=== PATIENT | female | born 1965 | race Caucasian/White ===

== ENCOUNTER → 2016-05-29 | Outpatient (CLI) | payer OTHER ==
[2016-01-16 15:15] VITALS: BP 86/48
[~2016-05-29] MED LIST: ALPR0.5T PO; ASPI-482 PO; BACL10TA PO; BUDE10.2 IH; CARB200C PO; CLON0.5T PO; DEXL60CA PO; DIGO0.12 PO; DIME240C PO; DOXY100T PO; ESCI10TA10 PO; HYDR-2666 PO; IOHEXOL 300 MG/ML 100ML VIAL. IV ONE; LOVA40TA2 PO; MODA100T18 PO; OXYC-250 PO; TRAZ100T12 PO; morphine ID
--- NOTE | 2016-05-29 15:23 | KCIC ---
PROCEDURE CTA abdomen pelvis with lower extremity run-off HISTORY Abdominal pain, left leg pain, rule extremities, tenderness of the abdomen TECHNIQUE After bolus of intravenous contrast, CT imaging was performed of the abdomen and pelvis as well as of the lower extremities. Multiplanar reconstruction images to include MIP and 3D reconstruction images are submitted. No oral contrast was given. Exposure: One or more of the following individualized dose reduction techniques were utilized for this exam: 1. Automated exposure control. 2. Adjustment of the mA and/or kV according to patient size. 3. Use of iterative reconstruction technique. Contrast: 100 cc Omnipaque 300. COMPARISON August 25, 2013 CT abdomen exam FINDINGS Not fully included, there is again at least moderate-sized pericardial effusion. There is a left electronic cardiac device. There is no significant pleural fluid. There is linear fibrotic change left lower lobe is seen previously. There is some scattered mild plaque of the normal caliber abdominal aorta, no dissection flap. There are patent single renal arteries bilaterally. Superior mesenteric and celiac arteries are patent. Inferior mesenteric artery is patent. There is some scattered mild plaque of the common iliac arteries bilaterally, no significant focal stenosis of the iliac arteries. Common femoral, superficial femoral, popliteal arteries are patent bilaterally. There is visualization of anterior tibial arteries bilaterally, dorsalis pedis arteries visualized. Vessels in the foot are poorly seen on this exam. There is visualization of the peroneal and posterior tibial arteries bilaterally although right posterior tibial artery is smaller in caliber than the right and the left peroneal artery smaller than the right. Left peroneal artery is difficult to visualize beyond the level of the distal tibia/fibula. There is a small quantity of nonspecific dependent free fluid in the pelvis. There is retained stool variably in the colon. Accurate evaluation of bowel is limited without oral contrast. There may be some wall thickening such as of the transverse colon. Both kidneys enhance, no hydronephrosis. There is a small hypodense lesion of the mid left kidney on the order of 0.9 centimeters, most likely a cyst. There is no adrenal nodularity. No focal abnormality is identified of the liver, pancreas, spleen. Gallbladder is present without obvious intraluminal abnormality by CT. There is pump device present of the left anterior abdomen with catheter coursing into the posterior aspect of the spinal canal, superior tip near terminating near T11. There is mild lumbar levoscoliosis. IMPRESSION 1. Present on previous 2013 exam and not fully included on this exam, there is at least moderate-sized pericardial effusion. 2. No significant stenosis is identified of the arterial vasculature to the level of the knees. There is some variable size of the runoff vessels bilaterally although visualized. 3. While potentially accentuated by peristalsis and incomplete distension, mild transverse colonic wall thickening is not excluded as could be due to mild colitis. There is a small quantity of nonspecific dependent free fluid in the pelvis. 4. There is small left renal cyst. Electronically signed by: Prateek Valdes MD (May 29, 2016 15:22:38)
== END | disposition home or self-care (01) ==
LOC: KCIC CT 08:26
PROVIDERS: ATTEND Internal Medicine Cardiovascular Disease
DX: R10.9 Unspecified abdominal pain (principal); M79.605 Pain in left leg; N28.1 Cyst of kidney, acquired
CPT/HCPCS: 75635; Q9967

== ENCOUNTER → 2016-06-18 | Day surgery (SDC) | payer MEDICARE ==
[~2016-06-18] MED LIST changes: +CEPH-264 PO; -IOHEXOL 300 MG/ML 100ML VIAL. IV ONE; +IV RINGERS,LACTATED 1000ML 1,000 ML IV SCH
[2016-06-18 13:30] VITALS: BP 96/62
--- NOTE | 2016-06-19 13:59 | PATHOLOGY ---
PATHOLOGY REPORT * * * * * * * * FINAL DIAGNOSIS: Colorectal biopsy, rectal polyp: - Tubular adenoma. COMMENT: There is no high-grade dysplasia or evidence of malignancy. (JPM:; d/t: 06/19/16) REPORT ELECTRONICALLY SIGNED BY: Jorge L Jacinto M.D. DATE/TIME: 06/19/2016 13:58 * * * * * * * * GROSS PATHOLOGY: Received in formalin labeled "Reyna Kimbrough and rectal polyp," is a segment of khan soft tissue measuring 0.3 cm in maximum dimension. The specimen is submitted entirely in cassette A1. (TTL; 06/18/2016) INITIAL CPT CODE(S): A; 56399 Professional services performed [place] [facility] [place] [address] Technical services performed by [facility] at [address] [place] [address] [address] [address]. SPECIMEN(S) RECEIVED: A.Rectal polyp CLINICAL HISTORY: Abdominal pain, melena PATIENT: REYNA KIMBROUGH /AGE: 2 1965 (Age: 50) PATIENT #: [id number] ALT CASE #: SPECIMEN COLLECTION DATE: 06/18/2016 SPECIMEN RECEIVED DATE: 06/18/2016 [facility] - [address] [place] [address] - PHONE: [phone] * * * END OF REPORT * * *
== END ==
LOC: SURG 12:04
PROVIDERS: ATTEND Internal Medicine Gastroenterology
DX: K62.1 Rectal polyp (principal); K64.0 First degree hemorrhoids; K29.50 Unspecified chronic gastritis without bleeding; K44.9 Diaphragmatic hernia without obstruction or gangrene; K21.9 Gastro-esophageal reflux disease without esophagitis; E78.00 Pure hypercholesterolemia, unspecified; M81.0 Age-related osteoporosis without current pathological fracture; Z90.721 Acquired absence of ovaries, unilateral; Z98.890 Other specified postprocedural states
CPT/HCPCS: 88305

== ENCOUNTER 2016-06-22 15:16 | Emergency (ER) | payer MEDICARE ==
[~2016-06-22] VITALS: Ht 170.2 cm; Wt 48.1 kg
[~2016-06-22 15:16] MED LIST changes: -CEPH-264 PO; -IV RINGERS,LACTATED 1000ML 1,000 ML IV SCH
[2016-06-22] MEDS ORDERED: OXYCODONE/APAP 10/325 TABLET. PO ONE (16:45)
--- NOTE | 2016-06-22 16:51 | PHYS DOC ---
Past Medical History Past Medical History: Cancer, COPD, High Cholesterol, Heart Disease, Hypertension, Other Additional Past Medical Histor: MS, Osteoporosis, carmichael's esophagus, mitral vavle insuf. endometriosis Past Surgical History: Angioplasty, Hysterectomy, Pacemaker, Tonsillectomy, Other Additional Past Surgical Histo: Morphine pump,Mesh placed r/t "a lot of laproscopies," "Part of Thyroid" Alcohol Use: None Drug Use: None Adult General Chief Complaint Chief Complaint: FLANK PAIN HPI HPI Patient is a 50 year old female who presents with complaint of left-sided flank pain. The patient states that she has had the pain for the past 6 months. Patient has had multiple workups with no conclusive evidence for the cause of the patient's symptoms. The patient has history of multiple sclerosis, cardiomyopathy, and hypertension. Patient follows with Dr. Alarcon who has been helping a shunt to further investigate cause of her pain. The patient has a morphine pump in place for treatment of chronic pain and takes oral Percocet for breakthrough pain at home. The patient states that she feels like she has a "basketball" in her spine that is causing her pain. The patient recently had a colonoscopy done by Dr. Narayan on June 18 and had removal of a nonmalignant polyp. The patient denies any fevers. The patient states that she has had dysuria but denies gross blood in her urine. Due to continued pain the patient came to the emergency department for evaluation. Patient states that her pain is 10 out of 10, constant, and radiates from her left flank into her groin. Patient admits that this is consistent with her symptoms since onset 6 months ago. Review of Systems Review of Systems Constitutional: Denies fever or chills [] Eyes: Denies change in visual acuity, redness, or eye pain [] HENT: Denies nasal congestion or sore throat [] Respiratory: Denies cough or shortness of breath [] Cardiovascular: Denies chest pain or edema [] GI: Denies abdominal pain, nausea, vomiting, bloody stools or diarrhea [] : Denies dysuria or hematuria [] Musculoskeletal: Left-sided flank pain [] Integument: Denies rash or skin lesions [] Neurologic: Denies headache, focal weakness or sensory changes [] Current Medications Current Medications Current Medications Medications (Trade) Dose Ordered Sig/Abhijit Start Time Stop Time Status Last Admin Dose Admin Oxycodone/ Acetaminophen (Percocet 10/325) 1 tab 1X ONCE 06/22/16 16:45 06/22/16 16:48 DC 06/22/16 17:02 1 TAB Allergies Allergies Allergies Coded Allergies Type Severity Reaction Last Updated Verified No Known Allergies Allergy Unknown 06/18/16 No Physical Exam Physical Exam Constitutional: Alert, afebrile, appears mild to moderate discomfort. [] HENT: Normocephalic, atraumatic, bilateral external ears normal, oropharynx moist, no oral exudates, nose normal. [] Eyes: PERRLA, EOMI, conjunctiva normal, no discharge. [] Neck: Normal range of motion, no tenderness, supple, no stridor. [] Cardiovascular:Heart rate regular rhythm, no murmur [] Lungs & Thorax: Bilateral breath sounds clear to auscultation [] Abdomen: Bowel sounds normal, soft, left lower quadrant tenderness to palpation , no masses, no pulsatile masses. [] Skin: Warm, dry, no erythema, no rash. [] Back: Left paraspinous muscle tenderness to palpation, no CVA tenderness, no flank ecchymosis. [] Extremities: No tenderness, no cyanosis, no clubbing, ROM intact, no edema. [] Neurologic: Alert and oriented X 3, cranial nerves II through XII grossly intact , left lower extremity spasticity present. [] Current Patient Data Vital Signs Vital Signs Date Time Temp Pulse Resp B/P Pulse Ox O2 Delivery O2 Flow Rate FiO2 06/22/16 18:00 66 20 96/53 90 06/22/16 15:40 98.9 Room Air 98.9 Lab Values Laboratory Tests Test 06/22/16 15:30 Urine Collection Type Unknown Urine Color Dariana Urine Clarity Clear Urine pH 6.0 Urine Specific [place] >=1.030 Urine Protein Negativemg/dL (NEG-TRACE) Urine Glucose (UA) Negativemg/dL (NEG) Urine Ketones (Stick) Tracemg/dL (NEG) Urine Blood Moderate (NEG) Urine Nitrite Negative (NEG) Urine Bilirubin Small (NEG) Urine Urobilinogen Dipstick 1.0mg/dL (0.2 mg/dL) Urine Leukocyte Esterase Small (NEG) Urine RBC 6-10/HPF (0-2) Urine WBC Occ/HPF (0-4) Urine Squamous Epithelial Cells Occ/LPF Urine Bacteria Few/HPF (0-FEW) Urine Mucus Slight/LPF Microbiology 06/22/16 Urine Culture - Preliminary, Resulted 06/22/16 Urine Culture Result 1 (BRIAN) - Preliminary, Resulted EKG EKG Not performed [] Radiology/Procedures Radiology/Procedures [facility] [address] [place] [address] IMAGING REPORT Signed PATIENT: RA VALLEJO ACCOUNT: [id number] : 1965 LOCATION: ER AGE: 50 SEX: F EXAM STATUS: PRE ER ORD. PHYSICIAN: NIKKI YOUNG MD REASON: L flank and abdominal pain, recent colonoscopy on June 18, r/o free air PROCEDURE: ABDOMEN SUPINE & UPRIGHT Abdomen, 2 views, 06/22/2016: History: Left-sided pain The abdominal gas pattern is unremarkable. No free air seen in the abdomen. There is no evidence of organomegaly. Lower pelvic calcifications are compatible with phleboliths. Several small paraspinous opacities in the lower lumbar region on the left may represent additional phleboliths, however, a ureteral calculus cannot be entirely excluded. Clinical correlation is suggested. A spinal stimulator lead extends into the lower thoracic spinal canal. There is a mild thoracolumbar scoliosis. IMPRESSION: No acute abdominal abnormality is detected. DICTATED and SIGNED BY: YUNG HUDSON MD DATE: 06/22/16 174 CC: NIKKI YOUNG MD; CHRIS JEFFRIES MD ~ [] Course & Med Decision Making Course & Med Decision Making Pertinent Labs and Imaging studies reviewed. (See chart for details) Patient's UA shows evidence of urinary tract infection. Patient's abdominal x- rays do not show evidence of obstruction or free air. I spoke with Dr. Alarcon who stated that there was no indication for further testing at this time for the patient's chronic left flank pain. He recommended that the patient follow-up in his clinic in the next 3-5 days. Patient started on Keflex for treatment of urinary tract infection. Advised continue use of Percocet as needed for pain. Advised return emergency department for any worsening symptoms. Patient voiced understanding and in agreement with treatment plan. Dragon Disclaimer Dragon Disclaimer This electronic medical record was generated, in whole or in part, using a voice recognition dictation system. Departure Departure Impression: Primary Impression: UTI (lower urinary tract infection) Additional Impression: Chronic left flank pain Disposition: HOME, SELF-CARE Condition: IMPROVED Referrals: CHRIS JEFFRIES MD (PCP) ESTEFANI ALARCON MD Patient Instructions: Chronic Pain, Urinary Tract Infection Additional Instructions: Follow-up with Dr. Alarcon in the next 3-5 days. Return to the emergency department for any worsening symptoms. Scripts Cephalexin (Keflex)500 Mg Capsule1 Cap PO TID #21 CAP Prov:NIKKI YOUNG MD 06/22/16 Problem Qualifiers NIKKI YOUNG MD Jun 22, 2016 16:51
[2016-06-22 16:54] LABS: BILIRUBIN,URINE SMALL (NEG); GLUCOSE,URINE NEGATIVE (NEG); NITRITE,URINE NEGATIVE (NEG); PROTEIN,URINE NEGATIVE (NEG-TRACE)
[2016-06-22 17:44] LABS: BACTERIA,URINE FEW /HPF (0-FEW); SQUAMOUS EPITHELIAL CELL,UR OCC /LPF; WBC,URINE OCC /HPF (0-4)
--- NOTE | 2016-06-22 17:48 | RAD ---
Abdomen, 2 views, 06/22/2016: History: Left-sided pain The abdominal gas pattern is unremarkable. No free air seen in the abdomen. There is no evidence of organomegaly. Lower pelvic calcifications are compatible with phleboliths. Several small paraspinous opacities in the lower lumbar region on the left may represent additional phleboliths, however, a ureteral calculus cannot be entirely excluded. Clinical correlation is suggested. A spinal stimulator lead extends into the lower thoracic spinal canal. There is a mild thoracolumbar scoliosis. IMPRESSION: No acute abdominal abnormality is detected.
[2016-06-22 18:00] VITALS: BP 96/53
[2016-06-22] MEDS ORDERED: CEPH-264 PO (18:00)
== END 2016-06-22 18:36 | disposition home or self-care (01) ==
LOC: ER 15:16
DX: N39.0 Urinary tract infection, site not specified (principal); G89.29 Other chronic pain; I11.9 Hypertensive heart disease without heart failure; E78.00 Pure hypercholesterolemia, unspecified; G35 Multiple sclerosis; I10 Essential (primary) hypertension; J44.9 Chronic obstructive pulmonary disease, unspecified; K22.70 Barrett's esophagus without dysplasia; M81.0 Age-related osteoporosis without current pathological fracture; Z90.710 Acquired absence of both cervix and uterus; Z98.61 Coronary angioplasty status; Z95.0 Presence of cardiac pacemaker
CPT/HCPCS: 74020; 81001; 87086; 99285-25

== ENCOUNTER 2016-06-24 14:45 | Inpatient (IN) | payer MEDICARE ==
[~2016-06-24] VITALS: Ht 170.2 cm; Wt 51.4 kg
[~2016-06-24 14:45] MED LIST changes: +CEPH-264 PO
[2016-06-24] MEDS ORDERED: FENTANYL PF 100 MCG/2 ML VIAL. IV PRN (17:30)
[2016-06-24] MEDS ORDERED: ONDANSETRON PF 4 MG/2 ML VIAL. IV ONE (17:30)
[2016-06-24] MEDS ORDERED: IV NORMAL SALINE 1000ML BAG 1,000 ML IV SCH (17:30)
--- NOTE | 2016-06-24 17:35 | PHYS DOC ---
Past Medical History Past Medical History: Cancer, COPD, High Cholesterol, Heart Disease, Hypertension, Other Additional Past Medical Histor: MS, Osteoporosis, carmichael's esophagus, mitral vavle insuf. endometriosis Past Surgical History: Angioplasty, Hysterectomy, Pacemaker, Tonsillectomy, Other Additional Past Surgical Histo: Morphine pump,Mesh placed r/t "a lot of laproscopies," "Part of Thyroid" Alcohol Use: None Drug Use: None Adult General Chief Complaint Chief Complaint: WEAKNESS/GENERALIZED HPI HPI Patient is a 50 year old female who presents with complaint of left flank pain and generalized weakness. Patient was seen in the emergency department 2 days ago with similar complaints. Patient has had history of chronic left flank pain stating that it has worsened over the past 2 weeks. Workups for this pain with no significant findings. Most recently, the patient was found to have signs urinary tract infection and was started on an antibiotic. Patient states her symptoms have worsened over the past 2 days and she is having difficulty with generalized weakness. The patient states that she has been eating and drinking normal amounts at home. Patient rates her pain as 8 out of 10. Review of Systems Review of Systems Constitutional: Generalized weakness, Denies fever or chills [] Eyes: Denies change in visual acuity, redness, or eye pain [] HENT: Denies nasal congestion or sore throat [] Respiratory: Denies cough or shortness of breath [] Cardiovascular: Chest pressure [] GI: Left sided abdominal pain, denies nausea or vomiting [] : Denies dysuria or hematuria [] Musculoskeletal: Left flank pain [] Integument: Denies rash or skin lesions [] Neurologic: Denies headache, focal weakness or sensory changes [] Current Medications Current Medications Current Medications Medications (Trade) Dose Ordered Sig/[facility] Start Time Stop Time Status Last Admin Dose Admin Fentanyl Citrate 50 mcg 50 mcg PRN Q15MIN PRN 06/24/16 17:30 06/25/16 17:29 06/24/16 18:02 50 MCG Ondansetron HCl (Zofran) 4 mg 1X ONCE 06/24/16 17:30 06/24/16 17:31 DC 06/24/16 17:57 4 MG Sodium Chloride (Iv Sodium Chloride 0.9% 1000ml Bag) 1,000 ml @ 1,000 mls/hr Q1H 06/24/16 17:30 06/24/16 18:29 DC 06/24/16 17:58 1,000 MLS/HR Allergies Allergies Allergies Coded Allergies Type Severity Reaction Last Updated Verified No Known Allergies Allergy Unknown 06/18/16 No Physical Exam Physical Exam Constitutional: Alert, afebrile, appears in mild discomfort. [] HENT: Normocephalic, atraumatic, bilateral external ears normal, oropharynx moist, no oral exudates, nose normal. [] Eyes: PERRLA, EOMI, conjunctiva normal, no discharge. [] Neck: Normal range of motion, no tenderness, supple, no stridor. [] Cardiovascular:Heart rate regular rhythm, no murmur [] Lungs & Thorax: Bilateral breath sounds clear to auscultation [] Abdomen: Bowel sounds normal, soft, left lower quadrant tenderness to palpation , left lower quadrant subcutaneous pain pump in place no masses, no pulsatile masses. [] Skin: Warm, dry, no erythema, no rash. [] Back: No tenderness, left CVA tenderness. [] Extremities: No tenderness, no cyanosis, no clubbing, ROM intact, no edema. [] Neurologic: Alert and oriented X 3, normal motor function, normal sensory function, no focal deficits noted. [] Current Patient Data Vital Signs Vital Signs Date Time Temp Pulse Resp B/P Pulse Ox O2 Delivery O2 Flow Rate FiO2 06/24/16 17:15 60 19 90/57 92 Nasal Cannula 3 06/24/16 15:22 98.5 98.5 EKG EKG Interpreted by me: Heart rate 61, sinus rhythm, leftward axis, normal intervals , no acute ST/T-wave abnormalities present [] Radiology/Procedures Radiology/Procedures Not performed [] Course & Med Decision Making Course & Med Decision Making Pertinent Labs and Imaging studies reviewed. (See chart for details) I spoke with Dr. Alarcon who came and evaluated the patient in the emergency department. He agreed to accept care of patient in hospital for pain control. Spoke with patient who is in agreement with treatment plan. Dragon Disclaimer Dragon Disclaimer This electronic medical record was generated, in whole or in part, using a voice recognition dictation system. Departure Departure Impression: Primary Impression: Intractable pain Additional Impression: Multiple sclerosis Disposition: ADMITTED INPATIENT Admitting Physician: Glen Alarcon Condition: STABLE Referrals: CHRIS JEFFRIES MD (PCP) Problem Qualifiers NIKKI YOUNG MD Jun 24, 2016 17:35
[2016-06-24] MEDS ORDERED: ACETAMINOPHEN 325 MG TABLET. PO PRN (17:45)
[2016-06-24] MEDS ORDERED: ONDANSETRON PF 4 MG/2 ML VIAL. IV PRN (17:45)
[2016-06-24 18:18] LABS: BASO % 1 % (0-3); EOS % 2 % (0-3); HEMATOCRIT 38.9 % (36.0-47.0); HEMOGLOBIN 13.1 g/dL (12.0-15.5); LYMPH # 1.7 x10^3/uL (1.0-4.8); LYMPH % 54 % (24-48); MEAN CORPUSCULAR HEMOGLOBIN 33 pg (25-35); MEAN CORPUSCULAR HGB CONC 34 g/dL (31-37); MEAN CORPUSCULAR VOLUME 97 fL (79-100); MONO % 9 % (0-9); NEUT % 34 % (31-73); PLATELET COUNT 134 x10^3/uL (140-400); RED BLOOD COUNT 4.02 x10^6/uL (3.50-5.40); RED CELL DISTRIBUTION WIDTH 13.9 % (11.5-14.5); WHITE BLOOD COUNT 3.1 x10^3/uL (4.0-11.0)
[2016-06-24 18:35] LABS: CALCIUM 8.9 mg/dL (8.5-10.1); CREATININE 0.7 mg/dL (0.6-1.0); GFR 88.6; POTASSIUM 4.2 mmol/L (3.5-5.1)
[2016-06-24 20:15] VITALS: BP 91/57
[2016-06-24] MEDS: FENTANYL PF 100 MCG/2 ML VIAL. IV PRN (20:38)
[2016-06-24] MEDS: traZODone 100 MG TABLET. PO SCH (22:33)
[2016-06-24 23:00] VITALS: BP 93/41
--- NOTE | 2016-06-24 23:57 | ACF ---
Admission Forms Criteria ABDOMINAL PAIN Clinical Indications for Admission to Inpatient Care (Place 'X' for any and all applicable criteria): Admission is indicated for ANY ONE of the following(1)(2)(3)(4)(5): [X]I. Inpatient admission required rather than observation care (Also use Abdominal Pain: Observation Care, as appropriate) because of ANY ONE of the following: [X]a) Severe pain requiring acute inpatient management [ ]b) Identification of etiology/finding that requires inpatient care (eg, aortic dissection, free air) [ ]c) Absent bowel sounds with complete ileus(6) [ ]d) Suspected toxic megacolon [ ]e) Severe electrolyte abnormalities requiring inpatient care [ ]f) High fever or infection requiring inpatient admission as indicated by ANY ONE of following(7)(8): [ ] i) Appropriate outpatient or observational care antimicrobial treatment unavailable, not effective, or not feasible [ ] ii) Documented bacteremia [ ] iii) Temperature > 104.9 degrees F (oral) [ ] iv) T >103.1 F (oral) or < 96.8 F(rectal) that does not respond to all emergency treatment measures [ ]g) Signs of intestinal obstruction [B] [ ]h) Hemodynamic instability [ ]i) IV fluid to replace significant ongoing losses (greater than 3 L/m2 per day) (12)(13) [ ]j) Percutaneous or open drainage (eg, abscess, biliary tract ) procedures [ ]k) Parenteral nutrition regimen that must be implemented on inpatient basis [ ]l) Other condition,treatment or monitoring requiring inpatient admission. [ ]II. Peritoneal signs present [ ]III. Surgery needed that cannot be performed on an ambulatory basis. [ ]IV. Evaluation requires patient to not eat or drink for extended period ( eg, more than 24 hours). [ ]V. Contraindications and/or Inappropriate clinical situations for Observational Care in patients with abdominal pain, when ANY ONE of the following is required: [ ]a) Thorough evaluation is required to prevent catastrophic events due to delays in diagnosing (e.g.Mesenteric ischemia) 1,3 [ ]b) Patient with severe pathology or with chronic symptoms unlikely to improve in the ED stay (3) [ ]. General contraindications and/or Inappropriate clinical situations for Observational Care in patients with abdominal pain, when ANY ONE of the following is required: [ ]a) Prediction of prolongation of LOS based on ANY ONE of the following may be considered as a contraindication for observational care 2, 3, 4, 5, 6, 7, 8, 9, 10, 11 [ ]i) Age > 65 yrs. [ ]ii) Patient arriving by ambulance [ ]iii) Patient with high acuity [ ]iv) Patient requiring vital sign monitoring [ ]v) Patient on IV medication [ ]b) Systolic blood pressures 180mmHg 3,12 [ ]c) Patient with altered mental status including delirium and other alteration of consciousness, (3) [ ]d) Patient whose discharge disposition will be to a [facility] home or rehabilitation home should not be managed in Emergency Department Observation Unit. CMS rule requires 3 days hospital stay before such placement.3,13 [ ]e) Patient with failure to thrive due to broad array of etiologies 3,16,17 [ ]f) Inability to ambulate 3,14 Extended stay beyond goal length of stay may be needed for(2)(3): [ ]a) Persistent abdominal pain with suspected intra-abdominal process [ ]b) Diagnosed condition requiring continued stay (e.g., pancreatitis, complicated diverticulitis) [ ]c) Surgery (e.g., colectomy) The original [facility] content created by [employer] has been revised. The portions of the content which have been revised are identified through the use of italic text or in bold, and [facility] has neither reviewed nor approved the modified material.All other unmodified content is copyright [facility]. Please see references footnoted in the original [facility] edition 2016 Admission Criteria Met?: Yes BEATRICE CONRAD Jun 24, 2016 23:57
[2016-06-25] VITALS (8 sets, daily range): BP systolic 71–85; BP diastolic 37–50
[2016-06-25] MEDS: PANTOPRAZOLE 40 MG TABLET. PO SCH (05:54)
[2016-06-25] MEDS: FENTANYL PF 100 MCG/2 ML VIAL. IV PRN ×2 (05:58→15:50)
[2016-06-25 06:03] LABS: BASO % 1 % (0-3); CALCIUM 8.8 mg/dL (8.5-10.1); CREATININE 0.6 mg/dL (0.6-1.0); EOS % 3 % (0-3); GFR 105.4; HEMATOCRIT 37.3 % (36.0-47.0); HEMOGLOBIN 12.2 g/dL (12.0-15.5); LYMPH # 1.9 x10^3/uL (1.0-4.8); LYMPH % 58 % (24-48); MEAN CORPUSCULAR HEMOGLOBIN 32 pg (25-35); MEAN CORPUSCULAR HGB CONC 33 g/dL (31-37); MEAN CORPUSCULAR VOLUME 98 fL (79-100); MONO % 11 % (0-9); NEUT % 28 % (31-73); PLATELET COUNT 126 x10^3/uL (140-400); POTASSIUM 4.7 mmol/L (3.5-5.1); RED CELL DISTRIBUTION WIDTH 13.7 % (11.5-14.5); WHITE BLOOD COUNT 3.2 x10^3/uL (4.0-11.0)
--- NOTE | 2016-06-25 06:23 | EKG ---
[facility] [address] [place] [address] Test Date: 2016-06-24 Test Time: 17:57:55 Pat Name: RA VALLEJO Department: Room: 420 1 Gender: F Runner Worker: : 1965 Requested By: NIKKI YOUNG Order Number: [id number] Reading MD: Justyna Cooper Measurements Intervals [place] Rate: 61 P: 55 ME: 190 QRS: -26 QRSD: 76 T: 49 QT: 378 QTc: 382 Interpretive Statements SINUS RHYTHM LEFTWARD AXIS NON SPECIFIC ST T WAVE CHANGES POSSIBLY ABNORMAL ECG RI6.01 Compared to ECG 12/25/2015 18:58:49 Left-axis deviation now present Electronically Signed On 06-28-2016 15:39:33 FRONT OFFICE ATTENDANT by Justyna Cooper
[2016-06-25] MEDS ORDERED: PANTOPRAZOLE 40 MG TABLET. PO SCH (07:30)
[2016-06-25 07:36] LABS: PLT ESTIMATE DECREASED (ADEQUATE)
[2016-06-25] MEDS: ALBUTEROL SULFATE 2.5 MG/3 ML NEBU. NEB SCH ×4 (07:47→19:31)
[2016-06-25] MEDS: BUDESONIDE 0.5 MG/2 ML NEBU NEB SCH ×2 (07:47→19:33)
[2016-06-25] MEDS: NON FORMULARY ITEM (Dimethyl Fumarate (Tecfidera) 240 MG) PO SCH ×2 (09:00→20:40)
[2016-06-25] MEDS ORDERED: NON FORMULARY ITEM (Modafinil (Provigil) 200 MG) PO SCH (09:00)
[2016-06-25] MEDS ORDERED: NON FORMULARY ITEM (Budesonide/Formoterol Fumarate (Symbicort 160-4.5 Mcg Inhaler) 2 PUFF) IH SCH (09:00)
[2016-06-25] MEDS: ASPIRIN ENTERIC COATED 81 MG TABLET.DR. PO SCH (09:15)
[2016-06-25] MEDS: BACLOFEN 10 MG TABLET PO SCH ×3 (09:15→20:39)
[2016-06-25] MEDS: CEPHALEXIN 250 MG CAPSULE PO SCH ×3 (09:15→20:40)
[2016-06-25] MEDS: ESCITALOPRAM 10 MG TABLET. PO SCH (09:15)
[2016-06-25] MEDS: OXYCODONE/APAP 10/325 TABLET. PO PRN ×2 (09:15→20:38)
[2016-06-25] MEDS: DIGOXIN 125 MCG TABLET PO SCH (09:16)
[2016-06-25] MEDS: CARBAMAZEPINE 200 MG TABLET. PO SCH ×3 (09:16→20:39)
--- NOTE | 2016-06-25 09:37 | PDOC2 ---
GI CONSULT Reason For Consult: LLQ pain HPI: HPI: 51 y/o female w/ PMH as below who has previously seen Dr. Narayan. For epigastric pain, black stools, back pain, and abnormal CTA (showing mild transverse colon wall thickening), EGD and colonoscopy in 06/18/16 showed normal esophagus, chronic gastritis, normal duodenum, 12mm adenomatous rectal polyp, and non-bleeding internal hemorrhoids. 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 No h/o H. pylori on biopsies from 2010 or 2012. Additionally, duodenal biopsies have been negative for celiac sprue. Also, GES in 2013 for nausea, early satiety, and LUQ pain was normal. On this occasion, she was admitted through the ER w/ "severe" left flank pain w / radiation to periumbilical region and left groin. Similar pain can occur on the right as well. It is constant, getting worse, and has been present for about 6 months. No aggravating or alleviating factors. GERD symptoms controlled w/ PPI. No diarrhea or constipation, although stools look dark. Fairly bothersome nausea w/o vomiting. Believes unintentional weight loss of 10 pounds in 3 weeks despite no change in appetite. Notes dark urine w/ "bubbles." PMH: PMH: MS, thyroid cancer, GERD w/ h/o Clinton's esophagus, MVP, heart block, osteoporosis, narcotic dependence (on morphine pump and Percocet), nephrolithiasis, thyroidectomy, appendectomy, hysterectomy, pacemaker FH: Family History: Cancer, CAD, DM, Hypertension Social History: Smoke: <1 pack per day ALCOHOL: none Drugs: None ROS: GEN: Denies fevers, chills, sweats HEENT: Denies blurred vision, sore throat CV: Denies chest pain RESP: Denies shortness of air, cough GI: Per HPI : +dark urine "with bubbles" ENDO: +weight loss NEURO: Denies confusion, dizziness MSK: +chronic pain SKIN: Denies jaundice, pruritus VItals: Vitals: Vital Signs Date Time Temp Pulse Resp B/P Pulse Ox O2 Delivery O2 Flow Rate FiO2 06/25/16 09:16 60 76/46 2/9/17 09:15 Nasal Cannula 3.0 06/25/16 07:48 97 06/25/16 07:00 97.7 16 97.7 Labs: Labs: Laboratory Tests Test 06/24/16 17:55 06/25/16 05:15 White Blood Count 3.1x10^3/uL (4.0-11.0) 3.2x10^3/uL (4.0-11.0) Red Blood Count 4.02x10^6/uL (3.50-5.40) 3.80x10^6/uL (3.50-5.40) Hemoglobin 13.1g/dL (12.0-15.5) 12.2g/dL (12.0-15.5) Hematocrit 38.9% (36.0-47.0) 37.3% (36.0-47.0) Mean Corpuscular Volume 97fL (79-100) 98fL (79-100) Mean Corpuscular Hemoglobin 33pg (25-35) 32pg (25-35) Mean Corpuscular Hemoglobin Concent 34g/dL (31-37) 33g/dL (31-37) Red Cell Distribution Width 13.9% (11.5-14.5) 13.7% (11.5-14.5) Platelet Count 134x10^3/uL (140-400) 126x10^3/uL (140-400) Neutrophils (%) (Auto) 34% (31-73) 28% (31-73) Lymphocytes (%) (Auto) 54% (24-48) 58% (24-48) Monocytes (%) (Auto) 9% (0-9) 11% (0-9) Eosinophils (%) (Auto) 2% (0-3) 3% (0-3) Basophils (%) (Auto) 1% (0-3) 1% (0-3) Neutrophils # (Auto) 1.1x10^3uL (1.8-7.7) 0.9x10^3uL (1.8-7.7) Lymphocytes # (Auto) 1.7x10^3/uL (1.0-4.8) 1.9x10^3/uL (1.0-4.8) Monocytes # (Auto) 0.3x10^3/uL (0.0-1.1) 0.4x10^3/uL (0.0-1.1) Eosinophils # (Auto) 0.1x10^3/uL (0.0-0.7) 0.1x10^3/uL (0.0-0.7) Basophils # (Auto) 0.0x10^3/uL (0.0-0.2) 0.0x10^3/uL (0.0-0.2) Sodium Level 145mmol/L (136-145) 145mmol/L (136-145) Potassium Level 4.2mmol/L (3.5-5.1) 4.7mmol/L (3.5-5.1) Chloride Level 107mmol/L (98-107) 111mmol/L (98-107) Carbon Dioxide Level 32mmol/L (21-32) 32mmol/L (21-32) Anion Gap 6 (6-14) 2 (6-14) Blood Urea Nitrogen 18mg/dL (7-20) 16mg/dL (7-20) Creatinine 0.7mg/dL (0.6-1.0) 0.6mg/dL (0.6-1.0) Estimated GFR (Cockcroft-Gault) 88.6 105.4 Glucose Level 97mg/dL (70-99) 88mg/dL (70-99) Calcium Level 8.9mg/dL (8.5-10.1) 8.8mg/dL (8.5-10.1) Troponin I Quantitative < 0.017ng/mL (0.000-0.055) < 0.017ng/mL (0.000-0.055) Segmented Neutrophils % 25% (35-66) Band Neutrophils % 8% (0-9) Lymphocytes % 53% (24-48) Atypical Lymphocytes % (Manual) 2% (0-0) Monocytes % 12% (0-10) Platelet Estimate Decreased (ADEQUATE) Allergies: Coded Allergies: No Known Allergies (Unverified Allergy, Unknown, 06/18/16) Medications: Current Medications Medications (Trade) Dose Ordered Sig/Abhijit Route PRN Reason Start Time Stop Time Status Last Admin Dose Admin Fentanyl Citrate 50 mcg 50 mcg PRN Q15MIN PRN IV PAIN GREATER THAN 3/10 06/24/16 17:30 06/25/16 17:29 06/24/16 18:02 Sodium Chloride (Iv Sodium Chloride 0.9% 1000ml Bag) 1,000 ml @ 1,000 mls/hr Q1H IV 06/24/16 17:30 06/24/16 18:29 DC 06/24/16 17:58 Ondansetron HCl (Zofran) 4 mg 1X ONCE IV 06/24/16 17:30 06/24/16 17:31 DC 06/24/16 17:57 Ondansetron HCl (Zofran) 4 mg PRN Q8HRS PRN IV NAUSEA/VOMITING 06/24/16 17:45 06/25/16 17:44 06/25/16 06:02 Fentanyl Citrate (Fentanyl 2ml Vial) 50 mcg PRN Q2HR PRN IV PAIN 06/24/16 17:45 06/25/16 17:44 06/25/16 05:58 Aspirin (Ecotrin) 81 mg DAILY PO 06/25/16 09:00 06/25/16 09:15 Baclofen (Lioresal) 10 mg TID PO 06/25/16 09:00 06/25/16 09:15 Escitalopram Oxalate (Lexapro) 10 mg DAILY PO 06/25/16 09:00 06/25/16 09:15 Oxycodone/ Acetaminophen (Percocet 10/325) 1 tab PRN Q4HRS PRN PO PAIN 06/24/16 22:15 06/25/16 09:15 Trazodone HCl (Desyrel) 200 mg QHS PO 06/24/16 22:30 06/24/16 22:33 Carbamazepine (Tegretol) 200 mg TID PO 06/25/16 09:00 06/25/16 09:16 Cephalexin HCl (Keflex) 500 mg TID PO 06/25/16 09:00 06/25/16 09:15 Digoxin (Lanoxin) 125 mcg DAILY PO 06/25/16 09:00 06/25/16 09:16 Budesonide (Pulmicort) 0.5 mg RTBID NEB 06/25/16 08:00 06/25/16 07:47 Albuterol Sulfate (Ventolin Neb Soln) 2.5 mg RTQID NEB 06/25/16 08:00 06/25/16 07:47 Pantoprazole Sodium (Protonix) 40 mg DAILY06 PO 06/25/16 06:00 06/25/16 05:54 Imaging: Imaging: CTA A/P w/ LE run-off 05/2015 IMPRESSION 1. Present on previous 2013 exam and not fully included on this exam, there is at least moderate-sized pericardial effusion. 2. No significant stenosis is identified of the arterial vasculature to the level of the knees. There is some variable size of the runoff vessels bilaterally although visualized. 3. While potentially accentuated by peristalsis and incomplete distension, mild transverse colonic wall thickening is not excluded as could be due to mild colitis. There is a small quantity of nonspecific dependent free fluid in the pelvis. 4. There is small left renal cyst. PE: GEN: NAD, was asleep HEENT: Atraumatic, PERRL LUNGS: CTAB anteriorly HEART: RRR +murm ABD: NABS, S/ND - left flank pain along ribs toward LUQ EXTREMITY: No edema SKIN: No rashes, no jaundice NEURO/PSYCH: A & O 3 A/P: A/P: Left flank pain -radiates to LUQ, groin, can occur on right -previous GI workup as above includes EGD, colonoscopy, GES -h/o GERD on PPI Weight loss Chronic pain -morphine pump, Lortab MS -- Reviewed w/ Dr. Narayan. Not clearly a GI issue - will check SBS. Also consult neurology w/ h/o MS. ?need for spine imaging OSWALD CEE Jun 25, 2016 09:37
[2016-06-25] MEDS: IV 1/2 NORMAL SALINE 1,000 ML IV SCH (15:48)
--- NOTE | 2016-06-25 15:55 | PDOC2 ---
NEUROLOGY CONSULT Date of Admission Date of Admission DATE: 06/25/16 TIME: 15:43 Reason for Consult Reason for Consult: IMPRESSION: Chronic left flank pain. Chronic left LE weakness x 4 years. MS, per history. CAD DM Thyroid cancer since 2001. Chronic neck and back pain. RECOMMENDATIONS/PLAN: Continue Tecfidera home regimen. She can take it from her home supply. [facility] does not have it in hospital. Lab: see orders. Treat medical diseases. OT/PT. FU with Dr. Ball in [facility] per her schedule. MRI is contraindicated due to pacemaker. HISTORY OF THE PRESENT ILLNESS: 50-y-old female patient with Hx of MS and she said she was diagnosed in . She has been treated with Tecfidera for about 3 years so far. She had brain MRI in 03/2014 which was unremarkable. She received pacemaker in 2013 and no further MRI since. PAST MEDICAL HISTORY: Please see above. PAST SURGERY HISTORY: Pacemaker Placement ALLERGY: Unknown MEDICATIONS: Refer to [facility] FAMILY HISTORY: Non contributory. SOCIAL HISTORY: Denies smoking, drinking, and illicit drug use. REVIEW OF SYSTEMS: Constitutional: No malnutrition, weight loss, cachexia. Head: No traumatic brain or head injury. Skin: No edema, or rash. Ear: No infection, tinnitus. Eyes: No vision loss or color blindness. Nose: No bleeding or purulent discharges. Hearing: No hearing decrease. Neck: No injury. Breast: No history of cancer, masses,or discharges. Cardiac: CAD. Pulmonary: No COPD. GI: No GI ulcer, GI bleeding. Urinary/genital: UTI. Endocrinologic: Diabetes Mellitus Skeletomuscular: Chronic left LE weakness.. Neurological: see HP. Psychiatric: Denies drug use/abuse. Otherwise, not [id number] review of systems. PHYSICAL EXAMINATION: General appearance is in no acute distress. HEENT: Normocephalic and nontraumatic. Eyes, nose, ears, and throat are unremarkable. Neck is supple. No lymphadenopathy. No crepitus. Cardiovascular: S1, S2, regular rate and rhythm. Pulmonary: Clear to auscultation bilaterally. Abdomen: Bowel sounds are positive. Extremities: No rash, lesions, or edema. No restriction of range of motion NEUROLOGICAL EXAMINATION: Alert Oriented to time, place and person. PERRL. EOMI. CN: no focal findings. Muscle tone: within normal. Muscle strength: 4+, left LE 4 DTR: 2 Plantar reflex: Neutral response bilaterally Gait: not examined in bed. Sensory exam: no abnormal findings. No cerebellar signs elicited. F-T-N test accurate. Current Medications Current Medications Current Medications Fentanyl Citrate 50 mcg 50 mcg PRN Q15MIN PRN IV PAIN GREATER THAN 3/10 Last administered on 06/24/16 18:02; Start 06/24/16 at 17:30; Stop 06/25/16 at 17:29 Sodium Chloride (Iv Sodium Chloride 0.9% 1000ml Bag) 1,000 ml @ 1,000 mls/hr Q1H IV Last administered on 06/24/16 17:58; Start 06/24/16 at 17:30; Stop at 18:29; Status DC Ondansetron HCl (Zofran) 4 mg 1X ONCE IV Last administered on 06/24/16 17:57; Start 06/24/16 at 17:30; Stop 06/24/16 at 17:31; Status DC Ondansetron HCl (Zofran) 4 mg PRN Q8HRS PRN IV NAUSEA/VOMITING Last administered on 06/25/16 06:02; Start 06/24/16 at 17:45; Stop 06/25/16 at 17:44 Fentanyl Citrate (Fentanyl 2ml Vial) 50 mcg PRN Q2HR PRN IV PAIN Last administered on 06/25/16 05:58; Start 06/24/16 at 17:45; Stop 06/25/16 at 17:44 Acetaminophen (Tylenol) 650 mg PRN Q4HRS PRN PO FEVER; Start 06/24/16 at 17:45; Stop 06/25/16 at 17:44 Aspirin (Ecotrin) 81 mg DAILY PO Last administered on 06/25/16 09:15; Start 06/25/16 at 09:00 Baclofen (Lioresal) 10 mg TID PO Last administered on 06/25/16 09:15; Start 06/25/16 at 09:00 Clonazepam (Klonopin) 0.5 mg PRN TID PRN PO TREMORS; Start 06/24/16 at 22:15 Escitalopram Oxalate (Lexapro) 10 mg DAILY PO Last administered on 06/25/16 09: 15; Start 06/25/16 at 09:00 Oxycodone/ Acetaminophen (Percocet 10/325) 1 tab PRN Q4HRS PRN PO PAIN Last administered on 06/25/16 09:15; Start 06/24/16 at 22:15 Trazodone HCl (Desyrel) 200 mg QHS PO Last administered on 06/24/16 22:33; Start 06/24/16 at 22:30 Non-Formulary Medication 2 puff BID IH ; Start 06/25/16 at 09:00; Status UNV Carbamazepine (Tegretol) 200 mg TID PO Last administered on 06/25/16 09:16; Start 06/25/16 at 09:00 Cephalexin HCl (Keflex) 500 mg TID PO Last administered on 06/25/16 09:15; Start 06/25/16 at 09:00 Pantoprazole Sodium (Protonix) 40 mg DAILYAC PO ; Start 06/25/16 at 07:30; Stop 06/25/16 at 07:30; Status DC Digoxin (Lanoxin) 125 mcg DAILY PO Last administered on 06/25/16 09:16; Start 06/25/16 at 09:00 Non-Formulary Medication 240 mg BID PO ; Start 06/25/16 at 09:00; Status UNV Atorvastatin Calcium (Lipitor) 10 mg HS PO ; Start 06/25/16 at 21:00 Non-Formulary Medication 200 mg DAILY PO ; Start 06/25/16 at 09:00; Status UNV Budesonide (Pulmicort) 0.5 mg RTBID NEB Last administered on 06/25/16 07:47; Start 06/25/16 at 08:00 Albuterol Sulfate (Ventolin Neb Soln) 2.5 mg RTQID NEB Last administered on 06/25 15:37; Start 06/25/16 at 08:00 Pantoprazole Sodium 40 mg 40 mg DAILY06 PO Last administered on 06/25/16 05:54 ; Start 06/25/16 at 06:00 Sodium Chloride (Iv Sodium Chloride 0.45%) 1,000 ml @ 60 mls/hr [id number] IV ; Start 06/25/16 at 15:45 Active Scripts Active Keflex (Cephalexin) 500 Mg Capsule 1 Cap PO TID Reported Trazodone Hcl 100 Mg Tablet 200 Mg PO HS Klonopin (Clonazepam) 0.5 Mg Tablet 0.5 Mg PO TID PRN [morphine] 14.5 Mg ID DAILY Lovastatin 40 Mg Tablet 40 Mg PO HS Aspir 81 (Aspirin) 81 Mg Tablet.dr 81 Mg PO DAILY Tecfidera (Dimethyl Fumarate) 240 Mg Capsule.dr 240 Mg PO BID Symbicort 160-4.5 Mcg Inhaler (Budesonide/Formoterol Fumarate) 10.2 Gm Hfa.aer.ad 2 Puff IH BID Percocet 10-325 Mg Tablet (Oxycodone/Acetaminophen) 1 Each Tablet 1 Tab PO Q4HRS PRN Baclofen 10 Mg Tablet 1 Tab PO TID Trazodone Hcl 100 Mg Tablet 2 Tab PO QHS Provigil (Modafinil) 100 Mg Tablet 200 Mg PO DAILY Dexilant (Dexlansoprazole) 60 Mg Cap.dr.mp 60 Mg PO DAILY Digoxin 0.125 Mg/2.5 Ml Solution 0.125 Mg PO DAILY Carbamazepine 200 Mg Cpmp.12hr 200 Mg PO TID Lexapro (Escitalopram Oxalate) 10 Mg Tablet 10 Mg PO DAILY Allergies Allergies: Coded Allergies: No Known Allergies (Unverified Allergy, Unknown, 06/18/16) Vitals VITALS Vital Signs Date Time Temp Pulse Resp B/P Pulse Ox O2 Delivery O2 Flow Rate FiO2 06/25/16 11:52 Nasal Cannula 3.0 06/25/16 11:00 97.7 60 17 71/37 99 97.7 Labs Labs Laboratory Tests Test 06/24/16 17:55 06/25/16 05:15 White Blood Count 3.1x10^3/uL (4.0-11.0) 3.2x10^3/uL (4.0-11.0) Red Blood Count 4.02x10^6/uL (3.50-5.40) 3.80x10^6/uL (3.50-5.40) Hemoglobin 13.1g/dL (12.0-15.5) 12.2g/dL (12.0-15.5) Hematocrit 38.9% (36.0-47.0) 37.3% (36.0-47.0) Mean Corpuscular Volume 97fL (79-100) 98fL (79-100) Mean Corpuscular Hemoglobin 33pg (25-35) 32pg (25-35) Mean Corpuscular Hemoglobin Concent 34g/dL (31-37) 33g/dL (31-37) Red Cell Distribution Width 13.9% (11.5-14.5) 13.7% (11.5-14.5) Platelet Count 134x10^3/uL (140-400) 126x10^3/uL (140-400) Neutrophils (%) (Auto) 34% (31-73) 28% (31-73) Lymphocytes (%) (Auto) 54% (24-48) 58% (24-48) Monocytes (%) (Auto) 9% (0-9) 11% (0-9) Eosinophils (%) (Auto) 2% (0-3) 3% (0-3) Basophils (%) (Auto) 1% (0-3) 1% (0-3) Neutrophils # (Auto) 1.1x10^3uL (1.8-7.7) 0.9x10^3uL (1.8-7.7) Lymphocytes # (Auto) 1.7x10^3/uL (1.0-4.8) 1.9x10^3/uL (1.0-4.8) Monocytes # (Auto) 0.3x10^3/uL (0.0-1.1) 0.4x10^3/uL (0.0-1.1) Eosinophils # (Auto) 0.1x10^3/uL (0.0-0.7) 0.1x10^3/uL (0.0-0.7) Basophils # (Auto) 0.0x10^3/uL (0.0-0.2) 0.0x10^3/uL (0.0-0.2) Sodium Level 145mmol/L (136-145) 145mmol/L (136-145) Potassium Level 4.2mmol/L (3.5-5.1) 4.7mmol/L (3.5-5.1) Chloride Level 107mmol/L (98-107) 111mmol/L (98-107) Carbon Dioxide Level 32mmol/L (21-32) 32mmol/L (21-32) Anion Gap 6 (6-14) 2 (6-14) Blood Urea Nitrogen 18mg/dL (7-20) 16mg/dL (7-20) Creatinine 0.7mg/dL (0.6-1.0) 0.6mg/dL (0.6-1.0) Estimated GFR (Cockcroft-Gault) 88.6 105.4 Glucose Level 97mg/dL (70-99) 88mg/dL (70-99) Calcium Level 8.9mg/dL (8.5-10.1) 8.8mg/dL (8.5-10.1) Troponin I Quantitative < 0.017ng/mL (0.000-0.055) < 0.017ng/mL (0.000-0.055) Segmented Neutrophils % 25% (35-66) Band Neutrophils % 8% (0-9) Lymphocytes % 53% (24-48) Atypical Lymphocytes % (Manual) 2% (0-0) Monocytes % 12% (0-10) Platelet Estimate Decreased (ADEQUATE) Creatine Kinase 33U/L (26-192) Thyroid Stimulating Hormone (TSH) 1.062uIU/mL (0.358-3.74) Laboratory Tests Test 06/24/16 17:55 06/25/16 05:15 White Blood Count 3.1x10^3/uL (4.0-11.0) 3.2x10^3/uL (4.0-11.0) Red Blood Count 4.02x10^6/uL (3.50-5.40) 3.80x10^6/uL (3.50-5.40) Hemoglobin 13.1g/dL (12.0-15.5) 12.2g/dL (12.0-15.5) Hematocrit 38.9% (36.0-47.0) 37.3% (36.0-47.0) Mean Corpuscular Volume 97fL (79-100) 98fL (79-100) Mean Corpuscular Hemoglobin 33pg (25-35) 32pg (25-35) Mean Corpuscular Hemoglobin Concent 34g/dL (31-37) 33g/dL (31-37) Red Cell Distribution Width 13.9% (11.5-14.5) 13.7% (11.5-14.5) Platelet Count 134x10^3/uL (140-400) 126x10^3/uL (140-400) Neutrophils (%) (Auto) 34% (31-73) 28% (31-73) Lymphocytes (%) (Auto) 54% (24-48) 58% (24-48) Monocytes (%) (Auto) 9% (0-9) 11% (0-9) Eosinophils (%) (Auto) 2% (0-3) 3% (0-3) Basophils (%) (Auto) 1% (0-3) 1% (0-3) Neutrophils # (Auto) 1.1x10^3uL (1.8-7.7) 0.9x10^3uL (1.8-7.7) Lymphocytes # (Auto) 1.7x10^3/uL (1.0-4.8) 1.9x10^3/uL (1.0-4.8) Monocytes # (Auto) 0.3x10^3/uL (0.0-1.1) 0.4x10^3/uL (0.0-1.1) Eosinophils # (Auto) 0.1x10^3/uL (0.0-0.7) 0.1x10^3/uL (0.0-0.7) Basophils # (Auto) 0.0x10^3/uL (0.0-0.2) 0.0x10^3/uL (0.0-0.2) Sodium Level 145mmol/L (136-145) 145mmol/L (136-145) Potassium Level 4.2mmol/L (3.5-5.1) 4.7mmol/L (3.5-5.1) Chloride Level 107mmol/L (98-107) 111mmol/L (98-107) Carbon Dioxide Level 32mmol/L (21-32) 32mmol/L (21-32) Anion Gap 6 (6-14) 2 (6-14) Blood Urea Nitrogen 18mg/dL (7-20) 16mg/dL (7-20) Creatinine 0.7mg/dL (0.6-1.0) 0.6mg/dL (0.6-1.0) Estimated GFR (Cockcroft-Gault) 88.6 105.4 Glucose Level 97mg/dL (70-99) 88mg/dL (70-99) Calcium Level 8.9mg/dL (8.5-10.1) 8.8mg/dL (8.5-10.1) Troponin I Quantitative < 0.017ng/mL (0.000-0.055) < 0.017ng/mL (0.000-0.055) Segmented Neutrophils % 25% (35-66) Band Neutrophils % 8% (0-9) Lymphocytes % 53% (24-48) Atypical Lymphocytes % (Manual) 2% (0-0) Monocytes % 12% (0-10) Platelet Estimate Decreased (ADEQUATE) Creatine Kinase 33U/L (26-192) Thyroid Stimulating Hormone (TSH) 1.062uIU/mL (0.358-3.74) KEVIN JOHNSON MD Jun 25, 2016 15:55
--- NOTE | 2016-06-25 16:53 | PDOC1 ---
History and Physical Date of Admission Date of Admission DATE: 06/24/16 Identification/Chief Complaint Chief Complaint L flank pain Source Source: Patient History of Present Illness History of Present Illness Pt complained of L flank pain for several days. She came to the hospital two days previous and was diagnosed with a UTI and given antibiotics. Pt has a history of MS. Pt described her pain as "feels like I have a basketball in my spine." Pt stated the pain starts in her LLQ and radiates to her back on her left side and into her groin. Pt rates the pain at a 8-9 on a 1-10 scale. Pt stated the pain is sharp. Pt states she is nauseated. Pt states, "I pee bubbles." Pt stated her urine is dark brown but not red. Pt stated her appetite is suppressed and she has been eating and drinking less lately. Pt stated she has had around a 10 pound weight loss in the past 3 weeks. Pt stated her L leg sometime becomes numb. Past Medical History Cardiovascular: CAD, Hyperlipidemia, Other Pulmonary: COPD, Pneumonia, Other CENTRAL NERVOUS SYSTEM: Other GI: Other Psych: Anxiety, Depression Musculoskeletal: Other Renal/: Other Endocrine: Osteoporosis Past Surgical History Past Surgical History: Pacemaker, Hysterectomy, Other Family History Family History: Heart Disease Social History Smoke: <1 pack per day ALCOHOL: none Drugs: None Current Problem List Problem List Problems Medical Problems: (1) Intractable pain Status: Acute (2) Multiple sclerosis Status: Acute Problems: Current Medications Current Medications Current Medications Fentanyl Citrate 50 mcg 50 mcg PRN Q15MIN PRN IV PAIN GREATER THAN 3/10 Last administered on 06/24/16 18:02; Start 06/24/16 at 17:30; Stop 06/25/16 at 17:29 Sodium Chloride (Iv Sodium Chloride 0.9% 1000ml Bag) 1,000 ml @ 1,000 mls/hr Q1H IV Last administered on 06/24/16 17:58; Start 06/24/16 at 17:30; Stop at 18:29; Status DC Ondansetron HCl (Zofran) 4 mg 1X ONCE IV Last administered on 06/24/16 17:57; Start 06/24/16 at 17:30; Stop 06/24/16 at 17:31; Status DC Ondansetron HCl (Zofran) 4 mg PRN Q8HRS PRN IV NAUSEA/VOMITING Last administered on 06/25/16 06:02; Start 06/24/16 at 17:45; Stop 06/25/16 at 17:44 Fentanyl Citrate (Fentanyl 2ml Vial) 50 mcg PRN Q2HR PRN IV PAIN Last administered on 06/25/16 15:50; Start 06/24/16 at 17:45; Stop 06/25/16 at 17:44 Acetaminophen (Tylenol) 650 mg PRN Q4HRS PRN PO FEVER; Start 06/24/16 at 17:45; Stop 06/25/16 at 17:44 Aspirin (Ecotrin) 81 mg DAILY PO Last administered on 06/25/16 09:15; Start 06/25/16 at 09:00 Baclofen (Lioresal) 10 mg TID PO Last administered on 06/25/16 15:48; Start 06/25/16 at 09:00 Clonazepam (Klonopin) 0.5 mg PRN TID PRN PO TREMORS; Start 06/24/16 at 22:15 Escitalopram Oxalate (Lexapro) 10 mg DAILY PO Last administered on 06/25/16 09: 15; Start 06/25/16 at 09:00 Oxycodone/ Acetaminophen (Percocet 10/325) 1 tab PRN Q4HRS PRN PO PAIN Last administered on 06/25/16 09:15; Start 06/24/16 at 22:15 Trazodone HCl (Desyrel) 200 mg QHS PO Last administered on 06/24/16 22:33; Start 06/24/16 at 22:30 Non-Formulary Medication 2 puff BID IH ; Start 06/25/16 at 09:00; Status UNV Carbamazepine (Tegretol) 200 mg TID PO Last administered on 06/25/16 15:49; Start 06/25/16 at 09:00 Cephalexin HCl (Keflex) 500 mg TID PO Last administered on 06/25/16 15:49; Start 06/25/16 at 09:00 Pantoprazole Sodium (Protonix) 40 mg DAILYAC PO ; Start 06/25/16 at 07:30; Stop 06/25/16 at 07:30; Status DC Digoxin (Lanoxin) 125 mcg DAILY PO Last administered on 06/25/16 09:16; Start 06/25/16 at 09:00 Non-Formulary Medication 240 mg BID PO ; Start 06/25/16 at 09:00; Status UNV Atorvastatin Calcium (Lipitor) 10 mg HS PO ; Start 06/25/16 at 21:00 Non-Formulary Medication 200 mg DAILY PO ; Start 06/25/16 at 09:00; Status UNV Budesonide (Pulmicort) 0.5 mg RTBID NEB Last administered on 06/25/16 07:47; Start 06/25/16 at 08:00 Albuterol Sulfate (Ventolin Neb Soln) 2.5 mg RTQID NEB Last administered on 06/25 15:37; Start 06/25/16 at 08:00 Pantoprazole Sodium 40 mg 40 mg DAILY06 PO Last administered on 06/25/16 05:54 ; Start 06/25/16 at 06:00 Sodium Chloride (Iv Sodium Chloride 0.45%) 1,000 ml @ 60 mls/hr [id number] IV Last administered on 06/25/16 15:48; Start 06/25/16 at 15:45 Active Scripts Active Keflex (Cephalexin) 500 Mg Capsule 1 Cap PO TID Reported Trazodone Hcl 100 Mg Tablet 200 Mg PO HS Klonopin (Clonazepam) 0.5 Mg Tablet 0.5 Mg PO TID PRN [morphine] 14.5 Mg ID DAILY Lovastatin 40 Mg Tablet 40 Mg PO HS Aspir 81 (Aspirin) 81 Mg Tablet.dr 81 Mg PO DAILY Tecfidera (Dimethyl Fumarate) 240 Mg Capsule.dr 240 Mg PO BID Symbicort 160-4.5 Mcg Inhaler (Budesonide/Formoterol Fumarate) 10.2 Gm Hfa.aer.ad 2 Puff IH BID Percocet 10-325 Mg Tablet (Oxycodone/Acetaminophen) 1 Each Tablet 1 Tab PO Q4HRS PRN Baclofen 10 Mg Tablet 1 Tab PO TID Trazodone Hcl 100 Mg Tablet 2 Tab PO QHS Provigil (Modafinil) 100 Mg Tablet 200 Mg PO DAILY Dexilant (Dexlansoprazole) 60 Mg Cap.dr.mp 60 Mg PO DAILY Digoxin 0.125 Mg/2.5 Ml Solution 0.125 Mg PO DAILY Carbamazepine 200 Mg Cpmp.12hr 200 Mg PO TID Lexapro (Escitalopram Oxalate) 10 Mg Tablet 10 Mg PO DAILY Allergies Allergies: Coded Allergies: No Known Allergies (Unverified Allergy, Unknown, 06/18/16) ROS Eyes: Yes Blurry vision HEENT: YES: Heacaches, Visual Changes ENDOCRINE: YES: Malaise/lethargy Respiratory: YES: SOB with excertion, Shortness of breath Cardiovascular: yes Chest Pain ("that goes away on its own") Gastrointestinal: Yes Abdominal Pain, Yes Nausea Genitourinary: YES Flank Pain Neurological: Yes Dizziness, Yes Headaches, Yes Weakness Physical Exam General: Alert HEENT: Atraumatic, EOMI Lungs: Normal air movement Heart: S1S2, murmurs (systolic) Abdomen: Normal bowel sounds, Other (guarded) Extremities: No cyanosis, No edema Vitals Vitals Vital Signs Date Time Temp Pulse Resp B/P Pulse Ox O2 Delivery O2 Flow Rate FiO2 06/25/16 15:50 Room Air 06/25/16 15:44 99 3.0 06/25/16 15:00 97.7 60 17 76/45 97.7 Labs Labs Laboratory Tests Test 06/24/16 17:55 06/25/16 05:15 White Blood Count 3.1x10^3/uL (4.0-11.0) 3.2x10^3/uL (4.0-11.0) Red Blood Count 4.02x10^6/uL (3.50-5.40) 3.80x10^6/uL (3.50-5.40) Hemoglobin 13.1g/dL (12.0-15.5) 12.2g/dL (12.0-15.5) Hematocrit 38.9% (36.0-47.0) 37.3% (36.0-47.0) Mean Corpuscular Volume 97fL (79-100) 98fL (79-100) Mean Corpuscular Hemoglobin 33pg (25-35) 32pg (25-35) Mean Corpuscular Hemoglobin Concent 34g/dL (31-37) 33g/dL (31-37) Red Cell Distribution Width 13.9% (11.5-14.5) 13.7% (11.5-14.5) Platelet Count 134x10^3/uL (140-400) 126x10^3/uL (140-400) Neutrophils (%) (Auto) 34% (31-73) 28% (31-73) Lymphocytes (%) (Auto) 54% (24-48) 58% (24-48) Monocytes (%) (Auto) 9% (0-9) 11% (0-9) Eosinophils (%) (Auto) 2% (0-3) 3% (0-3) Basophils (%) (Auto) 1% (0-3) 1% (0-3) Neutrophils # (Auto) 1.1x10^3uL (1.8-7.7) 0.9x10^3uL (1.8-7.7) Lymphocytes # (Auto) 1.7x10^3/uL (1.0-4.8) 1.9x10^3/uL (1.0-4.8) Monocytes # (Auto) 0.3x10^3/uL (0.0-1.1) 0.4x10^3/uL (0.0-1.1) Eosinophils # (Auto) 0.1x10^3/uL (0.0-0.7) 0.1x10^3/uL (0.0-0.7) Basophils # (Auto) 0.0x10^3/uL (0.0-0.2) 0.0x10^3/uL (0.0-0.2) Sodium Level 145mmol/L (136-145) 145mmol/L (136-145) Potassium Level 4.2mmol/L (3.5-5.1) 4.7mmol/L (3.5-5.1) Chloride Level 107mmol/L (98-107) 111mmol/L (98-107) Carbon Dioxide Level 32mmol/L (21-32) 32mmol/L (21-32) Anion Gap 6 (6-14) 2 (6-14) Blood Urea Nitrogen 18mg/dL (7-20) 16mg/dL (7-20) Creatinine 0.7mg/dL (0.6-1.0) 0.6mg/dL (0.6-1.0) Estimated GFR (Cockcroft-Gault) 88.6 105.4 Glucose Level 97mg/dL (70-99) 88mg/dL (70-99) Calcium Level 8.9mg/dL (8.5-10.1) 8.8mg/dL (8.5-10.1) Troponin I Quantitative < 0.017ng/mL (0.000-0.055) < 0.017ng/mL (0.000-0.055) Segmented Neutrophils % 25% (35-66) Band Neutrophils % 8% (0-9) Lymphocytes % 53% (24-48) Atypical Lymphocytes % (Manual) 2% (0-0) Monocytes % 12% (0-10) Platelet Estimate Decreased (ADEQUATE) Creatine Kinase 33U/L (26-192) Thyroid Stimulating Hormone (TSH) 1.062uIU/mL (0.358-3.74) Laboratory Tests Test 06/24/16 17:55 06/25/16 05:15 White Blood Count 3.1x10^3/uL (4.0-11.0) 3.2x10^3/uL (4.0-11.0) Red Blood Count 4.02x10^6/uL (3.50-5.40) 3.80x10^6/uL (3.50-5.40) Hemoglobin 13.1g/dL (12.0-15.5) 12.2g/dL (12.0-15.5) Hematocrit 38.9% (36.0-47.0) 37.3% (36.0-47.0) Mean Corpuscular Volume 97fL (79-100) 98fL (79-100) Mean Corpuscular Hemoglobin 33pg (25-35) 32pg (25-35) Mean Corpuscular Hemoglobin Concent 34g/dL (31-37) 33g/dL (31-37) Red Cell Distribution Width 13.9% (11.5-14.5) 13.7% (11.5-14.5) Platelet Count 134x10^3/uL (140-400) 126x10^3/uL (140-400) Neutrophils (%) (Auto) 34% (31-73) 28% (31-73) Lymphocytes (%) (Auto) 54% (24-48) 58% (24-48) Monocytes (%) (Auto) 9% (0-9) 11% (0-9) Eosinophils (%) (Auto) 2% (0-3) 3% (0-3) Basophils (%) (Auto) 1% (0-3) 1% (0-3) Neutrophils # (Auto) 1.1x10^3uL (1.8-7.7) 0.9x10^3uL (1.8-7.7) Lymphocytes # (Auto) 1.7x10^3/uL (1.0-4.8) 1.9x10^3/uL (1.0-4.8) Monocytes # (Auto) 0.3x10^3/uL (0.0-1.1) 0.4x10^3/uL (0.0-1.1) Eosinophils # (Auto) 0.1x10^3/uL (0.0-0.7) 0.1x10^3/uL (0.0-0.7) Basophils # (Auto) 0.0x10^3/uL (0.0-0.2) 0.0x10^3/uL (0.0-0.2) Sodium Level 145mmol/L (136-145) 145mmol/L (136-145) Potassium Level 4.2mmol/L (3.5-5.1) 4.7mmol/L (3.5-5.1) Chloride Level 107mmol/L (98-107) 111mmol/L (98-107) Carbon Dioxide Level 32mmol/L (21-32) 32mmol/L (21-32) Anion Gap 6 (6-14) 2 (6-14) Blood Urea Nitrogen 18mg/dL (7-20) 16mg/dL (7-20) Creatinine 0.7mg/dL (0.6-1.0) 0.6mg/dL (0.6-1.0) Estimated GFR (Cockcroft-Gault) 88.6 105.4 Glucose Level 97mg/dL (70-99) 88mg/dL (70-99) Calcium Level 8.9mg/dL (8.5-10.1) 8.8mg/dL (8.5-10.1) Troponin I Quantitative < 0.017ng/mL (0.000-0.055) < 0.017ng/mL (0.000-0.055) Segmented Neutrophils % 25% (35-66) Band Neutrophils % 8% (0-9) Lymphocytes % 53% (24-48) Atypical Lymphocytes % (Manual) 2% (0-0) Monocytes % 12% (0-10) Platelet Estimate Decreased (ADEQUATE) Creatine Kinase 33U/L (26-192) Thyroid Stimulating Hormone (TSH) 1.062uIU/mL (0.358-3.74) VTE Prophylaxis Ordered VTE Prophylaxis Devices: Yes VTE Pharmacological Prophylaxi: Yes Assessment/Plan Assessment/Plan Assessment Hx MS L flank pain Rule out nephrolithiasis Rule out UTI Hypotension Malnutrition Chronic pain Weight loss Plan [employer] Pain pump evaluation UA Abdominal ultrasound KUB Abdominal CT Maintain BP and fluid status Pain meds PRN Neuro consult GI consult ESTEFANI HECTOR MD Jun 25, 2016 16:53
[2016-06-25 18:19] LABS: BILIRUBIN,URINE NEGATIVE (NEG); GLUCOSE,URINE NEGATIVE (NEG); NITRITE,URINE NEGATIVE (NEG); PH,URINE 5.5; PROTEIN,URINE NEGATIVE (NEG-TRACE)
[2016-06-25 18:35] LABS: BACTERIA,URINE 0 /HPF (0-FEW); RBC,URINE RARE /HPF (0-2); SQUAMOUS EPITHELIAL CELL,UR FEW /LPF; WBC,URINE OCC /HPF (0-4)
[2016-06-25] MEDS: traZODone 100 MG TABLET. PO SCH (20:39)
[2016-06-25] MEDS: ATORVASTATIN CALCIUM 10 MG TABLET. PO SCH (20:44)
[2016-06-25] MEDS: CLONAZEPAM 0.5 MG TABLET PO PRN (20:44)
[2016-06-25] MEDS ORDERED: ALBUMIN HUMAN 5% 500 ML IV ONE (23:15)
[2016-06-26 01:03] VITALS: BP 74/46
[2016-06-26 03:00] VITALS: BP 82/52
[2016-06-26] MEDS: IV 1/2 NORMAL SALINE 1,000 ML IV SCH (03:25)
[2016-06-26] MEDS: PANTOPRAZOLE 40 MG TABLET. PO SCH (06:00)
[2016-06-26 07:00] VITALS: BP 84/47
[2016-06-26] MEDS: ALBUTEROL SULFATE 2.5 MG/3 ML NEBU. NEB SCH ×4 (07:42→19:15)
[2016-06-26] MEDS: BUDESONIDE 0.5 MG/2 ML NEBU NEB SCH ×2 (07:42→19:15)
[2016-06-26] MEDS ORDERED: BARIUM SULFATE 60% 355 ML SUSP PO ONE (08:00)
[2016-06-26] MEDS: NON FORMULARY ITEM (Modafinil (Provigil) 200 MG) PO SCH (08:59)
[2016-06-26] MEDS: ASPIRIN ENTERIC COATED 81 MG TABLET.DR. PO SCH (08:59)
[2016-06-26] MEDS: CEPHALEXIN 250 MG CAPSULE PO SCH ×3 (08:59→20:57)
[2016-06-26] MEDS: NON FORMULARY ITEM (Dimethyl Fumarate (Tecfidera) 240 MG) PO SCH ×2 (08:59→20:54)
[2016-06-26] MEDS: CARBAMAZEPINE 200 MG TABLET. PO SCH ×3 (09:00→20:56)
[2016-06-26] MEDS: BACLOFEN 10 MG TABLET PO SCH ×3 (09:00→20:56)
[2016-06-26] MEDS: CYANOCOBALAMIN (VITAMIN B-12) 1,000 MCG/ML VIAL IM SCH (10:00)
--- NOTE | 2016-06-26 10:13 | PDOC ---
Subjective: Subjective: Out for SBS. Objective: Objective: Reviewed neuro note. Vital Signs: Vital Signs Date Time Temp Pulse Resp B/P Pulse Ox O2 Delivery O2 Flow Rate FiO2 06/26/16 07:43 96 Nasal Cannula 3.0 06/26/16 07:00 97.9 61 16 84/47 97.9 Labs: Laboratory Tests Test 06/25/16 17:55 Urine Collection Type Unknown Urine Color Yellow Urine Clarity Clear Urine pH 5.5 Urine Specific [place] 1.025 Urine Protein Negativemg/dL Urine Glucose (UA) Negativemg/dL Urine Ketones (Stick) Negativemg/dL Urine Blood Small Urine Nitrite Negative Urine Bilirubin Negative Urine Urobilinogen Dipstick 1.0mg/dL Urine Leukocyte Esterase Negative Urine RBC Rare/HPF Urine WBC Occ/HPF Urine Squamous Epithelial Cells Few/LPF Urine Bacteria 0/HPF Urine Mucus Marked/LPF PE: no exam A/P: Flank pain, weight loss -radiates to LUQ, groin, can occur on right -previous GI workup EGD, colonoscopy, GES -h/o GERD on PPI Chronic pain, MS -neuro has seen -- Await SBS. OSWALD CEE Jun 26, 2016 10:13
--- NOTE | 2016-06-26 10:21 | PDOC ---
PROGRESS NOTES Subjective Subjective Pt was getting a small bowel series this morning and was seen in the afternoon. Objective Objective Vital Signs Date Time Temp Pulse Resp B/P Pulse Ox O2 Delivery O2 Flow Rate FiO2 06/26/16 07:43 96 Nasal Cannula 3.0 06/26/16 07:00 97.9 61 16 84/47 97.9 Intake and Output 06/26/16 07:00 Intake Total 2348 ml Output Total 200 ml Balance 2148 ml Intake Oral 1020 ml Other 1328 ml Output Urine Total 200 ml # Voids 4 Physical Exam Physical Exam No change in cardiac exam Assessment Assessment Agree with the recommendations of the neurologist and the child care team lead. Problems Medical Problems: (1) Intractable pain Status: Acute (2) Multiple sclerosis Status: Acute Plan Plan of Care UA reviewed Small bowel series pending continue current treatment Pain meds PRN Comment Review of Relevant I have reviewed the following items svetlana (where applicable) has been applied. Labs Laboratory Tests Test 06/24/16 17:55 06/25/16 05:15 06/25/16 17:55 White Blood Count 3.1x10^3/uL (4.0-11.0) 3.2x10^3/uL (4.0-11.0) Red Blood Count 4.02x10^6/uL (3.50-5.40) 3.80x10^6/uL (3.50-5.40) Hemoglobin 13.1g/dL (12.0-15.5) 12.2g/dL (12.0-15.5) Hematocrit 38.9% (36.0-47.0) 37.3% (36.0-47.0) Mean Corpuscular Volume 97fL (79-100) 98fL (79-100) Mean Corpuscular Hemoglobin 33pg (25-35) 32pg (25-35) Mean Corpuscular Hemoglobin Concent 34g/dL (31-37) 33g/dL (31-37) Red Cell Distribution Width 13.9% (11.5-14.5) 13.7% (11.5-14.5) Platelet Count 134x10^3/uL (140-400) 126x10^3/uL (140-400) Neutrophils (%) (Auto) 34% (31-73) 28% (31-73) Lymphocytes (%) (Auto) 54% (24-48) 58% (24-48) Monocytes (%) (Auto) 9% (0-9) 11% (0-9) Eosinophils (%) (Auto) 2% (0-3) 3% (0-3) Basophils (%) (Auto) 1% (0-3) 1% (0-3) Neutrophils # (Auto) 1.1x10^3uL (1.8-7.7) 0.9x10^3uL (1.8-7.7) Lymphocytes # (Auto) 1.7x10^3/uL (1.0-4.8) 1.9x10^3/uL (1.0-4.8) Monocytes # (Auto) 0.3x10^3/uL (0.0-1.1) 0.4x10^3/uL (0.0-1.1) Eosinophils # (Auto) 0.1x10^3/uL (0.0-0.7) 0.1x10^3/uL (0.0-0.7) Basophils # (Auto) 0.0x10^3/uL (0.0-0.2) 0.0x10^3/uL (0.0-0.2) Sodium Level 145mmol/L (136-145) 145mmol/L (136-145) Potassium Level 4.2mmol/L (3.5-5.1) 4.7mmol/L (3.5-5.1) Chloride Level 107mmol/L (98-107) 111mmol/L (98-107) Carbon Dioxide Level 32mmol/L (21-32) 32mmol/L (21-32) Anion Gap 6 (6-14) 2 (6-14) Blood Urea Nitrogen 18mg/dL (7-20) 16mg/dL (7-20) Creatinine 0.7mg/dL (0.6-1.0) 0.6mg/dL (0.6-1.0) Estimated GFR (Cockcroft-Gault) 88.6 105.4 Glucose Level 97mg/dL (70-99) 88mg/dL (70-99) Calcium Level 8.9mg/dL (8.5-10.1) 8.8mg/dL (8.5-10.1) Troponin I Quantitative < 0.017ng/mL (0.000-0.055) < 0.017ng/mL (0.000-0.055) Segmented Neutrophils % 25% (35-66) Band Neutrophils % 8% (0-9) Lymphocytes % 53% (24-48) Atypical Lymphocytes % (Manual) 2% (0-0) Monocytes % 12% (0-10) Platelet Estimate Decreased (ADEQUATE) Creatine Kinase 33U/L (26-192) Vitamin B12 Level 186pg/mL (211-946) Thyroid Stimulating Hormone (TSH) 1.062uIU/mL (0.358-3.74) Urine Collection Type Unknown Urine Color Yellow Urine Clarity Clear Urine pH 5.5 Urine Specific [place] 1.025 Urine Protein Negativemg/dL (NEG-TRACE) Urine Glucose (UA) Negativemg/dL (NEG) Urine Ketones (Stick) Negativemg/dL (NEG) Urine Blood Small (NEG) Urine Nitrite Negative (NEG) Urine Bilirubin Negative (NEG) Urine Urobilinogen Dipstick 1.0mg/dL (0.2 mg/dL) Urine Leukocyte Esterase Negative (NEG) Urine RBC Rare/HPF (0-2) Urine WBC Occ/HPF (0-4) Urine Squamous Epithelial Cells Few/LPF Urine Bacteria 0/HPF (0-FEW) Urine Mucus Marked/LPF Laboratory Tests Test 06/25/16 17:55 Urine Collection Type Unknown Urine Color Yellow Urine Clarity Clear Urine pH 5.5 Urine Specific [place] 1.025 Urine Protein Negativemg/dL (NEG-TRACE) Urine Glucose (UA) Negativemg/dL (NEG) Urine Ketones (Stick) Negativemg/dL (NEG) Urine Blood Small (NEG) Urine Nitrite Negative (NEG) Urine Bilirubin Negative (NEG) Urine Urobilinogen Dipstick 1.0mg/dL (0.2 mg/dL) Urine Leukocyte Esterase Negative (NEG) Urine RBC Rare/HPF (0-2) Urine WBC Occ/HPF (0-4) Urine Squamous Epithelial Cells Few/LPF Urine Bacteria 0/HPF (0-FEW) Urine Mucus Marked/LPF Medications Current Medications Fentanyl Citrate 50 mcg 50 mcg PRN Q15MIN PRN IV PAIN GREATER THAN 3/10 Last administered on 06/24/16t 18:02; Start 06/24/16 at 17:30; Stop 06/25/16 at 17:29; Status DC Sodium Chloride (Iv Sodium Chloride 0.9% 1000ml Bag) 1,000 ml @ 1,000 mls/hr Q1H IV Last administered on 06/24/16 17:58; Start 06/24/16 at 17:30; Stop at 18:29; Status DC Ondansetron HCl (Zofran) 4 mg 1X ONCE IV Last administered on 06/24/16 17:57; Start 06/24/16 at 17:30; Stop 06/24/16 at 17:31; Status DC Ondansetron HCl (Zofran) 4 mg PRN Q8HRS PRN IV NAUSEA/VOMITING Last administered on 06/25/16 06:02; Start 06/24/16 at 17:45; Stop 06/25/16 at 17:44; Status DC Fentanyl Citrate (Fentanyl 2ml Vial) 50 mcg PRN Q2HR PRN IV PAIN Last administered on 06/25/16 15:50; Start 06/24/16 at 17:45; Stop 06/25/16 at 17:44; Status DC Acetaminophen (Tylenol) 650 mg PRN Q4HRS PRN PO FEVER; Start 06/24/16 at 17:45; Stop 06/25/16 at 17:44; Status DC Aspirin (Ecotrin) 81 mg DAILY PO Last administered on 06/25/16 09:15; Start 06/25/16 at 09:00 Baclofen (Lioresal) 10 mg TID PO Last administered on 06/25/16 20:39; Start 06/25/16 at 09:00 Clonazepam (Klonopin) 0.5 mg PRN TID PRN PO TREMORS Last administered on 20:44; Start 06/24/16 at 22:15 Escitalopram Oxalate (Lexapro) 10 mg DAILY PO Last administered on 06/25/16 09: 15; Start 06/25/16 at 09:00 Oxycodone/ Acetaminophen (Percocet 10/325) 1 tab PRN Q4HRS PRN PO PAIN Last administered on 06/25/16 20:38; Start 06/24/16 at 22:15 Trazodone HCl (Desyrel) 200 mg QHS PO Last administered on 06/25/16 20:39; Start 06/24/16 at 22:30 Non-Formulary Medication 2 puff BID IH ; Start 06/25/16 at 09:00; Status UNV Carbamazepine (Tegretol) 200 mg TID PO Last administered on 06/25/16 20:39; Start 06/25/16 at 09:00 Cephalexin HCl (Keflex) 500 mg TID PO Last administered on 06/25/16 20:40; Start 06/25/16 at 09:00 Pantoprazole Sodium (Protonix) 40 mg DAILYAC PO ; Start 06/25/16 at 07:30; Stop 06/25/16 at 07:30; Status DC Digoxin (Lanoxin) 125 mcg DAILY PO Last administered on 06/25/16 09:16; Start 06/25/16 at 09:00 Non-Formulary Medication 240 mg BID PO ; Start 06/25/16 at 09:00; Status UNV Atorvastatin Calcium (Lipitor) 10 mg HS PO Last administered on 06/25/16 20:44 ; Start 06/25/16 at 21:00 Non-Formulary Medication 200 mg DAILY PO ; Start 06/25/16 at 09:00; Stop at 00:04; Status DC Budesonide (Pulmicort) 0.5 mg RTBID NEB Last administered on 06/26/16 07:42; Start 06/25/16 at 08:00 Albuterol Sulfate (Ventolin Neb Soln) 2.5 mg RTQID NEB Last administered on 07:42; Start 06/25/16 at 08:00 Pantoprazole Sodium 40 mg 40 mg DAILY06 PO Last administered on 06/25/16 05:54 ; Start 06/25/16 at 06:00 Sodium Chloride 1,000 ml @ 60 mls/hr [id number] IV Last administered on 03:25; Start 06/25/16 at 15:45 Albumin Human (Plasmanate) 500 ml @ 125 mls/hr 1X ONCE IV Last administered on 06/25/16 23:16; Start 06/25/16 at 23:15; Stop 06/26/16 at 03:14; Status DC Non-Formulary Medication 200 mg DAILY PO ; Start 06/26/16 at 09:00 Barium Sulfate (Liquid E-Z Paque) 710 ml 1X ONCE PO Last administered on t 08:00; Start 06/26/16 at 08:00; Stop 06/26/16 at 08:01; Status DC Active Scripts Active Keflex (Cephalexin) 500 Mg Capsule 1 Cap PO TID Reported Trazodone Hcl 100 Mg Tablet 200 Mg PO HS Klonopin (Clonazepam) 0.5 Mg Tablet 0.5 Mg PO TID PRN [morphine] 14.5 Mg ID DAILY Lovastatin 40 Mg Tablet 40 Mg PO HS Aspir 81 (Aspirin) 81 Mg Tablet.dr 81 Mg PO DAILY Tecfidera (Dimethyl Fumarate) 240 Mg Capsule.dr 240 Mg PO BID Symbicort 160-4.5 Mcg Inhaler (Budesonide/Formoterol Fumarate) 10.2 Gm Hfa.aer.ad 2 Puff IH BID Percocet 10-325 Mg Tablet (Oxycodone/Acetaminophen) 1 Each Tablet 1 Tab PO Q4HRS PRN Baclofen 10 Mg Tablet 1 Tab PO TID Trazodone Hcl 100 Mg Tablet 2 Tab PO QHS Provigil (Modafinil) 100 Mg Tablet 200 Mg PO DAILY Dexilant (Dexlansoprazole) 60 Mg Cap.dr.mp 60 Mg PO DAILY Digoxin 0.125 Mg/2.5 Ml Solution 0.125 Mg PO DAILY Carbamazepine 200 Mg Cpmp.12hr 200 Mg PO TID Lexapro (Escitalopram Oxalate) 10 Mg Tablet 10 Mg PO DAILY Vitals/I & O Vital Sign - Last 24 Hours 06/25/16 06/25/16 06/25/16 06/25/16 11:00 11:52 15:00 15:44 Temp 97.7 97.7 97.7 97.7 Pulse 60 60 Resp 17 17 B/P 71/37 76/45 Pulse Ox 99 97 99 O2 Delivery Nasal Cannula Nasal Cannula Nasal Cannula Nasal Cannula O2 Flow Rate 3.0 3.0 3.0 3.0 06/25/16 06/25/16 06/25/16 06/25/16 15:50 16:35 19:00 19:34 Temp 98.1 98.1 Pulse 64 Resp 18 B/P 80/48 Pulse Ox 98 98 O2 Delivery Room Air Room Air Nasal Cannula Nasal Cannula O2 Flow Rate 3.0 3.0 06/25/16 06/25/16 06/25/16 06/25/16 20:00 20:34 20:38 21:40 Pulse 69 Resp 14 16 B/P 82/49 O2 Delivery Nasal Cannula Nasal Cannula Nasal Cannula O2 Flow Rate 3.0 3.0 3.0 06/25/16 06/26/16 06/26/16 06/26/16 23:00 01:03 03:00 07:00 Temp 98.1 97.8 97.9 98.1 97.8 97.9 Pulse 60 64 61 Resp 18 18 16 B/P 78/43 74/46 82/52 84/47 Pulse Ox 97 99 96 O2 Delivery Nasal Cannula Nasal Cannula Nasal Cannula O2 Flow Rate 3.0 3.0 3.0 06/26/16 07:43 Pulse Ox 96 O2 Delivery Nasal Cannula O2 Flow Rate 3.0 Intake and Output 06/25/16 06/25/16 06/26/16 15:00 23:00 07:00 Intake Total 120 ml 507 ml 1721 ml Output Total 200 ml Balance 120 ml 507 ml 1521 ml ESTEFANI HECTOR MD Jun 26, 2016 10:21
[2016-06-26] MEDS: OXYCODONE/APAP 10/325 TABLET. PO PRN ×2 (12:24→16:25)
--- NOTE | 2016-06-26 14:10 | PDOC ---
PROGRESS NOTES Assessment Assessment Chronic left flank pain. Chronic left LE weakness x 4 years. MS, per history. CAD DM Vit B12 deficiency. Thyroid cancer since 2001. Chronic neck and back pain. RECOMMENDATIONS/PLAN: Continue Tecfidera home regimen. She can take it from her home supply. [facility] does not have it in hospital. Vit B12 1000 mcg IM daily. Change to PO when discharge. Treat medical diseases. OT/PT. FU with Dr. Ball in [facility] per her schedule. MRI is contraindicated due to pacemaker. HISTORY OF THE PRESENT ILLNESS: 50-y-old female patient with Hx of MS and she said she was diagnosed in . She has been treated with Tecfidera for about 3 years so far. She had brain MRI in 03/2014 which was unremarkable. She received pacemaker in 2013 and no further MRI since. PAST MEDICAL HISTORY: Please see above. PAST SURGERY HISTORY: Pacemaker Placement ALLERGY: Unknown MEDICATIONS: Refer to [facility] HISTORY: Non contributory. SOCIAL HISTORY: Denies smoking, drinking, and illicit drug use. REVIEW OF SYSTEMS: Constitutional: No malnutrition, weight loss, cachexia. Head: No traumatic brain or head injury. Skin: No edema, or rash. Ear: No infection, tinnitus. Eyes: No vision loss or color blindness. Nose: No bleeding or purulent discharges. Hearing: No hearing decrease. Neck: No injury. Breast: No history of cancer, masses,or discharges. Cardiac: CAD. Pulmonary: No COPD. GI: No GI ulcer, GI bleeding. Urinary/genital: UTI. Endocrinologic: Diabetes Mellitus Skeletomuscular: Chronic left LE weakness.. Neurological: see HP. Psychiatric: Denies drug use/abuse. Otherwise, not [id number] review of systems. PHYSICAL EXAMINATION: General appearance is in no acute distress. HEENT: Normocephalic and nontraumatic. Eyes, nose, ears, and throat are unremarkable. Neck is supple. No lymphadenopathy. No crepitus. Cardiovascular: S1, S2, regular rate and rhythm. Pulmonary: Clear to auscultation bilaterally. Abdomen: Bowel sounds are positive. Extremities: No rash, lesions, or edema. No restriction of range of motion NEUROLOGICAL EXAMINATION: Alert Oriented to time, place and person. PERRL. EOMI. CN: no focal findings. Muscle tone: within normal. Muscle strength: 4+, left LE 4- DTR: 2 Plantar reflex: Neutral response bilaterally Gait: not examined in bed. Sensory exam: no abnormal findings. No cerebellar signs elicited. F-T-N test accurate. Objective Objective Vital Signs Date Time Temp Pulse Resp B/P Pulse Ox O2 Delivery O2 Flow Rate FiO2 06/26/16 12:24 Room Air 06/26/16 12:07 3.0 06/26/16 07:43 96 06/26/16 07:00 97.9 61 16 84/47 97.9 Intake and Output 06/26/16 07:00 Intake Total 2348 ml Output Total 200 ml Balance 2148 ml Intake Oral 1020 ml Other 1328 ml Output Urine Total 200 ml # Voids 4 Vitals Signs Vitals VS - Last 72 Hours, by Label Date Time Temp Pulse Resp B/P Pulse Ox O2 Delivery O2 Flow Rate FiO2 06/26/16 12:24 Room Air 06/26/16 12:07 Nasal Cannula 3.0 06/26/16 07:55 Nasal Cannula 3.0 06/26/16 07:43 96 Nasal Cannula 3.0 06/26/16 07:00 97.9 61 16 84/47 96 Nasal Cannula 3.0 97.9 06/26/16 03:00 97.8 64 18 82/52 99 Nasal Cannula 3.0 97.8 06/26/16 01:03 74/46 06/25/16 23:00 98.1 60 18 78/43 97 Nasal Cannula 3.0 98.1 06/25/16 21:40 16 Nasal Cannula 3.0 06/25/16 20:38 14 Nasal Cannula 3.0 06/25/16 20:34 69 82/49 06/25/16 20:00 Nasal Cannula 3.0 06/25/16 19:34 98 Nasal Cannula 3.0 06/25/16 19:00 98.1 64 18 80/48 98 Nasal Cannula 3.0 98.1 06/25/16 16:35 Room Air 06/25/16 15:50 Room Air 06/25/16 15:44 99 Nasal Cannula 3.0 06/25/16 15:00 97.7 60 17 76/45 97 Nasal Cannula 3.0 97.7 06/25/16 11:52 Nasal Cannula 3.0 06/25/16 11:00 97.7 60 17 71/37 99 Nasal Cannula 3.0 97.7 06/25/16 09:16 60 76/46 06/25/16 09:15 Nasal Cannula 3.0 06/25/16 08:15 83/47 06/25/16 08:00 Nasal Cannula 3.0 06/25/16 07:48 97 Nasal Cannula 3.0 06/25/16 07:00 97.7 60 16 76/46 97 Nasal Cannula 3.0 97.7 Laboratory Laboratory Laboratory Tests Test 06/25/16 17:55 Urine Collection Type Unknown Urine Color Yellow Urine Clarity Clear Urine pH 5.5 Urine Specific [place] 1.025 Urine Protein Negativemg/dL (NEG-TRACE) Urine Glucose (UA) Negativemg/dL (NEG) Urine Ketones (Stick) Negativemg/dL (NEG) Urine Blood Small (NEG) Urine Nitrite Negative (NEG) Urine Bilirubin Negative (NEG) Urine Urobilinogen Dipstick 1.0mg/dL (0.2 mg/dL) Urine Leukocyte Esterase Negative (NEG) Urine RBC Rare/HPF (0-2) Urine WBC Occ/HPF (0-4) Urine Squamous Epithelial Cells Few/LPF Urine Bacteria 0/HPF (0-FEW) Urine Mucus Marked/LPF Medication Medications Current Medications Albumin Human (Plasmanate) 500 ml @ 125 mls/hr 1X ONCE IV Last administered on 06/25/16 23:16; Start 06/25/16 at 23:15; Stop 06/26/16 at 03:14; Status DC Atorvastatin Calcium 10 mg 10 mg HS PO Last administered on 06/25/16 20:44; Start 06/25/16 at 21:00 Barium Sulfate (Liquid E-Z Paque) 710 ml 1X ONCE PO Last administered on 08:00; Start 06/26/16 at 08:00; Stop 06/26/16 at 08:01; Status DC Cyanocobalamin (Vitamin B-12) 1,000 mcg DAILY IM ; Start 06/26/16 at 10:00 Non-Formulary Medication 200 mg DAILY PO ; Start 06/26/16 at 09:00 Sodium Chloride 1,000 ml @ 60 mls/hr [id number] IV Last administered on 03:25; Start 06/25/16 at 15:45 Comment Review of Relevant I have reviewed the following items svetlana (where applicable) has been applied. KEVIN JOHNSON MD Jun 26, 2016 14:10
--- NOTE | 2016-06-26 14:24 | RAD ---
Clinical indications: Chronic flank and abdominal pain. Technique: A preliminary KUB was performed. The patient drank two 8 ounce glasses of thin liquid barium and a small bowel series was performed. There was significant delay in passage of barium through the small bowel and the colon. The last film was obtained at 4 hours in the patient's room up on the floor. No fluoroscopic evaluation of the small bowel was performed. The terminal ileum appeared normal on recent CT study dated May 29 2016. Total fluoroscopic time: 0 minutes. Total fluoroscopic spot images: 0 Findings: Significant amount of fecal retention is seen throughout the ascending and transverse colon and mild fecal retention is seen throughout the left side of the colon and rectosigmoid region on the preliminary film. No small bowel dilatation is evident.. Contrast reaches the colon by 4 hours. No dilatation of small bowel loops is seen. No distortion or displacement of small bowel loops is seen. No abnormal mucosal fold thickening is seen. Impression: Significant delay in passage of barium through the small bowel into the colon by 4 h. This may be secondary to the significant fecal retention present within the right side of the colon. No small bowel dilatation is seen otherwise.
[2016-06-26 15:00] VITALS: BP 80/42
[2016-06-26] MEDS: DIGOXIN 125 MCG TABLET PO SCH (16:24)
[2016-06-26] MEDS: ESCITALOPRAM 10 MG TABLET. PO SCH (16:24)
[2016-06-26] MEDS: LUBIPROSTONE 8 MCG CAPSULE PO SCH (16:26)
[2016-06-26 19:59] VITALS: BP 85/52
[2016-06-26] MEDS: ATORVASTATIN CALCIUM 10 MG TABLET. PO SCH (20:56)
[2016-06-26] MEDS: traZODone 100 MG TABLET. PO SCH (20:57)
[2016-06-26] MEDS: CLONAZEPAM 0.5 MG TABLET PO PRN (20:58)
[2016-06-26 22:43] VITALS: BP 77/40
[2016-06-27] VITALS (11 sets, daily range): BP systolic 68–102; BP diastolic 31–64
[2016-06-27] MEDS ORDERED: ALBUMIN HUMAN 5% 500 ML IV ONE (00:30)
[2016-06-27] MEDS: IV NORMAL SALINE 1000ML BAG 1,000 ML IV SCH ×2 (02:42→20:24)
[2016-06-27] MEDS: ALBUTEROL SULFATE 2.5 MG/3 ML NEBU. NEB SCH ×4 (05:58→20:07)
[2016-06-27] MEDS: BUDESONIDE 0.5 MG/2 ML NEBU NEB SCH ×2 (05:59→20:07)
[2016-06-27] MEDS: PANTOPRAZOLE 40 MG TABLET. PO SCH (06:39)
[2016-06-27] MEDS: OXYCODONE/APAP 10/325 TABLET. PO PRN ×3 (06:43→20:16)
[2016-06-27] MEDS: CEPHALEXIN 250 MG CAPSULE PO SCH ×3 (08:56→20:14)
[2016-06-27] MEDS: LUBIPROSTONE 8 MCG CAPSULE PO SCH ×2 (08:57→17:00)
[2016-06-27] MEDS: DIGOXIN 125 MCG TABLET PO SCH (08:57)
[2016-06-27] MEDS: ESCITALOPRAM 10 MG TABLET. PO SCH (08:57)
[2016-06-27] MEDS: ASPIRIN ENTERIC COATED 81 MG TABLET.DR. PO SCH (08:57)
[2016-06-27] MEDS: CARBAMAZEPINE 200 MG TABLET. PO SCH ×3 (08:57→20:15)
[2016-06-27] MEDS: BACLOFEN 10 MG TABLET PO SCH ×3 (08:57→20:15)
[2016-06-27] MEDS: CYANOCOBALAMIN (VITAMIN B-12) 1,000 MCG/ML VIAL IM SCH (09:00)
[2016-06-27] MEDS: NON FORMULARY ITEM (Dimethyl Fumarate (Tecfidera) 240 MG) PO SCH ×2 (09:00→21:00)
[2016-06-27] MEDS: NON FORMULARY ITEM (Modafinil (Provigil) 200 MG) PO SCH (09:03)
[2016-06-27] MEDS: CLONAZEPAM 0.5 MG TABLET PO PRN ×2 (09:03→20:15)
--- NOTE | 2016-06-27 12:59 | PDOC ---
G I PROGRESS NOTE Reason for Follow-up L flank pain Subjective Pain unchanged Physical Exam Lungs clear CV S1 S2 ABD +BS, soft, +LUQ/flank tenderness Review of Relevant I have reviewed the following items svetlana (where applicable) has been applied. Labs Laboratory Tests Test 06/25/16 17:55 Urine Collection Type Unknown Urine Color Yellow Urine Clarity Clear Urine pH 5.5 Urine Specific [place] 1.025 Urine Protein Negativemg/dL (NEG-TRACE) Urine Glucose (UA) Negativemg/dL (NEG) Urine Ketones (Stick) Negativemg/dL (NEG) Urine Blood Small (NEG) Urine Nitrite Negative (NEG) Urine Bilirubin Negative (NEG) Urine Urobilinogen Dipstick 1.0mg/dL (0.2 mg/dL) Urine Leukocyte Esterase Negative (NEG) Urine RBC Rare/HPF (0-2) Urine WBC Occ/HPF (0-4) Urine Squamous Epithelial Cells Few/LPF Urine Bacteria 0/HPF (0-FEW) Urine Mucus Marked/LPF Medications Current Medications Fentanyl Citrate 50 mcg 50 mcg PRN Q15MIN PRN IV PAIN GREATER THAN 3/10 Last administered on 06/24/16 18:02; Start 06/24/16 at 17:30; Stop 06/25/16 at 17:29; Status DC Sodium Chloride (Iv Sodium Chloride 0.9% 1000ml Bag) 1,000 ml @ 1,000 mls/hr Q1H IV Last administered on 06/24/16 17:58; Start 06/24/16 at 17:30; Stop at 18:29; Status DC Ondansetron HCl (Zofran) 4 mg 1X ONCE IV Last administered on 06/24/16 17:57; Start 06/24/16 at 17:30; Stop 06/24/16 at 17:31; Status DC Ondansetron HCl (Zofran) 4 mg PRN Q8HRS PRN IV NAUSEA/VOMITING Last administered on 06/25/16 06:02; Start 06/24/16 at 17:45; Stop 06/25/16 at 17:44; Status DC Fentanyl Citrate (Fentanyl 2ml Vial) 50 mcg PRN Q2HR PRN IV PAIN Last administered on 06/25/16 15:50; Start 06/24/16 at 17:45; Stop 06/25/16 at 17:44; Status DC Acetaminophen (Tylenol) 650 mg PRN Q4HRS PRN PO FEVER; Start 06/24/16 at 17:45; Stop 06/25/16 at 17:44; Status DC Aspirin (Ecotrin) 81 mg DAILY PO Last administered on 06/27/16 08:57; Start at 09:00 Baclofen (Lioresal) 10 mg TID PO Last administered on 06/27/16 08:57; Start at 09:00 Clonazepam (Klonopin) 0.5 mg PRN TID PRN PO TREMORS Last administered on 09:03; Start 06/24/16 at 22:15 Escitalopram Oxalate (Lexapro) 10 mg DAILY PO Last administered on 06/27/16 08 :57; Start 06/25/16 at 09:00 Oxycodone/ Acetaminophen (Percocet 10/325) 1 tab PRN Q4HRS PRN PO PAIN Last administered on 06/27/16 12:47; Start 06/24/16 at 22:15 Trazodone HCl (Desyrel) 200 mg QHS PO Last administered on 06/26/16 20:57; Start 06/24/16 at 22:30 Non-Formulary Medication 2 puff BID IH ; Start 06/25/16 at 09:00; Status UNV Carbamazepine (Tegretol) 200 mg TID PO Last administered on 06/27/16 08:57; Start 06/25/16 at 09:00 Cephalexin HCl (Keflex) 500 mg TID PO Last administered on 06/27/16 08:56; Start 06/25/16 at 09:00 Pantoprazole Sodium (Protonix) 40 mg DAILYAC PO ; Start 06/25/16 at 07:30; Stop 06/25/16 at 07:30; Status DC Digoxin (Lanoxin) 125 mcg DAILY PO Last administered on 06/27/16 08:57; Start 06/25/16 at 09:00 Non-Formulary Medication 240 mg BID PO ; Start 06/25/16 at 09:00; Status UNV Atorvastatin Calcium (Lipitor) 10 mg HS PO Last administered on 06/26/16 20:56 ; Start 06/25/16 at 21:00 Non-Formulary Medication 200 mg DAILY PO ; Start 06/25/16 at 09:00; Stop at 00:04; Status DC Budesonide (Pulmicort) 0.5 mg RTBID NEB Last administered on 06/27/16 05:59; Start 06/25/16 at 08:00 Albuterol Sulfate (Ventolin Neb Soln) 2.5 mg RTQID NEB Last administered on 11:47; Start 06/25/16 at 08:00 Pantoprazole Sodium 40 mg 40 mg DAILY06 PO Last administered on 06/27/16 06:39 ; Start 06/25/16 at 06:00 Sodium Chloride 1,000 ml @ 60 mls/hr [id number] IV Last administered on 03:25; Start 06/25/16 at 15:45; Stop 06/26/16 at 23:08; Status DC Albumin Human (Plasmanate) 500 ml @ 125 mls/hr 1X ONCE IV Last administered on 06/25/16 23:16; Start 06/25/16 at 23:15; Stop 06/26/16 at 03:14; Status DC Non-Formulary Medication 200 mg DAILY PO Last administered on 06/27/16 09:03; Start 06/26/16 at 09:00 Barium Sulfate (Liquid E-Z Paque) 710 ml 1X ONCE PO Last administered on 08:00; Start 06/26/16 at 08:00; Stop 06/26/16 at 08:01; Status DC Cyanocobalamin (Vitamin B-12) 1,000 mcg DAILY IM ; Start 06/26/16 at 10:00 Lubiprostone 8 mcg 8 mcg BIDWMEALS PO Last administered on 06/27/16 08:57; Start 06/26/16 at 17:00 Albumin Human 500 ml @ 125 mls/hr 1X ONCE IV Last administered on 06/27/16 00:22; Start 06/27/16 at 00:30; Stop 06/27/16 at 04:29; Status DC Sodium Chloride (Iv Sodium Chloride 0.9% 1000ml Bag) 1,000 ml @ 60 mls/hr [id number] IV Last administered on 06/27/16 02:42; Start 06/27/16 at 03:00 Active Scripts Active Keflex (Cephalexin) 500 Mg Capsule 1 Cap PO TID Reported Trazodone Hcl 100 Mg Tablet 200 Mg PO HS Klonopin (Clonazepam) 0.5 Mg Tablet 0.5 Mg PO TID PRN [morphine] 14.5 Mg ID DAILY Lovastatin 40 Mg Tablet 40 Mg PO HS Aspir 81 (Aspirin) 81 Mg Tablet.dr 81 Mg PO DAILY Tecfidera (Dimethyl Fumarate) 240 Mg Capsule.dr 240 Mg PO BID Symbicort 160-4.5 Mcg Inhaler (Budesonide/Formoterol Fumarate) 10.2 Gm Hfa.aer.ad 2 Puff IH BID Percocet 10-325 Mg Tablet (Oxycodone/Acetaminophen) 1 Each Tablet 1 Tab PO Q4HRS PRN Baclofen 10 Mg Tablet 1 Tab PO TID Trazodone Hcl 100 Mg Tablet 2 Tab PO QHS Provigil (Modafinil) 100 Mg Tablet 200 Mg PO DAILY Dexilant (Dexlansoprazole) 60 Mg Cap.dr.mp 60 Mg PO DAILY Digoxin 0.125 Mg/2.5 Ml Solution 0.125 Mg PO DAILY Carbamazepine 200 Mg Cpmp.12hr 200 Mg PO TID Lexapro (Escitalopram Oxalate) 10 Mg Tablet 10 Mg PO DAILY Vitals/I & O Vital Sign - Last 24 Hours 06/26/16 06/26/16 06/26/16 06/26/16 15:00 16:21 16:24 16:25 Temp 97.9 97.9 Pulse 60 60 Resp 16 B/P 80/42 80/42 Pulse Ox 98 O2 Delivery Nasal Cannula Nasal Cannula Room Air O2 Flow Rate 3.0 3.0 06/26/16 06/26/16 06/26/16 06/26/16 19:16 19:20 19:59 20:00 Temp 98.1 98.1 Pulse 66 Resp 18 B/P 85/52 Pulse Ox 100 100 97 O2 Delivery Nasal Cannula Nasal Cannula Room Air Nasal Cannula O2 Flow Rate 3.0 3.0 3.0 06/26/16 06/27/16 06/27/16 06/27/16 22:43 03:59 04:37 05:10 Temp 97.9 97.9 97.9 97.9 Pulse 60 60 62 62 Resp 18 18 B/P 77/40 68/31 77/49 79/46 Pulse Ox 95 94 O2 Delivery Room Air Room Air 06/27/16 06/27/16 06/27/16 06/27/16 05:40 06:00 06:01 06:10 Pulse 61 62 B/P 78/42 84/52 Pulse Ox 94 94 O2 Delivery Nasal Cannula Nasal Cannula O2 Flow Rate 3.0 3.0 06/27/16 06/27/16 06/27/16 06/27/16 06:43 07:00 08:05 08:10 Temp 98.0 98.0 Pulse 60 Resp 16 18 16 B/P 89/45 Pulse Ox 96 O2 Delivery Nasal Cannula Nasal Cannula Nasal Cannula Nasal Cannula O2 Flow Rate 2.0 3.0 3.0 3.0 06/27/16 06/27/16 06/27/16 06/27/16 08:57 11:00 11:48 12:47 Temp 98.3 98.3 Pulse 62 67 Resp 18 20 B/P 99/56 Pulse Ox 96 O2 Delivery Nasal Cannula Nasal Cannula Room Air O2 Flow Rate 3.0 3.0 Intake and Output 06/26/16 06/26/16 06/27/16 15:00 23:00 07:00 Intake Total 400 ml 932 ml Output Total 500 ml 400 ml Balance -500 ml 400 ml 532 ml Problem List Problems Medical Problems: (1) Intractable pain Status: Acute (2) Multiple sclerosis Status: Acute Assessment L flank pain- with normal SB series except retained stool, amitiza started, await response, inactive urine sediment against retained kidney stone as cause of pain ERIC PHILLIPS MD Jun 27, 2016 12:59
--- NOTE | 2016-06-27 14:06 | PDOC ---
PROGRESS NOTES Subjective Subjective Patient is having severe back and left flank pain going down the leg. No dyspnea. Objective Objective Vital Signs Date Time Temp Pulse Resp B/P Pulse Ox O2 Delivery O2 Flow Rate FiO2 06/27/16 12:47 20 Room Air 06/27/16 11:48 3.0 06/27/16 11:00 98.3 67 99/56 96 98.3 Intake and Output 06/27/16 07:00 Intake Total 1332 ml Output Total 900 ml Balance 432 ml Intake Oral 600 ml Other 732 ml Output Urine Total 900 ml Physical Exam Physical Exam No significant changes in cardiac exam. Assessment Assessment The patient's pain is very poorly controlled and she is unable to get up and walk. I'm going to add IV fentanyl and will wait for the recommendations of the neurologist. Problems Medical Problems: (1) Intractable pain Status: Acute (2) Multiple sclerosis Status: Acute Comment Review of Relevant I have reviewed the following items svetlana (where applicable) has been applied. Labs Laboratory Tests Test 06/25/16 17:55 Urine Collection Type Unknown Urine Color Yellow Urine Clarity Clear Urine pH 5.5 Urine Specific [place] 1.025 Urine Protein Negativemg/dL (NEG-TRACE) Urine Glucose (UA) Negativemg/dL (NEG) Urine Ketones (Stick) Negativemg/dL (NEG) Urine Blood Small (NEG) Urine Nitrite Negative (NEG) Urine Bilirubin Negative (NEG) Urine Urobilinogen Dipstick 1.0mg/dL (0.2 mg/dL) Urine Leukocyte Esterase Negative (NEG) Urine RBC Rare/HPF (0-2) Urine WBC Occ/HPF (0-4) Urine Squamous Epithelial Cells Few/LPF Urine Bacteria 0/HPF (0-FEW) Urine Mucus Marked/LPF Medications Current Medications Fentanyl Citrate 50 mcg 50 mcg PRN Q15MIN PRN IV PAIN GREATER THAN 3/10 Last administered on 06/24/16 18:02; Start 06/24/16 at 17:30; Stop 06/25/16 at 17:29; Status DC Sodium Chloride (Iv Sodium Chloride 0.9% 1000ml Bag) 1,000 ml @ 1,000 mls/hr Q1H IV Last administered on 06/24/16 17:58; Start 06/24/16 at 17:30; Stop at 18:29; Status DC Ondansetron HCl (Zofran) 4 mg 1X ONCE IV Last administered on 06/24/16 17:57; Start 06/24/16 at 17:30; Stop 06/24/16 at 17:31; Status DC Ondansetron HCl (Zofran) 4 mg PRN Q8HRS PRN IV NAUSEA/VOMITING Last administered on 06/25/16 06:02; Start 06/24/16 at 17:45; Stop 06/25/16 at 17:44; Status DC Fentanyl Citrate (Fentanyl 2ml Vial) 50 mcg PRN Q2HR PRN IV PAIN Last administered on 06/25/16 15:50; Start 06/24/16 at 17:45; Stop 06/25/16 at 17:44; Status DC Acetaminophen (Tylenol) 650 mg PRN Q4HRS PRN PO FEVER; Start 06/24/16 at 17:45; Stop 06/25/16 at 17:44; Status DC Aspirin (Ecotrin) 81 mg DAILY PO Last administered on 06/27/16 08:57; Start at 09:00 Baclofen (Lioresal) 10 mg TID PO Last administered on 06/27/16 08:57; Start at 09:00 Clonazepam (Klonopin) 0.5 mg PRN TID PRN PO TREMORS Last administered on 09:03; Start 06/24/16 at 22:15 Escitalopram Oxalate (Lexapro) 10 mg DAILY PO Last administered on 06/27/16 08 :57; Start 06/25/16 at 09:00 Oxycodone/ Acetaminophen (Percocet 10/325) 1 tab PRN Q4HRS PRN PO PAIN Last administered on 06/27/16 12:47; Start 06/24/16 at 22:15 Trazodone HCl (Desyrel) 200 mg QHS PO Last administered on 06/26/16 20:57; Start 06/24/16 at 22:30 Non-Formulary Medication 2 puff BID IH ; Start 06/25/16 at 09:00; Status UNV Carbamazepine (Tegretol) 200 mg TID PO Last administered on 06/27/16 08:57; Start 06/25/16 at 09:00 Cephalexin HCl (Keflex) 500 mg TID PO Last administered on 06/27/16 08:56; Start 06/25/16 at 09:00 Pantoprazole Sodium (Protonix) 40 mg DAILYAC PO ; Start 06/25/16 at 07:30; Stop 06/25/16 at 07:30; Status DC Digoxin (Lanoxin) 125 mcg DAILY PO Last administered on 06/27/16 08:57; Start 06/25/16 at 09:00 Non-Formulary Medication 240 mg BID PO ; Start 06/25/16 at 09:00; Status UNV Atorvastatin Calcium (Lipitor) 10 mg HS PO Last administered on 06/26/16 20:56 ; Start 06/25/16 at 21:00 Non-Formulary Medication 200 mg DAILY PO ; Start 06/25/16 at 09:00; Stop at 00:04; Status DC Budesonide (Pulmicort) 0.5 mg RTBID NEB Last administered on 06/27/16 05:59; Start 06/25/16 at 08:00 Albuterol Sulfate (Ventolin Neb Soln) 2.5 mg RTQID NEB Last administered on 11:47; Start 06/25/16 at 08:00 Pantoprazole Sodium 40 mg 40 mg DAILY06 PO Last administered on 06/27/16 06:39 ; Start 06/25/16 at 06:00 Sodium Chloride 1,000 ml @ 60 mls/hr [id number] IV Last administered on 03:25; Start 06/25/16 at 15:45; Stop 06/26/16 at 23:08; Status DC Albumin Human (Plasmanate) 500 ml @ 125 mls/hr 1X ONCE IV Last administered on 06/25/16 23:16; Start 06/25/16 at 23:15; Stop 06/26/16 at 03:14; Status DC Non-Formulary Medication 200 mg DAILY PO Last administered on 06/27/16 09:03; Start 06/26/16 at 09:00 Barium Sulfate (Liquid E-Z Paque) 710 ml 1X ONCE PO Last administered on 08:00; Start 06/26/16 at 08:00; Stop 06/26/16 at 08:01; Status DC Cyanocobalamin (Vitamin B-12) 1,000 mcg DAILY IM ; Start 06/26/16 at 10:00 Lubiprostone 8 mcg 8 mcg BIDWMEALS PO Last administered on 06/27/16 08:57; Start 06/26/16 at 17:00 Albumin Human 500 ml @ 125 mls/hr 1X ONCE IV Last administered on 06/27/16 00:22; Start 06/27/16 at 00:30; Stop 06/27/16 at 04:29; Status DC Sodium Chloride (Iv Sodium Chloride 0.9% 1000ml Bag) 1,000 ml @ 60 mls/hr [id number] IV Last administered on 06/27/16 02:42; Start 06/27/16 at 03:00 Fentanyl Citrate (Fentanyl 2ml Vial) 50 mcg PRN Q3HRS PRN IV PAIN; Start at 13:15 Active Scripts Active Keflex (Cephalexin) 500 Mg Capsule 1 Cap PO TID Reported Trazodone Hcl 100 Mg Tablet 200 Mg PO HS Klonopin (Clonazepam) 0.5 Mg Tablet 0.5 Mg PO TID PRN [morphine] 14.5 Mg ID DAILY Lovastatin 40 Mg Tablet 40 Mg PO HS Aspir 81 (Aspirin) 81 Mg Tablet.dr 81 Mg PO DAILY Tecfidera (Dimethyl Fumarate) 240 Mg Capsule.dr 240 Mg PO BID Symbicort 160-4.5 Mcg Inhaler (Budesonide/Formoterol Fumarate) 10.2 Gm Hfa.aer.ad 2 Puff IH BID Percocet 10-325 Mg Tablet (Oxycodone/Acetaminophen) 1 Each Tablet 1 Tab PO Q4HRS PRN Baclofen 10 Mg Tablet 1 Tab PO TID Trazodone Hcl 100 Mg Tablet 2 Tab PO QHS Provigil (Modafinil) 100 Mg Tablet 200 Mg PO DAILY Dexilant (Dexlansoprazole) 60 Mg Cap.dr.mp 60 Mg PO DAILY Digoxin 0.125 Mg/2.5 Ml Solution 0.125 Mg PO DAILY Carbamazepine 200 Mg Cpmp.12hr 200 Mg PO TID Lexapro (Escitalopram Oxalate) 10 Mg Tablet 10 Mg PO DAILY Vitals/I & O Vital Sign - Last 24 Hours 06/26/16 06/26/16 06/26/16 06/26/16 15:00 16:21 16:24 16:25 Temp 97.9 97.9 Pulse 60 60 Resp 16 B/P 80/42 80/42 Pulse Ox 98 O2 Delivery Nasal Cannula Nasal Cannula Room Air O2 Flow Rate 3.0 3.0 06/26/16 06/26/16 06/26/16 06/26/16 19:16 19:20 19:59 20:00 Temp 98.1 98.1 Pulse 66 Resp 18 B/P 85/52 Pulse Ox 100 100 97 O2 Delivery Nasal Cannula Nasal Cannula Room Air Nasal Cannula O2 Flow Rate 3.0 3.0 3.0 06/26/16 06/27/16 06/27/16 06/27/16 22:43 03:59 04:37 05:10 Temp 97.9 97.9 97.9 97.9 Pulse 60 60 62 62 Resp 18 18 B/P 77/40 68/31 77/49 79/46 Pulse Ox 95 94 O2 Delivery Room Air Room Air 06/27/16 06/27/16 06/27/16 06/27/16 05:40 06:00 06:01 06:10 Pulse 61 62 B/P 78/42 84/52 Pulse Ox 94 94 O2 Delivery Nasal Cannula Nasal Cannula O2 Flow Rate 3.0 3.0 06/27/16 06/27/16 06/27/16 06/27/16 06:43 07:00 08:05 08:10 Temp 98.0 98.0 Pulse 60 Resp 16 18 16 B/P 89/45 Pulse Ox 96 O2 Delivery Nasal Cannula Nasal Cannula Nasal Cannula Nasal Cannula O2 Flow Rate 2.0 3.0 3.0 3.0 06/27/16 06/27/16 06/27/16 06/27/16 08:57 11:00 11:48 12:47 Temp 98.3 98.3 Pulse 62 67 Resp 18 20 B/P 99/56 Pulse Ox 96 O2 Delivery Nasal Cannula Nasal Cannula Room Air O2 Flow Rate 3.0 3.0 Intake and Output 06/26/16 06/26/16 06/27/16 15:00 23:00 07:00 Intake Total 400 ml 932 ml Output Total 500 ml 400 ml Balance -500 ml 400 ml 532 ml ESTEFANI HECTOR MD Jun 27, 2016 14:06
[2016-06-27] MEDS: FENTANYL PF 100 MCG/2 ML VIAL. IV PRN ×2 (14:32→23:30)
--- NOTE | 2016-06-27 19:12 | PDOC ---
PROGRESS NOTES Assessment Problems Medical Problems: (1) Intractable pain Status: Acute (2) Multiple sclerosis Status: Acute Chronic left flank pain, neck, back pain, follows with Dr. Cabral for pain pump. Chronic left leg weakness x 4 years. MS, per history. This was diagnosed in [place] on MRI studies and lumbar puncture, but interestingly when we checked MRI studies here 4 years ago, they were negative CAD DM Vit B12 deficiency. Thyroid cancer since 2001. Chronic neck and back pain. Plan Continue Tecfidera home regimen. She can take it from her home supply. [facility] does not have it in hospital. Vit B12 1000 mcg IM daily. Change to PO when discharge. Increase carbamazepine, check level OT/PT. MRI is contraindicated due to pacemaker. As she is already seeing a pain specialist I doubt that Dr. Toro will be able to add anything. Agree with increased fentanyl Subjective complains of left flank and leg pain Objective Vital Signs Date Time Temp Pulse Resp B/P Pulse Ox O2 Delivery O2 Flow Rate FiO2 06/27/16 16:01 Nasal Cannula 3.0 06/27/16 15:05 18 06/27/16 15:00 98.3 66 102/64 96 98.3 Intake and Output 06/27/16 07:00 Intake Total 1332 ml Output Total 900 ml Balance 432 ml Intake Oral 600 ml Other 732 ml Output Urine Total 900 ml PHYSICAL EXAM Alert. Oriented to time, place and person. PERRL. EOMI. CN: no focal findings. Muscle tone: normal. Muscle strength: 4/5 DTR: 2+ Plantar reflex: flexor Gait: not examined in bed. Sensory exam: Diffuse pinprick hypesthesia No cerebellar signs elicited. Review of Relevant I have reviewed the following items svetlana (where applicable) has been applied. Medications Current Medications Fentanyl Citrate 50 mcg 50 mcg PRN Q15MIN PRN IV PAIN GREATER THAN 3/10 Last administered on 06/24/16 18:02; Start 06/24/16 at 17:30; Stop 06/25/16 at 17:29; Status DC Sodium Chloride (Iv Sodium Chloride 0.9% 1000ml Bag) 1,000 ml @ 1,000 mls/hr Q1H IV Last administered on 06/24/16 17:58; Start 06/24/16 at 17:30; Stop at 18:29; Status DC Ondansetron HCl (Zofran) 4 mg 1X ONCE IV Last administered on 06/24/16 17:57; Start 06/24/16 at 17:30; Stop 06/24/16 at 17:31; Status DC Ondansetron HCl (Zofran) 4 mg PRN Q8HRS PRN IV NAUSEA/VOMITING Last administered on 06/25/16 06:02; Start 06/24/16 at 17:45; Stop 06/25/16 at 17:44; Status DC Fentanyl Citrate (Fentanyl 2ml Vial) 50 mcg PRN Q2HR PRN IV PAIN Last administered on 06/25/16 15:50; Start 06/24/16 at 17:45; Stop 06/25/16 at 17:44; Status DC Acetaminophen (Tylenol) 650 mg PRN Q4HRS PRN PO FEVER; Start 06/24/16 at 17:45; Stop 06/25/16 at 17:44; Status DC Aspirin (Ecotrin) 81 mg DAILY PO Last administered on 06/27/16 08:57; Start at 09:00 Baclofen (Lioresal) 10 mg TID PO Last administered on 06/27/16 14:06; Start at 09:00 Clonazepam (Klonopin) 0.5 mg PRN TID PRN PO TREMORS Last administered on 09:03; Start 06/24/16 at 22:15 Escitalopram Oxalate (Lexapro) 10 mg DAILY PO Last administered on 06/27/16 08 :57; Start 06/25/16 at 09:00 Oxycodone/ Acetaminophen (Percocet 10/325) 1 tab PRN Q4HRS PRN PO PAIN Last administered on 06/27/16 12:47; Start 06/24/16 at 22:15 Trazodone HCl (Desyrel) 200 mg QHS PO Last administered on 06/26/16 20:57; Start 06/24/16 at 22:30 Non-Formulary Medication 2 puff BID IH ; Start 06/25/16 at 09:00; Status UNV Carbamazepine (Tegretol) 200 mg TID PO Last administered on 06/27/16 14:06; Start 06/25/16 at 09:00 Cephalexin HCl (Keflex) 500 mg TID PO Last administered on 06/27/16 14:06; Start 06/25/16 at 09:00 Pantoprazole Sodium (Protonix) 40 mg DAILYAC PO ; Start 06/25/16 at 07:30; Stop 06/25/16 at 07:30; Status DC Digoxin (Lanoxin) 125 mcg DAILY PO Last administered on 06/27/16 08:57; Start 06/25/16 at 09:00 Non-Formulary Medication 240 mg BID PO ; Start 06/25/16 at 09:00; Status UNV Atorvastatin Calcium (Lipitor) 10 mg HS PO Last administered on 06/26/16 20:56 ; Start 06/25/16 at 21:00 Non-Formulary Medication 200 mg DAILY PO ; Start 06/25/16 at 09:00; Stop at 00:04; Status DC Budesonide (Pulmicort) 0.5 mg RTBID NEB Last administered on 06/27/16 05:59; Start 06/25/16 at 08:00 Albuterol Sulfate (Ventolin Neb Soln) 2.5 mg RTQID NEB Last administered on 16:00; Start 06/25/16 at 08:00 Pantoprazole Sodium 40 mg 40 mg DAILY06 PO Last administered on 06/27/16 06:39 ; Start 06/25/16 at 06:00 Sodium Chloride 1,000 ml @ 60 mls/hr [id number] IV Last administered on 03:25; Start 06/25/16 at 15:45; Stop 06/26/16 at 23:08; Status DC Albumin Human (Plasmanate) 500 ml @ 125 mls/hr 1X ONCE IV Last administered on 06/25/16 23:16; Start 06/25/16 at 23:15; Stop 06/26/16 at 03:14; Status DC Non-Formulary Medication 200 mg DAILY PO Last administered on 06/27/16 09:03; Start 06/26/16 at 09:00 Barium Sulfate (Liquid E-Z Paque) 710 ml 1X ONCE PO Last administered on 08:00; Start 06/26/16 at 08:00; Stop 06/26/16 at 08:01; Status DC Cyanocobalamin (Vitamin B-12) 1,000 mcg DAILY IM ; Start 06/26/16 at 10:00 Lubiprostone 8 mcg 8 mcg BIDWMEALS PO Last administered on 06/27/16 08:57; Start 06/26/16 at 17:00 Albumin Human 500 ml @ 125 mls/hr 1X ONCE IV Last administered on 06/27/16 00:22; Start 06/27/16 at 00:30; Stop 06/27/16 at 04:29; Status DC Sodium Chloride (Iv Sodium Chloride 0.9% 1000ml Bag) 1,000 ml @ 60 mls/hr [id number] IV Last administered on 06/27/16 02:42; Start 06/27/16 at 03:00 Fentanyl Citrate (Fentanyl 2ml Vial) 50 mcg PRN Q3HRS PRN IV PAIN Last administered on 06/27/16 14:32; Start 06/27/16 at 13:15 Active Scripts Active Keflex (Cephalexin) 500 Mg Capsule 1 Cap PO TID Reported Trazodone Hcl 100 Mg Tablet 200 Mg PO HS Klonopin (Clonazepam) 0.5 Mg Tablet 0.5 Mg PO TID PRN [morphine] 14.5 Mg ID DAILY Lovastatin 40 Mg Tablet 40 Mg PO HS Aspir 81 (Aspirin) 81 Mg Tablet.dr 81 Mg PO DAILY Tecfidera (Dimethyl Fumarate) 240 Mg Capsule.dr 240 Mg PO BID Symbicort 160-4.5 Mcg Inhaler (Budesonide/Formoterol Fumarate) 10.2 Gm Hfa.aer.ad 2 Puff IH BID Percocet 10-325 Mg Tablet (Oxycodone/Acetaminophen) 1 Each Tablet 1 Tab PO Q4HRS PRN Baclofen 10 Mg Tablet 1 Tab PO TID Trazodone Hcl 100 Mg Tablet 2 Tab PO QHS Provigil (Modafinil) 100 Mg Tablet 200 Mg PO DAILY Dexilant (Dexlansoprazole) 60 Mg Cap.drJamilmp 60 Mg PO DAILY Digoxin 0.125 Mg/2.5 Ml Solution 0.125 Mg PO DAILY Carbamazepine 200 Mg Cpmp.12hr 200 Mg PO TID Lexapro (Escitalopram Oxalate) 10 Mg Tablet 10 Mg PO DAILY Vitals/I & O Vital Sign - Last 24 Hours 06/26/16 06/26/16 06/26/16 2/10/17 19:16 19:20 19:59 20:00 Temp 98.1 98.1 Pulse 66 Resp 18 B/P 85/52 Pulse Ox 100 100 97 O2 Delivery Nasal Cannula Nasal Cannula Room Air Nasal Cannula O2 Flow Rate 3.0 3.0 3.0 06/26/16 06/27/16 06/27/16 06/27/16 22:43 03:59 04:37 05:10 Temp 97.9 97.9 97.9 97.9 Pulse 60 60 62 62 Resp 18 18 B/P 77/40 68/31 77/49 79/46 Pulse Ox 95 94 O2 Delivery Room Air Room Air 06/27/16 06/27/16 06/27/16 06/27/16 05:40 06:00 06:01 06:10 Pulse 61 62 B/P 78/42 84/52 Pulse Ox 94 94 O2 Delivery Nasal Cannula Nasal Cannula O2 Flow Rate 3.0 3.0 06/27/16 06/27/16 06/27/16 06/27/16 06:43 07:00 08:10 08:57 Temp 98.0 98.0 Pulse 60 62 Resp 16 18 B/P 89/45 Pulse Ox 96 O2 Delivery Nasal Cannula Nasal Cannula Nasal Cannula O2 Flow Rate 2.0 3.0 3.0 06/27/16 06/27/16 06/27/16 06/27/16 11:00 11:48 12:47 14:00 Temp 98.3 98.3 Pulse 67 Resp 18 20 18 B/P 99/56 Pulse Ox 96 O2 Delivery Nasal Cannula Nasal Cannula Room Air Nasal Cannula O2 Flow Rate 3.0 3.0 3.0 06/27/16 06/27/16 06/27/16 06/27/16 14:32 15:00 15:05 16:01 Temp 98.3 98.3 Pulse 66 Resp 18 18 18 B/P 102/64 Pulse Ox 96 O2 Delivery Nasal Cannula Nasal Cannula Nasal Cannula Nasal Cannula O2 Flow Rate 3.0 3.0 3.0 3.0 Intake and Output 06/26/16 06/26/16 06/27/16 15:00 23:00 07:00 Intake Total 400 ml 932 ml Output Total 500 ml 400 ml Balance -500 ml 400 ml 532 ml AGATA PIERCE MD Jun 27, 2016 19:12
[2016-06-27] MEDS: ATORVASTATIN CALCIUM 10 MG TABLET. PO SCH (20:14)
[2016-06-27] MEDS: traZODone 100 MG TABLET. PO SCH (20:15)
[2016-06-28 03:00] VITALS: BP 97/43
[2016-06-28] MEDS: ALBUTEROL SULFATE 2.5 MG/3 ML NEBU. NEB SCH ×4 (06:12→20:08)
[2016-06-28] MEDS: BUDESONIDE 0.5 MG/2 ML NEBU NEB SCH ×2 (06:12→20:08)
[2016-06-28 07:00] VITALS: BP 85/39
[2016-06-28] MEDS: CYANOCOBALAMIN (VITAMIN B-12) 1,000 MCG/ML VIAL IM SCH (08:14)
[2016-06-28] MEDS: NON FORMULARY ITEM (Modafinil (Provigil) 200 MG) PO SCH (08:14)
[2016-06-28] MEDS: CEPHALEXIN 250 MG CAPSULE PO SCH ×3 (08:15→21:30)
[2016-06-28] MEDS: CARBAMAZEPINE 200 MG TABLET. PO SCH ×3 (08:15→21:30)
[2016-06-28] MEDS: ESCITALOPRAM 10 MG TABLET. PO SCH (08:15)
[2016-06-28] MEDS: BACLOFEN 10 MG TABLET PO SCH ×3 (08:15→21:30)
[2016-06-28] MEDS: PANTOPRAZOLE 40 MG TABLET. PO SCH (08:15)
[2016-06-28] MEDS: LUBIPROSTONE 8 MCG CAPSULE PO SCH ×2 (08:16→16:43)
[2016-06-28] MEDS: DIGOXIN 125 MCG TABLET PO SCH (08:16)
[2016-06-28] MEDS: NON FORMULARY ITEM (Dimethyl Fumarate (Tecfidera) 240 MG) PO SCH ×2 (08:16→21:00)
[2016-06-28] MEDS: OXYCODONE/APAP 10/325 TABLET. PO PRN ×4 (08:16→21:30)
[2016-06-28] MEDS: ASPIRIN ENTERIC COATED 81 MG TABLET.DR. PO SCH (08:16)
--- NOTE | 2016-06-28 09:11 | PDOC ---
G I PROGRESS NOTE Reason for Follow-up L flank/leg pain Subjective Constipation persists Physical Exam Lungs clear CV S1 S2 ABD +BS, soft, L sided dullness Review of Relevant I have reviewed the following items svetlana (where applicable) has been applied. Labs Laboratory Tests Test 06/28/16 06:15 06/28/16 07:13 Carbamazepine (Tegretol) Level 8.4mcg/mL (4.0-12.0) Carbamazepine Last Dose Date 06/27/16 Carbamazepine Last Dose Time 2100 Glucose (Fingerstick) 94mg/dL (70-99) Laboratory Tests Test 06/28/16 06:15 06/28/16 07:13 Carbamazepine (Tegretol) Level 8.4mcg/mL (4.0-12.0) Carbamazepine Last Dose Date 06/27/16 Carbamazepine Last Dose Time 2100 Glucose (Fingerstick) 94mg/dL (70-99) Medications Current Medications Fentanyl Citrate 50 mcg 50 mcg PRN Q15MIN PRN IV PAIN GREATER THAN 3/10 Last administered on 06/24/16 18:02; Start 06/24/16 at 17:30; Stop 06/25/16 at 17:29; Status DC Sodium Chloride (Iv Sodium Chloride 0.9% 1000ml Bag) 1,000 ml @ 1,000 mls/hr Q1H IV Last administered on 06/24/16 17:58; Start 06/24/16 at 17:30; Stop at 18:29; Status DC Ondansetron HCl (Zofran) 4 mg 1X ONCE IV Last administered on 06/24/16 17:57; Start 06/24/16 at 17:30; Stop 06/24/16 at 17:31; Status DC Ondansetron HCl (Zofran) 4 mg PRN Q8HRS PRN IV NAUSEA/VOMITING Last administered on 06/25/16 06:02; Start 06/24/16 at 17:45; Stop 06/25/16 at 17:44; Status DC Fentanyl Citrate (Fentanyl 2ml Vial) 50 mcg PRN Q2HR PRN IV PAIN Last administered on 06/25/16 15:50; Start 06/24/16 at 17:45; Stop 06/25/16 at 17:44; Status DC Acetaminophen (Tylenol) 650 mg PRN Q4HRS PRN PO FEVER; Start 06/24/16 at 17:45; Stop 06/25/16 at 17:44; Status DC Aspirin (Ecotrin) 81 mg DAILY PO Last administered on 06/28/16 08:16; Start at 09:00 Baclofen (Lioresal) 10 mg TID PO Last administered on 06/28/16 08:15; Start at 09:00 Clonazepam (Klonopin) 0.5 mg PRN TID PRN PO TREMORS Last administered on 20:15; Start 06/24/16 at 22:15 Escitalopram Oxalate (Lexapro) 10 mg DAILY PO Last administered on 06/28/16 08 :15; Start 06/25/16 at 09:00 Oxycodone/ Acetaminophen (Percocet 10/325) 1 tab PRN Q4HRS PRN PO PAIN Last administered on 06/28/16 08:16; Start 06/24/16 at 22:15 Trazodone HCl (Desyrel) 200 mg QHS PO Last administered on 06/27/16 20:15; Start 06/24/16 at 22:30 Non-Formulary Medication 2 puff BID IH ; Start 06/25/16 at 09:00; Status UNV Carbamazepine (Tegretol) 200 mg TID PO Last administered on 06/27/16 14:06; Start 06/25/16 at 09:00; Stop 06/27/16 at 19:12; Status DC Cephalexin HCl (Keflex) 500 mg TID PO Last administered on 06/28/16 08:15; Start 06/25/16 at 09:00 Pantoprazole Sodium (Protonix) 40 mg DAILYAC PO ; Start 06/25/16 at 07:30; Stop 06/25/16 at 07:30; Status DC Digoxin (Lanoxin) 125 mcg DAILY PO Last administered on 06/28/16 08:16; Start 06/25/16 at 09:00 Non-Formulary Medication 240 mg BID PO ; Start 06/25/16 at 09:00; Status UNV Atorvastatin Calcium (Lipitor) 10 mg HS PO Last administered on 06/27/16 20:14 ; Start 06/25/16 at 21:00 Non-Formulary Medication 200 mg DAILY PO ; Start 06/25/16 at 09:00; Stop at 00:04; Status DC Budesonide (Pulmicort) 0.5 mg RTBID NEB Last administered on 06/28/16 06:12; Start 06/25/16 at 08:00 Albuterol Sulfate (Ventolin Neb Soln) 2.5 mg RTQID NEB Last administered on 06:12; Start 06/25/16 at 08:00 Pantoprazole Sodium 40 mg 40 mg DAILY06 PO Last administered on 06/28/16 08:15 ; Start 06/25/16 at 06:00 Sodium Chloride 1,000 ml @ 60 mls/hr [id number] IV Last administered on 03:25; Start 06/25/16 at 15:45; Stop 06/26/16 at 23:08; Status DC Albumin Human (Plasmanate) 500 ml @ 125 mls/hr 1X ONCE IV Last administered on 06/25/16 23:16; Start 06/25/16 at 23:15; Stop 06/26/16 at 03:14; Status DC Non-Formulary Medication 200 mg DAILY PO Last administered on 06/28/16 08:14; Start 06/26/16 at 09:00 Barium Sulfate (Liquid E-Z Paque) 710 ml 1X ONCE PO Last administered on 08:00; Start 06/26/16 at 08:00; Stop 06/26/16 at 08:01; Status DC Cyanocobalamin (Vitamin B-12) 1,000 mcg DAILY IM Last administered on 08:14; Start 06/26/16 at 10:00 Lubiprostone 8 mcg 8 mcg BIDWMEALS PO Last administered on 06/28/16 08:16; Start 06/26/16 at 17:00 Albumin Human 500 ml @ 125 mls/hr 1X ONCE IV Last administered on 06/27/16 00:22; Start 06/27/16 at 00:30; Stop 06/27/16 at 04:29; Status DC Sodium Chloride (Iv Sodium Chloride 0.9% 1000ml Bag) 1,000 ml @ 60 mls/hr [id number] IV Last administered on 06/27/16 20:24; Start 06/27/16 at 03:00 Fentanyl Citrate (Fentanyl 2ml Vial) 50 mcg PRN Q3HRS PRN IV PAIN Last administered on 06/27/16 23:30; Start 06/27/16 at 13:15 Carbamazepine (Tegretol) 300 mg TID PO Last administered on 06/28/16 08:15; Start 06/27/16 at 21:00 Active Scripts Active Keflex (Cephalexin) 500 Mg Capsule 1 Cap PO TID Reported Trazodone Hcl 100 Mg Tablet 200 Mg PO HS Klonopin (Clonazepam) 0.5 Mg Tablet 0.5 Mg PO TID PRN [morphine] 14.5 Mg ID DAILY Lovastatin 40 Mg Tablet 40 Mg PO HS Aspir 81 (Aspirin) 81 Mg Tablet.dr 81 Mg PO DAILY Tecfidera (Dimethyl Fumarate) 240 Mg Capsule.dr 240 Mg PO BID Symbicort 160-4.5 Mcg Inhaler (Budesonide/Formoterol Fumarate) 10.2 Gm Hfa.aer.ad 2 Puff IH BID Percocet 10-325 Mg Tablet (Oxycodone/Acetaminophen) 1 Each Tablet 1 Tab PO Q4HRS PRN Baclofen 10 Mg Tablet 1 Tab PO TID Trazodone Hcl 100 Mg Tablet 2 Tab PO QHS Provigil (Modafinil) 100 Mg Tablet 200 Mg PO DAILY Dexilant (Dexlansoprazole) 60 Mg Cap.dr.mp 60 Mg PO DAILY Digoxin 0.125 Mg/2.5 Ml Solution 0.125 Mg PO DAILY Carbamazepine 200 Mg Cpmp.12hr 200 Mg PO TID Lexapro (Escitalopram Oxalate) 10 Mg Tablet 10 Mg PO DAILY Vitals/I & O Vital Sign - Last 24 Hours 06/27/16 06/27/16 06/27/16 06/27/16 11:00 11:48 12:47 14:32 Temp 98.3 98.3 Pulse 67 Resp 18 20 18 B/P 99/56 Pulse Ox 96 O2 Delivery Nasal Cannula Nasal Cannula Room Air Nasal Cannula O2 Flow Rate 3.0 3.0 3.0 06/27/16 06/27/16 06/27/16 06/27/16 15:00 16:01 19:00 19:00 Temp 98.3 97.9 98.3 97.9 Pulse 66 62 Resp 18 16 B/P 102/64 93/59 Pulse Ox 96 96 O2 Delivery Nasal Cannula Nasal Cannula Nasal Cannula O2 Flow Rate 3.0 3.0 3.0 06/27/16 06/27/16 06/27/16 06/27/16 20:06 20:09 20:10 20:16 Resp 20 Pulse Ox 98 98 98 O2 Delivery Nasal Cannula Nasal Cannula Nasal Cannula Nasal Cannula O2 Flow Rate 3.0 3.0 3.0 3.0 06/27/16 06/27/16 06/27/16 06/27/16 21:16 21:24 23:00 23:00 Temp 98.6 98.6 Pulse 61 Resp 20 16 B/P 94/48 82/46 Pulse Ox 98 96 O2 Delivery Nasal Cannula Nasal Cannula O2 Flow Rate 3.0 3.0 06/27/16 06/28/16 06/28/16 06/28/16 23:30 00:00 03:00 03:00 Temp 98.2 98.2 Pulse 77 Resp 20 20 16 B/P 97/43 Pulse Ox 98 98 95 O2 Delivery Nasal Cannula Nasal Cannula Nasal Cannula O2 Flow Rate 3.0 3.0 3.0 06/28/16 06/28/16 06/28/16 06/28/16 06:10 07:00 08:16 08:16 Temp 97.5 97.5 Pulse 61 61 Resp 20 B/P 85/39 85/39 Pulse Ox 98 92 O2 Delivery Nasal Cannula Nasal Cannula Nasal Cannula O2 Flow Rate 3.0 3.0 3.0 Intake and Output 06/27/16 06/27/16 06/28/16 15:00 23:00 07:00 Intake Total 240 ml 842 ml Output Total 975 ml 900 ml 400 ml Balance -975 ml -660 ml 442 ml Problem List Problems Medical Problems: (1) Intractable pain Status: Acute (2) Multiple sclerosis Status: Acute Assessment Abd pain- with MS and radiation leg pain, suspect nerve impingement, await neuro input regarding imaging, miralax for constipation ERIC PHILLIPS MD Jun 28, 2016 09:11
[2016-06-28 11:00] VITALS: BP 84/47
[2016-06-28] MEDS ORDERED: POLYETHYLENE GLYCOL 3350 238 GM POWDER PO ONE (11:00)
[2016-06-28] MEDS: IV NORMAL SALINE 1000ML BAG 1,000 ML IV SCH (12:20)
--- NOTE | 2016-06-28 13:14 | PDOC ---
Provider Note Provider Note Covering for Dr. Alarcon. She continues to complain of severe pain in her left flank radiating to the left groin. She believes it is not due to her M S.. GI and neurology are following. Rule out a renal cause such as a renal stone. ESHA CHU MD Jun 28, 2016 13:14
--- NOTE | 2016-06-28 14:16 | PDOC ---
PROGRESS NOTES Assessment Problems Medical Problems: (1) Intractable pain Status: Acute (2) Multiple sclerosis Status: Acute Chronic left flank pain, neck, back pain, follows with Dr. Cabral for pain pump. Chronic left leg weakness x 4 years. MS, per history. This was diagnosed in [place] on MRI studies and lumbar puncture, but interestingly when we checked MRI studies here 4 years ago, they were negative CAD DM Vit B12 deficiency. Thyroid cancer since 2001. Chronic neck and back pain. Tremors better with increased carbamazepine, level was in the therapeutic range Plan Continue Tecfidera home regimen. She can take it from her home supply. [facility] does not have it in hospital. Vit B12 1000 mcg IM daily. Change to PO when discharge. CT abdomen, pelvis, lumbar spine OT/PT. MRI is contraindicated due to pacemaker. As she is already seeing a pain specialist I doubt that Dr. Toro will be able to add anything. Agree with increased fentanyl Subjective Tremors are better, still has pain Objective Vital Signs Date Time Temp Pulse Resp B/P Pulse Ox O2 Delivery O2 Flow Rate FiO2 06/28/16 13:30 Nasal Cannula 3.0 06/28/16 11:00 98.0 60 18 84/47 92 98.0 Intake and Output 06/28/16 07:00 Intake Total 1082 ml Output Total 2275 ml Balance -1193 ml Intake Oral 540 ml IV Total 542 ml Output Urine Total 2275 ml PHYSICAL EXAM Alert. Oriented to time, place and person. PERRL. EOMI. CN: no focal findings. Muscle tone: normal. Muscle strength: 4/5 DTR: 2+ Plantar reflex: flexor Gait: not examined in bed. Sensory exam: Diffuse pinprick hypesthesia Review of Relevant I have reviewed the following items svetlana (where applicable) has been applied. Labs Laboratory Tests Test 06/28/16 06:15 06/28/16 07:13 06/28/16 11:19 Carbamazepine (Tegretol) Level 8.4mcg/mL (4.0-12.0) Carbamazepine Last Dose Date 06/27/16 Carbamazepine Last Dose Time 2100 Glucose (Fingerstick) 94mg/dL (70-99) 93mg/dL (70-99) Laboratory Tests Test 06/28/16 06:15 06/28/16 07:13 06/28/16 11:19 Carbamazepine (Tegretol) Level 8.4mcg/mL (4.0-12.0) Carbamazepine Last Dose Date 06/27/16 Carbamazepine Last Dose Time 2100 Glucose (Fingerstick) 94mg/dL (70-99) 93mg/dL (70-99) Medications Current Medications Fentanyl Citrate 50 mcg 50 mcg PRN Q15MIN PRN IV PAIN GREATER THAN 3/10 Last administered on 06/24/16 18:02; Start 06/24/16 at 17:30; Stop 06/25/16 at 17:29; Status DC Sodium Chloride (Iv Sodium Chloride 0.9% 1000ml Bag) 1,000 ml @ 1,000 mls/hr Q1H IV Last administered on 06/24/16 17:58; Start 06/24/16 at 17:30; Stop at 18:29; Status DC Ondansetron HCl (Zofran) 4 mg 1X ONCE IV Last administered on 06/24/16 17:57; Start 06/24/16 at 17:30; Stop 06/24/16 at 17:31; Status DC Ondansetron HCl (Zofran) 4 mg PRN Q8HRS PRN IV NAUSEA/VOMITING Last administered on 06/25/16 06:02; Start 06/24/16 at 17:45; Stop 06/25/16 at 17:44; Status DC Fentanyl Citrate (Fentanyl 2ml Vial) 50 mcg PRN Q2HR PRN IV PAIN Last administered on 06/25/16 15:50; Start 06/24/16 at 17:45; Stop 06/25/16 at 17:44; Status DC Acetaminophen (Tylenol) 650 mg PRN Q4HRS PRN PO FEVER; Start 06/24/16 at 17:45; Stop 06/25/16 at 17:44; Status DC Aspirin (Ecotrin) 81 mg DAILY PO Last administered on 06/28/16 08:16; Start at 09:00 Baclofen (Lioresal) 10 mg TID PO Last administered on 06/28/16 14:08; Start at 09:00 Clonazepam (Klonopin) 0.5 mg PRN TID PRN PO TREMORS Last administered on 20:15; Start 06/24/16 at 22:15 Escitalopram Oxalate (Lexapro) 10 mg DAILY PO Last administered on 06/28/16 08 :15; Start 06/25/16 at 09:00 Oxycodone/ Acetaminophen (Percocet 10/325) 1 tab PRN Q4HRS PRN PO PAIN Last administered on 06/28/16 12:21; Start 06/24/16 at 22:15 Trazodone HCl (Desyrel) 200 mg QHS PO Last administered on 06/27/16 20:15; Start 06/24/16 at 22:30 Non-Formulary Medication 2 puff BID IH ; Start 06/25/16 at 09:00; Status UNV Carbamazepine (Tegretol) 200 mg TID PO Last administered on 06/27/16 14:06; Start 06/25/16 at 09:00; Stop 06/27/16 at 19:12; Status DC Cephalexin HCl (Keflex) 500 mg TID PO Last administered on 06/28/16 14:08; Start 06/25/16 at 09:00 Pantoprazole Sodium (Protonix) 40 mg DAILYAC PO ; Start 06/25/16 at 07:30; Stop 06/25/16 at 07:30; Status DC Digoxin (Lanoxin) 125 mcg DAILY PO Last administered on 06/28/16 08:16; Start 06/25/16 at 09:00 Non-Formulary Medication 240 mg BID PO ; Start 06/25/16 at 09:00; Status UNV Atorvastatin Calcium (Lipitor) 10 mg HS PO Last administered on 06/27/16 20:14 ; Start 06/25/16 at 21:00 Non-Formulary Medication 200 mg DAILY PO ; Start 06/25/16 at 09:00; Stop at 00:04; Status DC Budesonide (Pulmicort) 0.5 mg RTBID NEB Last administered on 06/28/16 06:12; Start 06/25/16 at 08:00 Albuterol Sulfate (Ventolin Neb Soln) 2.5 mg RTQID NEB Last administered on 10:56; Start 06/25/16 at 08:00 Pantoprazole Sodium 40 mg 40 mg DAILY06 PO Last administered on 06/28/16 08:15 ; Start 06/25/16 at 06:00 Sodium Chloride 1,000 ml @ 60 mls/hr [id number] IV Last administered on 03:25; Start 06/25/16 at 15:45; Stop 06/26/16 at 23:08; Status DC Albumin Human (Plasmanate) 500 ml @ 125 mls/hr 1X ONCE IV Last administered on 06/25/16 23:16; Start 06/25/16 at 23:15; Stop 06/26/16 at 03:14; Status DC Non-Formulary Medication 200 mg DAILY PO Last administered on 06/28/16 08:14; Start 06/26/16 at 09:00 Barium Sulfate (Liquid E-Z Paque) 710 ml 1X ONCE PO Last administered on 08:00; Start 06/26/16 at 08:00; Stop 06/26/16 at 08:01; Status DC Cyanocobalamin (Vitamin B-12) 1,000 mcg DAILY IM Last administered on 08:14; Start 06/26/16 at 10:00 Lubiprostone 8 mcg 8 mcg BIDWMEALS PO Last administered on 06/28/16 08:16; Start 06/26/16 at 17:00 Albumin Human 500 ml @ 125 mls/hr 1X ONCE IV Last administered on 06/27/16 00:22; Start 06/27/16 at 00:30; Stop 06/27/16 at 04:29; Status DC Sodium Chloride (Iv Sodium Chloride 0.9% 1000ml Bag) 1,000 ml @ 60 mls/hr [id number] IV Last administered on 06/28/16 12:20; Start 06/27/16 at 03:00 Fentanyl Citrate (Fentanyl 2ml Vial) 50 mcg PRN Q3HRS PRN IV PAIN Last administered on 06/27/16 23:30; Start 06/27/16 at 13:15 Carbamazepine (Tegretol) 300 mg TID PO Last administered on 06/28/16 14:08; Start 06/27/16 at 21:00 Polyethylene Glycol (miraLAX Powder BULK BOTTLE) 238 gm 1X ONCE PO Last administered on 06/28/16 10:50; Start 06/28/16 at 11:00; Stop 06/28/16 at 11:01 ; Status DC Active Scripts Active Keflex (Cephalexin) 500 Mg Capsule 1 Cap PO TID Reported Trazodone Hcl 100 Mg Tablet 200 Mg PO HS Klonopin (Clonazepam) 0.5 Mg Tablet 0.5 Mg PO TID PRN [morphine] 14.5 Mg ID DAILY Lovastatin 40 Mg Tablet 40 Mg PO HS Aspir 81 (Aspirin) 81 Mg Tablet.dr 81 Mg PO DAILY Tecfidera (Dimethyl Fumarate) 240 Mg Capsule.dr 240 Mg PO BID Symbicort 160-4.5 Mcg Inhaler (Budesonide/Formoterol Fumarate) 10.2 Gm Hfa.aer.ad 2 Puff IH BID Percocet 10-325 Mg Tablet (Oxycodone/Acetaminophen) 1 Each Tablet 1 Tab PO Q4HRS PRN Baclofen 10 Mg Tablet 1 Tab PO TID Trazodone Hcl 100 Mg Tablet 2 Tab PO QHS Provigil (Modafinil) 100 Mg Tablet 200 Mg PO DAILY Dexilant (Dexlansoprazole) 60 Mg Cap.dr.mp 60 Mg PO DAILY Digoxin 0.125 Mg/2.5 Ml Solution 0.125 Mg PO DAILY Carbamazepine 200 Mg Cpmp.12hr 200 Mg PO TID Lexapro (Escitalopram Oxalate) 10 Mg Tablet 10 Mg PO DAILY Vitals/I & O Vital Sign - Last 24 Hours 06/27/16 06/27/16 06/27/16 06/27/16 14:32 15:00 16:01 19:00 Temp 98.3 98.3 Pulse 66 Resp 18 18 B/P 102/64 Pulse Ox 96 96 O2 Delivery Nasal Cannula Nasal Cannula Nasal Cannula O2 Flow Rate 3.0 3.0 3.0 06/27/16 06/27/16 06/27/16 06/27/16 19:00 20:06 20:09 20:10 Temp 97.9 97.9 Pulse 62 Resp 16 B/P 93/59 Pulse Ox 98 98 O2 Delivery Nasal Cannula Nasal Cannula Nasal Cannula Nasal Cannula O2 Flow Rate 3.0 3.0 3.0 3.0 06/27/16 06/27/16 06/27/16 06/27/16 20:16 21:16 21:24 23:00 Temp 98.6 98.6 Pulse 61 Resp 20 20 16 B/P 94/48 82/46 Pulse Ox 98 98 O2 Delivery Nasal Cannula Nasal Cannula O2 Flow Rate 3.0 3.0 06/27/16 06/27/16 06/28/16 06/28/16 23:00 23:30 00:00 03:00 Temp 98.2 98.2 Pulse 77 Resp 20 20 16 B/P 97/43 Pulse Ox 96 98 98 O2 Delivery Nasal Cannula Nasal Cannula Nasal Cannula O2 Flow Rate 3.0 3.0 3.0 06/28/16 06/28/16 06/28/16 06/28/16 03:00 06:10 07:00 08:10 Temp 97.5 97.5 Pulse 61 Resp 20 B/P 85/39 Pulse Ox 95 98 92 O2 Delivery Nasal Cannula Nasal Cannula Nasal Cannula O2 Flow Rate 3.0 3.0 3.0 06/28/16 06/28/16 06/28/16 06/28/16 08:16 08:16 10:57 11:00 Temp 98.0 98.0 Pulse 61 60 Resp 18 B/P 85/39 84/47 Pulse Ox 92 O2 Delivery Nasal Cannula Nasal Cannula Nasal Cannula O2 Flow Rate 3.0 3.0 3.0 06/28/16 06/28/16 12:21 13:30 O2 Delivery Nasal Cannula Nasal Cannula O2 Flow Rate 3.0 3.0 Intake and Output 06/27/16 06/27/16 06/28/16 15:00 23:00 07:00 Intake Total 240 ml 842 ml Output Total 975 ml 900 ml 400 ml Balance -975 ml -660 ml 442 ml AGATA PIERCE MD Jun 28, 2016 14:16
--- NOTE | 2016-06-28 14:39 | RAD ---
ABDOMEN PELVIS WO CONTRAST History:Severe left flank pain to the left groin. Technique: Noncontrast CT imaging was performed of the abdomen and pelvis, multiplanar reconstruction images submitted. Exposure: One or more of the following individualized dose reduction techniques were utilized for this exam: 1. Automated exposure control.2. Adjustment of the mA and/or KV according to patient size.3. Use of iterative reconstruction technique. Comparison: 05/29/2016 Findings:There are now small dependent pleural effusions of the visualized bilateral lung bases, some adjacent consolidation of the lower lobe pleural effusions greater on the right. There is a small noncalcified nodule right middle lobe on the order of 4 mm. There is increased moderate pericardial effusion. Accurate evaluation of the abdominal visceral organs is limited without intravenous contrast. There is no new obvious focal abnormality of the liver, spleen, or limited visualized pancreas. There is prominent artifact created by dense barium in the colon from small bowel exam performed on 06/26/2016. There is small 2 mm left renal calculus, no obvious right renal calculus. There is no hydronephrosis of either kidney. Ureters are poorly visualized in part from the prominent artifact. There is a calculus in the left abdomen which possibly could be in the proximal left ureter on the order of 4 5-mm in size although ureters again not well visualized otherwise. Ureters are also poorly visualized on the previous exam. Accurate evaluation of bowel is very limited due to artifact created by the dense barium. There is a small quantity of dependent free fluid in the right pelvis. There is retained stool in segments of the colon. No obvious free air is identified. Impression: 1.Exam is limited due to dense barium in the colon from recent small bowel exam. There is no significant hydronephrosis of either kidney. There is a small left renal calculus. There is a 4 to 5 mm calculus in the left abdomen possibly in the nondilated proximal left ureter although confirmation better performed with urogram protocol after clearing of the oral contrast. 2. There are now small bilateral pleural effusions near lung bases with adjacent consolidation, also increased moderate pericardial effusion.
[2016-06-28 15:00] VITALS: BP 101/61
--- NOTE | 2016-06-28 15:58 | RAD ---
CT LUMBAR SPINE RECONSTRUCTION History:FLANK PAIN, BACK PAIN Technique: Noncontrast multiplanar reconstruction images of the lumbar spine are submitted. Exposure: One or more of the following individualized dose reduction techniques were utilized for this exam: 1. Automated exposure control.2. Adjustment of the mA and/or KV according to patient size.3. Use of iterative reconstruction technique. Comparison: MRI lumbar spine exam 12/07/2012 Findings:Lumbar vertebral body stature and AP alignment are preserved. No acute lumbar spine fracture is identified. Spinal stimulator leads course into the posterior aspect of the spinal canal at the L3-4 level with termination at the level of superior aspect of T11. There is mild mid lumbar levoscoliosis. Intervertebral disc spaces are adequate. Abdominal findings were described for the dedicated abdomen pelvis CT. Impression: 1.No acute fracture is identified of lumbar spine. There is mild mid lumbar levoscoliosis.
[2016-06-28 19:25] VITALS: BP 101/59
[2016-06-28] MEDS: ATORVASTATIN CALCIUM 10 MG TABLET. PO SCH (21:30)
[2016-06-28] MEDS: traZODone 100 MG TABLET. PO SCH (21:31)
[2016-06-28] MEDS: CLONAZEPAM 0.5 MG TABLET PO PRN (21:31)
[2016-06-28 23:30] VITALS: BP 82/48
[2016-06-29 03:34] VITALS: BP 73/33
[2016-06-29] MEDS: IV NORMAL SALINE 1000ML BAG 1,000 ML IV SCH ×2 (05:00→20:05)
[2016-06-29] MEDS: BUDESONIDE 0.5 MG/2 ML NEBU NEB SCH ×2 (06:13→19:35)
[2016-06-29] MEDS: ALBUTEROL SULFATE 2.5 MG/3 ML NEBU. NEB SCH ×4 (06:14→19:35)
[2016-06-29] MEDS: PANTOPRAZOLE 40 MG TABLET. PO SCH (06:25)
[2016-06-29] MEDS: OXYCODONE/APAP 10/325 TABLET. PO PRN ×3 (06:25→17:35)
[2016-06-29 07:00] VITALS: BP 80/49
[2016-06-29] MEDS: DIGOXIN 125 MCG TABLET PO SCH (09:00)
[2016-06-29] MEDS: CYANOCOBALAMIN (VITAMIN B-12) 1,000 MCG/ML VIAL IM SCH (09:00)
[2016-06-29] MEDS: NON FORMULARY ITEM (Dimethyl Fumarate (Tecfidera) 240 MG) PO SCH ×2 (09:00→20:00)
[2016-06-29] MEDS: BACLOFEN 10 MG TABLET PO SCH ×3 (09:22→20:00)
[2016-06-29] MEDS: NON FORMULARY ITEM (Modafinil (Provigil) 200 MG) PO SCH (09:22)
[2016-06-29] MEDS: CEPHALEXIN 250 MG CAPSULE PO SCH ×3 (09:22→20:00)
[2016-06-29] MEDS: LUBIPROSTONE 8 MCG CAPSULE PO SCH ×2 (09:23→17:34)
[2016-06-29] MEDS: ASPIRIN ENTERIC COATED 81 MG TABLET.DR. PO SCH (09:23)
[2016-06-29] MEDS: ESCITALOPRAM 10 MG TABLET. PO SCH (09:23)
[2016-06-29] MEDS: CARBAMAZEPINE 200 MG TABLET. PO SCH ×3 (09:23→19:58)
--- NOTE | 2016-06-29 09:59 | PDOC ---
PROGRESS NOTES Assessment Problems Medical Problems: (1) Intractable pain Status: Acute (2) Multiple sclerosis Status: Acute Renal calculus Chronic left flank pain, neck, back pain, follows with Dr. Cabral for pain pump. Chronic left leg weakness x 4 years. MS, per history. This was diagnosed in [place] on MRI studies and lumbar puncture, but interestingly when we checked MRI studies here 4 years ago, they were negative CAD DM Vit B12 deficiency. Thyroid cancer since 2001. Chronic neck and back pain. Tremors better with increased carbamazepine, level was in the therapeutic range Plan Urology consult Continue Tecfidera home regimen. She can take it from her home supply. [facility] does not have it in hospital. Vit B12 1000 mcg IM daily. Change to PO when discharge. CT abdomen, pelvis, lumbar spine OT/PT. MRI is contraindicated due to pacemaker. As she is already seeing a pain specialist I doubt that Dr. Toro will be able to add anything. Agree with increased fentanyl Subjective She says that she has had a chronic renal calculus and saw a urologist about 5 years ago who did not want to do anything about it. Objective Vital Signs Date Time Temp Pulse Resp B/P Pulse Ox O2 Delivery O2 Flow Rate FiO2 06/29/16 07:30 Nasal Cannula 3.0 06/29/16 07:00 97.5 60 16 80/49 97 97.5 Intake and Output 06/29/16 07:00 Intake Total 1760 ml Output Total 550 ml Balance 1210 ml Intake Oral 1760 ml Output Urine Total 550 ml # Voids 5 # Bowel Movements 1 PHYSICAL EXAM Alert. Oriented to time, place and person. PERRL. EOMI. CN: no focal findings. Muscle tone: normal. Muscle strength: 4/5 DTR: 2+ Plantar reflex: flexor Gait: not examined in bed. Sensory exam: Diffuse pinprick hypesthesia No cerebellar signs Review of Relevant I have reviewed the following items svetlana (where applicable) has been applied. Labs Laboratory Tests Test 06/28/16 06:15 06/28/16 07:13 06/28/16 11:19 Carbamazepine (Tegretol) Level 8.4mcg/mL (4.0-12.0) Carbamazepine Last Dose Date 06/27/16 Carbamazepine Last Dose Time 2100 Glucose (Fingerstick) 94mg/dL (70-99) 93mg/dL (70-99) Laboratory Tests Test 06/28/16 11:19 Glucose (Fingerstick) 93mg/dL (70-99) Medications Current Medications Fentanyl Citrate 50 mcg 50 mcg PRN Q15MIN PRN IV PAIN GREATER THAN 3/10 Last administered on 06/24/16 18:02; Start 06/24/16 at 17:30; Stop 06/25/16 at 17:29; Status DC Sodium Chloride (Iv Sodium Chloride 0.9% 1000ml Bag) 1,000 ml @ 1,000 mls/hr Q1H IV Last administered on 06/24/16 17:58; Start 06/24/16 at 17:30; Stop at 18:29; Status DC Ondansetron HCl (Zofran) 4 mg 1X ONCE IV Last administered on 06/24/16 17:57; Start 06/24/16 at 17:30; Stop 06/24/16 at 17:31; Status DC Ondansetron HCl (Zofran) 4 mg PRN Q8HRS PRN IV NAUSEA/VOMITING Last administered on 06/25/16 06:02; Start 06/24/16 at 17:45; Stop 06/25/16 at 17:44; Status DC Fentanyl Citrate (Fentanyl 2ml Vial) 50 mcg PRN Q2HR PRN IV PAIN Last administered on 06/25/16 15:50; Start 06/24/16 at 17:45; Stop 06/25/16 at 17:44; Status DC Acetaminophen (Tylenol) 650 mg PRN Q4HRS PRN PO FEVER; Start 06/24/16 at 17:45; Stop 06/25/16 at 17:44; Status DC Aspirin (Ecotrin) 81 mg DAILY PO Last administered on 06/29/16 09:23; Start at 09:00 Baclofen (Lioresal) 10 mg TID PO Last administered on 06/29/16 09:22; Start at 09:00 Clonazepam (Klonopin) 0.5 mg PRN TID PRN PO TREMORS Last administered on 21:31; Start 06/24/16 at 22:15 Escitalopram Oxalate (Lexapro) 10 mg DAILY PO Last administered on 06/29/16 09 :23; Start 06/25/16 at 09:00 Oxycodone/ Acetaminophen (Percocet 10/325) 1 tab PRN Q4HRS PRN PO PAIN Last administered on 06/29/16 06:25; Start 06/24/16 at 22:15 Trazodone HCl (Desyrel) 200 mg QHS PO Last administered on 06/28/16 21:31; Start 06/24/16 at 22:30 Non-Formulary Medication 2 puff BID IH ; Start 06/25/16 at 09:00; Status UNV Carbamazepine (Tegretol) 200 mg TID PO Last administered on 06/27/16 14:06; Start 06/25/16 at 09:00; Stop 06/27/16 at 19:12; Status DC Cephalexin HCl (Keflex) 500 mg TID PO Last administered on 06/29/16 09:22; Start 06/25/16 at 09:00 Pantoprazole Sodium (Protonix) 40 mg DAILYAC PO ; Start 06/25/16 at 07:30; Stop 06/25/16 at 07:30; Status DC Digoxin (Lanoxin) 125 mcg DAILY PO Last administered on 06/28/16 08:16; Start 06/25/16 at 09:00 Non-Formulary Medication 240 mg BID PO ; Start 06/25/16 at 09:00; Status UNV Atorvastatin Calcium (Lipitor) 10 mg HS PO Last administered on 06/28/16 21:30 ; Start 06/25/16 at 21:00 Non-Formulary Medication 200 mg DAILY PO ; Start 06/25/16 at 09:00; Stop at 00:04; Status DC Budesonide (Pulmicort) 0.5 mg RTBID NEB Last administered on 06/29/16 06:13; Start 06/25/16 at 08:00 Albuterol Sulfate (Ventolin Neb Soln) 2.5 mg RTQID NEB Last administered on 06:14; Start 06/25/16 at 08:00 Pantoprazole Sodium 40 mg 40 mg DAILY06 PO Last administered on 06/29/16 06:25 ; Start 06/25/16 at 06:00 Sodium Chloride 1,000 ml @ 60 mls/hr [id number] IV Last administered on 03:25; Start 06/25/16 at 15:45; Stop 06/26/16 at 23:08; Status DC Albumin Human (Plasmanate) 500 ml @ 125 mls/hr 1X ONCE IV Last administered on 06/25/16 23:16; Start 06/25/16 at 23:15; Stop 06/26/16 at 03:14; Status DC Non-Formulary Medication 200 mg DAILY PO Last administered on 06/29/16 09:22; Start 06/26/16 at 09:00 Barium Sulfate (Liquid E-Z Paque) 710 ml 1X ONCE PO Last administered on 08:00; Start 06/26/16 at 08:00; Stop 06/26/16 at 08:01; Status DC Cyanocobalamin (Vitamin B-12) 1,000 mcg DAILY IM Last administered on 08:14; Start 06/26/16 at 10:00 Lubiprostone 8 mcg 8 mcg BIDWMEALS PO Last administered on 06/29/16 09:23; Start 06/26/16 at 17:00 Albumin Human 500 ml @ 125 mls/hr 1X ONCE IV Last administered on 06/27/16 00:22; Start 06/27/16 at 00:30; Stop 06/27/16 at 04:29; Status DC Sodium Chloride (Iv Sodium Chloride 0.9% 1000ml Bag) 1,000 ml @ 60 mls/hr [id number] IV Last administered on 06/28/16 12:20; Start 06/27/16 at 03:00 Fentanyl Citrate (Fentanyl 2ml Vial) 50 mcg PRN Q3HRS PRN IV PAIN Last administered on 06/27/16 23:30; Start 06/27/16 at 13:15 Carbamazepine (Tegretol) 300 mg TID PO Last administered on 06/29/16 09:23; Start 06/27/16 at 21:00 Polyethylene Glycol (miraLAX Powder BULK BOTTLE) 238 gm 1X ONCE PO Last administered on 06/28/16 10:50; Start 06/28/16 at 11:00; Stop 06/28/16 at 11:01 ; Status DC Active Scripts Active Keflex (Cephalexin) 500 Mg Capsule 1 Cap PO TID Reported Trazodone Hcl 100 Mg Tablet 200 Mg PO HS Klonopin (Clonazepam) 0.5 Mg Tablet 0.5 Mg PO TID PRN [morphine] 14.5 Mg ID DAILY Lovastatin 40 Mg Tablet 40 Mg PO HS Aspir 81 (Aspirin) 81 Mg Tablet.dr 81 Mg PO DAILY Tecfidera (Dimethyl Fumarate) 240 Mg Capsule.dr 240 Mg PO BID Symbicort 160-4.5 Mcg Inhaler (Budesonide/Formoterol Fumarate) 10.2 Gm Hfa.aer.ad 2 Puff IH BID Percocet 10-325 Mg Tablet (Oxycodone/Acetaminophen) 1 Each Tablet 1 Tab PO Q4HRS PRN Baclofen 10 Mg Tablet 1 Tab PO TID Trazodone Hcl 100 Mg Tablet 2 Tab PO QHS Provigil (Modafinil) 100 Mg Tablet 200 Mg PO DAILY Dexilant (Dexlansoprazole) 60 Mg Cap..mp 60 Mg PO DAILY Digoxin 0.125 Mg/2.5 Ml Solution 0.125 Mg PO DAILY Carbamazepine 200 Mg Cpmp.12hr 200 Mg PO TID Lexapro (Escitalopram Oxalate) 10 Mg Tablet 10 Mg PO DAILY Vitals/I & O Vital Sign - Last 24 Hours 06/28/16 06/28/16 06/28/16 06/28/16 10:57 11:00 12:21 15:00 Temp 98.0 97.9 98.0 97.9 Pulse 60 60 Resp 18 18 B/P 84/47 101/61 Pulse Ox 92 96 O2 Delivery Nasal Cannula Nasal Cannula Nasal Cannula Nasal Cannula O2 Flow Rate 3.0 3.0 3.0 3.0 06/28/16 06/28/16 06/28/16 06/28/16 16:47 19:25 20:00 20:09 Temp 97.7 97.7 Pulse 62 Resp 18 B/P 101/59 Pulse Ox 93 O2 Delivery Nasal Cannula Nasal Cannula Nasal Cannula Nasal Cannula O2 Flow Rate 3.0 3.0 3.0 3.0 06/28/16 06/28/16 06/28/16 06/28/16 20:09 21:30 22:30 23:30 Temp 98.0 98.0 Pulse 62 Resp 20 20 18 B/P 82/48 Pulse Ox 93 95 95 O2 Delivery Nasal Cannula Nasal Cannula Nasal Cannula O2 Flow Rate 3.0 3.0 3.0 06/29/16 06/29/16 06/29/16 06/29/16 03:34 06:13 06:25 07:00 Temp 98.1 97.5 98.1 97.5 Pulse 60 60 Resp 18 20 16 B/P 73/33 80/49 Pulse Ox 90 90 97 O2 Delivery Nasal Cannula Nasal Cannula Nasal Cannula Room Air O2 Flow Rate 3.0 3.0 3.0 06/29/16 07:30 O2 Delivery Nasal Cannula O2 Flow Rate 3.0 Intake and Output 06/28/16 06/28/16 06/29/16 15:00 23:00 07:00 Intake Total 120 ml 1200 ml 440 ml Output Total 550 ml Balance -430 ml [address] abdomen/pelvis: 1.Exam is limited due to dense barium in the colon from recent small bowel exam. There is no significant hydronephrosis of either kidney. There is a small left renal calculus. There is a 4 to 5 mm calculus in the left abdomen possibly in the nondilated proximal left ureter although confirmation better performed with urogram protocol after clearing of the oral contrast. 2. There are now small bilateral pleural effusions near lung bases with adjacent consolidation, also increased moderate pericardial effusion. CT lumbar: Findings:Lumbar vertebral body stature and AP alignment are preserved. No acute lumbar spine fracture is identified. Spinal stimulator leads course into the posterior aspect of the spinal canal at the L3-4 level with termination at the level of superior aspect of T11. There is mild mid lumbar levoscoliosis. Intervertebral disc spaces are adequate. Abdominal findings were described for the dedicated abdomen pelvis CT. Impression: 1.No acute fracture is identified of lumbar spine. There is mild mid lumbar levoscoliosis. AGATA PIERCE MD Jun 29, 2016 09:59
--- NOTE | 2016-06-29 10:09 | PDOC ---
SUBJECTIVE Subjective Pt. with chronic back pain-worse over past 2-[address]-no hydro but limited exam Vital Signs Vital Signs Date Time Temp Pulse Resp B/P Pulse Ox O2 Delivery O2 Flow Rate FiO2 06/29/16 07:30 Nasal Cannula 3.0 06/29/16 07:30 Nasal Cannula 3.0 06/29/16 07:00 97.5 60 16 80/49 97 Room Air 97.5 06/29/16 06:25 20 90 Nasal Cannula 3.0 06/29/16 06:13 Nasal Cannula 3.0 06/29/16 03:34 98.1 60 18 73/33 90 Nasal Cannula 3.0 98.1 06/28/16 23:30 98.0 62 18 82/48 95 Nasal Cannula 3.0 98.0 06/28/16 22:30 20 95 06/28/16 21:30 20 93 Nasal Cannula 3.0 06/28/16 20:09 Nasal Cannula 3.0 06/28/16 20:09 Nasal Cannula 3.0 06/28/16 20:00 Nasal Cannula 3.0 06/28/16 19:25 97.7 62 18 101/59 93 Nasal Cannula 3.0 97.7 06/28/16 16:47 Nasal Cannula 3.0 06/28/16 15:00 97.9 60 18 101/61 96 Nasal Cannula 3.0 97.9 06/28/16 12:21 Nasal Cannula 3.0 06/28/16 11:00 98.0 60 18 84/47 92 Nasal Cannula 3.0 98.0 06/28/16 10:57 Nasal Cannula 3.0 I & O Intake and Output 06/29/16 07:00 Intake Total 1760 ml Output Total 550 ml Balance 1210 ml Intake Oral 1760 ml Output Urine Total 550 ml # Voids 5 # Bowel Movements 1 PHYSICAL EXAM Physical Exam [id number]. tender over back-Left greater than right ASSESSMENT/PLAN Assessment/Plan Clear out barium today IVP tomorrow to rule out ureteral stone Problems: COMMENT Lab Laboratory Tests Test 06/28/16 11:19 Glucose (Fingerstick) 93mg/dL (70-99) LANDEN JONES MD Jun 29, 2016 10:09
--- NOTE | 2016-06-29 10:41 | PDOC ---
Subjective: Subjective: Per pt - pain persists despite "lots" of BMs. Objective: Objective: Per RN - having BMs, ongoing pain, probable IVP tomorrow. Vital Signs: Vital Signs Date Time Temp Pulse Resp B/P Pulse Ox O2 Delivery O2 Flow Rate FiO2 06/29/16 07:30 Nasal Cannula 3.0 06/29/16 07:00 97.5 60 16 80/49 97 97.5 Labs: Laboratory Tests Test 06/28/16 11:19 Glucose (Fingerstick) 93mg/dL (70-99) Imaging: SBS Impression: Significant delay in passage of barium through the small bowel into the colon by 4 h. This may be secondary to the significant fecal retention present within the right side of the colon. No small bowel dilatation is seen otherwise. CT A/P w/o contrast Impression: 1.Exam is limited due to dense barium in the colon from recent small bowel exam. There is no significant hydronephrosis of either kidney. There is a small left renal calculus. There is a 4 to 5 mm calculus in the left abdomen possibly in the nondilated proximal left ureter although confirmation better performed with urogram protocol after clearing of the oral contrast. 2. There are now small bilateral pleural effusions near lung bases with adjacent consolidation, also increased moderate pericardial effusion. PE: GEN: NAD LUNGS: CTAB HEART: RRR ABD: pain pump LLQ, BS+, left flank pain tracking to left groin NEURO/PSYCH: A & O 3 A/P: Left flank pain MS Constipation - improved -- Note plans for IVP tomorrow. OSWALD CEE Jun 29, 2016 10:40
[2016-06-29 11:00] VITALS: BP 85/52
--- NOTE | 2016-06-29 12:39 | PDOC ---
PROGRESS NOTES Subjective Subjective Pt still complaining of sharp pain to her Left lower flank. Pt stated she had renal calculi since 2009 and pain ever since that waxed and waned. Pt stated her bowel movements were well formed and that did not relieve any pain. Pt stated she has SOB but this is normal for her. Pt denied chest pain. Pt stated he is nauseated and gets headaches. Objective Objective Vital Signs Date Time Temp Pulse Resp B/P Pulse Ox O2 Delivery O2 Flow Rate FiO2 06/29/16 12:33 Nasal Cannula 3.0 06/29/16 11:53 93 06/29/16 11:00 97.7 60 16 85/52 97.7 Intake and Output 06/29/16 07:00 Intake Total 1760 ml Output Total 550 ml Balance 1210 ml Intake Oral 1760 ml Output Urine Total 550 ml # Voids 5 # Bowel Movements 1 Physical Exam Physical Exam No change in cardiac exam Neuro: Sensation intact Assessment Assessment Problems Medical Problems: (1) Intractable pain Status: Acute (2) Multiple sclerosis Status: Acute Plan Plan of Care Reviewed KUB, abd CT, Lumbar CT Follow Urology - IVP tomorrow to rule out urethral stone No other cardiac changes at this time Stable from cardiac perspective Comment Review of Relevant I have reviewed the following items svetlana (where applicable) has been applied. Labs Laboratory Tests Test 06/28/16 06:15 06/28/16 07:13 06/28/16 11:19 Carbamazepine (Tegretol) Level 8.4mcg/mL (4.0-12.0) Carbamazepine Last Dose Date 06/27/16 Carbamazepine Last Dose Time 2100 Glucose (Fingerstick) 94mg/dL (70-99) 93mg/dL (70-99) Medications Current Medications Fentanyl Citrate 50 mcg 50 mcg PRN Q15MIN PRN IV PAIN GREATER THAN 3/10 Last administered on 06/24/16 18:02; Start 06/24/16 at 17:30; Stop 06/25/16 at 17:29; Status DC Sodium Chloride (Iv Sodium Chloride 0.9% 1000ml Bag) 1,000 ml @ 1,000 mls/hr Q1H IV Last administered on 06/24/16 17:58; Start 06/24/16 at 17:30; Stop at 18:29; Status DC Ondansetron HCl (Zofran) 4 mg 1X ONCE IV Last administered on 06/24/16 17:57; Start 06/24/16 at 17:30; Stop 06/24/16 at 17:31; Status DC Ondansetron HCl (Zofran) 4 mg PRN Q8HRS PRN IV NAUSEA/VOMITING Last administered on 06/25/16 06:02; Start 06/24/16 at 17:45; Stop 06/25/16 at 17:44; Status DC Fentanyl Citrate (Fentanyl 2ml Vial) 50 mcg PRN Q2HR PRN IV PAIN Last administered on 06/25/16 15:50; Start 06/24/16 at 17:45; Stop 06/25/16 at 17:44; Status DC Acetaminophen (Tylenol) 650 mg PRN Q4HRS PRN PO FEVER; Start 06/24/16 at 17:45; Stop 06/25/16 at 17:44; Status DC Aspirin (Ecotrin) 81 mg DAILY PO Last administered on 06/29/16 09:23; Start at 09:00 Baclofen (Lioresal) 10 mg TID PO Last administered on 06/29/16 09:22; Start at 09:00 Clonazepam (Klonopin) 0.5 mg PRN TID PRN PO TREMORS Last administered on 21:31; Start 06/24/16 at 22:15 Escitalopram Oxalate (Lexapro) 10 mg DAILY PO Last administered on 06/29/16 09 :23; Start 06/25/16 at 09:00 Oxycodone/ Acetaminophen (Percocet 10/325) 1 tab PRN Q4HRS PRN PO PAIN Last administered on 06/29/16 12:33; Start 06/24/16 at 22:15 Trazodone HCl (Desyrel) 200 mg QHS PO Last administered on 06/28/16 21:31; Start 06/24/16 at 22:30 Non-Formulary Medication 2 puff BID IH ; Start 06/25/16 at 09:00; Status UNV Carbamazepine (Tegretol) 200 mg TID PO Last administered on 06/27/16 14:06; Start 06/25/16 at 09:00; Stop 06/27/16 at 19:12; Status DC Cephalexin HCl (Keflex) 500 mg TID PO Last administered on 06/29/16 09:22; Start 06/25/16 at 09:00 Pantoprazole Sodium (Protonix) 40 mg DAILYAC PO ; Start 06/25/16 at 07:30; Stop 06/25/16 at 07:30; Status DC Digoxin (Lanoxin) 125 mcg DAILY PO Last administered on 06/28/16 08:16; Start 06/25/16 at 09:00 Non-Formulary Medication 240 mg BID PO ; Start 06/25/16 at 09:00; Status UNV Atorvastatin Calcium (Lipitor) 10 mg HS PO Last administered on 06/28/16 21:30 ; Start 06/25/16 at 21:00 Non-Formulary Medication 200 mg DAILY PO ; Start 06/25/16 at 09:00; Stop at 00:04; Status DC Budesonide (Pulmicort) 0.5 mg RTBID NEB Last administered on 06/29/16 06:13; Start 06/25/16 at 08:00 Albuterol Sulfate (Ventolin Neb Soln) 2.5 mg RTQID NEB Last administered on 11:52; Start 06/25/16 at 08:00 Pantoprazole Sodium 40 mg 40 mg DAILY06 PO Last administered on 06/29/16 06:25 ; Start 06/25/16 at 06:00 Sodium Chloride 1,000 ml @ 60 mls/hr [id number] IV Last administered on 03:25; Start 06/25/16 at 15:45; Stop 06/26/16 at 23:08; Status DC Albumin Human (Plasmanate) 500 ml @ 125 mls/hr 1X ONCE IV Last administered on 06/25/16 23:16; Start 06/25/16 at 23:15; Stop 06/26/16 at 03:14; Status DC Non-Formulary Medication 200 mg DAILY PO Last administered on 06/29/16 09:22; Start 06/26/16 at 09:00 Barium Sulfate (Liquid E-Z Paque) 710 ml 1X ONCE PO Last administered on 08:00; Start 06/26/16 at 08:00; Stop 06/26/16 at 08:01; Status DC Cyanocobalamin (Vitamin B-12) 1,000 mcg DAILY IM Last administered on 08:14; Start 06/26/16 at 10:00 Lubiprostone 8 mcg 8 mcg BIDWMEALS PO Last administered on 06/29/16 09:23; Start 06/26/16 at 17:00 Albumin Human 500 ml @ 125 mls/hr 1X ONCE IV Last administered on 06/27/16 00:22; Start 06/27/16 at 00:30; Stop 06/27/16 at 04:29; Status DC Sodium Chloride (Iv Sodium Chloride 0.9% 1000ml Bag) 1,000 ml @ 60 mls/hr [id number] IV Last administered on 06/28/16 12:20; Start 06/27/16 at 03:00 Fentanyl Citrate (Fentanyl 2ml Vial) 50 mcg PRN Q3HRS PRN IV PAIN Last administered on 06/27/16 23:30; Start 06/27/16 at 13:15 Carbamazepine (Tegretol) 300 mg TID PO Last administered on 06/29/16 09:23; Start 06/27/16 at 21:00 Polyethylene Glycol (miraLAX Powder BULK BOTTLE) 238 gm 1X ONCE PO Last administered on 06/28/16 10:50; Start 06/28/16 at 11:00; Stop 06/28/16 at 11:01 ; Status DC Active Scripts Active Keflex (Cephalexin) 500 Mg Capsule 1 Cap PO TID Reported Trazodone Hcl 100 Mg Tablet 200 Mg PO HS Klonopin (Clonazepam) 0.5 Mg Tablet 0.5 Mg PO TID PRN [morphine] 14.5 Mg ID DAILY Lovastatin 40 Mg Tablet 40 Mg PO HS Aspir 81 (Aspirin) 81 Mg Tablet.dr 81 Mg PO DAILY Tecfidera (Dimethyl Fumarate) 240 Mg Capsule.dr 240 Mg PO BID Symbicort 160-4.5 Mcg Inhaler (Budesonide/Formoterol Fumarate) 10.2 Gm Hfa.aer.ad 2 Puff IH BID Percocet 10-325 Mg Tablet (Oxycodone/Acetaminophen) 1 Each Tablet 1 Tab PO Q4HRS PRN Baclofen 10 Mg Tablet 1 Tab PO TID Trazodone Hcl 100 Mg Tablet 2 Tab PO QHS Provigil (Modafinil) 100 Mg Tablet 200 Mg PO DAILY Dexilant (Dexlansoprazole) 60 Mg 60 Mg PO DAILY Digoxin 0.125 Mg/2.5 Ml Solution 0.125 Mg PO DAILY Carbamazepine 200 Mg Cpmp.12hr 200 Mg PO TID Lexapro (Escitalopram Oxalate) 10 Mg Tablet 10 Mg PO DAILY Vitals/I & O Vital Sign - Last 24 Hours 06/28/16 06/28/16 06/28/16 06/28/16 15:00 16:47 19:25 20:00 Temp 97.9 97.7 97.9 97.7 Pulse 60 62 Resp 18 18 B/P 101/61 101/59 Pulse Ox 96 93 O2 Delivery Nasal Cannula Nasal Cannula Nasal Cannula Nasal Cannula O2 Flow Rate 3.0 3.0 3.0 3.0 06/28/16 06/28/16 06/28/16 06/28/16 20:09 20:09 21:30 22:30 Resp 20 20 Pulse Ox 93 95 O2 Delivery Nasal Cannula Nasal Cannula Nasal Cannula O2 Flow Rate 3.0 3.0 3.0 06/28/16 06/29/16 06/29/16 06/29/16 23:30 03:34 06:13 06:25 Temp 98.0 98.1 98.0 98.1 Pulse 62 60 Resp 18 18 20 B/P 82/48 73/33 Pulse Ox 95 90 90 O2 Delivery Nasal Cannula Nasal Cannula Nasal Cannula Nasal Cannula O2 Flow Rate 3.0 3.0 3.0 3.0 06/29/16 06/29/16 06/29/16 06/29/16 07:00 07:30 07:30 11:00 Temp 97.5 97.7 97.5 97.7 Pulse 60 60 Resp 16 16 B/P 80/49 85/52 Pulse Ox 97 93 O2 Delivery Room Air Nasal Cannula Nasal Cannula Nasal Cannula O2 Flow Rate 3.0 3.0 3.0 06/29/16 06/29/16 11:53 12:33 Pulse Ox 93 O2 Delivery Nasal Cannula Nasal Cannula O2 Flow Rate 3.0 3.0 Intake and Output 06/28/16 06/28/16 06/29/16 15:00 23:00 07:00 Intake Total 120 ml 1200 ml 440 ml Output Total 550 ml Balance -430 ml 1200 ml 440 ml ESTEFANI HECTOR MD Jun 29, 2016 12:39
[2016-06-29 15:00] VITALS: BP 96/59
[2016-06-29 19:00] VITALS: BP 87/48
[2016-06-29] MEDS: ATORVASTATIN CALCIUM 10 MG TABLET. PO SCH (19:57)
[2016-06-29] MEDS: CLONAZEPAM 0.5 MG TABLET PO PRN (19:58)
[2016-06-29] MEDS: traZODone 100 MG TABLET. PO SCH (19:58)
[2016-06-29 23:00] VITALS: BP 99/41
[2016-06-30] VITALS (8 sets, daily range): BP systolic 72–97; BP diastolic 38–56
--- NOTE | 2016-06-30 02:44 | CONS ---
DATE OF CONSULTATION: 06/29/2016 LOCATION: The patient's room, 420. HISTORY OF PRESENT ILLNESS: The patient is a very pleasant 51-year-old white female who is admitted with back pain. The patient has a history of chronic back pain, but she has been having worsening of her back pain mainly on the left side for the last 2-3 weeks. The patient had a CT scan done a month ago, which showed no hydronephrosis. She on this admission had another CT on 06/28/2016, which showed no hydronephrosis, just a 2-mm nonobstructing left renal stone, but she has lot of artifact in the barium on the bowel obscuring what is potentially inside and outside the urinary tract. She does have multiple calcifications through the abdomen and pelvis, most likely ____. Her white count on admission is 3.2. Her creatinine is 0.7. Her urine showed rare red cell, occasional white cells, and bacteria. The patient states she has passed ____ in the past, over the years, never had any urologic interventions. She did see a urologist about 5 years ago. PAST MEDICAL HISTORY: Significant for coronary artery disease, hyperlipidemia, COPD, anxiety, and depression. She has had a pacemaker and a hysterectomy in the past and also carries a history by report of MS and she has been seen by Neurology. She also has a morphine pump implanted in her left lower abdomen. PHYSICAL EXAMINATION: ABDOMEN: The pump is palpable underneath the skin in the left lower abdomen. Abdomen itself is soft, really nontender. The patient is with pain over the left back and the right back, but more on the left than the right. ALLERGIES: She has no known drug allergies. PLAN: I talked with the patient concerning her findings and we will plan on letting the barium clear out today and then get an IVP on her tomorrow to rule out any ureteral stones and then proceed accordingly. I certainly appreciate being allowed to participate in this patient's care. LANDEN JONES MD DR: KATI/ned JOB#: [id number] / [id number]
[2016-06-30] MEDS: OXYCODONE/APAP 10/325 TABLET. PO PRN ×5 (04:16→21:21)
[2016-06-30] MEDS: PANTOPRAZOLE 40 MG TABLET. PO SCH (06:09)
[2016-06-30] MEDS ORDERED: CONTRAST GIVEN MC PRN (07:15)
[2016-06-30] MEDS ORDERED: IOHEXOL 300 MG/ML 50 ML VIAL. IJ ONE (07:15)
[2016-06-30] MEDS: ALBUTEROL SULFATE 2.5 MG/3 ML NEBU. NEB SCH ×4 (07:24→20:29)
[2016-06-30] MEDS: BUDESONIDE 0.5 MG/2 ML NEBU NEB SCH ×2 (07:24→20:29)
[2016-06-30] MEDS: ASPIRIN ENTERIC COATED 81 MG TABLET.DR. PO SCH (08:35)
[2016-06-30] MEDS: CEPHALEXIN 250 MG CAPSULE PO SCH ×3 (08:35→21:20)
[2016-06-30] MEDS: BACLOFEN 10 MG TABLET PO SCH ×3 (08:35→21:21)
[2016-06-30] MEDS: CARBAMAZEPINE 200 MG TABLET. PO SCH ×3 (08:35→21:21)
[2016-06-30] MEDS: DIGOXIN 125 MCG TABLET PO SCH (08:36)
[2016-06-30] MEDS: LUBIPROSTONE 8 MCG CAPSULE PO SCH ×2 (08:36→17:00)
[2016-06-30] MEDS: ESCITALOPRAM 10 MG TABLET. PO SCH (08:36)
[2016-06-30] MEDS: CYANOCOBALAMIN (VITAMIN B-12) 1,000 MCG/ML VIAL IM SCH (08:36)
[2016-06-30] MEDS: NON FORMULARY ITEM (Modafinil (Provigil) 200 MG) PO SCH (08:36)
[2016-06-30] MEDS: NON FORMULARY ITEM (Dimethyl Fumarate (Tecfidera) 240 MG) PO SCH ×2 (08:37→21:00)
--- NOTE | 2016-06-30 08:53 | PDOC ---
Subjective: Subjective: Pain unchanged - left flank wrapping toward groin. Significant stooling yesterday w/ soiling. Objective: Vital Signs: Vital Signs Date Time Temp Pulse Resp B/P Pulse Ox O2 Delivery O2 Flow Rate FiO2 06/30/16 08:36 60 77/42 06/30/16 08:31 Nasal Cannula 3.0 06/30/16 07:25 95 06/30/16 07:00 97.9 18 97.9 PE: GEN: NAD but looks uncomfortable LUNGS: clear anteriorly HEART: RRR ABD: left flank tenderness, some LUQ to LLQ, morphine pump noted NEURO/PSYCH: A & O 3 OTHER: RN present A/P: Left flank pain/abd pain, chronic neck/back pain, h/o MS -left renal calculus on CT A/P, mild mid lumbar levoscoliosis on L-spine CT -urology and neuro following -EGD and colonoscopy 06/18/16: normal esophagus, chronic gastritis, normal duodenum, 12mm adenomatous rectal polyp, and non-bleeding internal hemorrhoids -h/o Clinton's, previous gastric bx neg for H. pylori, previous SB bx neg for celiac -GES in 2012 for nausea, early satiety, and LUQ pain was normal. Constipation - resolved -multiple stools yesterday -- Await IVP today. OSWALD CEE Jun 30, 2016 08:53
--- NOTE | 2016-06-30 09:29 | PDOC ---
SUBJECTIVE Subjective Pt. with back pain OBJECTIVE Objective back pain No hydronephrosis Vital Signs Vital Signs Date Time Temp Pulse Resp B/P Pulse Ox O2 Delivery O2 Flow Rate FiO2 06/30/16 08:36 60 77/42 06/30/16 08:31 Nasal Cannula 3.0 06/30/16 07:25 95 Nasal Cannula 2.0 06/30/16 07:00 97.9 60 18 77/42 90 Nasal Cannula 97.9 06/30/16 05:25 14 Nasal Cannula 3.0 06/30/16 05:24 62 14 83/46 Nasal Cannula 3.0 06/30/16 04:16 16 Nasal Cannula 3.0 06/30/16 04:12 60 16 82/40 Nasal Cannula 3.0 06/30/16 03:00 98.6 60 18 77/38 91 Nasal Cannula 3.0 98.6 06/29/16 23:00 97.3 62 20 99/41 92 Nasal Cannula 3.0 97.3 06/29/16 20:00 Nasal Cannula 2.0 06/29/16 19:35 95 Nasal Cannula 2.0 06/29/16 19:00 98.7 55 20 87/48 94 Nasal Cannula 3.0 98.7 06/29/16 17:35 Nasal Cannula 3.0 06/29/16 16:13 Nasal Cannula 3.0 06/29/16 15:00 97.9 69 16 96/59 94 Nasal Cannula 3.0 97.9 06/29/16 12:33 Nasal Cannula 3.0 06/29/16 11:53 93 Nasal Cannula 3.0 06/29/16 11:00 97.7 60 16 85/52 93 Nasal Cannula 3.0 97.7 I & O Intake and Output 06/30/16 07:00 Intake Total 3661 ml Output Total 1820 ml Balance 1841 ml Intake Oral 2100 ml Other 1561 ml Output Urine Total 1820 ml # Voids 4 # Bowel Movements 3 PHYSICAL EXAM Physical Exam KUB-barium still in large bowel ASSESSMENT/PLAN Assessment/Plan Clean out bowel today IVP tomorrow then proceed accordingly Problems: LANDEN JONES MD Jun 30, 2016 09:29
--- NOTE | 2016-06-30 09:57 | PDOC ---
PROGRESS NOTES Subjective Subjective Pt was laying in bed when we saw her this morning. She just got back from her IVP. They were unable to do the IVP due to barium still being in her bowel. Plan is to attempt to flush out the barium and do the procedure tomorrow. Pt still complains of L flank pain. Pt stated she was nauseated. Pt denied chest pain, SOB, v, diaphoresis. No other complaints. Objective Objective Vital Signs Date Time Temp Pulse Resp B/P Pulse Ox O2 Delivery O2 Flow Rate FiO2 06/30/16 08:36 60 77/42 06/30/16 08:31 Nasal Cannula 3.0 06/30/16 07:25 95 06/30/16 07:00 97.9 18 97.9 Intake and Output 06/30/16 07:00 Intake Total 3661 ml Output Total 1820 ml Balance 1841 ml Intake Oral 2100 ml Other 1561 ml Output Urine Total 1820 ml # Voids 4 # Bowel Movements 3 Physical Exam Physical Exam No change in cardiac exam Assessment Assessment Problems Medical Problems: (1) Intractable pain Status: Acute (2) Multiple sclerosis Status: Acute Plan Plan of Care L intractable flank pain IVP unable to be performed today, try again tomorrow Continue pain management, fluids Comment Review of Relevant I have reviewed the following items svetlana (where applicable) has been applied. Labs Laboratory Tests Test 06/28/16 11:19 Glucose (Fingerstick) 93mg/dL (70-99) Medications Current Medications Fentanyl Citrate 50 mcg 50 mcg PRN Q15MIN PRN IV PAIN GREATER THAN 3/10 Last administered on 06/24/16 18:02; Start 06/24/16 at 17:30; Stop 06/25/16 at 17:29; Status DC Sodium Chloride (Iv Sodium Chloride 0.9% 1000ml Bag) 1,000 ml @ 1,000 mls/hr Q1H IV Last administered on 06/24/16 17:58; Start 06/24/16 at 17:30; Stop at 18:29; Status DC Ondansetron HCl (Zofran) 4 mg 1X ONCE IV Last administered on 06/24/16 17:57; Start 06/24/16 at 17:30; Stop 06/24/16 at 17:31; Status DC Ondansetron HCl (Zofran) 4 mg PRN Q8HRS PRN IV NAUSEA/VOMITING Last administered on 06/25/16 06:02; Start 06/24/16 at 17:45; Stop 06/25/16 at 17:44; Status DC Fentanyl Citrate (Fentanyl 2ml Vial) 50 mcg PRN Q2HR PRN IV PAIN Last administered on 06/25/16 15:50; Start 06/24/16 at 17:45; Stop 06/25/16 at 17:44; Status DC Acetaminophen (Tylenol) 650 mg PRN Q4HRS PRN PO FEVER; Start 06/24/16 at 17:45; Stop 06/25/16 at 17:44; Status DC Aspirin (Ecotrin) 81 mg DAILY PO Last administered on 06/30/16 08:35; Start at 09:00 Baclofen (Lioresal) 10 mg TID PO Last administered on 06/30/16 08:35; Start at 09:00 Clonazepam (Klonopin) 0.5 mg PRN TID PRN PO TREMORS Last administered on 19:58; Start 06/24/16 at 22:15 Escitalopram Oxalate (Lexapro) 10 mg DAILY PO Last administered on 06/30/16 08 :36; Start 06/25/16 at 09:00 Oxycodone/ Acetaminophen (Percocet 10/325) 1 tab PRN Q4HRS PRN PO PAIN Last administered on 06/30/16 08:31; Start 06/24/16 at 22:15 Trazodone HCl (Desyrel) 200 mg QHS PO Last administered on 06/29/16 19:58; Start 06/24/16 at 22:30 Non-Formulary Medication 2 puff BID IH ; Start 06/25/16 at 09:00; Status UNV Carbamazepine (Tegretol) 200 mg TID PO Last administered on 06/27/16 14:06; Start 06/25/16 at 09:00; Stop 06/27/16 at 19:12; Status DC Cephalexin HCl (Keflex) 500 mg TID PO Last administered on 06/30/16 08:35; Start 06/25/16 at 09:00 Pantoprazole Sodium (Protonix) 40 mg DAILYAC PO ; Start 06/25/16 at 07:30; Stop 06/25/16 at 07:30; Status DC Digoxin (Lanoxin) 125 mcg DAILY PO Last administered on 06/30/16 08:36; Start 06/25/16 at 09:00 Non-Formulary Medication 240 mg BID PO ; Start 06/25/16 at 09:00; Status UNV Atorvastatin Calcium (Lipitor) 10 mg HS PO Last administered on 06/29/16 19:57 ; Start 06/25/16 at 21:00 Non-Formulary Medication 200 mg DAILY PO ; Start 06/25/16 at 09:00; Stop at 00:04; Status DC Budesonide (Pulmicort) 0.5 mg RTBID NEB Last administered on 06/30/16 07:24; Start 06/25/16 at 08:00 Albuterol Sulfate (Ventolin Neb Soln) 2.5 mg RTQID NEB Last administered on 07:24; Start 06/25/16 at 08:00 Pantoprazole Sodium 40 mg 40 mg DAILY06 PO Last administered on 06/30/16 06:09 ; Start 06/25/16 at 06:00 Sodium Chloride 1,000 ml @ 60 mls/hr [id number] IV Last administered on 03:25; Start 06/25/16 at 15:45; Stop 06/26/16 at 23:08; Status DC Albumin Human (Plasmanate) 500 ml @ 125 mls/hr 1X ONCE IV Last administered on 06/25/16 23:16; Start 06/25/16 at 23:15; Stop 06/26/16 at 03:14; Status DC Non-Formulary Medication 200 mg DAILY PO Last administered on 06/30/16 08:36; Start 06/26/16 at 09:00 Barium Sulfate (Liquid E-Z Paque) 710 ml 1X ONCE PO Last administered on 08:00; Start 06/26/16 at 08:00; Stop 06/26/16 at 08:01; Status DC Cyanocobalamin (Vitamin B-12) 1,000 mcg DAILY IM Last administered on 08:36; Start 06/26/16 at 10:00 Lubiprostone 8 mcg 8 mcg BIDWMEALS PO Last administered on 06/30/16 08:36; Start 06/26/16 at 17:00 Albumin Human 500 ml @ 125 mls/hr 1X ONCE IV Last administered on 06/27/16 00:22; Start 06/27/16 at 00:30; Stop 06/27/16 at 04:29; Status DC Sodium Chloride (Iv Sodium Chloride 0.9% 1000ml Bag) 1,000 ml @ 60 mls/hr [id number] IV Last administered on 06/29/16 20:05; Start 06/27/16 at 03:00 Fentanyl Citrate (Fentanyl 2ml Vial) 50 mcg PRN Q3HRS PRN IV PAIN Last administered on 06/27/16 23:30; Start 06/27/16 at 13:15 Carbamazepine (Tegretol) 300 mg TID PO Last administered on 06/30/16 08:35; Start 06/27/16 at 21:00 Polyethylene Glycol (miraLAX Powder BULK BOTTLE) 238 gm 1X ONCE PO Last administered on 06/28/16 10:50; Start 06/28/16 at 11:00; Stop 06/28/16 at 11:01 ; Status DC Iohexol (Omnipaque 300 Mg/ml) 50 ml 1X ONCE IJ ; Start 06/30/16 at 07:15; Stop 06/30/16 at 07:16; Status DC Info (Do NOT chart on this entry -- for MONITORING) 1 each PRN DAILY PRN MC SEE COMMENTS; Start 06/30/16 at 07:15; Stop 07/02/16 at 07:14 Active Scripts Active Keflex (Cephalexin) 500 Mg Capsule 1 Cap PO TID Reported Trazodone Hcl 100 Mg Tablet 200 Mg PO HS Klonopin (Clonazepam) 0.5 Mg Tablet 0.5 Mg PO TID PRN [morphine] 14.5 Mg ID DAILY Lovastatin 40 Mg Tablet 40 Mg PO HS Aspir 81 (Aspirin) 81 Mg Tablet.dr 81 Mg PO DAILY Tecfidera (Dimethyl Fumarate) 240 Mg Capsule.dr 240 Mg PO BID Symbicort 160-4.5 Mcg Inhaler (Budesonide/Formoterol Fumarate) 10.2 Gm Hfa.aer.ad 2 Puff IH BID Percocet 10-325 Mg Tablet (Oxycodone/Acetaminophen) 1 Each Tablet 1 Tab PO Q4HRS PRN Baclofen 10 Mg Tablet 1 Tab PO TID Trazodone Hcl 100 Mg Tablet 2 Tab PO QHS Provigil (Modafinil) 100 Mg Tablet 200 Mg PO DAILY Dexilant (Dexlansoprazole) 60 Mg mp 60 Mg PO DAILY Digoxin 0.125 Mg/2.5 Ml Solution 0.125 Mg PO DAILY Carbamazepine 200 Mg Cpmp.12hr 200 Mg PO TID Lexapro (Escitalopram Oxalate) 10 Mg Tablet 10 Mg PO DAILY Vitals/I & O Vital Sign - Last 24 Hours 06/29/16 06/29/16 06/29/16 06/29/16 11:00 11:53 12:33 15:00 Temp 97.7 97.9 97.7 97.9 Pulse 60 69 Resp 16 16 B/P 85/52 96/59 Pulse Ox 93 93 94 O2 Delivery Nasal Cannula Nasal Cannula Nasal Cannula Nasal Cannula O2 Flow Rate 3.0 3.0 3.0 3.0 06/29/16 06/29/16 06/29/16 06/29/16 16:13 17:35 19:00 19:35 Temp 98.7 98.7 Pulse 55 Resp 20 B/P 87/48 Pulse Ox 94 95 O2 Delivery Nasal Cannula Nasal Cannula Nasal Cannula Nasal Cannula O2 Flow Rate 3.0 3.0 3.0 2.0 06/29/16 06/29/16 06/30/16 06/30/16 20:00 23:00 03:00 04:12 Temp 97.3 98.6 97.3 98.6 Pulse 62 60 60 Resp 20 18 16 B/P 99/41 77/38 82/40 Pulse Ox 92 91 O2 Delivery Nasal Cannula Nasal Cannula Nasal Cannula Nasal Cannula O2 Flow Rate 2.0 3.0 3.0 3.0 06/30/16 06/30/16 06/30/16 06/30/16 04:16 05:24 05:25 07:00 Temp 97.9 97.9 Pulse 62 60 Resp 16 18 B/P 83/46 77/42 Pulse Ox 90 O2 Delivery Nasal Cannula Nasal Cannula Nasal Cannula Nasal Cannula O2 Flow Rate 3.0 3.0 3.0 06/30/16 06/30/16 06/30/16 07:25 08:31 08:36 Pulse 60 B/P 77/42 Pulse Ox 95 O2 Delivery Nasal Cannula Nasal Cannula O2 Flow Rate 2.0 3.0 Intake and Output 06/29/16 06/29/16 06/30/16 15:00 23:00 07:00 Intake Total 520 ml 2210 ml 931 ml Output Total 1020 ml 800 ml Balance 520 ml 1190 ml 131 ml ESTEFANI HECTOR MD Jun 30, 2016 09:57
[2016-06-30] MEDS ORDERED: BISACODYL 5 MG TABLET.DR. PO PRN (10:30)
[2016-06-30] MEDS ORDERED: POLYETHYLENE GLYCOL 3350 238 GM POWDER PO ONE (11:00)
--- NOTE | 2016-06-30 11:53 | PDOC ---
PROGRESS NOTES Assessment Problems Medical Problems: (1) Intractable pain Status: Acute (2) Multiple sclerosis Status: Acute Renal calculus Chronic left flank pain, neck, back pain, follows with Dr. Cabral for pain pump. Chronic left leg weakness x 4 years. MS, per history. This was diagnosed in [place] on MRI studies and lumbar puncture, but interestingly when we checked MRI studies here 4 years ago, they were negative. She is worried that the pain is making her multiple sclerosis symptoms worse but I find no evidence of acute exacerbation CAD DM Vit B12 deficiency. Thyroid cancer since 2001. Chronic neck and back pain. Tremors better with increased carbamazepine, level was in the therapeutic range Plan Urology consult appreciated, No plans for IVP when barium cleared Continue Tecfidera home regimen. She can take it from her home supply. [facility] does not have it in hospital. Vit B12 1000 mcg IM daily. Change to PO when discharged. OT/PT. Subjective Continues to have pain Objective Vital Signs Date Time Temp Pulse Resp B/P Pulse Ox O2 Delivery O2 Flow Rate FiO2 06/30/16 09:35 Nasal Cannula 3.0 06/30/16 08:36 60 77/42 06/30/16 07:25 95 06/30/16 07:00 97.9 18 97.9 Intake and Output 06/30/16 07:00 Intake Total 3661 ml Output Total 1820 ml Balance 1841 ml Intake Oral 2100 ml Other 1561 ml Output Urine Total 1820 ml # Voids 4 # Bowel Movements 3 PHYSICAL EXAM Alert. Oriented to time, place and person. PERRL. EOMI. CN: no focal findings. Muscle tone: normal. Muscle strength: 4/5 DTR: 2+ Plantar reflex: flexor Gait: not examined in bed. Sensory exam: Diffuse pinprick hypesthesia No cerebellar signs Review of Relevant I have reviewed the following items svetlana (where applicable) has been applied. Medications Current Medications Fentanyl Citrate 50 mcg 50 mcg PRN Q15MIN PRN IV PAIN GREATER THAN 3/10 Last administered on 06/24/16 18:02; Start 06/24/16 at 17:30; Stop 06/25/16 at 17:29; Status DC Sodium Chloride (Iv Sodium Chloride 0.9% 1000ml Bag) 1,000 ml @ 1,000 mls/hr Q1H IV Last administered on 06/24/16 17:58; Start 06/24/16 at 17:30; Stop at 18:29; Status DC Ondansetron HCl (Zofran) 4 mg 1X ONCE IV Last administered on 06/24/16 17:57; Start 06/24/16 at 17:30; Stop 06/24/16 at 17:31; Status DC Ondansetron HCl (Zofran) 4 mg PRN Q8HRS PRN IV NAUSEA/VOMITING Last administered on 06/25/16 06:02; Start 06/24/16 at 17:45; Stop 06/25/16 at 17:44; Status DC Fentanyl Citrate (Fentanyl 2ml Vial) 50 mcg PRN Q2HR PRN IV PAIN Last administered on 06/25/16 15:50; Start 06/24/16 at 17:45; Stop 06/25/16 at 17:44; Status DC Acetaminophen (Tylenol) 650 mg PRN Q4HRS PRN PO FEVER; Start 06/24/16 at 17:45; Stop 06/25/16 at 17:44; Status DC Aspirin (Ecotrin) 81 mg DAILY PO Last administered on 06/30/16 08:35; Start at 09:00 Baclofen (Lioresal) 10 mg TID PO Last administered on 06/30/16 08:35; Start at 09:00 Clonazepam (Klonopin) 0.5 mg PRN TID PRN PO TREMORS Last administered on 19:58; Start 06/24/16 at 22:15 Escitalopram Oxalate (Lexapro) 10 mg DAILY PO Last administered on 06/30/16 08 :36; Start 06/25/16 at 09:00 Oxycodone/ Acetaminophen (Percocet 10/325) 1 tab PRN Q4HRS PRN PO PAIN Last administered on 06/30/16 08:31; Start 06/24/16 at 22:15 Trazodone HCl (Desyrel) 200 mg QHS PO Last administered on 06/29/16 19:58; Start 06/24/16 at 22:30 Non-Formulary Medication 2 puff BID IH ; Start 06/25/16 at 09:00; Status UNV Carbamazepine (Tegretol) 200 mg TID PO Last administered on 06/27/16 14:06; Start 06/25/16 at 09:00; Stop 06/27/16 at 19:12; Status DC Cephalexin HCl (Keflex) 500 mg TID PO Last administered on 06/30/16 08:35; Start 06/25/16 at 09:00 Pantoprazole Sodium (Protonix) 40 mg DAILYAC PO ; Start 06/25/16 at 07:30; Stop 06/25/16 at 07:30; Status DC Digoxin (Lanoxin) 125 mcg DAILY PO Last administered on 06/30/16 08:36; Start 06/25/16 at 09:00 Non-Formulary Medication 240 mg BID PO ; Start 06/25/16 at 09:00; Status UNV Atorvastatin Calcium (Lipitor) 10 mg HS PO Last administered on 06/29/16 19:57 ; Start 06/25/16 at 21:00 Non-Formulary Medication 200 mg DAILY PO ; Start 06/25/16 at 09:00; Stop at 00:04; Status DC Budesonide (Pulmicort) 0.5 mg RTBID NEB Last administered on 06/30/16 07:24; Start 06/25/16 at 08:00 Albuterol Sulfate (Ventolin Neb Soln) 2.5 mg RTQID NEB Last administered on 11:36; Start 06/25/16 at 08:00 Pantoprazole Sodium 40 mg 40 mg DAILY06 PO Last administered on 06/30/16 06:09 ; Start 06/25/16 at 06:00 Sodium Chloride 1,000 ml @ 60 mls/hr [id number] IV Last administered on 03:25; Start 06/25/16 at 15:45; Stop 06/26/16 at 23:08; Status DC Albumin Human (Plasmanate) 500 ml @ 125 mls/hr 1X ONCE IV Last administered on 06/25/16 23:16; Start 06/25/16 at 23:15; Stop 06/26/16 at 03:14; Status DC Non-Formulary Medication 200 mg DAILY PO Last administered on 06/30/16 08:36; Start 06/26/16 at 09:00 Barium Sulfate (Liquid E-Z Paque) 710 ml 1X ONCE PO Last administered on 08:00; Start 06/26/16 at 08:00; Stop 06/26/16 at 08:01; Status DC Cyanocobalamin (Vitamin B-12) 1,000 mcg DAILY IM Last administered on 08:36; Start 06/26/16 at 10:00 Lubiprostone 8 mcg 8 mcg BIDWMEALS PO Last administered on 06/30/16 08:36; Start 06/26/16 at 17:00 Albumin Human 500 ml @ 125 mls/hr 1X ONCE IV Last administered on 06/27/16 00:22; Start 06/27/16 at 00:30; Stop 06/27/16 at 04:29; Status DC Sodium Chloride (Iv Sodium Chloride 0.9% 1000ml Bag) 1,000 ml @ 60 mls/hr [id number] IV Last administered on 06/29/16 20:05; Start 06/27/16 at 03:00 Fentanyl Citrate (Fentanyl 2ml Vial) 50 mcg PRN Q3HRS PRN IV PAIN Last administered on 06/27/16 23:30; Start 06/27/16 at 13:15 Carbamazepine (Tegretol) 300 mg TID PO Last administered on 06/30/16 08:35; Start 06/27/16 at 21:00 Polyethylene Glycol (miraLAX Powder BULK BOTTLE) 238 gm 1X ONCE PO Last administered on 06/28/16 10:50; Start 06/28/16 at 11:00; Stop 06/28/16 at 11:01 ; Status DC Iohexol (Omnipaque 300 Mg/ml) 50 ml 1X ONCE IJ ; Start 06/30/16 at 07:15; Stop 06/30/16 at 07:16; Status DC Info (Do NOT chart on this entry -- for MONITORING) 1 each PRN DAILY PRN MC SEE COMMENTS; Start 06/30/16 at 07:15; Stop 07/02/16 at 07:14 Polyethylene Glycol (miraLAX Powder BULK BOTTLE) 238 gm 1X ONCE PO Last administered on 06/30/16 11:08; Start 06/30/16 at 11:00; Stop 06/30/16 at 11:01 ; Status DC Bisacodyl (Dulcolax Tab) 10 mg PRN DAILY PRN PO CONSTIPATION Last administered on 06/30/16t 11:07; Start 06/30/16 at 10:30 Active Scripts Active Keflex (Cephalexin) 500 Mg Capsule 1 Cap PO TID Reported Trazodone Hcl 100 Mg Tablet 200 Mg PO HS Klonopin (Clonazepam) 0.5 Mg Tablet 0.5 Mg PO TID PRN [morphine] 14.5 Mg ID DAILY Lovastatin 40 Mg Tablet 40 Mg PO HS Aspir 81 (Aspirin) 81 Mg Tablet.dr 81 Mg PO DAILY Tecfidera (Dimethyl Fumarate) 240 Mg Capsule.dr 240 Mg PO BID Symbicort 160-4.5 Mcg Inhaler (Budesonide/Formoterol Fumarate) 10.2 Gm Hfa.aer.ad 2 Puff IH BID Percocet 10-325 Mg Tablet (Oxycodone/Acetaminophen) 1 Each Tablet 1 Tab PO Q4HRS PRN Baclofen 10 Mg Tablet 1 Tab PO TID Trazodone Hcl 100 Mg Tablet 2 Tab PO QHS Provigil (Modafinil) 100 Mg Tablet 200 Mg PO DAILY Dexilant (Dexlansoprazole) 60 Mg Cap.dr.mp 60 Mg PO DAILY Digoxin 0.125 Mg/2.5 Ml Solution 0.125 Mg PO DAILY Carbamazepine 200 Mg Cpmp.12hr 200 Mg PO TID Lexapro (Escitalopram Oxalate) 10 Mg Tablet 10 Mg PO DAILY Vitals/I & O Vital Sign - Last 24 Hours 06/29/16 06/29/16 06/29/16 06/29/16 11:53 12:33 15:00 16:13 Temp 97.9 97.9 Pulse 69 Resp 16 B/P 96/59 Pulse Ox 93 94 O2 Delivery Nasal Cannula Nasal Cannula Nasal Cannula Nasal Cannula O2 Flow Rate 3.0 3.0 3.0 3.0 06/29/16 06/29/16 06/29/16 06/29/16 17:35 19:00 19:35 20:00 Temp 98.7 98.7 Pulse 55 Resp 20 B/P 87/48 Pulse Ox 94 95 O2 Delivery Nasal Cannula Nasal Cannula Nasal Cannula Nasal Cannula O2 Flow Rate 3.0 3.0 2.0 2.0 06/29/16 06/30/16 06/30/16 06/30/16 23:00 03:00 04:12 04:16 Temp 97.3 98.6 97.3 98.6 Pulse 62 60 60 Resp 20 18 16 16 B/P 99/41 77/38 82/40 Pulse Ox 92 91 O2 Delivery Nasal Cannula Nasal Cannula Nasal Cannula Nasal Cannula O2 Flow Rate 3.0 3.0 3.0 3.0 06/30/16 06/30/16 06/30/16 06/30/16 05:24 05:25 07:00 07:25 Temp 97.9 97.9 Pulse 62 60 Resp 14 14 18 B/P 83/46 77/42 Pulse Ox 90 95 O2 Delivery Nasal Cannula Nasal Cannula Nasal Cannula O2 Flow Rate 3.0 2.0 06/30/16 06/30/16 06/30/16 08:31 08:36 09:35 Pulse 60 B/P 77/42 O2 Delivery Nasal Cannula Nasal Cannula O2 Flow Rate 3.0 3.0 Intake and Output 06/29/16 06/29/16 06/30/16 15:00 23:00 07:00 Intake Total 520 ml 2210 ml 931 ml Output Total 1020 ml 800 ml Balance 520 ml 1190 ml 131 ml AGATA PIERCE MD Jun 30, 2016 11:53
--- NOTE | 2016-06-30 13:00 | RAD ---
KUB, 06/30/2016: History: Preop IVP Assistant Family Teacher image There is a large amount of retained contrast material in the colon. This would obscure the urinary tract and therefore the patient's IVP will be rescheduled to follow an adequate bowel cleansing. The abdominal gas pattern is otherwise unremarkable. There is no evidence of organomegaly. Lower pelvic calcifications are likely phleboliths. A spinal stimulator lead or catheter extends into the thoracic spinal canal.
[2016-06-30] MEDS: IV NORMAL SALINE 1000ML BAG 1,000 ML IV SCH ×2 (14:20→21:21)
[2016-06-30] MEDS: CLONAZEPAM 0.5 MG TABLET PO PRN (21:21)
[2016-06-30] MEDS: traZODone 100 MG TABLET. PO SCH (21:21)
[2016-06-30] MEDS: ATORVASTATIN CALCIUM 10 MG TABLET. PO SCH (21:21)
[2016-07-01 03:09] VITALS: BP 72/41
[2016-07-01] MEDS: PANTOPRAZOLE 40 MG TABLET. PO SCH (06:00)
[2016-07-01 07:00] VITALS: BP 88/51
[2016-07-01] MEDS ORDERED: HYDROMORPHONE 2 MG/ML VIAL. IV PRN (07:00)
[2016-07-01] MEDS ORDERED: LIDOCAINE 1% 1 ML SYRINGE. ID PRN (07:00)
[2016-07-01] MEDS ORDERED: MORPHINE SULFATE 2 MG/ML DISP.SYRIN. IV PRN (07:00)
[2016-07-01] MEDS ORDERED: ONDANSETRON PF 4 MG/2 ML VIAL. IV PRN (07:00)
[2016-07-01] MEDS ORDERED: FENTANYL PF 100 MCG/2 ML VIAL. IV PRN ×2 (07:00)
[2016-07-01] MEDS ORDERED: IV RINGERS,LACTATED 1000ML 1,000 ML IV SCH (07:00)
[2016-07-01] MEDS ORDERED: PROCHLORPERAZINE 10 MG/2 ML VIAL. IV PRN (07:00)
[2016-07-01] MEDS ORDERED: CONTRAST GIVEN MC PRN (07:15)
[2016-07-01] MEDS ORDERED: IOHEXOL 300 MG/ML 50 ML VIAL. IJ ONE (07:15)
[2016-07-01] MEDS: BUDESONIDE 0.5 MG/2 ML NEBU NEB SCH ×2 (07:21→19:08)
[2016-07-01] MEDS: ALBUTEROL SULFATE 2.5 MG/3 ML NEBU. NEB SCH ×5 (07:21→19:08)
[2016-07-01] MEDS: LUBIPROSTONE 8 MCG CAPSULE PO SCH ×2 (08:00→15:53)
[2016-07-01] MEDS: FENTANYL PF 100 MCG/2 ML VIAL. IV PRN ×2 (08:24→22:33)
[2016-07-01] MEDS: BACLOFEN 10 MG TABLET PO SCH ×3 (09:00→22:28)
[2016-07-01] MEDS: NON FORMULARY ITEM (Modafinil (Provigil) 200 MG) PO SCH (09:00)
[2016-07-01] MEDS: ESCITALOPRAM 10 MG TABLET. PO SCH ×2 (09:00→15:54)
[2016-07-01] MEDS: ASPIRIN ENTERIC COATED 81 MG TABLET.DR. PO SCH (09:00)
[2016-07-01] MEDS: NON FORMULARY ITEM (Dimethyl Fumarate (Tecfidera) 240 MG) PO SCH ×2 (09:00→21:00)
--- NOTE | 2016-07-01 09:39 | PDOC ---
PROGRESS NOTES Subjective Subjective Pt laying in bed. Pt still complaining of L sided flank pain. Pt just got back from IVP. Report unable to read currently. Pt is also nauseated. Pt had no other complaints today. Pt denied chest pain, SOB, vomiting, diaphoresis. Objective Objective Vital Signs Date Time Temp Pulse Resp B/P Pulse Ox O2 Delivery O2 Flow Rate FiO2 07/01/16 08:24 16 Nasal Cannula 2.0 07/01/16 07:00 98.0 61 88/51 91 98.0 Intake and Output 07/01/16 07:00 Intake Total 100 ml Output Total 2300 ml Balance -2200 ml Intake Oral 100 ml Output Urine Total 2300 ml # Voids 3 # Bowel Movements 4 Physical Exam Heart: Regular rate, Normal S1, Normal S2 Assessment Assessment Problems Medical Problems: (1) Intractable pain Status: Acute (2) Multiple sclerosis Status: Acute Plan Plan of Care Follow GI and urology This patient's pain control is rather poor at this time and she has a pump that I'm not sure it is working properly if they [employer] people came and evaluated the pump I have no report from them therefore I would like to consult the pain clinic and have them evaluate the situation and see what they would recommend to be able to get this patient's pain control so that we can discharge her. Consult pain clinic - Dr Cortez Cullen from cardiac perspective Comment Review of Relevant I have reviewed the following items svetlana (where applicable) has been applied. Medications Current Medications Fentanyl Citrate 50 mcg 50 mcg PRN Q15MIN PRN IV PAIN GREATER THAN 3/10 Last administered on 06/24/16 18:02; Start 06/24/16 at 17:30; Stop 06/25/16 at 17:29; Status DC Sodium Chloride (Iv Sodium Chloride 0.9% 1000ml Bag) 1,000 ml @ 1,000 mls/hr Q1H IV Last administered on 06/24/16 17:58; Start 06/24/16 at 17:30; Stop at 18:29; Status DC Ondansetron HCl (Zofran) 4 mg 1X ONCE IV Last administered on 06/24/16 17:57; Start 06/24/16 at 17:30; Stop 06/24/16 at 17:31; Status DC Ondansetron HCl (Zofran) 4 mg PRN Q8HRS PRN IV NAUSEA/VOMITING Last administered on 06/25/16 06:02; Start 06/24/16 at 17:45; Stop 06/25/16 at 17:44; Status DC Fentanyl Citrate (Fentanyl 2ml Vial) 50 mcg PRN Q2HR PRN IV PAIN Last administered on 06/25/16 15:50; Start 06/24/16 at 17:45; Stop 06/25/16 at 17:44; Status DC Acetaminophen (Tylenol) 650 mg PRN Q4HRS PRN PO FEVER; Start 06/24/16 at 17:45; Stop 06/25/16 at 17:44; Status DC Aspirin (Ecotrin) 81 mg DAILY PO Last administered on 06/30/16 08:35; Start at 09:00 Baclofen (Lioresal) 10 mg TID PO Last administered on 06/30/16 21:21; Start at 09:00 Clonazepam (Klonopin) 0.5 mg PRN TID PRN PO TREMORS Last administered on 21:21; Start 06/24/16 at 22:15 Escitalopram Oxalate (Lexapro) 10 mg DAILY PO Last administered on 06/30/16 08 :36; Start 06/25/16 at 09:00 Oxycodone/ Acetaminophen (Percocet 10/325) 1 tab PRN Q4HRS PRN PO MILD PAIN Last administered on 06/30/16 21:21; Start 06/24/16 at 22:15 Trazodone HCl (Desyrel) 200 mg QHS PO Last administered on 06/30/16 21:21; Start 06/24/16 at 22:30 Non-Formulary Medication 2 puff BID IH ; Start 06/25/16 at 09:00; Status UNV Carbamazepine (Tegretol) 200 mg TID PO Last administered on 06/27/16 14:06; Start 06/25/16 at 09:00; Stop 06/27/16 at 19:12; Status DC Cephalexin HCl (Keflex) 500 mg TID PO Last administered on 06/30/16 21:20; Start 06/25/16 at 09:00 Pantoprazole Sodium (Protonix) 40 mg DAILYAC PO ; Start 06/25/16 at 07:30; Stop 06/25/16 at 07:30; Status DC Digoxin (Lanoxin) 125 mcg DAILY PO Last administered on 06/30/16 08:36; Start 06/25/16 at 09:00 Non-Formulary Medication 240 mg BID PO ; Start 06/25/16 at 09:00; Status UNV Atorvastatin Calcium (Lipitor) 10 mg HS PO Last administered on 06/30/16 21:21 ; Start 06/25/16 at 21:00 Non-Formulary Medication 200 mg DAILY PO ; Start 06/25/16 at 09:00; Stop at 00:04; Status DC Budesonide (Pulmicort) 0.5 mg RTBID NEB Last administered on 06/30/16 20:29; Start 06/25/16 at 08:00 Albuterol Sulfate (Ventolin Neb Soln) 2.5 mg RTQID NEB Last administered on 20:29; Start 06/25/16 at 08:00 Pantoprazole Sodium 40 mg 40 mg DAILY06 PO Last administered on 06/30/16 06:09 ; Start 06/25/16 at 06:00 Sodium Chloride 1,000 ml @ 60 mls/hr [id number] IV Last administered on 03:25; Start 06/25/16 at 15:45; Stop 06/26/16 at 23:08; Status DC Albumin Human (Plasmanate) 500 ml @ 125 mls/hr 1X ONCE IV Last administered on 06/25/16 23:16; Start 06/25/16 at 23:15; Stop 06/26/16 at 03:14; Status DC Non-Formulary Medication 200 mg DAILY PO Last administered on 06/30/16 08:36; Start 06/26/16 at 09:00 Barium Sulfate (Liquid E-Z Paque) 710 ml 1X ONCE PO Last administered on 08:00; Start 06/26/16 at 08:00; Stop 06/26/16 at 08:01; Status DC Cyanocobalamin (Vitamin B-12) 1,000 mcg DAILY IM Last administered on 08:36; Start 06/26/16 at 10:00 Lubiprostone 8 mcg 8 mcg BIDWMEALS PO Last administered on 06/30/16 08:36; Start 06/26/16 at 17:00 Albumin Human 500 ml @ 125 mls/hr 1X ONCE IV Last administered on 06/27/16 00:22; Start 06/27/16 at 00:30; Stop 06/27/16 at 04:29; Status DC Sodium Chloride (Iv Sodium Chloride 0.9% 1000ml Bag) 1,000 ml @ 60 mls/hr [id number] IV Last administered on 06/30/16 21:21; Start 06/27/16 at 03:00 Fentanyl Citrate (Fentanyl 2ml Vial) 50 mcg PRN Q3HRS PRN IV SEVERE PAIN Last administered on 07/01/16 08:24; Start 06/27/16 at 13:15 Carbamazepine (Tegretol) 300 mg TID PO Last administered on 06/30/16 21:21; Start 06/27/16 at 21:00 Polyethylene Glycol (miraLAX Powder BULK BOTTLE) 238 gm 1X ONCE PO Last administered on 06/28/16 10:50; Start 06/28/16 at 11:00; Stop 06/28/16 at 11:01 ; Status DC Iohexol (Omnipaque 300 Mg/ml) 50 ml 1X ONCE IJ ; Start 06/30/16 at 07:15; Stop 06/30/16 at 07:16; Status DC Info (Do NOT chart on this entry -- for MONITORING) 1 each PRN DAILY PRN MC SEE COMMENTS; Start 06/30/16 at 07:15; Stop 07/02/16 at 07:14 Polyethylene Glycol (miraLAX Powder BULK BOTTLE) 238 gm 1X ONCE PO Last administered on 06/30/16 11:08; Start 06/30/16 at 11:00; Stop 06/30/16 at 11:01 ; Status DC Bisacodyl (Dulcolax Tab) 10 mg PRN DAILY PRN PO CONSTIPATION Last administered on 06/30/16 11:07; Start 06/30/16 at 10:30 Ondansetron HCl (Zofran) 4 mg PRN Q6HRS PRN IV Nausea; Start 07/01/16 at 07:00 ; Stop 07/02/16 at 06:59 Fentanyl Citrate (Fentanyl 2ml Vial) 25 mcg PRN Q5MIN PRN IV MILD PAIN; Start 07/01/16 at 07:00; Stop 07/02/16 at 06:59 Fentanyl Citrate (Fentanyl 2ml Vial) 50 mcg PRN Q5MIN PRN IV MODERATE PAIN; Start 07/01/16 at 07:00; Stop 07/02/16 at 06:59 Morphine Sulfate 1 mg 1 mg PRN Q10MIN PRN IV SEVERE PAIN; Start 07/01/16 at 07: 00; Stop 07/02/16 at 06:59 Lactated Ringer's (Iv Lactated Ringers) 1,000 ml @ 0 mls/hr Q0M IV ; Start at 07:00; Stop 07/01/16 at 18:59 Lidocaine HCl 2 ml 1X PRN PRN ID IV START; Start 07/01/16 at 07:00; Stop at 06:59 Hydromorphone HCl (Dilaudid) 0.5 mg PRN Q10MIN PRN IV SEVERE PAIN, Second choice; Start 07/01/16 at 07:00; Stop 07/02/16 at 06:59 Prochlorperazine Edisylate (Compazine) 5 mg PACU PRN PRN IV NAUSEA; Start 07/01 at 07:00; Stop 07/02/16 at 06:59 Iohexol (Omnipaque 300 Mg/ml) 50 ml 1X ONCE IJ Last administered on 07/01/16t 08:21; Start 07/01/16 at 07:15; Stop 07/01/16 at 07:16; Status DC Info (Do NOT chart on this entry -- for MONITORING) 1 each PRN DAILY PRN MC SEE COMMENTS; Start 07/01/16 at 07:15; Stop 07/03/16 at 07:14 Active Scripts Active Keflex (Cephalexin) 500 Mg Capsule 1 Cap PO TID Reported Trazodone Hcl 100 Mg Tablet 200 Mg PO HS Klonopin (Clonazepam) 0.5 Mg Tablet 0.5 Mg PO TID PRN [morphine] 14.5 Mg ID DAILY Lovastatin 40 Mg Tablet 40 Mg PO HS Aspir 81 (Aspirin) 81 Mg Tablet.dr 81 Mg PO DAILY Tecfidera (Dimethyl Fumarate) 240 Mg Capsule.dr 240 Mg PO BID Symbicort 160-4.5 Mcg Inhaler (Budesonide/Formoterol Fumarate) 10.2 Gm Hfa.aer.ad 2 Puff IH BID Percocet 10-325 Mg Tablet (Oxycodone/Acetaminophen) 1 Each Tablet 1 Tab PO Q4HRS PRN Baclofen 10 Mg Tablet 1 Tab PO TID Trazodone Hcl 100 Mg Tablet 2 Tab PO QHS Provigil (Modafinil) 100 Mg Tablet 200 Mg PO DAILY Dexilant (Dexlansoprazole) 60 Mg Cap.dr.mp 60 Mg PO DAILY Digoxin 0.125 Mg/2.5 Ml Solution 0.125 Mg PO DAILY Carbamazepine 200 Mg Cpmp.12hr 200 Mg PO TID Lexapro (Escitalopram Oxalate) 10 Mg Tablet 10 Mg PO DAILY Vitals/I & O Vital Sign - Last 24 Hours 06/30/16 06/30/16 06/30/16 06/30/16 11:00 11:50 12:38 15:00 Temp 98.2 98.8 98.2 98.8 Pulse 61 70 Resp 18 18 B/P 86/49 97/54 Pulse Ox 93 95 97 O2 Delivery Nasal Cannula Nasal Cannula Nasal Cannula Nasal Cannula O2 Flow Rate 3.0 2.0 3.0 3.0 06/30/16 06/30/16 06/30/16 06/30/16 15:46 17:00 19:05 20:00 Temp 97.7 97.7 Pulse 66 Resp 18 B/P 92/56 Pulse Ox 97 96 O2 Delivery Nasal Cannula Nasal Cannula Nasal Cannula Nasal Cannula O2 Flow Rate 2.0 2.0 3.0 2.0 06/30/16 06/30/16 06/30/16 06/30/16 20:30 21:21 22:21 23:27 Temp 97.7 97.7 Pulse 60 Resp 20 20 18 B/P 72/40 Pulse Ox 97 97 95 95 O2 Delivery Nasal Cannula Nasal Cannula Nasal Cannula Nasal Cannula O2 Flow Rate 2.0 2.0 3.0 3.0 07/01/16 07/01/16 07/01/16 03:09 07:00 08:24 Temp 97.9 98.0 97.9 98.0 Pulse 60 61 Resp 18 18 16 B/P 72/41 88/51 Pulse Ox 95 91 O2 Delivery Nasal Cannula Nasal Cannula Nasal Cannula O2 Flow Rate 3.0 3.0 2.0 Intake and Output 06/30/16 06/30/16 07/01/16 15:00 23:00 07:00 Intake Total 100 ml Output Total 300 ml 2000 ml Balance -300 ml -2000 ml 100 ml ESTEFANI HECTOR MD Jul 01, 2016 09:39
[2016-07-01] MEDS: CEPHALEXIN 250 MG CAPSULE PO SCH (10:37)
[2016-07-01] MEDS: CARBAMAZEPINE 200 MG TABLET. PO SCH ×3 (10:37→22:28)
[2016-07-01 10:39] VITALS: BP 100/56
[2016-07-01] MEDS: CYANOCOBALAMIN (VITAMIN B-12) 1,000 MCG/ML VIAL IM SCH (10:40)
--- NOTE | 2016-07-01 11:01 | RAD ---
IVP, 07/01/2016: History: Left-sided pain The preliminary abdominal image demonstrates a nonspecific gas pattern. There are pelvic and left paraspinous radiopacities which are predominantly phleboliths. A radiopaque device compatible with a pain pump or stimulator type device is projected over the left flank region. Following IV and ministration of 50 cc of Omnipaque 300 there is prompt visualization of both kidneys. The right renal collecting system and visualized portions of the right ureter are unremarkable. On the initial 10 and 15 minute images there mild prominence of the left renal collecting system and proximal left ureter compared to the right. On the 20 minute supine and prone images the left renal collecting system is completely decompressed and the left ureter is of normal caliber. The initial mild prominence of the left renal collecting system is is therefore transient, probably secondary to the diuretic effect of the contrast. Several small left paraspinous calcifications lie outside of the opacified left ureter, compatible with periureteral phleboliths. The partially filled urinary bladder is unremarkable. IMPRESSION: No evidence of significant ureteral obstruction.
--- NOTE | 2016-07-01 11:43 | PDOC ---
SUBJECTIVE Subjective Pt. feeling ok OBJECTIVE Objective back pain Vital Signs Vital Signs Date Time Temp Pulse Resp B/P Pulse Ox O2 Delivery O2 Flow Rate FiO2 07/01/16 10:39 97.7 60 20 100/56 93 Nasal Cannula 3.0 97.7 07/01/16 10:00 Nasal Cannula 2.0 07/01/16 08:24 16 Nasal Cannula 2.0 07/01/16 07:00 98.0 61 18 88/51 91 Nasal Cannula 3.0 98.0 07/01/16 03:09 97.9 60 18 72/41 95 Nasal Cannula 3.0 97.9 06/30/16 23:27 97.7 60 18 72/40 95 Nasal Cannula 3.0 97.7 06/30/16 22:21 20 95 Nasal Cannula 3.0 06/30/16 21:21 20 97 Nasal Cannula 2.0 06/30/16 20:30 97 Nasal Cannula 2.0 06/30/16 20:00 Nasal Cannula 2.0 06/30/16 19:05 97.7 66 18 92/56 96 Nasal Cannula 3.0 97.7 06/30/16 17:00 Nasal Cannula 2.0 06/30/16 15:46 97 Nasal Cannula 2.0 06/30/16 15:00 98.8 70 18 97/54 97 Nasal Cannula 3.0 98.8 06/30/16 12:38 Nasal Cannula 3.0 06/30/16 11:50 95 Nasal Cannula 2.0 I & O Intake and Output 07/01/16 06:59 Intake Total 100 ml Output Total 2300 ml Balance -2200 ml Intake Oral 100 ml Output Urine Total 2300 ml # Voids 3 # Bowel Movements 4 PHYSICAL EXAM Physical Exam IVP negative for ureteral filling defects or obstruction ASSESSMENT/PLAN Assessment/Plan No obvious urologic source for pt's back pain Will sign off pt. Problems: LANDEN JONES MD Jul 01, 2016 11:43
--- NOTE | 2016-07-01 11:54 | PDOC ---
Subjective: Subjective: Pain unchanged. Objective: Vital Signs: Vital Signs Date Time Temp Pulse Resp B/P Pulse Ox O2 Delivery O2 Flow Rate FiO2 07/01/16 10:39 97.7 60 20 100/56 93 Nasal Cannula 3.0 97.7 Imaging: IVP 07/01/16 IMPRESSION: No evidence of significant ureteral obstruction. PE: GEN: NAD LUNGS: CTAB HEART: RRR ABD: left flank to LLQ tenderness - unchanged, pain pump+ NEURO/PSYCH: A & O 3 A/P: Left flank pain/abd pain, h/o MS -EGD and colonoscopy 06/18/16: normal esophagus, chronic gastritis, normal duodenum, 12mm adenomatous rectal polyp, and non-bleeding internal hemorrhoids ( h/o Clinton's, previous gastric bx neg for H. pylori, previous SB bx neg for celiac) -GES normal in 2012 -IVP 07/01 normal - urology signed off -neuro following -has pain pump, has previously seen pain management -- Ongoing pain w/ extensive workup. Will review w/ Dr. Narayan. OSWALD CEE Jul 01, 2016 11:54
[2016-07-01] MEDS: DIGOXIN 125 MCG TABLET PO SCH (12:10)
[2016-07-01] MEDS: OXYCODONE/APAP 10/325 TABLET. PO PRN ×2 (12:11→22:28)
--- NOTE | 2016-07-01 13:53 | PDOC ---
SUBJECTIVE Subjective Left abdominal and back pain OBJECTIVE Objective Pt. C/O left LQ pain and left sided low back pain S/P fall at home approx. 1 mo ago. ITpump with MsO4 @14.5mg/24hrs Vital Signs Vital Signs Date Time Temp Pulse Resp B/P Pulse Ox O2 Delivery O2 Flow Rate FiO2 07/01/16 12:11 Room Air 07/01/16 12:10 60 07/01/16 10:39 97.7 60 20 100/56 93 Nasal Cannula 3.0 97.7 07/01/16 10:00 Nasal Cannula 2.0 07/01/16 08:24 16 Nasal Cannula 2.0 07/01/16 07:00 98.0 61 18 88/51 91 Nasal Cannula 3.0 98.0 07/01/16 03:09 97.9 60 18 72/41 95 Nasal Cannula 3.0 97.9 06/30/16 23:27 97.7 60 18 72/40 95 Nasal Cannula 3.0 97.7 06/30/16 22:21 20 95 Nasal Cannula 3.0 06/30/16 21:21 20 97 Nasal Cannula 2.0 06/30/16 20:30 97 Nasal Cannula 2.0 06/30/16 20:00 Nasal Cannula 2.0 06/30/16 19:05 97.7 66 18 92/56 96 Nasal Cannula 3.0 97.7 06/30/16 17:00 Nasal Cannula 2.0 06/30/16 15:46 97 Nasal Cannula 2.0 06/30/16 15:00 98.8 70 18 97/54 97 Nasal Cannula 3.0 98.8 I & O Intake and Output 07/01/16 07:00 Intake Total 100 ml Output Total 2300 ml Balance -2200 ml Intake Oral 100 ml Output Urine Total 2300 ml # Voids 3 # Bowel Movements 4 ASSESSMENT/PLAN Assessment/Plan Spoke with [employer] rep., and home ITpump refill service regarding pt. pump. they report good analgesia prior to fall and injury to left flank. MsO4 at 14.5mg/24hrs. Pump volume scheduled to refill in 5days with pt.'s pain physician. Encouraged to discuss increasing 24hr rate,or changing ITpump medication. Problems: BRAVO UMANZOR MD Jul 01, 2016 13:53
[2016-07-01 15:00] VITALS: BP 81/42
[2016-07-01 19:00] VITALS: BP 96/53
[2016-07-01] MEDS: CLONAZEPAM 0.5 MG TABLET PO PRN (22:28)
[2016-07-01] MEDS: traZODone 100 MG TABLET. PO SCH (22:28)
[2016-07-01] MEDS: ATORVASTATIN CALCIUM 10 MG TABLET. PO SCH (22:28)
[2016-07-01] MEDS: IV NORMAL SALINE 1000ML BAG 1,000 ML IV SCH (22:29)
[2016-07-01 23:35] VITALS: BP 83/42
[2016-07-02 03:00] VITALS: BP 82/42
[2016-07-02] MEDS: OXYCODONE/APAP 10/325 TABLET. PO PRN ×4 (03:21→20:43)
[2016-07-02] MEDS: IV NORMAL SALINE 1000ML BAG 1,000 ML IV SCH (03:22)
[2016-07-02 07:00] VITALS: BP 82/44
[2016-07-02] MEDS: ALBUTEROL SULFATE 2.5 MG/3 ML NEBU. NEB SCH ×4 (07:05→20:50)
[2016-07-02] MEDS: BUDESONIDE 0.5 MG/2 ML NEBU NEB SCH ×2 (07:05→20:49)
[2016-07-02] MEDS: LUBIPROSTONE 8 MCG CAPSULE PO SCH ×2 (08:00→17:00)
[2016-07-02] MEDS: NON FORMULARY ITEM (Dimethyl Fumarate (Tecfidera) 240 MG) PO SCH ×2 (09:00→20:47)
[2016-07-02] MEDS: ESCITALOPRAM 10 MG TABLET. PO SCH (09:29)
[2016-07-02] MEDS: BACLOFEN 10 MG TABLET PO SCH ×3 (09:29→20:43)
[2016-07-02] MEDS: CARBAMAZEPINE 200 MG TABLET. PO SCH ×3 (09:29→20:43)
[2016-07-02] MEDS: PANTOPRAZOLE 40 MG TABLET. PO SCH (09:29)
[2016-07-02] MEDS: CYANOCOBALAMIN (VITAMIN B-12) 1,000 MCG/ML VIAL IM SCH (09:30)
[2016-07-02] MEDS: ASPIRIN ENTERIC COATED 81 MG TABLET.DR. PO SCH (09:30)
[2016-07-02] MEDS: DIGOXIN 125 MCG TABLET PO SCH (09:31)
[2016-07-02] MEDS: NON FORMULARY ITEM (Modafinil (Provigil) 200 MG) PO SCH (09:34)
[2016-07-02 11:00] VITALS: BP 97/47
--- NOTE | 2016-07-02 11:52 | PDOC ---
PROGRESS NOTES Assessment Problems Medical Problems: (1) Intractable pain Status: Acute (2) Multiple sclerosis Status: Acute Renal studies negative for a source of pain Chronic left flank pain, neck, back pain, follows with Dr. Cabral for pain pump. Chronic left leg weakness x 4 years. MS, per history. This was diagnosed in [place] on MRI studies and lumbar puncture, but interestingly when we checked MRI studies here 4 years ago, they were negative. She is worried that the pain is making her multiple sclerosis symptoms worse but I find no evidence of acute exacerbation CAD DM Vit B12 deficiency. Thyroid cancer since 2001. Chronic neck and back pain. Tremors better with increased carbamazepine, level was in the therapeutic range Plan I discussed risks, benefits, alternatives, side effects, and willl give a 2-day pulse of IV steroids Aim to discharge tomorrow after steroids Continue current therapies Follow-up with Dr. Cabral, her pain specialist Subjective no change in complaints Objective Vital Signs Date Time Temp Pulse Resp B/P Pulse Ox O2 Delivery O2 Flow Rate FiO2 07/02/16 10:49 Nasal Cannula 2.0 07/02/16 09:31 62 07/02/16 07:07 95 07/02/16 07:00 98.4 16 82/44 98.4 Intake and Output 07/02/16 07:00 Intake Total 300 ml Balance 300 ml Intake Oral 300 ml # Voids 5 PHYSICAL EXAM Alert. Oriented to time, place and person. PERRL. EOMI. CN: no focal findings. Muscle tone: normal. Muscle strength: 4/5 DTR: 2+ Plantar reflex: flexor Gait: not examined in bed. Sensory exam: Diffuse pinprick hypesthesia No cerebellar signs Review of Relevant I have reviewed the following items svetlana (where applicable) has been applied. Medications Current Medications Fentanyl Citrate 50 mcg 50 mcg PRN Q15MIN PRN IV PAIN GREATER THAN 3/10 Last administered on 06/24/16 18:02; Start 06/24/16 at 17:30; Stop 06/25/16 at 17:29; Status DC Sodium Chloride (Iv Sodium Chloride 0.9% 1000ml Bag) 1,000 ml @ 1,000 mls/hr Q1H IV Last administered on 06/24/16 17:58; Start 06/24/16 at 17:30; Stop at 18:29; Status DC Ondansetron HCl (Zofran) 4 mg 1X ONCE IV Last administered on 06/24/16 17:57; Start 06/24/16 at 17:30; Stop 06/24/16 at 17:31; Status DC Ondansetron HCl (Zofran) 4 mg PRN Q8HRS PRN IV NAUSEA/VOMITING Last administered on 06/25/16 06:02; Start 06/24/16 at 17:45; Stop 06/25/16 at 17:44; Status DC Fentanyl Citrate (Fentanyl 2ml Vial) 50 mcg PRN Q2HR PRN IV PAIN Last administered on 06/25/16 15:50; Start 06/24/16 at 17:45; Stop 06/25/16 at 17:44; Status DC Acetaminophen (Tylenol) 650 mg PRN Q4HRS PRN PO FEVER; Start 06/24/16 at 17:45; Stop 06/25/16 at 17:44; Status DC Aspirin (Ecotrin) 81 mg DAILY PO Last administered on 07/02/16 09:30; Start at 09:00 Baclofen (Lioresal) 10 mg TID PO Last administered on 07/02/16 09:29; Start at 09:00 Clonazepam (Klonopin) 0.5 mg PRN TID PRN PO TREMORS Last administered on 22:28; Start 06/24/16 at 22:15 Escitalopram Oxalate (Lexapro) 10 mg DAILY PO Last administered on 07/02/16 09 :29; Start 06/25/16 at 09:00 Oxycodone/ Acetaminophen (Percocet 10/325) 1 tab PRN Q4HRS PRN PO MILD PAIN Last administered on 07/02/16 09:31; Start 06/24/16 at 22:15 Trazodone HCl (Desyrel) 200 mg QHS PO Last administered on 07/01/16 22:28; Start 06/24/16 at 22:30 Non-Formulary Medication 2 puff BID IH ; Start 06/25/16 at 09:00; Status UNV Carbamazepine (Tegretol) 200 mg TID PO Last administered on 06/27/16 14:06; Start 06/25/16 at 09:00; Stop 06/27/16 at 19:12; Status DC Cephalexin HCl (Keflex) 500 mg TID PO Last administered on 07/01/16 10:37; Start 06/25/16 at 09:00; Stop 07/01/16 at 13:09; Status DC Pantoprazole Sodium (Protonix) 40 mg DAILYAC PO ; Start 06/25/16 at 07:30; Stop 06/25/16 at 07:30; Status DC Digoxin (Lanoxin) 125 mcg DAILY PO Last administered on 07/02/16 09:31; Start 06/25/16 at 09:00 Non-Formulary Medication 240 mg BID PO ; Start 06/25/16 at 09:00; Status UNV Atorvastatin Calcium (Lipitor) 10 mg HS PO Last administered on 07/01/16 22:28 ; Start 06/25/16 at 21:00 Non-Formulary Medication 200 mg DAILY PO ; Start 06/25/16 at 09:00; Stop at 00:04; Status DC Budesonide (Pulmicort) 0.5 mg RTBID NEB Last administered on 07/02/16 07:05; Start 06/25/16 at 08:00 Albuterol Sulfate (Ventolin Neb Soln) 2.5 mg RTQID NEB Last administered on 10:48; Start 06/25/16 at 08:00 Pantoprazole Sodium 40 mg 40 mg DAILY06 PO Last administered on 07/02/16 09:29 ; Start 06/25/16 at 06:00 Sodium Chloride 1,000 ml @ 60 mls/hr [id number] IV Last administered on 03:25; Start 06/25/16 at 15:45; Stop 06/26/16 at 23:08; Status DC Albumin Human (Plasmanate) 500 ml @ 125 mls/hr 1X ONCE IV Last administered on 06/25/16 23:16; Start 06/25/16 at 23:15; Stop 06/26/16 at 03:14; Status DC Non-Formulary Medication 200 mg DAILY PO Last administered on 07/02/16 09:34; Start 06/26/16 at 09:00 Barium Sulfate (Liquid E-Z Paque) 710 ml 1X ONCE PO Last administered on 08:00; Start 06/26/16 at 08:00; Stop 06/26/16 at 08:01; Status DC Cyanocobalamin (Vitamin B-12) 1,000 mcg DAILY IM Last administered on 09:30; Start 06/26/16 at 10:00 Lubiprostone 8 mcg 8 mcg BIDWMEALS PO Last administered on 07/01/16 15:53; Start 06/26/16 at 17:00 Albumin Human 500 ml @ 125 mls/hr 1X ONCE IV Last administered on 06/27/16 00:22; Start 06/27/16 at 00:30; Stop 06/27/16 at 04:29; Status DC Sodium Chloride (Iv Sodium Chloride 0.9% 1000ml Bag) 1,000 ml @ 60 mls/hr [id number] IV Last administered on 07/02/16 03:22; Start 06/27/16 at 03:00 Fentanyl Citrate (Fentanyl 2ml Vial) 50 mcg PRN Q3HRS PRN IV SEVERE PAIN Last administered on 07/01/16 22:33; Start 06/27/16 at 13:15 Carbamazepine (Tegretol) 300 mg TID PO Last administered on 07/02/16 09:29; Start 06/27/16 at 21:00 Polyethylene Glycol (miraLAX Powder BULK BOTTLE) 238 gm 1X ONCE PO Last administered on 06/28/16 10:50; Start 06/28/16 at 11:00; Stop 06/28/16 at 11:01 ; Status DC Iohexol (Omnipaque 300 Mg/ml) 50 ml 1X ONCE IJ ; Start 06/30/16 at 07:15; Stop 06/30/16 at 07:16; Status DC Info (Do NOT chart on this entry -- for MONITORING) 1 each PRN DAILY PRN MC SEE COMMENTS; Start 06/30/16 at 07:15; Stop 07/01/16 at 13:09; Status DC Polyethylene Glycol (miraLAX Powder BULK BOTTLE) 238 gm 1X ONCE PO Last administered on 06/30/16 11:08; Start 06/30/16 at 11:00; Stop 06/30/16 at 11:01 ; Status DC Bisacodyl (Dulcolax Tab) 10 mg PRN DAILY PRN PO CONSTIPATION Last administered on 06/30/16 11:07; Start 06/30/16 at 10:30 Ondansetron HCl (Zofran) 4 mg PRN Q6HRS PRN IV Nausea; Start 07/01/16 at 07:00 ; Stop 07/02/16 at 06:59; Status DC Fentanyl Citrate (Fentanyl 2ml Vial) 25 mcg PRN Q5MIN PRN IV MILD PAIN; Start 07/01/16 at 07:00; Stop 07/02/16 at 06:59; Status DC Fentanyl Citrate (Fentanyl 2ml Vial) 50 mcg PRN Q5MIN PRN IV MODERATE PAIN; Start 07/01/16 at 07:00; Stop 07/02/16 at 06:59; Status DC Morphine Sulfate 1 mg 1 mg PRN Q10MIN PRN IV SEVERE PAIN; Start 07/01/16 at 07: 00; Stop 07/02/16 at 06:59; Status DC Lactated Ringer's (Iv Lactated Ringers) 1,000 ml @ 0 mls/hr Q0M IV ; Start at 07:00; Stop 07/01/16 at 18:59; Status DC Lidocaine HCl 2 ml 1X PRN PRN ID IV START; Start 07/01/16 at 07:00; Stop at 06:59; Status DC Hydromorphone HCl (Dilaudid) 0.5 mg PRN Q10MIN PRN IV SEVERE PAIN, Second choice; Start 07/01/16 at 07:00; Stop 07/02/16 at 06:59; Status DC Prochlorperazine Edisylate (Compazine) 5 mg PACU PRN PRN IV NAUSEA; Start 07/01 at 07:00; Stop 07/02/16 at 06:59; Status DC Iohexol (Omnipaque 300 Mg/ml) 50 ml 1X ONCE IJ Last administered on 07/01/16 08:21; Start 07/01/16 at 07:15; Stop 07/01/16 at 07:16; Status DC Info (Do NOT chart on this entry -- for MONITORING) 1 each PRN DAILY PRN MC SEE COMMENTS; Start 07/01/16 at 07:15; Stop 07/03/16 at 07:14 Active Scripts Active Keflex (Cephalexin) 500 Mg Capsule 1 Cap PO TID Reported Trazodone Hcl 100 Mg Tablet 200 Mg PO HS Klonopin (Clonazepam) 0.5 Mg Tablet 0.5 Mg PO TID PRN [morphine] 14.5 Mg ID DAILY Lovastatin 40 Mg Tablet 40 Mg PO HS Aspir 81 (Aspirin) 81 Mg Tablet.dr 81 Mg PO DAILY Tecfidera (Dimethyl Fumarate) 240 Mg Capsule.dr 240 Mg PO BID Symbicort 160-4.5 Mcg Inhaler (Budesonide/Formoterol Fumarate) 10.2 Gm Hfa.aer.ad 2 Puff IH BID Percocet 10-325 Mg Tablet (Oxycodone/Acetaminophen) 1 Each Tablet 1 Tab PO Q4HRS PRN Baclofen 10 Mg Tablet 1 Tab PO TID Trazodone Hcl 100 Mg Tablet 2 Tab PO QHS Provigil (Modafinil) 100 Mg Tablet 200 Mg PO DAILY Dexilant (Dexlansoprazole) 60 Mg Cap.dr.mp 60 Mg PO DAILY Digoxin 0.125 Mg/2.5 Ml Solution 0.125 Mg PO DAILY Carbamazepine 200 Mg Cpmp.12hr 200 Mg PO TID Lexapro (Escitalopram Oxalate) 10 Mg Tablet 10 Mg PO DAILY Vitals/I & O Vital Sign - Last 24 Hours 07/01/16 07/01/16 07/01/16 07/01/16 12:10 12:11 15:00 19:00 Temp 97.7 98.0 97.7 98.0 Pulse 60 62 63 Resp 18 18 B/P 81/42 96/53 Pulse Ox 94 99 O2 Delivery Room Air Nasal Cannula Nasal Cannula O2 Flow Rate 3.0 3.0 07/01/16 07/01/16 07/01/16 07/01/16 19:08 20:07 22:28 22:33 Resp 20 20 Pulse Ox 95 95 95 O2 Delivery Nasal Cannula Nasal Cannula Nasal Cannula Nasal Cannula O2 Flow Rate 2.0 2.0 2.0 2.0 07/01/16 07/01/16 07/02/16 07/02/16 23:03 23:35 03:00 03:21 Temp 98.5 97.5 98.5 97.5 Pulse 61 61 Resp 20 18 18 20 B/P 83/42 82/42 Pulse Ox 93 93 93 93 O2 Delivery Nasal Cannula Nasal Cannula Nasal Cannula Nasal Cannula O2 Flow Rate 3.0 3.0 3.0 3.0 07/02/16 07/02/16 07/02/16 07/02/16 04:21 07:00 07:07 08:00 Temp 98.4 98.4 Pulse 62 Resp 20 16 B/P 82/44 Pulse Ox 93 93 95 O2 Delivery Nasal Cannula Nasal Cannula Nasal Cannula O2 Flow Rate 3.0 3.0 2.0 2.0 07/02/16 07/02/16 07/02/16 07/02/16 09:31 09:31 10:31 10:49 Pulse 62 O2 Delivery Nasal Cannula Room Air Nasal Cannula O2 Flow Rate 2.0 2.0 Intake and Output 07/01/16 07/01/16 07/02/16 15:00 23:00 07:00 Intake Total 300 ml Balance 300 ml AGATA PIERCE MD Jul 02, 2016 11:51
[2016-07-02] MEDS: CLONAZEPAM 0.5 MG TABLET PO PRN ×2 (11:55→20:43)
--- NOTE | 2016-07-02 11:57 | PDOC ---
Subjective: Subjective: Unchanged. Objective: Objective: Reviewed other notes. Vital Signs: Vital Signs Date Time Temp Pulse Resp B/P Pulse Ox O2 Delivery O2 Flow Rate FiO2 07/02/16 10:49 Nasal Cannula 2.0 07/02/16 09:31 62 07/02/16 07:07 95 07/02/16 07:00 98.4 16 82/44 98.4 PE: GEN: NAD LUNGS: clear anteriorly HEART: RRR ABD: BS+, same left flank tenderness NEURO/PSYCH: A & O 3 A/P: Left flank pain/abd pain, h/o MS -EGD and colonoscopy 06/18/16: normal esophagus, chronic gastritis, normal duodenum, 12mm adenomatous rectal polyp, and non-bleeding internal hemorrhoids ( h/o Clinton's, previous gastric bx neg for H. pylori, previous SB bx neg for celiac) -GES normal in 2012 -IVP 07/01 normal - urology signed off -neuro following, adding steroids -has pain pump -- Note neurology plans for steroids w/ possible DC tomorrow. No new GI recs. OSWALD CEE Jul 02, 2016 11:57
[2016-07-02] MEDS: methylPREDNISolone SOD SUCC 1,000 MG in IV NORMAL SALINE 100ML 100 ML IV SCH (14:55)
[2016-07-02 15:00] VITALS: BP 92/47
--- NOTE | 2016-07-02 16:12 | PDOC ---
PROGRESS NOTES Subjective Subjective No change in current complaints. Pt still in intractable LLQ pain. Objective Objective Vital Signs Date Time Temp Pulse Resp B/P Pulse Ox O2 Delivery O2 Flow Rate FiO2 07/02/16 14:56 Room Air 07/02/16 14:55 2.0 07/02/16 11:00 98.1 65 18 97/47 94 98.1 Intake and Output 07/02/16 07:00 Intake Total 300 ml Balance 300 ml Intake Oral 300 ml # Voids 5 Physical Exam Physical Exam No change in cardiac exam Assessment Assessment Problems Medical Problems: (1) Intractable pain Status: Acute (2) Multiple sclerosis Status: Acute Plan Plan of Care Intractable L flank pain CT of L/S spine Follow neuro, urology Discussing increasing amount of pain meds administered through pain pump Refill of pain meds via pump 07-09-15 Comment Review of Relevant I have reviewed the following items svetlana (where applicable) has been applied. Medications Current Medications Fentanyl Citrate 50 mcg 50 mcg PRN Q15MIN PRN IV PAIN GREATER THAN 3/10 Last administered on 06/24/16 18:02; Start 06/24/16 at 17:30; Stop 06/25/16 at 17:29; Status DC Sodium Chloride (Iv Sodium Chloride 0.9% 1000ml Bag) 1,000 ml @ 1,000 mls/hr Q1H IV Last administered on 06/24/16 17:58; Start 06/24/16 at 17:30; Stop at 18:29; Status DC Ondansetron HCl (Zofran) 4 mg 1X ONCE IV Last administered on 06/24/16 17:57; Start 06/24/16 at 17:30; Stop 06/24/16 at 17:31; Status DC Ondansetron HCl (Zofran) 4 mg PRN Q8HRS PRN IV NAUSEA/VOMITING Last administered on 06/25/16 06:02; Start 06/24/16 at 17:45; Stop 06/25/16 at 17:44; Status DC Fentanyl Citrate (Fentanyl 2ml Vial) 50 mcg PRN Q2HR PRN IV PAIN Last administered on 06/25/16 15:50; Start 06/24/16 at 17:45; Stop 06/25/16 at 17:44; Status DC Acetaminophen (Tylenol) 650 mg PRN Q4HRS PRN PO FEVER; Start 06/24/16 at 17:45; Stop 06/25/16 at 17:44; Status DC Aspirin (Ecotrin) 81 mg DAILY PO Last administered on 07/02/16 09:30; Start at 09:00 Baclofen (Lioresal) 10 mg TID PO Last administered on 07/02/16 14:55; Start at 09:00 Clonazepam (Klonopin) 0.5 mg PRN TID PRN PO TREMORS Last administered on 11:55; Start 06/24/16 at 22:15 Escitalopram Oxalate (Lexapro) 10 mg DAILY PO Last administered on 07/02/16 09 :29; Start 06/25/16 at 09:00 Oxycodone/ Acetaminophen (Percocet 10/325) 1 tab PRN Q4HRS PRN PO MILD PAIN Last administered on 07/02/16 14:56; Start 06/24/16 at 22:15 Trazodone HCl (Desyrel) 200 mg QHS PO Last administered on 07/01/16 22:28; Start 06/24/16 at 22:30 Non-Formulary Medication 2 puff BID IH ; Start 06/25/16 at 09:00; Status UNV Carbamazepine (Tegretol) 200 mg TID PO Last administered on 06/27/16 14:06; Start 06/25/16 at 09:00; Stop 06/27/16 at 19:12; Status DC Cephalexin HCl (Keflex) 500 mg TID PO Last administered on 07/01/16 10:37; Start 06/25/16 at 09:00; Stop 07/01/16 at 13:09; Status DC Pantoprazole Sodium (Protonix) 40 mg DAILYAC PO ; Start 06/25/16 at 07:30; Stop 06/25/16 at 07:30; Status DC Digoxin (Lanoxin) 125 mcg DAILY PO Last administered on 07/02/16 09:31; Start 06/25/16 at 09:00 Non-Formulary Medication 240 mg BID PO ; Start 06/25/16 at 09:00; Status UNV Atorvastatin Calcium (Lipitor) 10 mg HS PO Last administered on 07/01/16 22:28 ; Start 06/25/16 at 21:00 Non-Formulary Medication 200 mg DAILY PO ; Start 06/25/16 at 09:00; Stop at 00:04; Status DC Budesonide (Pulmicort) 0.5 mg RTBID NEB Last administered on 07/02/16 07:05; Start 06/25/16 at 08:00 Albuterol Sulfate (Ventolin Neb Soln) 2.5 mg RTQID NEB Last administered on 14:54; Start 06/25/16 at 08:00 Pantoprazole Sodium 40 mg 40 mg DAILY06 PO Last administered on 07/02/16 09:29 ; Start 06/25/16 at 06:00 Sodium Chloride 1,000 ml @ 60 mls/hr [id number] IV Last administered on 03:25; Start 06/25/16 at 15:45; Stop 06/26/16 at 23:08; Status DC Albumin Human (Plasmanate) 500 ml @ 125 mls/hr 1X ONCE IV Last administered on 06/25/16 23:16; Start 06/25/16 at 23:15; Stop 06/26/16 at 03:14; Status DC Non-Formulary Medication 200 mg DAILY PO Last administered on 07/02/16 09:34; Start 06/26/16 at 09:00 Barium Sulfate (Liquid E-Z Paque) 710 ml 1X ONCE PO Last administered on 08:00; Start 06/26/16 at 08:00; Stop 06/26/16 at 08:01; Status DC Cyanocobalamin (Vitamin B-12) 1,000 mcg DAILY IM Last administered on 09:30; Start 06/26/16 at 10:00 Lubiprostone 8 mcg 8 mcg BIDWMEALS PO Last administered on 07/01/16 15:53; Start 06/26/16 at 17:00 Albumin Human 500 ml @ 125 mls/hr 1X ONCE IV Last administered on 06/27/16 00:22; Start 06/27/16 at 00:30; Stop 06/27/16 at 04:29; Status DC Sodium Chloride (Iv Sodium Chloride 0.9% 1000ml Bag) 1,000 ml @ 60 mls/hr [id number] IV Last administered on 07/02/16 03:22; Start 06/27/16 at 03:00 Fentanyl Citrate (Fentanyl 2ml Vial) 50 mcg PRN Q3HRS PRN IV SEVERE PAIN Last administered on 07/01/16 22:33; Start 06/27/16 at 13:15 Carbamazepine (Tegretol) 300 mg TID PO Last administered on 07/02/16 14:56; Start 06/27/16 at 21:00 Polyethylene Glycol (miraLAX Powder BULK BOTTLE) 238 gm 1X ONCE PO Last administered on 06/28/16 10:50; Start 06/28/16 at 11:00; Stop 06/28/16 at 11:01 ; Status DC Iohexol (Omnipaque 300 Mg/ml) 50 ml 1X ONCE IJ ; Start 06/30/16 at 07:15; Stop 06/30/16 at 07:16; Status DC Info (Do NOT chart on this entry -- for MONITORING) 1 each PRN DAILY PRN MC SEE COMMENTS; Start 06/30/16 at 07:15; Stop 07/01/16 at 13:09; Status DC Polyethylene Glycol (miraLAX Powder BULK BOTTLE) 238 gm 1X ONCE PO Last administered on 06/30/16 11:08; Start 06/30/16 at 11:00; Stop 06/30/16 at 11:01 ; Status DC Bisacodyl (Dulcolax Tab) 10 mg PRN DAILY PRN PO CONSTIPATION Last administered on 06/30/16 11:07; Start 06/30/16 at 10:30 Ondansetron HCl (Zofran) 4 mg PRN Q6HRS PRN IV Nausea; Start 07/01/16 at 07:00 ; Stop 07/02/16 at 06:59; Status DC Fentanyl Citrate (Fentanyl 2ml Vial) 25 mcg PRN Q5MIN PRN IV MILD PAIN; Start 07/01/16 at 07:00; Stop 07/02/16 at 06:59; Status DC Fentanyl Citrate (Fentanyl 2ml Vial) 50 mcg PRN Q5MIN PRN IV MODERATE PAIN; Start 07/01/16 at 07:00; Stop 07/02/16 at 06:59; Status DC Morphine Sulfate 1 mg 1 mg PRN Q10MIN PRN IV SEVERE PAIN; Start 07/01/16 at 07: 00; Stop 07/02/16 at 06:59; Status DC Lactated Ringer's (Iv Lactated Ringers) 1,000 ml @ 0 mls/hr Q0M IV ; Start at 07:00; Stop 07/01/16 at 18:59; Status DC Lidocaine HCl 2 ml 1X PRN PRN ID IV START; Start 07/01/16 at 07:00; Stop at 06:59; Status DC Hydromorphone HCl (Dilaudid) 0.5 mg PRN Q10MIN PRN IV SEVERE PAIN, Second choice; Start 07/01/16 at 07:00; Stop 07/02/16 at 06:59; Status DC Prochlorperazine Edisylate (Compazine) 5 mg PACU PRN PRN IV NAUSEA; Start 07/01 at 07:00; Stop 07/02/16 at 06:59; Status DC Iohexol (Omnipaque 300 Mg/ml) 50 ml 1X ONCE IJ Last administered on 07/01/16 08:21; Start 07/01/16 at 07:15; Stop 07/01/16 at 07:16; Status DC Info 1 each 1 each PRN DAILY PRN MC SEE COMMENTS; Start 07/01/16 at 07:15; Stop 07/03/16 at 07:14 Methylprednisolone Sodium Succinate/ Sodium Chloride (Solu-Medrol/Iv Sodium Chloride 0.9% 100ml) 100 ml @ 100 mls/hr DAILY IV Last administered on 14:55; Start 07/02/16 at 12:00; Stop 07/03/16 at 12:00 Active Scripts Active Keflex (Cephalexin) 500 Mg Capsule 1 Cap PO TID Reported Trazodone Hcl 100 Mg Tablet 200 Mg PO HS Klonopin (Clonazepam) 0.5 Mg Tablet 0.5 Mg PO TID PRN [morphine] 14.5 Mg ID DAILY Lovastatin 40 Mg Tablet 40 Mg PO HS Aspir 81 (Aspirin) 81 Mg Tablet.dr 81 Mg PO DAILY Tecfidera (Dimethyl Fumarate) 240 Mg Capsule.dr 240 Mg PO BID Symbicort 160-4.5 Mcg Inhaler (Budesonide/Formoterol Fumarate) 10.2 Gm Hfa.aer.ad 2 Puff IH BID Percocet 10-325 Mg Tablet (Oxycodone/Acetaminophen) 1 Each Tablet 1 Tab PO Q4HRS PRN Baclofen 10 Mg Tablet 1 Tab PO TID Trazodone Hcl 100 Mg Tablet 2 Tab PO QHS Provigil (Modafinil) 100 Mg Tablet 200 Mg PO DAILY Dexilant (Dexlansoprazole) 60 Mg Cap.dr.mp 60 Mg PO DAILY Digoxin 0.125 Mg/2.5 Ml Solution 0.125 Mg PO DAILY Carbamazepine 200 Mg Cpmp.12hr 200 Mg PO TID Lexapro (Escitalopram Oxalate) 10 Mg Tablet 10 Mg PO DAILY Vitals/I & O Vital Sign - Last 24 Hours 07/01/16 07/01/16 07/01/16 07/01/16 19:00 19:08 20:07 22:28 Temp 98.0 98.0 Pulse 63 Resp 18 20 B/P 96/53 Pulse Ox 99 95 95 O2 Delivery Nasal Cannula Nasal Cannula Nasal Cannula Nasal Cannula O2 Flow Rate 3.0 2.0 2.0 2.0 07/01/16 07/01/16 07/01/16 07/02/16 22:33 23:03 23:35 03:00 Temp 98.5 97.5 98.5 97.5 Pulse 61 61 Resp 20 20 18 18 B/P 83/42 82/42 Pulse Ox 95 93 93 93 O2 Delivery Nasal Cannula Nasal Cannula Nasal Cannula Nasal Cannula O2 Flow Rate 2.0 3.0 3.0 3.0 07/02/16 07/02/16 07/02/16 07/02/16 03:21 04:21 07:00 07:07 Temp 98.4 98.4 Pulse 62 Resp 20 20 16 B/P 82/44 Pulse Ox 93 93 93 95 O2 Delivery Nasal Cannula Nasal Cannula Nasal Cannula O2 Flow Rate 3.0 3.0 3.0 2.0 07/02/16 07/02/16 07/02/16 07/02/16 08:00 09:31 09:31 10:31 Pulse 62 O2 Delivery Nasal Cannula Nasal Cannula Room Air O2 Flow Rate 2.0 2.0 07/02/16 07/02/16 07/02/16 07/02/16 10:49 11:00 14:55 14:56 Temp 98.1 98.1 Pulse 65 Resp 18 B/P 97/47 Pulse Ox 94 O2 Delivery Nasal Cannula Nasal Cannula Nasal Cannula Room Air O2 Flow Rate 2.0 2.0 2.0 Intake and Output 07/01/16 07/01/16 07/02/16 15:00 23:00 07:00 Intake Total 300 ml Balance 300 ml ESTEFANI HECTOR MD Jul 02, 2016 16:12
[2016-07-02 19:00] VITALS: BP 108/60
[2016-07-02] MEDS: traZODone 100 MG TABLET. PO SCH (20:42)
[2016-07-02] MEDS: ATORVASTATIN CALCIUM 10 MG TABLET. PO SCH (20:43)
[2016-07-02 23:00] VITALS: BP 94/55
[2016-07-03] VITALS (7 sets, daily range): BP systolic 92–118; BP diastolic 51–69
[2016-07-03] MEDS: IV NORMAL SALINE 1000ML BAG 1,000 ML IV SCH ×2 (02:49→20:22)
[2016-07-03] MEDS: OXYCODONE/APAP 10/325 TABLET. PO PRN ×3 (02:50→20:25)
[2016-07-03] MEDS: PANTOPRAZOLE 40 MG TABLET. PO SCH (06:12)
[2016-07-03] MEDS: ALBUTEROL SULFATE 2.5 MG/3 ML NEBU. NEB SCH ×4 (06:38→20:46)
[2016-07-03] MEDS: BUDESONIDE 0.5 MG/2 ML NEBU NEB SCH ×2 (06:38→20:46)
[2016-07-03] MEDS: LUBIPROSTONE 8 MCG CAPSULE PO SCH ×2 (08:00→13:26)
--- NOTE | 2016-07-03 08:19 | PDOC ---
PROGRESS NOTES Assessment Problems Medical Problems: (1) Intractable pain Status: Acute (2) Multiple sclerosis Status: Acute Note patient had a second CT of the lumbar spine, we just did one 3 days ago! Renal studies negative for a source of pain Chronic left flank pain, neck, back pain, follows with Dr. Cabral for pain pump. This flank pain is atypical for multiple sclerosis or other neurological causes Chronic left leg weakness x 4 years. MS, per history. This was diagnosed in [place] on MRI studies and lumbar puncture, but interestingly when we checked MRI studies here 4 years ago, they were negative. She is worried that the pain is making her multiple sclerosis symptoms worse but I find no evidence of acute exacerbation CAD DM Vit B12 deficiency. Thyroid cancer since 2001. Chronic neck and back pain. Tremors better with increased carbamazepine, level was in the therapeutic range Plan Day 2/2 day pulse of IV steroids Try to discharge tomorrow, I don't think that continued inpatient hospitalization will fix this chronic pain problem I will consult surgery for their opinion She really has not been out of bed much as she is not getting therapy so I have ordered it. Continue current therapies Follow-up with Dr. Cabral, her pain specialist Subjective same pain Objective Vital Signs Date Time Temp Pulse Resp B/P Pulse Ox O2 Delivery O2 Flow Rate FiO2 07/03/16 07:00 97.5 81 20 92/51 92 Nasal Cannula 2.0 97.5 Intake and Output 07/03/16 07:00 Intake Total 2559 ml Output Total 800 ml Balance 1759 ml Intake Oral 830 ml Other 1729 ml Output Urine Total 800 ml PHYSICAL EXAM Alert. Oriented to time, place and person. PERRL. EOMI. CN: no focal findings. Muscle tone: normal. Muscle strength: 4/5, 3/5 legs DTR: 2+ Plantar reflex: flexor Gait: not examined in bed. Sensory exam: Diffuse pinprick hypesthesia No cerebellar signs Review of Relevant I have reviewed the following items svetlana (where applicable) has been applied. Medications Current Medications Fentanyl Citrate 50 mcg 50 mcg PRN Q15MIN PRN IV PAIN GREATER THAN 3/10 Last administered on 06/24/16t 18:02; Start 06/24/16 at 17:30; Stop 06/25/16 at 17:29; Status DC Sodium Chloride (Iv Sodium Chloride 0.9% 1000ml Bag) 1,000 ml @ 1,000 mls/hr Q1H IV Last administered on 06/24/16 17:58; Start 06/24/16 at 17:30; Stop at 18:29; Status DC Ondansetron HCl (Zofran) 4 mg 1X ONCE IV Last administered on 06/24/16 17:57; Start 06/24/16 at 17:30; Stop 06/24/16 at 17:31; Status DC Ondansetron HCl (Zofran) 4 mg PRN Q8HRS PRN IV NAUSEA/VOMITING Last administered on 06/25/16 06:02; Start 06/24/16 at 17:45; Stop 06/25/16 at 17:44; Status DC Fentanyl Citrate (Fentanyl 2ml Vial) 50 mcg PRN Q2HR PRN IV PAIN Last administered on 06/25/16 15:50; Start 06/24/16 at 17:45; Stop 06/25/16 at 17:44; Status DC Acetaminophen (Tylenol) 650 mg PRN Q4HRS PRN PO FEVER; Start 06/24/16 at 17:45; Stop 06/25/16 at 17:44; Status DC Aspirin (Ecotrin) 81 mg DAILY PO Last administered on 07/02/16 09:30; Start at 09:00 Baclofen (Lioresal) 10 mg TID PO Last administered on 07/02/16 20:43; Start at 09:00 Clonazepam (Klonopin) 0.5 mg PRN TID PRN PO TREMORS Last administered on 20:43; Start 06/24/16 at 22:15 Escitalopram Oxalate (Lexapro) 10 mg DAILY PO Last administered on 07/02/16 09 :29; Start 06/25/16 at 09:00 Oxycodone/ Acetaminophen (Percocet 10/325) 1 tab PRN Q4HRS PRN PO MILD PAIN Last administered on 07/03/16 02:50; Start 06/24/16 at 22:15 Trazodone HCl (Desyrel) 200 mg QHS PO Last administered on 07/02/16 20:42; Start 06/24/16 at 22:30 Non-Formulary Medication 2 puff BID IH ; Start 06/25/16 at 09:00; Status UNV Carbamazepine (Tegretol) 200 mg TID PO Last administered on 06/27/16 14:06; Start 06/25/16 at 09:00; Stop 06/27/16 at 19:12; Status DC Cephalexin HCl (Keflex) 500 mg TID PO Last administered on 07/01/16 10:37; Start 06/25/16 at 09:00; Stop 07/01/16 at 13:09; Status DC Pantoprazole Sodium (Protonix) 40 mg DAILYAC PO ; Start 06/25/16 at 07:30; Stop 06/25/16 at 07:30; Status DC Digoxin (Lanoxin) 125 mcg DAILY PO Last administered on 07/02/16 09:31; Start 06/25/16 at 09:00 Non-Formulary Medication 240 mg BID PO ; Start 06/25/16 at 09:00; Status UNV Atorvastatin Calcium (Lipitor) 10 mg HS PO Last administered on 07/02/16 20:43 ; Start 06/25/16 at 21:00 Non-Formulary Medication 200 mg DAILY PO ; Start 06/25/16 at 09:00; Stop at 00:04; Status DC Budesonide (Pulmicort) 0.5 mg RTBID NEB Last administered on 07/03/16 06:38; Start 06/25/16 at 08:00 Albuterol Sulfate (Ventolin Neb Soln) 2.5 mg RTQID NEB Last administered on 06:38; Start 06/25/16 at 08:00 Pantoprazole Sodium 40 mg 40 mg DAILY06 PO Last administered on 07/03/16 06:12 ; Start 06/25/16 at 06:00 Sodium Chloride 1,000 ml @ 60 mls/hr [id number] IV Last administered on 03:25; Start 06/25/16 at 15:45; Stop 06/26/16 at 23:08; Status DC Albumin Human (Plasmanate) 500 ml @ 125 mls/hr 1X ONCE IV Last administered on 06/25/16 23:16; Start 06/25/16 at 23:15; Stop 06/26/16 at 03:14; Status DC Non-Formulary Medication 200 mg DAILY PO Last administered on 07/02/16 09:34; Start 06/26/16 at 09:00 Barium Sulfate (Liquid E-Z Paque) 710 ml 1X ONCE PO Last administered on 08:00; Start 06/26/16 at 08:00; Stop 06/26/16 at 08:01; Status DC Cyanocobalamin (Vitamin B-12) 1,000 mcg DAILY IM Last administered on 09:30; Start 06/26/16 at 10:00 Lubiprostone 8 mcg 8 mcg BIDWMEALS PO Last administered on 07/01/16 15:53; Start 06/26/16 at 17:00 Albumin Human 500 ml @ 125 mls/hr 1X ONCE IV Last administered on 06/27/16 00:22; Start 06/27/16 at 00:30; Stop 06/27/16 at 04:29; Status DC Sodium Chloride (Iv Sodium Chloride 0.9% 1000ml Bag) 1,000 ml @ 60 mls/hr [id number] IV Last administered on 07/03/16 02:49; Start 06/27/16 at 03:00 Fentanyl Citrate (Fentanyl 2ml Vial) 50 mcg PRN Q3HRS PRN IV SEVERE PAIN Last administered on 07/01/16 22:33; Start 06/27/16 at 13:15 Carbamazepine (Tegretol) 300 mg TID PO Last administered on 07/02/16 20:43; Start 06/27/16 at 21:00 Polyethylene Glycol (miraLAX Powder BULK BOTTLE) 238 gm 1X ONCE PO Last administered on 06/28/16 10:50; Start 06/28/16 at 11:00; Stop 06/28/16 at 11:01 ; Status DC Iohexol (Omnipaque 300 Mg/ml) 50 ml 1X ONCE IJ ; Start 06/30/16 at 07:15; Stop 06/30/16 at 07:16; Status DC Info (Do NOT chart on this entry -- for MONITORING) 1 each PRN DAILY PRN MC SEE COMMENTS; Start 06/30/16 at 07:15; Stop 07/01/16 at 13:09; Status DC Polyethylene Glycol (miraLAX Powder BULK BOTTLE) 238 gm 1X ONCE PO Last administered on 06/30/16 11:08; Start 06/30/16 at 11:00; Stop 06/30/16 at 11:01 ; Status DC Bisacodyl (Dulcolax Tab) 10 mg PRN DAILY PRN PO CONSTIPATION Last administered on 06/30/16 11:07; Start 06/30/16 at 10:30 Ondansetron HCl (Zofran) 4 mg PRN Q6HRS PRN IV Nausea; Start 07/01/16 at 07:00 ; Stop 07/02/16 at 06:59; Status DC Fentanyl Citrate (Fentanyl 2ml Vial) 25 mcg PRN Q5MIN PRN IV MILD PAIN; Start 07/01/16 at 07:00; Stop 07/02/16 at 06:59; Status DC Fentanyl Citrate (Fentanyl 2ml Vial) 50 mcg PRN Q5MIN PRN IV MODERATE PAIN; Start 07/01/16 at 07:00; Stop 07/02/16 at 06:59; Status DC Morphine Sulfate 1 mg 1 mg PRN Q10MIN PRN IV SEVERE PAIN; Start 07/01/16 at 07: 00; Stop 07/02/16 at 06:59; Status DC Lactated Ringer's (Iv Lactated Ringers) 1,000 ml @ 0 mls/hr Q0M IV ; Start at 07:00; Stop 07/01/16 at 18:59; Status DC Lidocaine HCl 2 ml 1X PRN PRN ID IV START; Start 07/01/16 at 07:00; Stop at 06:59; Status DC Hydromorphone HCl (Dilaudid) 0.5 mg PRN Q10MIN PRN IV SEVERE PAIN, Second choice; Start 07/01/16 at 07:00; Stop 07/02/16 at 06:59; Status DC Prochlorperazine Edisylate (Compazine) 5 mg PACU PRN PRN IV NAUSEA; Start 07/01 at 07:00; Stop 07/02/16 at 06:59; Status DC Iohexol (Omnipaque 300 Mg/ml) 50 ml 1X ONCE IJ Last administered on 07/01/16 08:21; Start 07/01/16 at 07:15; Stop 07/01/16 at 07:16; Status DC Info 1 each 1 each PRN DAILY PRN MC SEE COMMENTS; Start 07/01/16 at 07:15; Stop 07/03/16 at 07:14; Status DC Methylprednisolone Sodium Succinate/ Sodium Chloride (Solu-Medrol/Iv Sodium Chloride 0.9% 100ml) 100 ml @ 100 mls/hr DAILY IV Last administered on t 14:55; Start 07/02/16 at 12:00; Stop 07/03/16 at 12:00 Active Scripts Active Keflex (Cephalexin) 500 Mg Capsule 1 Cap PO TID Reported Trazodone Hcl 100 Mg Tablet 200 Mg PO HS Klonopin (Clonazepam) 0.5 Mg Tablet 0.5 Mg PO TID PRN [morphine] 14.5 Mg ID DAILY Lovastatin 40 Mg Tablet 40 Mg PO HS Aspir 81 (Aspirin) 81 Mg Tablet.dr 81 Mg PO DAILY Tecfidera (Dimethyl Fumarate) 240 Mg Capsule.dr 240 Mg PO BID Symbicort 160-4.5 Mcg Inhaler (Budesonide/Formoterol Fumarate) 10.2 Gm Hfa.aer.ad 2 Puff IH BID Percocet 10-325 Mg Tablet (Oxycodone/Acetaminophen) 1 Each Tablet 1 Tab PO Q4HRS PRN Baclofen 10 Mg Tablet 1 Tab PO TID Trazodone Hcl 100 Mg Tablet 2 Tab PO QHS Provigil (Modafinil) 100 Mg Tablet 200 Mg PO DAILY Dexilant (Dexlansoprazole) 60 Mg Cap.dr.mp 60 Mg PO DAILY Digoxin 0.125 Mg/2.5 Ml Solution 0.125 Mg PO DAILY Carbamazepine 200 Mg Cpmp.12hr 200 Mg PO TID Lexapro (Escitalopram Oxalate) 10 Mg Tablet 10 Mg PO DAILY Vitals/I & O Vital Sign - Last 24 Hours 07/02/16 07/02/16 07/02/16 07/02/16 09:31 09:31 10:49 11:00 Temp 98.1 98.1 Pulse 62 65 Resp 18 B/P 97/47 Pulse Ox 94 O2 Delivery Nasal Cannula Nasal Cannula Nasal Cannula O2 Flow Rate 2.0 2.0 2.0 07/02/16 07/02/16 07/02/16 07/02/16 14:55 14:56 15:00 19:00 Temp 98.5 98.7 98.5 98.7 Pulse 66 69 Resp 12 18 B/P 92/47 108/60 Pulse Ox 92 91 O2 Delivery Nasal Cannula Room Air Nasal Cannula Nasal Cannula O2 Flow Rate 2.0 3.0 3.0 07/02/16 07/02/16 07/02/16 07/02/16 20:00 20:43 20:50 23:00 Temp 98.7 98.7 Pulse 62 Resp 16 18 B/P 94/55 Pulse Ox 96 92 O2 Delivery Nasal Cannula Room Air Nasal Cannula Nasal Cannula O2 Flow Rate 3.0 2.0 3.0 07/03/16 07/03/16 07/03/16 07/03/16 00:01 02:50 03:00 03:50 Temp 98.7 98.2 98.7 98.2 Pulse 62 58 Resp 18 16 18 16 B/P 94/56 99/52 Pulse Ox 92 92 O2 Delivery Nasal Cannula Room Air Nasal Cannula Room Air O2 Flow Rate 3.0 3.0 07/03/16 07/03/16 06:39 07:00 Temp 97.5 97.5 Pulse 81 Resp 20 B/P 92/51 Pulse Ox 93 92 O2 Delivery Nasal Cannula Nasal Cannula O2 Flow Rate 2.0 2.0 Intake and Output 07/02/16 07/02/16 07/03/16 15:00 23:00 07:00 Intake Total 1790 ml 769 ml Output Total 800 ml Balance 990 ml 769 ml AGATA PIERCE MD Jul 03, 2016 08:19
[2016-07-03] MEDS: DIGOXIN 125 MCG TABLET PO SCH (08:50)
[2016-07-03] MEDS: CARBAMAZEPINE 200 MG TABLET. PO SCH ×3 (08:50→20:24)
[2016-07-03] MEDS: ESCITALOPRAM 10 MG TABLET. PO SCH (08:51)
[2016-07-03] MEDS: BACLOFEN 10 MG TABLET PO SCH ×3 (08:51→20:24)
[2016-07-03] MEDS: ASPIRIN ENTERIC COATED 81 MG TABLET.DR. PO SCH (08:51)
[2016-07-03] MEDS: NON FORMULARY ITEM (Modafinil (Provigil) 200 MG) PO SCH (08:53)
[2016-07-03] MEDS: CYANOCOBALAMIN (VITAMIN B-12) 1,000 MCG/ML VIAL IM SCH (08:54)
[2016-07-03] MEDS: methylPREDNISolone SOD SUCC 1,000 MG in IV NORMAL SALINE 100ML 100 ML IV SCH (09:00)
[2016-07-03] MEDS: NON FORMULARY ITEM (Dimethyl Fumarate (Tecfidera) 240 MG) PO SCH ×2 (09:00→20:22)
--- NOTE | 2016-07-03 09:02 | RAD ---
INDICATION: L flank pain - Hx of MS COMPARISON: 06/28/2016 TECHNIQUE: Axial CT images were obtained through the lumbar spine. FINDINGS: No definite acute fracture or dislocation. There is partial visualization of bilateral pleural effusion. Moderate calcific atherosclerosis partially seen. 2 mm calcification left kidney. Could be nonobstructive stone. Leads are seen extending into the central canal at the L3-4 level and seen coursing into the thoracic region within the central canal. There is some evidence of degenerative disc disease including a disc protrusion at L4-5 with associated mild central canal narrowing. Lucency at central aspect of vertebral bodies could be from prominent venous plexus. IMPRESSION: No definite acute fracture or dislocation. Repeat demonstration of spinal stimulator leads. PQRS Compliance Statement: One or more of the following individualized dose reduction techniques were utilized for this examination: 1. Automated exposure control 2. Adjustment of the mA and/or kV according to patient size 3. Use of iterative reconstruction technique
--- NOTE | 2016-07-03 09:26 | PDOC2 ---
CASS DEVINE [employer] 07/03/16 0925: CONSULT Date of Consult Date of Consult DATE: 07/03/16 TIME: 09:17 Reason for Consult Reason for Consult: chronic LLQ pain Identification/Chief Complaint Chief Complaint flank pain Source Source: Chart review, Patient History of Present Illness Reason for Visit: Admitted 06/24 for worsening L flank pain. She reports this pain has been chronic for 6 months, however worsened over the last 2 weeks. Reports radiated to LLQ and down groin. At times leg pain with severe pain, twisted type pain. She does have constipation issues, last stool yesterday small. She has been evaluated by GI, urology, neurology She does have a morphine pump in place to LLQ, has had for several years Past Medical History Cardiovascular: CAD, Hyperlipidemia, Other Pulmonary: COPD, Pneumonia, Other CENTRAL NERVOUS SYSTEM: Other GI: Other Psych: Anxiety, Depression Musculoskeletal: Other Renal/: Other Endocrine: Osteoporosis Past Surgical History Past Surgical History: Pacemaker, Appendectomy, Hysterectomy, Other Family History Family History: Heart Disease Social History <1 pack per day ALCOHOL: none Drugs: None Current Problem List Problem List Problems Medical Problems: (1) Intractable pain Status: Acute (2) Multiple sclerosis Status: Acute Current Medications Current Medications Current Medications Fentanyl Citrate 50 mcg 50 mcg PRN Q15MIN PRN IV PAIN GREATER THAN 3/10 Last administered on 06/24/16 18:02; Start 06/24/16 at 17:30; Stop 06/25/16 at 17:29; Status DC Sodium Chloride (Iv Sodium Chloride 0.9% 1000ml Bag) 1,000 ml @ 1,000 mls/hr Q1H IV Last administered on 06/24/16 17:58; Start 06/24/16 at 17:30; Stop at 18:29; Status DC Ondansetron HCl (Zofran) 4 mg 1X ONCE IV Last administered on 06/24/16 17:57; Start 06/24/16 at 17:30; Stop 06/24/16 at 17:31; Status DC Ondansetron HCl (Zofran) 4 mg PRN Q8HRS PRN IV NAUSEA/VOMITING Last administered on 06/25/16 06:02; Start 06/24/16 at 17:45; Stop 06/25/16 at 17:44; Status DC Fentanyl Citrate (Fentanyl 2ml Vial) 50 mcg PRN Q2HR PRN IV PAIN Last administered on 06/25/16 15:50; Start 06/24/16 at 17:45; Stop 06/25/16 at 17:44; Status DC Acetaminophen (Tylenol) 650 mg PRN Q4HRS PRN PO FEVER; Start 06/24/16 at 17:45; Stop 06/25/16 at 17:44; Status DC Aspirin (Ecotrin) 81 mg DAILY PO Last administered on 07/03/16 08:51; Start at 09:00 Baclofen (Lioresal) 10 mg TID PO Last administered on 07/03/16 08:51; Start at 09:00 Clonazepam (Klonopin) 0.5 mg PRN TID PRN PO TREMORS Last administered on 20:43; Start 06/24/16 at 22:15 Escitalopram Oxalate (Lexapro) 10 mg DAILY PO Last administered on 07/03/16 08 :51; Start 06/25/16 at 09:00 Oxycodone/ Acetaminophen (Percocet 10/325) 1 tab PRN Q4HRS PRN PO MILD PAIN Last administered on 07/03/16 08:49; Start 06/24/16 at 22:15 Trazodone HCl (Desyrel) 200 mg QHS PO Last administered on 07/02/16 20:42; Start 06/24/16 at 22:30 Non-Formulary Medication 2 puff BID IH ; Start 06/25/16 at 09:00; Status UNV Carbamazepine (Tegretol) 200 mg TID PO Last administered on 06/27/16 14:06; Start 06/25/16 at 09:00; Stop 06/27/16 at 19:12; Status DC Cephalexin HCl (Keflex) 500 mg TID PO Last administered on 07/01/16 10:37; Start 06/25/16 at 09:00; Stop 07/01/16 at 13:09; Status DC Pantoprazole Sodium (Protonix) 40 mg DAILYAC PO ; Start 06/25/16 at 07:30; Stop 06/25/16 at 07:30; Status DC Digoxin (Lanoxin) 125 mcg DAILY PO Last administered on 07/03/16 08:50; Start 06/25/16 at 09:00 Non-Formulary Medication 240 mg BID PO ; Start 06/25/16 at 09:00; Status UNV Atorvastatin Calcium (Lipitor) 10 mg HS PO Last administered on 07/02/16 20:43 ; Start 06/25/16 at 21:00 Non-Formulary Medication 200 mg DAILY PO ; Start 06/25/16 at 09:00; Stop at 00:04; Status DC Budesonide (Pulmicort) 0.5 mg RTBID NEB Last administered on 07/03/16 06:38; Start 06/25/16 at 08:00 Albuterol Sulfate (Ventolin Neb Soln) 2.5 mg RTQID NEB Last administered on 06:38; Start 06/25/16 at 08:00 Pantoprazole Sodium 40 mg 40 mg DAILY06 PO Last administered on 07/03/16 06:12 ; Start 06/25/16 at 06:00 Sodium Chloride 1,000 ml @ 60 mls/hr [id number] IV Last administered on 03:25; Start 06/25/16 at 15:45; Stop 06/26/16 at 23:08; Status DC Albumin Human (Plasmanate) 500 ml @ 125 mls/hr 1X ONCE IV Last administered on 06/25/16 23:16; Start 06/25/16 at 23:15; Stop 06/26/16 at 03:14; Status DC Non-Formulary Medication 200 mg DAILY PO Last administered on 07/03/16 08:53; Start 06/26/16 at 09:00 Barium Sulfate (Liquid E-Z Paque) 710 ml 1X ONCE PO Last administered on 08:00; Start 06/26/16 at 08:00; Stop 06/26/16 at 08:01; Status DC Cyanocobalamin (Vitamin B-12) 1,000 mcg DAILY IM Last administered on 08:54; Start 06/26/16 at 10:00 Lubiprostone 8 mcg 8 mcg BIDWMEALS PO Last administered on 07/01/16 15:53; Start 06/26/16 at 17:00 Albumin Human 500 ml @ 125 mls/hr 1X ONCE IV Last administered on 06/27/16 00:22; Start 06/27/16 at 00:30; Stop 06/27/16 at 04:29; Status DC Sodium Chloride (Iv Sodium Chloride 0.9% 1000ml Bag) 1,000 ml @ 60 mls/hr [id number] IV Last administered on 07/03/16 02:49; Start 06/27/16 at 03:00 Fentanyl Citrate (Fentanyl 2ml Vial) 50 mcg PRN Q3HRS PRN IV SEVERE PAIN Last administered on 07/01/16 22:33; Start 06/27/16 at 13:15 Carbamazepine (Tegretol) 300 mg TID PO Last administered on 07/03/16 08:50; Start 06/27/16 at 21:00 Polyethylene Glycol (miraLAX Powder BULK BOTTLE) 238 gm 1X ONCE PO Last administered on 06/28/16 10:50; Start 06/28/16 at 11:00; Stop 06/28/16 at 11:01 ; Status DC Iohexol (Omnipaque 300 Mg/ml) 50 ml 1X ONCE IJ ; Start 06/30/16 at 07:15; Stop 06/30/16 at 07:16; Status DC Info (Do NOT chart on this entry -- for MONITORING) 1 each PRN DAILY PRN MC SEE COMMENTS; Start 06/30/16 at 07:15; Stop 07/01/16 at 13:09; Status DC Polyethylene Glycol (miraLAX Powder BULK BOTTLE) 238 gm 1X ONCE PO Last administered on 06/30/16 11:08; Start 06/30/16 at 11:00; Stop 06/30/16 at 11:01 ; Status DC Bisacodyl (Dulcolax Tab) 10 mg PRN DAILY PRN PO CONSTIPATION Last administered on 06/30/16 11:07; Start 06/30/16 at 10:30 Ondansetron HCl (Zofran) 4 mg PRN Q6HRS PRN IV Nausea; Start 07/01/16 at 07:00 ; Stop 07/02/16 at 06:59; Status DC Fentanyl Citrate (Fentanyl 2ml Vial) 25 mcg PRN Q5MIN PRN IV MILD PAIN; Start 07/01/16 at 07:00; Stop 07/02/16 at 06:59; Status DC Fentanyl Citrate (Fentanyl 2ml Vial) 50 mcg PRN Q5MIN PRN IV MODERATE PAIN; Start 07/01/16 at 07:00; Stop 07/02/16 at 06:59; Status DC Morphine Sulfate 1 mg 1 mg PRN Q10MIN PRN IV SEVERE PAIN; Start 07/01/16 at 07: 00; Stop 07/02/16 at 06:59; Status DC Lactated Ringer's (Iv Lactated Ringers) 1,000 ml @ 0 mls/hr Q0M IV ; Start at 07:00; Stop 07/01/16 at 18:59; Status DC Lidocaine HCl 2 ml 1X PRN PRN ID IV START; Start 07/01/16 at 07:00; Stop at 06:59; Status DC Hydromorphone HCl (Dilaudid) 0.5 mg PRN Q10MIN PRN IV SEVERE PAIN, Second choice; Start 07/01/16 at 07:00; Stop 07/02/16 at 06:59; Status DC Prochlorperazine Edisylate (Compazine) 5 mg PACU PRN PRN IV NAUSEA; Start 07/01 at 07:00; Stop 07/02/16 at 06:59; Status DC Iohexol (Omnipaque 300 Mg/ml) 50 ml 1X ONCE IJ Last administered on 07/01/16 08:21; Start 07/01/16 at 07:15; Stop 07/01/16 at 07:16; Status DC Info 1 each 1 each PRN DAILY PRN MC SEE COMMENTS; Start 07/01/16 at 07:15; Stop 07/03/16 at 07:14; Status DC Methylprednisolone Sodium Succinate/ Sodium Chloride (Solu-Medrol/Iv Sodium Chloride 0.9% 100ml) 100 ml @ 100 mls/hr DAILY IV Last administered on 14:55; Start 07/02/16 at 12:00; Stop 07/03/16 at 12:00 Active Scripts Active Keflex (Cephalexin) 500 Mg Capsule 1 Cap PO TID Reported Trazodone Hcl 100 Mg Tablet 200 Mg PO HS Klonopin (Clonazepam) 0.5 Mg Tablet 0.5 Mg PO TID PRN [morphine] 14.5 Mg ID DAILY Lovastatin 40 Mg Tablet 40 Mg PO HS Aspir 81 (Aspirin) 81 Mg Tablet.dr 81 Mg PO DAILY Tecfidera (Dimethyl Fumarate) 240 Mg Capsule.dr 240 Mg PO BID Symbicort 160-4.5 Mcg Inhaler (Budesonide/Formoterol Fumarate) 10.2 Gm Hfa.aer.ad 2 Puff IH BID Percocet 10-325 Mg Tablet (Oxycodone/Acetaminophen) 1 Each Tablet 1 Tab PO Q4HRS PRN Baclofen 10 Mg Tablet 1 Tab PO TID Trazodone Hcl 100 Mg Tablet 2 Tab PO QHS Provigil (Modafinil) 100 Mg Tablet 200 Mg PO DAILY Dexilant (Dexlansoprazole) 60 Mg Cap.dr.mp 60 Mg PO DAILY Digoxin 0.125 Mg/2.5 Ml Solution 0.125 Mg PO DAILY Carbamazepine 200 Mg Cpmp.12hr 200 Mg PO TID Lexapro (Escitalopram Oxalate) 10 Mg Tablet 10 Mg PO DAILY Allergies Allergies: Coded Allergies: No Known Allergies (Unverified Allergy, Unknown, 06/18/16) ROS General: No: Chills, Other (fevers) PSYCHOLOGICAL ROS: No: Anxiety, Depression Eyes: No Blurry vision, No Double vision HEENT: No: Heacaches, Sore Throat Hematological and Lymphatic: No: Bleeding Problems, Blood Clots Respiratory: No: Cough, Shortness of breath Cardiovascular: No Chest Pain, No Palpitations Gastrointestinal: Yes Other (see hpi) Genitourinary: No Dysuria Musculoskeletal: Yes Joint Pain, Yes Muscle Pain, Yes Muscular Weakness Neurological: Yes Numbness/Tingling, No Confusion Skin: No Pruritus, No Rash Physical Exam General: Alert, Oriented X3, Cooperative, No acute distress HEENT: PERRLA, Mucous membr. moist/pink Lungs: Clear to auscultation, Normal air movement Heart: Regular rate, Normal S1, Normal S2, No murmurs Abdomen: Soft, Other (tender to lower abdomen, LLQ) Extremities: No clubbing, No cyanosis Skin: No breakdown Neuro: Normal speech, Sensation intact Psych/Mental Status: Mental status NL, Mood NL MUSCULOSKELETAL: No deformity, No swelling Vitals VITALS Vital Signs Date Time Temp Pulse Resp B/P Pulse Ox O2 Delivery O2 Flow Rate FiO2 07/03/16 08:50 81 07/03/16 08:49 18 Nasal Cannula 3.0 07/03/16 07:00 97.5 92/51 92 97.5 Assessment/Plan Assessment/Plan chronic LLQ pain, no acute finding on imaging, procedures this admission MS, thyroid cancer, GERD w/ h/o Clinton's esophagus, MVP, heart block, osteoporosis, narcotic dependence (on morphine pump and Percocet), nephrolithiasis will review with Dr Jhaveri, however no acute surgical findings BRANDON JHAVERI MD 07/03/16 1302: CONSULT Allergies Allergies: Coded Allergies: No Known Allergies (Unverified Allergy, Unknown, 06/18/16) Assessment/Plan Assessment/Plan pt seen, interviewed and examined I explained to Reyna that at present I have no surgical recommendations. She has had a thorough work up. Nothing to add. If something comes up we can help with, please feel free to call. Thank you for the consult. CASS DEVINE APRN Jul 03, 2016 09:25 BRANDON JHAVERI MD Jul 03, 2016 13:02
--- NOTE | 2016-07-03 09:57 | PDOC ---
PROGRESS NOTES Subjective Subjective Pt was laying in bed this morning when we saw her. Pt is complaining of the same L flank pain. Pt had no new complaints today. Pt is requesting to go home. Objective Objective Vital Signs Date Time Temp Pulse Resp B/P Pulse Ox O2 Delivery O2 Flow Rate FiO2 07/03/16 08:50 81 07/03/16 08:49 18 Nasal Cannula 3.0 07/03/16 07:00 97.5 92/51 92 97.5 Intake and Output 07/03/16 07:00 Intake Total 2559 ml Output Total 800 ml Balance 1759 ml Intake Oral 830 ml Other 1729 ml Output Urine Total 800 ml Physical Exam Physical Exam No change in cardiac exam Assessment Assessment Problems Medical Problems: (1) Intractable pain Status: Acute (2) Multiple sclerosis Status: Acute Plan Plan of Care Intractable L flank pain Agree with current treatment Lumbar CT reviewed Follow Dr. Jhaveri - surgery Continue pain management - changed from IV to patch Talk to pain pump management to increase dose Comment Review of Relevant I have reviewed the following items svetlana (where applicable) has been applied. Medications Current Medications Fentanyl Citrate 50 mcg 50 mcg PRN Q15MIN PRN IV PAIN GREATER THAN 3/10 Last administered on 06/24/16 18:02; Start 06/24/16 at 17:30; Stop 06/25/16 at 17:29; Status DC Sodium Chloride (Iv Sodium Chloride 0.9% 1000ml Bag) 1,000 ml @ 1,000 mls/hr Q1H IV Last administered on 06/24/16 17:58; Start 06/24/16 at 17:30; Stop at 18:29; Status DC Ondansetron HCl (Zofran) 4 mg 1X ONCE IV Last administered on 06/24/16 17:57; Start 06/24/16 at 17:30; Stop 06/24/16 at 17:31; Status DC Ondansetron HCl (Zofran) 4 mg PRN Q8HRS PRN IV NAUSEA/VOMITING Last administered on 06/25/16 06:02; Start 06/24/16 at 17:45; Stop 06/25/16 at 17:44; Status DC Fentanyl Citrate (Fentanyl 2ml Vial) 50 mcg PRN Q2HR PRN IV PAIN Last administered on 06/25/16 15:50; Start 06/24/16 at 17:45; Stop 06/25/16 at 17:44; Status DC Acetaminophen (Tylenol) 650 mg PRN Q4HRS PRN PO FEVER; Start 06/24/16 at 17:45; Stop 06/25/16 at 17:44; Status DC Aspirin (Ecotrin) 81 mg DAILY PO Last administered on 07/03/16 08:51; Start at 09:00 Baclofen (Lioresal) 10 mg TID PO Last administered on 07/03/16 08:51; Start at 09:00 Clonazepam (Klonopin) 0.5 mg PRN TID PRN PO TREMORS Last administered on 20:43; Start 06/24/16 at 22:15 Escitalopram Oxalate (Lexapro) 10 mg DAILY PO Last administered on 07/03/16 08 :51; Start 06/25/16 at 09:00 Oxycodone/ Acetaminophen (Percocet 10/325) 1 tab PRN Q4HRS PRN PO MILD PAIN Last administered on 07/03/16 08:49; Start 06/24/16 at 22:15 Trazodone HCl (Desyrel) 200 mg QHS PO Last administered on 07/02/16 20:42; Start 06/24/16 at 22:30 Non-Formulary Medication 2 puff BID IH ; Start 06/25/16 at 09:00; Status UNV Carbamazepine (Tegretol) 200 mg TID PO Last administered on 06/27/16 14:06; Start 06/25/16 at 09:00; Stop 06/27/16 at 19:12; Status DC Cephalexin HCl (Keflex) 500 mg TID PO Last administered on 07/01/16 10:37; Start 06/25/16 at 09:00; Stop 07/01/16 at 13:09; Status DC Pantoprazole Sodium (Protonix) 40 mg DAILYAC PO ; Start 06/25/16 at 07:30; Stop 06/25/16 at 07:30; Status DC Digoxin (Lanoxin) 125 mcg DAILY PO Last administered on 07/03/16 08:50; Start 06/25/16 at 09:00 Non-Formulary Medication 240 mg BID PO ; Start 06/25/16 at 09:00; Status UNV Atorvastatin Calcium (Lipitor) 10 mg HS PO Last administered on 07/02/16 20:43 ; Start 06/25/16 at 21:00 Non-Formulary Medication 200 mg DAILY PO ; Start 06/25/16 at 09:00; Stop at 00:04; Status DC Budesonide (Pulmicort) 0.5 mg RTBID NEB Last administered on 07/03/16 06:38; Start 06/25/16 at 08:00 Albuterol Sulfate (Ventolin Neb Soln) 2.5 mg RTQID NEB Last administered on 06:38; Start 06/25/16 at 08:00 Pantoprazole Sodium 40 mg 40 mg DAILY06 PO Last administered on 07/03/16 06:12 ; Start 06/25/16 at 06:00 Sodium Chloride 1,000 ml @ 60 mls/hr [id number] IV Last administered on 03:25; Start 06/25/16 at 15:45; Stop 06/26/16 at 23:08; Status DC Albumin Human (Plasmanate) 500 ml @ 125 mls/hr 1X ONCE IV Last administered on 06/25/16 23:16; Start 06/25/16 at 23:15; Stop 06/26/16 at 03:14; Status DC Non-Formulary Medication 200 mg DAILY PO Last administered on 07/03/16 08:53; Start 06/26/16 at 09:00 Barium Sulfate (Liquid E-Z Paque) 710 ml 1X ONCE PO Last administered on 08:00; Start 06/26/16 at 08:00; Stop 06/26/16 at 08:01; Status DC Cyanocobalamin (Vitamin B-12) 1,000 mcg DAILY IM Last administered on 08:54; Start 06/26/16 at 10:00 Lubiprostone 8 mcg 8 mcg BIDWMEALS PO Last administered on 07/01/16 15:53; Start 06/26/16 at 17:00 Albumin Human 500 ml @ 125 mls/hr 1X ONCE IV Last administered on 06/27/16 00:22; Start 06/27/16 at 00:30; Stop 06/27/16 at 04:29; Status DC Sodium Chloride (Iv Sodium Chloride 0.9% 1000ml Bag) 1,000 ml @ 60 mls/hr [id number] IV Last administered on 07/03/16 02:49; Start 06/27/16 at 03:00 Fentanyl Citrate (Fentanyl 2ml Vial) 50 mcg PRN Q3HRS PRN IV SEVERE PAIN Last administered on 07/01/16 22:33; Start 06/27/16 at 13:15 Carbamazepine (Tegretol) 300 mg TID PO Last administered on 07/03/16 08:50; Start 06/27/16 at 21:00 Polyethylene Glycol (miraLAX Powder BULK BOTTLE) 238 gm 1X ONCE PO Last administered on 06/28/16 10:50; Start 06/28/16 at 11:00; Stop 06/28/16 at 11:01 ; Status DC Iohexol (Omnipaque 300 Mg/ml) 50 ml 1X ONCE IJ ; Start 06/30/16 at 07:15; Stop 06/30/16 at 07:16; Status DC Info (Do NOT chart on this entry -- for MONITORING) 1 each PRN DAILY PRN MC SEE COMMENTS; Start 06/30/16 at 07:15; Stop 07/01/16 at 13:09; Status DC Polyethylene Glycol (miraLAX Powder BULK BOTTLE) 238 gm 1X ONCE PO Last administered on 06/30/16 11:08; Start 06/30/16 at 11:00; Stop 06/30/16 at 11:01 ; Status DC Bisacodyl (Dulcolax Tab) 10 mg PRN DAILY PRN PO CONSTIPATION Last administered on 06/30/16 11:07; Start 06/30/16 at 10:30 Ondansetron HCl (Zofran) 4 mg PRN Q6HRS PRN IV Nausea; Start 07/01/16 at 07:00 ; Stop 07/02/16 at 06:59; Status DC Fentanyl Citrate (Fentanyl 2ml Vial) 25 mcg PRN Q5MIN PRN IV MILD PAIN; Start 07/01/16 at 07:00; Stop 07/02/16 at 06:59; Status DC Fentanyl Citrate (Fentanyl 2ml Vial) 50 mcg PRN Q5MIN PRN IV MODERATE PAIN; Start 07/01/16 at 07:00; Stop 07/02/16 at 06:59; Status DC Morphine Sulfate 1 mg 1 mg PRN Q10MIN PRN IV SEVERE PAIN; Start 07/01/16 at 07: 00; Stop 07/02/16 at 06:59; Status DC Lactated Ringer's (Iv Lactated Ringers) 1,000 ml @ 0 mls/hr Q0M IV ; Start at 07:00; Stop 07/01/16 at 18:59; Status DC Lidocaine HCl 2 ml 1X PRN PRN ID IV START; Start 07/01/16 at 07:00; Stop at 06:59; Status DC Hydromorphone HCl (Dilaudid) 0.5 mg PRN Q10MIN PRN IV SEVERE PAIN, Second choice; Start 07/01/16 at 07:00; Stop 07/02/16 at 06:59; Status DC Prochlorperazine Edisylate (Compazine) 5 mg PACU PRN PRN IV NAUSEA; Start 07/01 at 07:00; Stop 07/02/16 at 06:59; Status DC Iohexol (Omnipaque 300 Mg/ml) 50 ml 1X ONCE IJ Last administered on 07/01/16 08:21; Start 07/01/16 at 07:15; Stop 07/01/16 at 07:16; Status DC Info 1 each 1 each PRN DAILY PRN MC SEE COMMENTS; Start 07/01/16 at 07:15; Stop 07/03/16 at 07:14; Status DC Methylprednisolone Sodium Succinate/ Sodium Chloride (Solu-Medrol/Iv Sodium Chloride 0.9% 100ml) 100 ml @ 100 mls/hr DAILY IV Last administered on 09:00; Start 07/02/16 at 12:00; Stop 07/03/16 at 12:00 Active Scripts Active Keflex (Cephalexin) 500 Mg Capsule 1 Cap PO TID Reported Trazodone Hcl 100 Mg Tablet 200 Mg PO HS Klonopin (Clonazepam) 0.5 Mg Tablet 0.5 Mg PO TID PRN [morphine] 14.5 Mg ID DAILY Lovastatin 40 Mg Tablet 40 Mg PO HS Aspir 81 (Aspirin) 81 Mg Tablet.dr 81 Mg PO DAILY Tecfidera (Dimethyl Fumarate) 240 Mg Capsule.dr 240 Mg PO BID Symbicort 160-4.5 Mcg Inhaler (Budesonide/Formoterol Fumarate) 10.2 Gm Hfa.aer.ad 2 Puff IH BID Percocet 10-325 Mg Tablet (Oxycodone/Acetaminophen) 1 Each Tablet 1 Tab PO Q4HRS PRN Baclofen 10 Mg Tablet 1 Tab PO TID Trazodone Hcl 100 Mg Tablet 2 Tab PO QHS Provigil (Modafinil) 100 Mg Tablet 200 Mg PO DAILY Dexilant (Dexlansoprazole) 60 Mg Cap..mp 60 Mg PO DAILY Digoxin 0.125 Mg/2.5 Ml Solution 0.125 Mg PO DAILY Carbamazepine 200 Mg Cpmp.12hr 200 Mg PO TID Lexapro (Escitalopram Oxalate) 10 Mg Tablet 10 Mg PO DAILY Vitals/I & O Vital Sign - Last 24 Hours 07/02/16 07/02/16 07/02/16 07/02/16 10:49 11:00 14:55 14:56 Temp 98.1 98.1 Pulse 65 Resp 18 B/P 97/47 Pulse Ox 94 O2 Delivery Nasal Cannula Nasal Cannula Nasal Cannula Room Air O2 Flow Rate 2.0 2.0 2.0 07/02/16 07/02/16 07/02/16 07/02/16 15:00 19:00 20:00 20:43 Temp 98.5 98.7 98.5 98.7 Pulse 66 69 Resp 12 18 16 B/P 92/47 108/60 Pulse Ox 92 91 O2 Delivery Nasal Cannula Nasal Cannula Nasal Cannula Room Air O2 Flow Rate 3.0 3.0 3.0 07/02/16 07/02/16 07/03/16 07/03/16 20:50 23:00 00:01 02:50 Temp 98.7 98.7 98.7 98.7 Pulse 62 62 Resp 18 18 16 B/P 94/55 94/56 Pulse Ox 96 92 92 O2 Delivery Nasal Cannula Nasal Cannula Nasal Cannula Room Air O2 Flow Rate 2.0 3.0 3.0 07/03/16 07/03/16 07/03/16 07/03/16 03:00 03:50 06:39 07:00 Temp 98.2 97.5 98.2 97.5 Pulse 58 81 Resp 18 16 20 B/P 99/52 92/51 Pulse Ox 92 93 92 O2 Delivery Nasal Cannula Room Air Nasal Cannula Nasal Cannula O2 Flow Rate 3.0 2.0 2.0 07/03/16 07/03/16 08:49 08:50 Pulse 81 Resp 18 O2 Delivery Nasal Cannula O2 Flow Rate 3.0 Intake and Output 07/02/16 07/02/16 07/03/16 15:00 23:00 07:00 Intake Total 1790 ml 769 ml Output Total 800 ml Balance 990 ml 769 ml ESTEFANI HECTOR MD Jul 03, 2016 09:56
--- NOTE | 2016-07-03 10:02 | PDOC ---
SUBJECTIVE Subjective left abdomen pain OBJECTIVE Objective LLQ pain- persistent Vital Signs Vital Signs Date Time Temp Pulse Resp B/P Pulse Ox O2 Delivery O2 Flow Rate FiO2 07/03/16 08:50 81 07/03/16 08:49 18 Nasal Cannula 3.0 07/03/16 07:00 97.5 81 20 92/51 92 Nasal Cannula 2.0 97.5 07/03/16 06:39 93 Nasal Cannula 2.0 07/03/16 03:50 16 Room Air 07/03/16 03:00 98.2 58 18 99/52 92 Nasal Cannula 3.0 98.2 07/03/16 02:50 16 Room Air 07/03/16 00:01 98.7 62 18 94/56 92 Nasal Cannula 3.0 98.7 07/02/16 23:00 98.7 62 18 94/55 92 Nasal Cannula 3.0 98.7 07/02/16 20:50 96 Nasal Cannula 2.0 07/02/16 20:43 16 Room Air 07/02/16 20:00 Nasal Cannula 3.0 07/02/16 19:00 98.7 69 18 108/60 91 Nasal Cannula 3.0 98.7 07/02/16 15:00 98.5 66 12 92/47 92 Nasal Cannula 3.0 98.5 07/02/16 14:56 Room Air 07/02/16 14:55 Nasal Cannula 2.0 07/02/16 11:00 98.1 65 18 97/47 94 Nasal Cannula 2.0 98.1 07/02/16 10:49 Nasal Cannula 2.0 I & O Intake and Output 07/03/16 07:00 Intake Total 2559 ml Output Total 800 ml Balance 1759 ml Intake Oral 830 ml Other 1729 ml Output Urine Total 800 ml ASSESSMENT/PLAN Assessment/Plan REC: Substitute IV fentanyl with Duragesic patch 25mcg for d/c to home. Increasing IT pump will cause refill date to be altered(due to higher rate), Pump currently at14.5mg/24hrs-not recommended to exceed 15mg/24hrs intrathecal morphine. Unlikely that rate increase will significantly change current acute pain complaints. Needs to be re-evaluated with pt's. pain physician Problems: BRAVO UMANZOR MD Jul 03, 2016 10:02
--- NOTE | 2016-07-03 10:43 | PDOC ---
Subjective: Subjective: Ongoing pain, unchanged. Objective: Vital Signs: Vital Signs Date Time Temp Pulse Resp B/P Pulse Ox O2 Delivery O2 Flow Rate FiO2 07/03/16 08:50 81 07/03/16 08:49 18 Nasal Cannula 3.0 07/03/16 07:00 97.5 92/51 92 97.5 PE: GEN: NAD, walking around room NEURO/PSYCH: A & O 3, tearful A/P: Left flank pain/abd pain, h/o MS -EGD and colonoscopy 06/18/16: normal esophagus, chronic gastritis, normal duodenum, 12mm adenomatous rectal polyp, and non-bleeding internal hemorrhoids ( h/o Clinton's, previous gastric bx neg for H. pylori, previous SB bx neg for celiac), GES normal in 2012 -IVP 07/01 normal - urology signed off -neuro following, added steroids yesterday -pain management involved -surgery now consulted -- No new GI recs. Would continue Amitiza for constipation. OSWALD CEE Jul 03, 2016 10:42
[2016-07-03] MEDS ORDERED: FENTANYL 25MCG/HR PATCH. TD SCH (14:00)
[2016-07-03] MEDS: FENTANYL PF 100 MCG/2 ML VIAL. IV PRN (14:12)
[2016-07-03] MEDS: ATORVASTATIN CALCIUM 10 MG TABLET. PO SCH (20:23)
[2016-07-03] MEDS: traZODone 100 MG TABLET. PO SCH (20:24)
[2016-07-03] MEDS: CLONAZEPAM 0.5 MG TABLET PO PRN (20:24)
[2016-07-04 03:00] VITALS: BP 105/52
[2016-07-04] MEDS: OXYCODONE/APAP 10/325 TABLET. PO PRN ×2 (04:35→10:51)
[2016-07-04] MEDS: PANTOPRAZOLE 40 MG TABLET. PO SCH (05:52)
[2016-07-04 07:00] VITALS: BP 111/62
[2016-07-04] MEDS: BUDESONIDE 0.5 MG/2 ML NEBU NEB SCH (08:30)
[2016-07-04] MEDS: ALBUTEROL SULFATE 2.5 MG/3 ML NEBU. NEB SCH ×2 (08:30→12:17)
[2016-07-04] MEDS: DIGOXIN 125 MCG TABLET PO SCH (09:00)
[2016-07-04] MEDS: NON FORMULARY ITEM (Dimethyl Fumarate (Tecfidera) 240 MG) PO SCH (09:00)
[2016-07-04] MEDS: ESCITALOPRAM 10 MG TABLET. PO SCH (09:08)
[2016-07-04] MEDS: BACLOFEN 10 MG TABLET PO SCH (09:09)
[2016-07-04] MEDS: CARBAMAZEPINE 200 MG TABLET. PO SCH (09:09)
[2016-07-04] MEDS: ASPIRIN ENTERIC COATED 81 MG TABLET.DR. PO SCH (09:10)
[2016-07-04] MEDS: NON FORMULARY ITEM (Modafinil (Provigil) 200 MG) PO SCH (09:10)
[2016-07-04] MEDS: LUBIPROSTONE 8 MCG CAPSULE PO SCH (09:10)
[2016-07-04] MEDS: CYANOCOBALAMIN (VITAMIN B-12) 1,000 MCG/ML VIAL IM SCH (09:20)
[2016-07-04] MEDS: CLONAZEPAM 0.5 MG TABLET PO PRN (09:26)
[2016-07-04 11:00] VITALS: BP 92/60
--- NOTE | 2016-07-04 15:32 | PDOC3 ---
Discharge Summary* Date of Admission: Jun 24, 2016 Date of Discharge: Jul 04, 2016 Admitting Diagnosis Problems Medical Problems: (1) Intractable pain Status: Acute (2) Multiple sclerosis Status: Acute Final Diagnosis Problems Medical Problems: (1) Intractable pain Status: Acute (2) Multiple sclerosis Status: Acute Brief Hospital Course Ms. Kimbrough is a 51 old Lady with MS that has a lot of problems with her back and legs. She came in with severe L flank pain and leg pain, this was rather difficult to control and she was with abdominal pain as well. The neurologist, GI, surgeon and Pain Clinic were consulted and they did a lot of work up. Please see the chart for those reports. Pt progressed very slowly but finally after increasing the output of her MS Pump and starting her on a Duragesic Patch 25 mcg q 3 day the pain was finally controlled and the pt was discharged today. The situation, follow up, diet, activity and meds were discussed with the pt. CONDITION AT DISCHARGE: Stable Scheduled ([morphine]) 14.5 MG ID DAILY (Reported) Aspirin (Aspir 81) 81 MG PO DAILY (Reported) Baclofen (Baclofen) 1 TAB PO TID (Reported) Budesonide/Formoterol Fumarate (Symbicort 160-4.5 Mcg Inhaler) 2 PUFF IH BID ( Reported) Carbamazepine (Carbamazepine) 200 MG PO TID (Reported) Cephalexin (Keflex) 1 CAP PO TID Dexlansoprazole (Dexilant) 60 MG PO DAILY (Reported) Digoxin (Digoxin) 0.125 MG PO DAILY (Reported) Dimethyl Fumarate (Tecfidera) 240 MG PO BID (Reported) Escitalopram Oxalate (Lexapro) 10 MG PO DAILY (Reported) Lovastatin (Lovastatin) 40 MG PO HS (Reported) Modafinil (Provigil) 200 MG PO DAILY (Reported) Trazodone Hcl (Trazodone Hcl) 2 TAB PO QHS (Reported) Trazodone Hcl (Trazodone Hcl) 200 MG PO HS (Reported) Scheduled PRN Clonazepam (Klonopin) 0.5 MG PO TID PRN PRN TREMORS (Reported) Oxycodone/Apap 10-325 (Percocet 10-325 Mg Tablet) 1 TAB PO Q4HRS PRN PRN PAIN ( Reported) Time Spent Total time spent with patient [] minutes for coordination of care, counseling, and education. ESTEFANI HECTOR MD Jul 04, 2016 15:32
== END 2016-07-04 15:00 | disposition home or self-care (01) | DRG 59 ==
LOC: ER 14:45 → 4 NORTH 17:42
PROVIDERS: ADMIT Internal Medicine Cardiovascular Disease; ATTEND Internal Medicine Cardiovascular Disease
DX: G35 Multiple sclerosis (principal); E46 Unspecified protein-calorie malnutrition; R64 Cachexia; E11.9 Type 2 diabetes mellitus without complications; E78.00 Pure hypercholesterolemia, unspecified; E78.5 Hyperlipidemia, unspecified; G89.29 Other chronic pain; I10 Essential (primary) hypertension; I25.10 Atherosclerotic heart disease of native coronary artery without angina pectoris; J44.9 Chronic obstructive pulmonary disease, unspecified; K21.9 Gastro-esophageal reflux disease without esophagitis; K22.70 Barrett's esophagus without dysplasia; K29.50 Unspecified chronic gastritis without bleeding; E53.8 Deficiency of other specified B group vitamins; K59.00 Constipation, unspecified; K62.1 Rectal polyp; K64.8 Other hemorrhoids; M41.9 Scoliosis, unspecified; M81.0 Age-related osteoporosis without current pathological fracture; N20.0 Calculus of kidney; Z82.49 Family history of ischemic heart disease and other diseases of the circulatory system; Z83.3 Family history of diabetes mellitus; Z85.850 Personal history of malignant neoplasm of thyroid; Z87.442 Personal history of urinary calculi; Z95.0 Presence of cardiac pacemaker; Z90.710 Acquired absence of both cervix and uterus
CPT/HCPCS: 36415; 72131; 74176; 74250; 74400; 80048; 80156; 81001; 82550; 82607; 82947; 84443; 84484; 85007; 85027; 93005; 94250; 94640; 94760; 96374; 96375; 99406; J2405; J2930; J3010; J3420; J7030; P9045; Q9967; 99285-25

== ENCOUNTER → 2016-08-10 | Outpatient (CLI) | payer MEDICARE ==
[~2016-08-10] MED LIST changes: +CONTRAST GIVEN MC PRN; +IOHEXOL 350 MG/ML 100ML VIAL. IV ONE
--- NOTE | 2016-08-10 09:50 | RAD ---
EXAM: Abdomen and pelvis CT and lower extremity runoff with intravenous contrast. HISTORY: Left leg pain. TECHNIQUE: Computed tomographic images of the abdomen, pelvis and lower extreme these were obtained following the administration of 95 cc Omnipaque 350 intravenous contrast. Three-dimensional maximum intensity projections were obtained. One or more of the following individualized dose reduction techniques were utilized for this examination: 1. Automated exposure control. 2. Adjustment of the mA and/or kV according to patient size. 3. Use of iterative reconstruction technique. COMPARISON: 06/28/2016 and 05/29/2016. FINDINGS: Evaluation of the lower thorax demonstrates a moderate pericardial effusion, stable in appearance. There is partial visualization of cardiac pacemaker leads. There is stable linear left lower lobe scarring and new suspected right basilar atelectasis. The recently demonstrated right greater than left lower lobe infiltrate and small effusions have resolved. There is a 5 mm hypodense lesion within the left hepatic lobe, artifactual or a cyst. The liver is upper normal in size. The gallbladder, pancreas, spleen and adrenal glands are unremarkable. There is a 1.2 cm simple appearing left renal cyst. No abnormally thickened or dilated loop of bowel is seen. The bladder is unremarkable. The uterus is surgically absent. There is a small amount of free fluid within the pelvis, a nonspecific finding. No pathologically enlarged lymph node is seen. There is a generator within the left ventral abdominal wall with intrathecal catheter extending from the mid lumbar levels cephalad beyond the [id number]. There is lumbar levoscoliosis. There is degenerative change involving the lumbar spine. No suspicious osseous lesion is seen. The angiographic portion of the exam demonstrates no evidence of abdominal aortic aneurysm or dissection. There is partially calcified atherosclerotic plaque throughout the abdominal aorta and iliac bifurcation. There is slight narrowing of the proximal celiac axis due to the arcuate ligament, with less than 50% stenosis. The superior mesenteric artery, bilateral renal arteries and inferior mesenteric artery are widely patent. There is less than 50% stenosis involving the common iliac arteries. The right lower extremity vessels are widely patent to the level of the knees. There is asymmetric caliber of the right greater than left peroneal arteries and left greater than right posterior tibial arteries. There is decreased flow within the right posterior tibial artery slightly proximal to the ankle, with reconstitution via the peroneal artery proximal to the ankle. This is stable and likely developmental. The distal bilateral anterior tibial arteries and dorsalis pedis arteries are not well seen. The bilateral lateral plantar arteries are widely patent. The left medial plantar artery is not well seen. IMPRESSION: 1. Suspected developmental asymmetry in calf and foot arterial caliber, similar compared to the prior study. No focal or segmental atherosclerotic plaque is seen within these vessels. There is stable partially calcified atherosclerotic plaque within the abdominal aorta and iliac bifurcation, without hemodynamic significant stenosis. The proximal celiac axis is slightly narrowed due to the median arcuate ligament, stable in appearance. 2. Stable moderate pericardial effusion. 3. Right basilar atelectasis and suspected left basilar scarring. 4. 1.2 cm simple appearing left renal cyst and possible subcentimeter hepatic cyst.
== END | disposition home or self-care (01) ==
LOC: CT 07:42
PROVIDERS: ATTEND Internal Medicine Cardiovascular Disease
DX: R10.30 Lower abdominal pain, unspecified (principal); M79.605 Pain in left leg; G35 Multiple sclerosis; J44.9 Chronic obstructive pulmonary disease, unspecified; Z82.49 Family history of ischemic heart disease and other diseases of the circulatory system; Z87.891 Personal history of nicotine dependence
CPT/HCPCS: 75635; Q9967

== ENCOUNTER → 2016-10-27 | Outpatient (CLI) | payer MEDICARE ==
[~2016-10-27] MED LIST changes: -CONTRAST GIVEN MC PRN; -DEXL60CA PO; +DEXL60CA2 PO; -HYDR-2666 PO; +HYDR-2758 PO; -IOHEXOL 350 MG/ML 100ML VIAL. IV ONE; -MODA100T18 PO; +MODA100T26 PO; -OXYC-250 PO; +OXYC-328 PO
--- NOTE | 2016-10-27 10:19 | RAD ---
MRI Thoracic Spine without contrast History:CHRONIC BACK PAIN Technique: Sagittal T1, sagittal STIR, axial T1 and T2, and sagittal T2 weighted images were acquired of the thoracic spine. Contrast: None Comparison: None Findings: Thoracic vertebral body stature and AP alignment are maintained. Thoracic cord caliber is within normal limits. There is mild prominence of the central canal of the cord at T9 and T10, no cord expansion. Intervertebral disc spaces are overall maintained. There is no significant thoracic spinal stenosis at any level. Thoracic neural foramina are overall adequate. There is no significant focal marrow edema. There is [id number] reverse S-shaped scoliosis of the thoracic spine. Impression: 1. There is [id number] reverse S-shaped scoliosis of the thoracic spine. There is no significant thoracic spinal stenosis or neural foramina compromise. Electronically signed by: Carlyle Valdes MD (10/27/2016 10:16 AM)
--- NOTE | 2016-10-27 10:25 | RAD ---
MRI Lumbar Spine without contrast History: Low back pain with left leg pain Technique: Multiplanar, multi sequential noncontrast MR imaging was performed of the lumbar spine. Contrast: None Comparison: None Findings: Lumbar vertebral body stature and AP alignment are overall maintained, small superior L3 Schmorl's node. There is no significant focal marrow edema. Intervertebral disc spaces are overall maintained, mild disc desiccation greatest at L2-3 and L4-5. Conus terminates normally at the inferior aspect of L1. There is mild lumbar levoscoliosis. L2-L3: Neural foramina and spinal canal are adequate. L3-L4: Spinal canal and neural foramina are adequate. L4-L5: There is mild buckling of the ligamentum flavum. There is minimal disc osteophyte complex and protrusion with associated annular tear eccentric into the far left lateral recess, inferior left neural foramen, and proximal left extraforaminal region. There is mild narrowing of the anterior, inferior left neural foramen, protrusion near the undersurface of the exiting left L4 nerve root in the proximal aspect of the left neural foramen. Right neural foramen is adequate. There is very mild narrowing of the far left lateral recess. L5-S1: Spinal canal and neural foramina are adequate. Impression: 1. There is no significant lumbar spinal stenosis, mild narrowing of the far left lateral recess at L4-5. There is mild narrowing of the inferior left L4-5 neural foramen by shallow protrusion, near the undersurface of the exiting left L4 nerve root in the proximal extraforaminal region. Electronically signed by: Carlyle Valdes MD (10/27/2016 10:22 AM)
--- NOTE | 2016-10-27 12:26 | RAD ---
MR of the musculoskeletal pelvis HISTORY: Left hip and groin pain. TECHNIQUE: Large [id number] images were obtained through the musculoskeletal pelvis. FINDINGS: No bone lesion or acute fracture. No acute bone marrow edema. No femoral head osteonecrosis. No significant hip joint effusion. Pubic symphysis intact. Sacroiliac joints intact. Major tendinous attachments appear grossly intact without acute rupture. Note that the left upper pelvis is obscured by artifact due to presence of an MR compatible pain pump. There is a small cyst or nodule in the anterior fat of the pelvis just to the left of midline and just deep to the lower abdominal wall measuring 8 mm diameter, likely a cyst or possibly a lymph node. This is surrounded by fat. Mild free pelvic fluid is incidentally noted. IMPRESSION: 1. No evidence of acute musculoskeletal abnormality. 2. Mild free pelvic fluid. 3. Small soft tissue cyst or nodule just deep to the lower anterior abdominal wall and just to the left of midline, most likely a 8 mm cyst or lymph node, but characterization is limited due to small size.. Electronically signed by: Kenneth Beyer MD (10/27/2016 12:22 PM)
== END | disposition home or self-care (01) ==
LOC: MRI 08:45
PROVIDERS: ATTEND Internal Medicine
DX: M54.5 Low back pain (principal); M54.6 Pain in thoracic spine; R10.30 Lower abdominal pain, unspecified; M25.552 Pain in left hip; M41.84 Other forms of scoliosis, thoracic region
CPT/HCPCS: 72146; 72148; 72195

== ENCOUNTER 2016-12-26 15:03 | Emergency (ER) | payer MEDICARE ==
[~2016-12-26] VITALS: Ht 170.2 cm; Wt 52.2 kg
[~2016-12-26 15:03] MED LIST changes: -ESCI10TA10 PO; +LEXAPRO10 MG PO
[2016-12-26 15:12] VITALS: BP 96/59
[2016-12-26] MEDS ORDERED: HYDROcodone/APAP 5/325MG 1 TAB TABLET PO ONE (15:30)
--- NOTE | 2016-12-26 15:46 | PHYS DOC ---
Past Medical History Past Medical History: Cancer, COPD, High Cholesterol, Heart Disease, Hypertension, Other Additional Past Medical Histor: MS, Osteoporosis, carmichael's esophagus, mitral vavle insuf. endometriosis Past Surgical History: Angioplasty, Hysterectomy, Pacemaker, Tonsillectomy, Other Additional Past Surgical Histo: Morphine pump,Mesh placed r/t "a lot of laproscopies," "Part of Thyroid" Alcohol Use: None Drug Use: None Adult General Chief Complaint Chief Complaint: FOOT INJURY PAIN HPI HPI Patient is a 51 year old female presents presents to the emergency department stating that yesterday she dropped a decorative brick on her foot. Patient states she did not come to the emergency department yesterday she felt that she could take care of the discomfort at home. She states that today the pain has become much worse. She does have some swelling noted in the right foot as well as some bruising. Patient has minimal movement with the first and second toe decreased movement of the third fourth and fifth. Patient states she has not really taken anything for the pain and discomfort class for his pain a 10 out of 10. Review of Systems Review of Systems Constitutional: Denies fever or chills [] Eyes: Denies change in visual acuity, redness, or eye pain [] HENT: Denies nasal congestion or sore throat [] Respiratory: Denies cough or shortness of breath [] Cardiovascular: No additional information not addressed in HPI [] GI: Denies abdominal pain, nausea, vomiting, bloody stools or diarrhea [] : Denies dysuria or hematuria [] Musculoskeletal: Denies back pain. Right foot pain and discomfort Integument: Denies rash or skin lesions [] Neurologic: Denies headache, focal weakness or sensory changes [] Endocrine: Denies polyuria or polydipsia [] Current Medications Current Medications Current Medications Medications (Trade) Dose Ordered Sig/Abhijit Start Time Stop Time Status Last Admin Dose Admin Acetaminophen/ Hydrocodone Bitart (Lortab 5/325) 2 tab 1X ONCE 12/26/16 15:30 12/26/16 15:31 DC 12/26/16 15:50 2 TAB Allergies Allergies Allergies Coded Allergies Type Severity Reaction Last Updated Verified No Known Allergies Allergy Unknown 06/18/16 No Physical Exam Physical Exam Constitutional: Well developed, well nourished, no acute distress, non-toxic appearance. [] HENT: Normocephalic, atraumatic, bilateral external ears normal, oropharynx moist, no oral exudates, nose normal. [] Eyes: PERRLA, EOMI, conjunctiva normal, no discharge. [] Neck: Normal range of motion, no tenderness, supple, no stridor. [] Cardiovascular:Heart rate regular rhythm Lungs & Thorax: No respiratory distress noted Skin: Warm, dry, no erythema, no rash. [] Back: No tenderness Extremities: Right foot first second and third and fourth metatarsal tenderness , bruising noted minimal swelling noted no cyanosis, no clubbing, ROM intact, no edema. Cap refill brisk less than 2 seconds. Peripheral pulses 2+. [] Neurologic: Alert and oriented X 3, normal motor function, normal sensory function, no focal deficits noted. [] Psychologic: Affect normal, judgement normal, mood normal. [] Current Patient Data Vital Signs Vital Signs Date Time Temp Pulse Resp B/P (MAP) Pulse Ox O2 Delivery O2 Flow Rate FiO2 12/26/16 15:12 98.2 82 18 96 Room Air 98.2 EKG EKG [] Radiology/Procedures Radiology/Procedures [] Course & Med Decision Making Course & Med Decision Making Pertinent Labs and Imaging studies reviewed. (See chart for details) X-rays were negative for any bony abnormalities per Dr. Rosa. Patient will be placed in a Maverick wrap with a postop shoe. Recommended ice packs on 20 minutes off 20 minutes several times a day. She'll be provided with a prescription for naproxen for the next 45 days. Patient will be sent home with recommendations for elevation as much as possible, ice packs on 20 minutes off 20 minutes several times a day. She'll be provided with orthopedic name and number to follow up with. Patient agrees with discharge instructions, treatment regimens and follow-up recommendations. Patient's questions were all answered at bedside. [] Dragon Disclaimer Dragon Disclaimer This electronic medical record was generated, in whole or in part, using a voice recognition dictation system. Departure Departure Impression: Primary Impression: Contusion of right foot Disposition: HOME, SELF-CARE Condition: STABLE Referrals: CHRIS JEFFRIES MD (PCP) Patient Instructions: Contusion, [id number] Additional Instructions: Activity as tolerated. Ice packs on 20 minutes off 20 minutes several times a day. Naproxen for pain and discomfort. Make sure you when taking this medication to prevent stomach upset. Elevation as much as possible. Follow-up with orthopedic in the next week. Wear the Maverick wrap, and the postop shoe for the next week. Return back to emergency prior signs symptoms of become worse. Scripts Naproxen (NAPROXEN) 500 Mg Tablet 1 TAB PO BID, #10 TAB Prov: SKYLAR DAMON APRN 12/26/16 SKYLAR DAMON APRN Dec 26, 2016 15:46
[2016-12-26] MEDS ORDERED: NAPR500T3 PO (15:57)
--- NOTE | 2016-12-27 09:25 | RAD ---
Three-view right foot radiographs December 26, 2016 Clinical history: Patient dropped heavy rock on anterior foot with right foot pain. AP, lateral and oblique digital radiographs of the right foot were obtained. No fracture or dislocation of the right foot is seen. Mild degenerative changes are seen involving the first MTP joint and scattered throughout the interphalangeal joints of the right foot. Impression: No acute fracture or dislocation of the right foot is seen.
== END 2016-12-26 16:12 | disposition home or self-care (01) ==
LOC: ER 15:03
DX: S90.31XA Contusion of right foot, initial encounter (principal); I11.9 Hypertensive heart disease without heart failure; E78.00 Pure hypercholesterolemia, unspecified; J44.9 Chronic obstructive pulmonary disease, unspecified; G35 Multiple sclerosis; W20.8XXA Other cause of strike by thrown, projected or falling object, initial encounter; Y93.89 Activity, other specified; Y99.8 Other external cause status; Y92.89 Other specified places as the place of occurrence of the external cause
CPT/HCPCS: 73630; 99284-25

== ENCOUNTER → 2017-07-27 | Outpatient (CLI) | payer MEDICARE ==
[2017-07-27 16:28] LABS: BARBITURATES NEG (NEG); BENZODIAZEPINES NEG (NEG); CANNABINOIDS NEG (NEG); COCAINE NEG (NEG); METHADONE NEG (NEG); OPIATES POS (NEG); PHENCYCLIDINE NEG (NEG)
[2017-07-27 16:29] LABS: AMPHETAMINE/METHAMPHETAMINE NEG (NEG); ETHANOL, URINE NEG (NEG)
== END | disposition home or self-care (01) ==
LOC: LAB 15:56
DX: F11.90 Opioid use, unspecified, uncomplicated (principal); Z79.899 Other long term (current) drug therapy
CPT/HCPCS: 80307

== ENCOUNTER → 2018-02-01 | Outpatient (CLI) | payer MEDICARE ==
[2017-06-10 14:53] VITALS: BP 93/52
[~2018-02-01] MED LIST changes: +FENT1PAT15 TP; +LISI10TA2 PO; +NAPR-514 PO; +NITR0.4T SL; +TRAZ-86 PO; -TRAZ100T12 PO
[2018-02-01 12:33] LABS: ALBUMIN 3.6 g/dL (3.4-5.0); ALBUMIN/GLOBULIN RATIO 1.3 (1.0-1.7); CALCIUM 9.3 mg/dL (8.5-10.1); CREATININE 0.8 mg/dL (0.6-1.0); GFR 75.3; POTASSIUM 5.4 mmol/L (3.5-5.1); TOTAL BILIRUBIN 0.4 mg/dL (0.2-1.0); TOTAL PROTEIN 6.4 g/dL (6.4-8.2)
[2018-02-01 12:37] LABS: BASO % 1 % (0-3); EOS # 0.1 x10^3/uL (0.0-0.7); EOS % 1 % (0-3); HEMOGLOBIN 16.2 g/dL (12.0-15.5); LYMPH # 2.6 x10^3/uL (1.0-4.8); LYMPH % 41 % (24-48); MEAN CORPUSCULAR HEMOGLOBIN 34 pg (25-35); MEAN CORPUSCULAR HGB CONC 34 g/dL (31-37); MEAN CORPUSCULAR VOLUME 99 fL (79-100); MONO # 0.3 x10^3/uL (0.0-1.1); MONO % 5 % (0-9); NEUT # 3.2 x10^3uL (1.8-7.7); NEUT % 52 % (31-73); PLATELET COUNT 163 x10^3/uL (140-400); RED BLOOD COUNT 4.74 x10^6/uL (3.50-5.40); RED CELL DISTRIBUTION WIDTH 14.4 % (11.5-14.5); WHITE BLOOD COUNT 6.2 x10^3/uL (4.0-11.0)
== END | disposition home or self-care (01) ==
LOC: LAB 11:51
PROVIDERS: ATTEND Psychiatry & Neurology Neurology with Special Qualifications in Child Neurology
DX: G35 Multiple sclerosis (principal); E55.9 Vitamin D deficiency, unspecified; I11.9 Hypertensive heart disease without heart failure; E11.9 Type 2 diabetes mellitus without complications; E78.00 Pure hypercholesterolemia, unspecified; J44.9 Chronic obstructive pulmonary disease, unspecified; K21.9 Gastro-esophageal reflux disease without esophagitis; I25.10 Atherosclerotic heart disease of native coronary artery without angina pectoris; Z95.5 Presence of coronary angioplasty implant and graft; Z95.0 Presence of cardiac pacemaker; Z87.891 Personal history of nicotine dependence; Z85.850 Personal history of malignant neoplasm of thyroid; Z90.721 Acquired absence of ovaries, unilateral; Z90.49 Acquired absence of other specified parts of digestive tract; Z90.710 Acquired absence of both cervix and uterus; Z82.49 Family history of ischemic heart disease and other diseases of the circulatory system; Z83.3 Family history of diabetes mellitus
CPT/HCPCS: 36415; 80053; 82306; 82607; 82746; 85025

== ENCOUNTER 2018-04-11 11:45 | Emergency (ER) | payer MEDICARE ==
[~2018-04-11] VITALS: Ht 170.2 cm; Wt 50.8 kg
[~2018-04-11 11:45] MED LIST changes: -HYDR-2758 PO; +HYDR-2761 PO; -OXYC-328 PO; +OXYC1TAB22 PO
[2018-04-11] MEDS ORDERED: ASPIRIN CHEWABLE 81 MG TABLET. PO ONE (12:00)
[2018-04-11] MEDS ORDERED: NITROGLYCERIN OINT 1 GM PACKET. TP ONE (12:00)
--- NOTE | 2018-04-11 12:04 | PHYS DOC ---
Past Medical History Past Medical History: Cancer, COPD, High Cholesterol, Heart Disease, Hypertension, Other Additional Past Medical Histor: MS, Osteoporosis, carmichael's esophagus, mitral vavle insuf. endometriosis Past Surgical History: Angioplasty, Hysterectomy, Pacemaker, Tonsillectomy, Other Additional Past Surgical Histo: Morphine pump,Mesh placed r/t "a lot of laproscopies," "Part of Thyroid" Alcohol Use: None Drug Use: None Adult General Chief Complaint Chief Complaint: SHORTNESS OF BREATH HPI HPI Patient is a 52-year-old female who has a past history of COPD, one fortunately is a current smoker, also has a history of cardiac disease although no known coronary disease, [place], or stenting, who presents to the emergency department for evaluation. She states that for the past 2-1/2 weeks she has had increased discomfort, described as a "pressure" on her chest, as well as increasing shortness of breath. She wears 3 L of oxygen chronically during the day and 4 L at home tonight. She also admits to having a cough, productive of whitish sputum with occasionally blood-tinged sputum. Her chest pain is relatively constant, is not exacerbated by exertion or deep breathing. She has not had any pleuritic pain at all. She has not had any fevers or chills. She does report some general malaise and weakness as well. There are no alleviating or exacerbating factors to the patient's symptoms. The patient states that she feels similar symptoms in the past, when she has had "fluid build up in her chest". Review of Systems Review of Systems Constitutional: Denies fever or chills [] Eyes: Denies change in visual acuity, redness, or eye pain [] HENT: Denies nasal congestion or sore throat [] Respiratory: Reports cough and shortness of breath.[] Cardiovascular: No additional information not addressed in HPI [] GI: Denies abdominal pain, nausea, vomiting, bloody stools or diarrhea [] : Denies dysuria or hematuria [] Musculoskeletal: Denies back pain or joint pain [] Integument: Denies rash or skin lesions [] Neurologic: Denies headache, focal weakness or sensory changes [] Endocrine: Denies polyuria or polydipsia [] All other systems were reviewed and found to be within normal limits, except as documented in this note. Current Medications Current Medications Current Medications Medications (Trade) Dose Ordered Sig/Abhijit Start Time Stop Time Status Last Admin Dose Admin Albuterol/ Ipratropium (Duoneb) 3 ml 1X ONCE 04/11/18 13:15 04/11/18 13:16 DC 04/11/18 13:31 3 ML Aspirin (Children'S Aspirin) 324 mg 1X ONCE 04/11/18 12:00 04/11/18 12:06 DC 04/11/18 12:24 324 MG Nitroglycerin (Nitro-Bid Oint) 0.5 inch 1X ONCE 04/11/18 12:00 04/11/18 12:06 DC 04/11/18 12:26 0.5 INCH Allergies Allergies Allergies Coded Allergies Type Severity Reaction Last Updated Verified No Known Allergies Allergy Unknown 06/18/16 No Physical Exam Physical Exam PHYSICAL EXAM: CONSTITUTIONAL: Well developed, well nourished HEAD: normocephalic, atraumatic EENT: PERRL, EOMI. Conjunctivae normal color, sclerae non-icteric; moist mucous membranes. NECK: Supple, non-tender; no meningismus. There is no JVD. LUNGS: Globally diminished breath sounds in all lung barragan, without rales, wheezing, or rhonchi. breathing even and unlabored. HEART: Regular rate and rhythm, no murmur CHEST: No deformity; non-tender ABDOMEN: The abdomen is soft, and non-tender, no masses or bruits. EXTREM: Normal ROM; no deformity, no calf tenderness. Normal pulses palpable in all extremities. There is no pedal edema. SKIN: No rash; no diaphoresis NEURO: Alert; normal speech and cognition; CN's grossly intact; strength grossly intact without focal deficit. BACK: No CVA TTP. Current Patient Data Vital Signs Vital Signs Date Time Temp Pulse Resp B/P (MAP) Pulse Ox O2 Delivery O2 Flow Rate FiO2 04/11/18 13:55 60 94/60 (71) Nasal Cannula 3.0 04/11/18 13:33 99 04/11/18 13:25 23 04/11/18 11:58 98.4 98.4 Lab Values Laboratory Tests Test 04/11/18 12:35 White Blood Count 4.9 x10^3/uL (4.0-11.0) Red Blood Count 4.59 x10^6/uL (3.50-5.40) Hemoglobin 15.5 g/dL (12.0-15.5) Hematocrit 45.2 % (36.0-47.0) Mean Corpuscular Volume 98 fL (79-100) Mean Corpuscular Hemoglobin 34 pg (25-35) Mean Corpuscular Hemoglobin Concent 34 g/dL (31-37) Red Cell Distribution Width 14.0 % (11.5-14.5) Platelet Count 154 x10^3/uL (140-400) Neutrophils (%) (Auto) 66 % (31-73) Lymphocytes (%) (Auto) 28 % (24-48) Monocytes (%) (Auto) 4 % (0-9) Eosinophils (%) (Auto) 1 % (0-3) Basophils (%) (Auto) 2 % (0-3) Neutrophils # (Auto) 3.2 x10^3uL (1.8-7.7) Lymphocytes # (Auto) 1.4 x10^3/uL (1.0-4.8) Monocytes # (Auto) 0.2 x10^3/uL (0.0-1.1) Eosinophils # (Auto) 0.0 x10^3/uL (0.0-0.7) Basophils # (Auto) 0.1 x10^3/uL (0.0-0.2) Prothrombin Time 12.7 SEC (11.7-14.0) Prothrombin Time INR 1.0 (0.8-1.1) D-Dimer (Rakel) 0.43 ug/mlFEU (0.00-0.50) Sodium Level 142 mmol/L (136-145) Potassium Level 4.4 mmol/L (3.5-5.1) Chloride Level 105 mmol/L (98-107) Carbon Dioxide Level 33 mmol/L (21-32) H Anion Gap 4 (6-14) L Blood Urea Nitrogen 13 mg/dL (7-20) Creatinine 0.7 mg/dL (0.6-1.0) Estimated GFR (Cockcroft-Gault) 87.9 BUN/Creatinine Ratio 19 (6-20) Glucose Level 95 mg/dL (70-99) Calcium Level 9.4 mg/dL (8.5-10.1) Total Bilirubin 0.3 mg/dL (0.2-1.0) Aspartate Amino Transferase (AST) 13 U/L (15-37) L Alanine Aminotransferase (ALT) 13 U/L (14-59) L Alkaline Phosphatase 69 U/L (46-116) Creatine Kinase 50 U/L (26-192) Creatine Kinase MB (Mass) 0.5 ng/mL (0.0-3.6) Creatine Kinase MB Relative Index % (0-4) Troponin I Quantitative < 0.017 ng/mL (0.000-0.055) UB-Qlp-D-Type Natriuretic Peptide 238 pg/mL (0-124) H Total Protein 6.5 g/dL (6.4-8.2) Albumin 3.3 g/dL (3.4-5.0) L Albumin/Globulin Ratio 1.0 (1.0-1.7) Thyroid Stimulating Hormone (TSH) 0.830 uIU/mL (0.358-3.74) Digoxin Level 0.9 ng/mL (0.9-2.0) Digoxin Last Dose Date Unknown Digoxin Last Dose Time Unknown Laboratory Tests 04/11/18 12:35 Laboratory Tests 04/11/18 12:35 EKG EKG [Normal sinus rhythm at a rate of 52 beats for minute, left axis deviation, left anterior fascicular block. There are no acute ischemic ST/T changes. The patient's prior EKG, from 06/05/17, is a poor diagnostic quality, but does not appear significantly different, based on the limitations that EKG, compared today's EKG. Additional records reviewed, the patient did have a cardiac catheterization done on 03/04/18, which showed pulmonary hypertension without any significant coronary artery is. LV function was 50%. Radiology/Procedures Radiology/Procedures [PROCEDURE: CHEST PA & LATERAL EXAM: Chest, 2 views. HISTORY: Cough. Shortness of breath. COMPARISON: 06/05/2017 FINDINGS: There is moderate enlargement of the cardiac silhouette. There is hyperinflation and there are coarse interstitial markings suggesting emphysema. There is suspected superimposed basilar atelectasis. There is no consolidation, pleural effusion or pneumothorax. There is a cardiac pacemaker with leads in expected position. IMPRESSION: 1. Stable moderate enlargement of the cardiac silhouette. 2. Stable hyperinflation with coarse interstitial changes and bilateral basilar atelectasis. ] Course & Med Decision Making Course & Med Decision Making Pertinent Labs and Imaging studies reviewed. (See chart for details) [2:30 PM: The patient's condition remains stable. I discussed the case with Dr. Alarcon. Apparently, the patient had an appointment to see him in the office today but the office was closed due to her recent snow, and thus the patient came to the emergency department. She has no acute complaints at this time her symptoms have been present for quite some time. She has had 2 negative cardiac catheterizations for coronary disease within the past year. I discussed the case with Dr. Aly's where she saw the patient in the emergency department. He recommended we discharge her on a Medrol Dosepak and he will see her in the office in follow-up. I discussed return precautions with the patient.] Dragon Disclaimer Dragon Disclaimer This electronic medical record was generated, in whole or in part, using a voice recognition dictation system. Departure Departure Impression: Primary Impression: COPD (chronic obstructive pulmonary disease) Additional Impressions: Dyspnea Atypical chest pain Disposition: HOME, SELF-CARE Condition: STABLE Referrals: CHRIS JEFFRIES MD (PCP) ESTEFANI ALARCON MD, SABATO MD Patient Instructions: Chest Pain (Nonspecific), Chronic Obstructive Pulmonary Disease, Shortness of Breath Scripts Methylprednisolone (MEDROL) 4 Mg Tab.ds.pk 1 PKG PO UD, #1 PKG Prov: JOSEFINA CAMPOS MD 04/11/18 Problem Qualifiers JOSEFINA CAMPOS MD Apr 11, 2018 12:04
--- NOTE | 2018-04-11 12:16 | EKG ---
[facility] [address] [place] [address] Test Date: 2018-04-11 Test Time: 12:01:07 Pat Name: RA VALLEJO Department: Room: Gender: Female Tester Wafer Substrate: : 1965 Requested By: JOSEFINA CAMPOS Order Number: [id number] Reading MD: Umair Law Measurements Intervals [place] Rate: 60 P: 51 ME: 184 QRS: -51 QRSD: 76 T: 57 QT: 378 QTc: 382 Interpretive Statements A PACED RHYTHM NONSPECIFIC ST-T WAVE CHANGES. Electronically Signed On 04-13-2018 9:05:33 HOUSE DESIGNER by Umair Law
--- NOTE | 2018-04-11 12:28 | RAD ---
EXAM: Chest, 2 views. HISTORY: Cough. Shortness of breath. COMPARISON: 06/05/2017 FINDINGS: There is moderate enlargement of the cardiac silhouette. There is hyperinflation and there are coarse interstitial markings suggesting emphysema. There is suspected superimposed basilar atelectasis. There is no consolidation, pleural effusion or pneumothorax. There is a cardiac pacemaker with leads in expected position. IMPRESSION: 1. Stable moderate enlargement of the cardiac silhouette. 2. Stable hyperinflation with coarse interstitial changes and bilateral basilar atelectasis. Electronically signed by: Serena Shannon MD (04/11/2018 12:24 PM) [facility]
[2018-04-11 12:44] LABS: BASO # 0.1 x10^3/uL (0.0-0.2); BASO % 2 % (0-3); EOS % 1 % (0-3); HEMATOCRIT 45.2 % (36.0-47.0); HEMOGLOBIN 15.5 g/dL (12.0-15.5); LYMPH # 1.4 x10^3/uL (1.0-4.8); LYMPH % 28 % (24-48); MEAN CORPUSCULAR HEMOGLOBIN 34 pg (25-35); MEAN CORPUSCULAR HGB CONC 34 g/dL (31-37); MEAN CORPUSCULAR VOLUME 98 fL (79-100); MONO # 0.2 x10^3/uL (0.0-1.1); MONO % 4 % (0-9); NEUT # 3.2 x10^3uL (1.8-7.7); NEUT % 66 % (31-73); PLATELET COUNT 154 x10^3/uL (140-400); RED BLOOD COUNT 4.59 x10^6/uL (3.50-5.40); WHITE BLOOD COUNT 4.9 x10^3/uL (4.0-11.0)
[2018-04-11 12:56] LABS: CALCIUM 9.4 mg/dL (8.5-10.1); CREATININE 0.7 mg/dL (0.6-1.0); GFR 87.9; POTASSIUM 4.4 mmol/L (3.5-5.1)
[2018-04-11 12:57] LABS: PROTHROMBIN TIME PATIENT 12.7 SEC (11.7-14.0)
[2018-04-11 13:02] LABS: ALBUMIN 3.3 g/dL (3.4-5.0); TOTAL BILIRUBIN 0.3 mg/dL (0.2-1.0); TOTAL PROTEIN 6.5 g/dL (6.4-8.2)
[2018-04-11 13:10] LABS: DIG 0.9 ng/mL (0.9-2.0)
[2018-04-11 13:11] LABS: CREATINE KINASE 50 U/L (26-192)
[2018-04-11] MEDS ORDERED: IPRATRPIUM/ALBUTEROL 0.5/2.5MG 3 ML NEBU. NEB ONE (13:15)
[2018-04-11 14:28] VITALS: BP 101/57
[2018-04-11] MEDS ORDERED: METH4TAB2 PO (14:33)
== END 2018-04-11 14:46 | disposition home or self-care (01) ==
LOC: ER 11:45
DX: J44.9 Chronic obstructive pulmonary disease, unspecified (principal); R07.89 Other chest pain; R06.00 Dyspnea, unspecified; E78.00 Pure hypercholesterolemia, unspecified; I11.9 Hypertensive heart disease without heart failure; Z95.5 Presence of coronary angioplasty implant and graft; Z95.0 Presence of cardiac pacemaker; Z90.710 Acquired absence of both cervix and uterus
CPT/HCPCS: 36415; 71046; 80053; 80162; 82553; 83880; 84443; 84484; 85025; 85379; 85610; 93005; 94640; 99284; J7620

== ENCOUNTER → 2018-08-11 | Outpatient (CLI) | payer MEDICARE ==
[~2018-08-11] MED LIST changes: +METH4TAB2 PO
[2018-08-11 08:45] VITALS: BP 95/50
[2018-08-11 09:31] VITALS: BP 93/53
[2018-08-11 10:00] LABS: CSF PROTEIN 33.6 mg/dL (15.0-45.0)
[2018-08-11 10:19] LABS: CSF CLARITY CLEAR; CSF COLOR COLORLESS; CSF RBC COUNT 5 /cmm (Not Established); CSF WBC COUNT 2 /cmm (Not Established)
--- NOTE | 2018-08-11 10:20 | NUR ---
Patient alert and oriented x4, follows commands and able to make all needs and wants known verbally, vitals stable. Patient and friend educated on Lumbar Puncture post care, both verbalized understanding. Patient discharged home with friend in wheelchair.
--- NOTE | 2018-08-11 13:53 | RAD ---
Fluoroscopically guided lumbar puncture, 08/11/2018: History: Multiple sclerosis Under local anesthesia, aseptic conditions and fluoroscopic guidance a lumbar puncture was performed at the L2-3 level utilizing a 25-gauge Woo spinal needle. Care was taken to avoid the indwelling spinal catheter. Good clear CSF flow was obtained. A total of 10 cc of CSF was removed and sent to lab for appropriate studies. The spinal needle was then removed and hemostasis obtained. 2 fluoroscopic spot images were recorded. 2.8 minutes of fluoroscopy time is utilized. The patient tolerated the procedure well and left the department in good condition.
[2018-08-16 15:19] LABS: ALBUMIN,CSF 49 mg/dL (11-48); CSF IGG INDEX 0.1 (0.0-0.7); IGG,SERUM 584 mg/dL (700-1600)
[2018-08-22 06:09] LABS: VIRAL CULT FINAL No virus isolated. (.)
== END | disposition home or self-care (01) ==
LOC: RAD 07:38
PROVIDERS: ATTEND Psychiatry & Neurology Neurology with Special Qualifications in Child Neurology
DX: G35 Multiple sclerosis (principal); J44.9 Chronic obstructive pulmonary disease, unspecified; Z95.0 Presence of cardiac pacemaker; Z79.82 Long term (current) use of aspirin
CPT/HCPCS: 36415; 62270; 77003; 82787; 82945; 83916; 84157; 87071; 87075; 87102; 87252; 89051

== ENCOUNTER → 2018-08-22 | Outpatient (CLI) | payer MEDICARE ==
[2018-08-11 09:31] VITALS: BP 93/53
--- NOTE | 2018-08-22 10:13 | RAD ---
Examination: CT chest without contrast HISTORY: History of dyspnea COMPARISON: None available TECHNIQUE: Axial CT images of the chest were performed without contrast. Coronal and sagittal reformats performed Exposure: One or more of the following individualized dose reduction techniques were utilized for this examination: 1. Automated exposure control 2. Adjustment of the mA and/or kV according to patient size 3. Use of iterative reconstruction technique FINDINGS: Surgical changes of left thyroid lobectomy identified. The central airways are patent. The ascending aorta measures 3.6 cm in transverse dimension. Mild pericardial effusion identified. Left-sided cardiac pacer is identified. Moderate lung emphysematous changes. There is a 3 mm solid nodule identified in the right upper lobe of the lung. There is a 4 mm nodule identified in the right middle lobe of the lung. Linear atelectasis identified in the left lung base. The visualized noncontrasted liver, spleen, adrenals grossly appears unremarkable. Mild degenerative changes thoracic spine. IMPRESSION: 1. Pericardial effusion. Moderate cardiomegaly. 2. Moderate bilateral lung emphysematous changes. 3. Small nodules identified in the right upper lobe, right middle lobe with largest measuring 4 mm in the right middle lobe. Follow-up per Fleischner Society guidelines with a follow-up follow-up CT in 3-6 months. 4. Linear atelectasis left lung base. Electronically signed by: Orestes Villanueva MD (08/22/2018 10:10 AM) [facility]
== END | disposition home or self-care (01) ==
LOC: CT 09:08
PROVIDERS: ATTEND Internal Medicine Pulmonary Disease
DX: I31.3 Pericardial effusion (noninflammatory) (principal); J43.9 Emphysema, unspecified; J98.11 Atelectasis; R91.8 Other nonspecific abnormal finding of lung field; I51.7 Cardiomegaly
CPT/HCPCS: 71250

== ENCOUNTER → 2018-10-24 | Outpatient (CLI) | payer MEDICARE ==
[2018-08-11 09:31] VITALS: BP 93/53
--- NOTE | 2018-10-24 10:51 | CARD ---
MR#: [id number] Date of Study: 10/24/2018 Ordering Physician: DIDIER VYAS, Referring Physician: DIDIER VYAS, Tech: Marley Vazquez [facility] APPROVED REPORT EXAM: Two-dimensional and M-mode echocardiogram with Doppler and color Doppler. Other Information Quality : AverageHR: 63bpm Rhythm : NSR INDICATION Murmur 2D DIMENSIONS RVDd2.1 (2.9-3.5cm)Left Atrium(2D)2.9 (1.6-4.0cm) IVSd0.7 (0.7-1.1cm)Aortic Root(2D)3.5 (2.0-3.7cm) LVDd5.2 (3.9-5.9cm)LVOT Diameter2.2 (1.8-2.4cm) PWd0.8 (0.7-1.1cm)LVDs4.0 (2.5-4.0cm) FS (%) 21.8 %SV55.8 ml LVEF(%)45.0 (>50%) M-Mode DIMENSIONS RVDd2.17 (2.1-3.2cm)IVSd0.70 (0.7-1.1cm) LVDd5.13 (4.0-5.6cm)PWd0.76 (0.7-1.1cm) FS (%) 24 %LVDs3.91 (2.0-3.8cm) ESV(Teich)66.5 mlLVEF(%)47 (>50%) Aortic Valve AoV Peak Navin.101.2cm/sAoV VTI20.1cm AO Peak GR.4.1mmHgLVOT Peak Navin.85.9cm/s AO Mean GR.2mmHgAVA (VMAX)3.25cm2 LUMA (VTI)3.20cm2 Mitral Valve MV E Eazavkmn96.9cm/sMV DECEL RZPM992ax MV A Blhzlboc30.7cm/sE/A Ratio1.9 Pulmonary Valve PV Peak Ryaukbxh15.4cm/s Tricuspid Valve TR P. Draqhrlw478hy/sRAP FIQGVMCP91fnRg TR Peak Gr.56kjVfBGKL92sxAt LEFT VENTRICLE The left ventricle is normal size. There is normal left ventricular wall thickness. Left ventricle sy stolic function is low normal. The Ejection Fraction is 45-50%. Septal motion suggestive of conductio n defect. Transmitral Doppler flow pattern is Grade II-pseudonormal filling dynamics. RIGHT VENTRICLE The right ventricle is normal size. There is normal right ventricular wall thickness. The right ventr icular systolic function is normal. Pacer lead noted in RV/RA. ATRIA The left atrium size is normal. The right atrium size is normal. The interatrial septum is intact wit h no evidence for an atrial septal defect or patent foramen ovale as noted on 2-D or Doppler imaging. AORTIC VALVE The aortic valve is normal in structure and function. The aortic valve is trileaflet. Doppler and Col or Flow revealed no significant aortic regurgitation. There is no significant aortic valvular stenosi s. MITRAL VALVE The mitral valve is normal in structure and function. There is no evidence of mitral valve prolapse. There is no mitral valve stenosis. Doppler and Color-flow revealed trace mitral regurgitation. TRICUSPID VALVE The tricuspid valve is normal in structure and function. Doppler and Color Flow revealed mild tricusp id regurgitation. There is moderate pulmonary hypertension. The PA pressure was estimated at 46 mmHg. There is no tricuspid valve prolapse or vegetation. There is no tricuspid valve stenosis. PULMONIC VALVE The pulmonic valve is not well visualized. GREAT VESSELS The aortic root is normal in size. The ascending aorta is normal in size. The IVC is dilated and rebel apses <50% with inspiration. PERICARDIAL EFFUSION There is a small to moderate sized pericardial effusion. This was also noted on a CT scan of the [facility] dated 08/2018. Clinical correlation recommended. Critical Notification Critical Value: No <Conclusion> Left ventricle systolic function is low normal. The Ejection Fraction is 45-50%. Septal motion suggestive of conduction defect. Pacer lead noted in RV/RA. Doppler and Color Flow revealed mild tricuspid regurgitation. There is moderate pulmonary hypertensio n. The PA pressure was estimated at 46 mmHg. The IVC is dilated and collapses <50% with inspiration. There is a small to moderate sized pericardial effusion. This was also noted on a CT scan of the [facility] t dated 08/2018. Clinical correlation recommended. Signed by : Mason Krueger, Electronically Approved : 10/24/2018 10:50:34
== END | disposition home or self-care (01) ==
LOC: ECHO 09:44
PROVIDERS: ATTEND Internal Medicine Cardiovascular Disease
DX: I07.1 Rheumatic tricuspid insufficiency (principal); I27.20 Pulmonary hypertension, unspecified; I31.3 Pericardial effusion (noninflammatory)
CPT/HCPCS: 93306

== ENCOUNTER → 2018-12-13 | Outpatient (CLI) | payer MEDICARE ==
[2018-08-11 09:31] VITALS: BP 93/53
[~2018-12-13] MED LIST changes: +CONTRAST GIVEN. MC PRN; +IOHEXOL 300 MG/ML 100ML VIAL. IV ONE
--- NOTE | 2018-12-13 13:53 | RAD ---
EXAM: Head CT with and without contrast. HISTORY: Gait disorder. TECHNIQUE: Computed tomographic images of the head were obtained prior to and following the administration of 70 cc Omnipaque 300 intravenous contrast. *One or more of the following individualized dose reduction techniques were utilized for this examination: 1. Automated exposure control. 2. Adjustment of the mA and/or kV according to patient size. 3. Use of iterative reconstruction technique. COMPARISON: 06/04/2017 FINDINGS: There is no hemorrhage. There is no mass effect or midline shift. There is no hydrocephalus. The marie-white matter differentiation pattern is intact. No suspicious enhancing lesion is seen. No suspicious calvarial lesion is seen. The visualized portions the orbits, paranasal sinuses mastoid air cells are unremarkable. IMPRESSION: No acute intracranial finding. Electronically signed by: Serena Shannon MD (12/13/2018 1:50 PM) [place] [id number]
== END | disposition home or self-care (01) ==
LOC: CT 08:45
PROVIDERS: ATTEND Psychiatry & Neurology Neurology with Special Qualifications in Child Neurology
DX: R26.9 Unspecified abnormalities of gait and mobility (principal)
CPT/HCPCS: 70470; Q9967

== ENCOUNTER → 2018-12-29 | Outpatient (CLI) | payer MEDICARE ==
[2018-08-11 09:31] VITALS: BP 93/53
[~2018-12-29] MED LIST changes: -CONTRAST GIVEN. MC PRN; -IOHEXOL 300 MG/ML 100ML VIAL. IV ONE
--- NOTE | 2018-12-29 16:03 | CARD ---
MR#: [id number] Date of Study: 12/29/2018 Ordering Physician: DIDIER VYAS, Referring Physician: DIDIER VYAS, Tech: Deja Hernandez APPROVED REPORT EXAM: Two-dimensional and M-mode echocardiogram with Doppler and color Doppler. Other Information Quality : AverageHR: 60bpm Rhythm : Pacemaker INDICATION Pleural Effusion Surgery/Intervention Pacemaker: Date: 2003 RISK FACTORS Hypertension Smoking 2D DIMENSIONS RVDd2.8 (2.9-3.5cm)Left Atrium(2D)2.7 (1.6-4.0cm) IVSd0.8 (0.7-1.1cm)Aortic Root(2D)3.7 (2.0-3.7cm) LVDd4.8 (3.9-5.9cm)LVOT Diameter2.1 (1.8-2.4cm) PWd1.1 (0.7-1.1cm)LVDs3.3 (2.5-4.0cm) FS (%) 30.7 %SV62.2 ml LVEF(%)58.1 (>50%) Aortic Valve AoV Peak Navin.106.1cm/sAoV VTI20.9cm AO Peak GR.4.5mmHgLVOT Peak Navin.79.9cm/s LVOT VTI 17.84cmAO Mean GR.2mmHg LUMA (VMAX)2.93qj5SDI (VTI)3.05cm2 Mitral Valve MV E Vcrgreag51.1cm/sMV DECEL GPLT897ik MV A Zugnsfax79.9cm/sMV HQN15ww E/A Ratio1.3MVA (PHT)3.98cm2 TDI E/Lateral E'9.3E/Medial E'9.9 Pulmonary Valve PV Peak Lfetryrw14.7cm/sPV Peak Grad.3mmHg Tricuspid Valve TR P. Xuzwnieo570ug/sTR Peak Gr.24mmHg Pulmonary Vein S1 Difcljtp16.6cm/sD2 Ahaayfuo57.7cm/s PVa dbhymrrq295encj LEFT VENTRICLE The left ventricle is normal size. There is normal left ventricular wall thickness. The left ventricu lar systolic function is low normal. The Ejection Fraction is 50% Septal motion suggestive of conduct ion abnormality. The left ventricular diastolic function and filling is normal for age. RIGHT VENTRICLE The right ventricle is normal size. There is normal right ventricular wall thickness. The right ventr icular systolic function is normal. There is a pacemaker lead in the right ventricle. ATRIA The left atrium size is normal. The right atrium size is normal. The interatrial septum is intact wit h no evidence for an atrial septal defect or patent foramen ovale as noted on 2-D or Doppler imaging. There is a pacemaker wire visible in right atrium. AORTIC VALVE The aortic valve is normal in structure and function. Doppler and Color Flow revealed trace aortic re gurgitation. There is no significant aortic valvular stenosis. MITRAL VALVE The mitral valve is normal in structure and function. There is no evidence of mitral valve prolapse. There is no mitral valve stenosis. Doppler and Color-flow revealed trace mitral regurgitation. TRICUSPID VALVE The tricuspid valve is normal in structure and function. Doppler and Color Flow revealed trace tricus pid regurgitation with an estimated PAP of 36 mmHg. There is no tricuspid valve stenosis. PULMONIC VALVE The pulmonary valve is normal in structure and function. Doppler and Color Flow revealed trace to mil d pulmonic valvular regurgitation. GREAT VESSELS The aortic root is mildly enlarged. The IVC is dilated and collapses >50% with inspiration. PERICARDIAL EFFUSION There is a trace circumferential pericardial effusion. Critical Notification Critical Value: No <Conclusion> The left ventricular systolic function is low normal. The Ejection Fraction is 50% Septal motion suggestive of conduction abnormality. There is a pacemaker lead in the RA/RV. Trace mitral regurgitation. Trace tricuspid regurgitation with an estimated PAP of 36 mmHg. There is a trace circumferential pericardial effusion. Signed by : Noe Almodovar, Electronically Approved : 12/29/2018 16:03:21
== END | disposition home or self-care (01) ==
LOC: ECHO 10:04
PROVIDERS: ATTEND Internal Medicine Cardiovascular Disease
DX: I37.1 Nonrheumatic pulmonary valve insufficiency (principal); I31.3 Pericardial effusion (noninflammatory); I10 Essential (primary) hypertension; F17.210 Nicotine dependence, cigarettes, uncomplicated; Z95.0 Presence of cardiac pacemaker
CPT/HCPCS: 93306

== ENCOUNTER → 2019-03-24 | Outpatient (CLI) | payer MEDICARE ==
[2018-08-11 09:31] VITALS: BP 93/53
[~2019-03-24] MED LIST changes: -NITR0.4T SL; +NITR0.4T24 SL
[2019-03-24 09:30] LABS: BASO % 1 % (0-3); EOS # 0.1 x10^3/uL (0.0-0.7); EOS % 1 % (0-3); HEMATOCRIT 48.5 % (36.0-47.0); HEMOGLOBIN 16.3 g/dL (12.0-15.5); LYMPH % 13 % (24-48); MEAN CORPUSCULAR HEMOGLOBIN 34 pg (25-35); MEAN CORPUSCULAR HGB CONC 34 g/dL (31-37); MEAN CORPUSCULAR VOLUME 102 fL (79-100); MONO # 0.3 x10^3/uL (0.0-1.1); MONO % 4 % (0-9); NEUT # 5.9 x10^3/uL (1.8-7.7); NEUT % 81 % (31-73); PLATELET COUNT 120 x10^3/uL (140-400); RED BLOOD COUNT 4.77 x10^6/uL (3.50-5.40); RED CELL DISTRIBUTION WIDTH 14.7 % (11.5-14.5); WHITE BLOOD COUNT 7.3 x10^3/uL (4.0-11.0)
[2019-03-24 09:44] LABS: ALBUMIN 3.4 g/dL (3.4-5.0); ALK PHOS 75 U/L (46-116); ALT (SGPT) 24 U/L (14-59); ANION GAP 5 (6-14); AST (SGOT) 23 U/L (15-37); BLOOD UREA NITROGEN 24 mg/dL (7-20); CALCIUM 9.3 mg/dL (8.5-10.1); CARBON DIOXIDE 33 mmol/L (21-32); CHLORIDE 106 mmol/L (98-107); CHOLESTEROL 246 mg/dL (0-200); CREATININE 0.9 mg/dL (0.6-1.0); DIRECT BILIRUBIN 0.1 mg/dL (0.0-0.2); GFR 65.5; GLUCOSE 113 mg/dL (70-99); HDLC 45 mg/dL (40-60); LDLC 189 mg/dL (0-100); POTASSIUM 4.4 mmol/L (3.5-5.1); SODIUM 144 mmol/L (136-145); TOTAL BILIRUBIN 0.3 mg/dL (0.2-1.0); TOTAL PROTEIN 6.7 g/dL (6.4-8.2); TRIGLYCERIDES 58 mg/dL (0-150); VLDLC 12 mg/dL (0-40)
[2019-03-24 09:54] LABS: CHOLESTEROL/HDL RATIO 5.5; DIG < 0.2 ng/mL (0.9-2.0)
--- NOTE | 2019-03-24 15:30 | RAD ---
Chest CT without contrast Clinical indications: Lung nodule. Follow-up study. COMPARISON: August 22, 2018. TECHNIQUE: Noncontrast helical CT scanning of the chest was performed. Without contrast, the sensitivity to detect organ pathology is decreased. PQRS compliance Statement One or more of the following individualized dose reduction techniques were utilized for this study: 1. Automated exposure control 2. Adjustment of the mA and/or kV according to patient size 3. Use of iterative reconstruction technique FINDINGS: No enlarging thoracic lymphadenopathy is evident. The heart size is enlarged due to a moderate-sized pericardial effusion which is chronic. It has slightly increased in size anteriorly. No focal aneurysmal dilatation of the thoracic aorta is seen. No adrenal mass is evident. Chronic scarring is seen within the lateral aspect of the left lower lobe which is stable. There is some mild atelectasis within the inferior segment lingula. Again seen is a nodule within the lateral segment of the right middle lobe which measures 4 mm and is stable. Smaller nodule seen within the lateral aspect of the right upper lobe which is stable. No new lung nodule is evident. No lung consolidation or pleural effusion or pneumothorax is evident. The proximal bronchial tree is patent. No lytic process is evident. No adrenal mass is evident. IMPRESSION: Stable probable benign lung nodules. Recommend a follow-up chest CT in 12-18 months given the bilateral emphysema as per Fleischner guidelines. Chronic moderate-sized pericardial effusion. There has been a slight increase since the prior study of August 2018. Electronically signed by: Prieto Collins MD (03/24/2019 3:27 PM) [facility]
== END | disposition home or self-care (01) ==
LOC: CT 08:37
PROVIDERS: ATTEND Internal Medicine Pulmonary Disease
DX: J98.11 Atelectasis (principal); I31.3 Pericardial effusion (noninflammatory); R91.8 Other nonspecific abnormal finding of lung field; I11.9 Hypertensive heart disease without heart failure; E78.5 Hyperlipidemia, unspecified
CPT/HCPCS: 36415; 71250; 80048; 80061; 80076; 80162; 85025

== ENCOUNTER → 2019-04-07 | Outpatient (CLI) | payer MEDICARE ==
[2018-08-11 09:31] VITALS: BP 93/53
--- NOTE | 2019-04-07 12:01 | CARD ---
MR#: [id number] Date of Study: 04/07/2019 Ordering Physician: DIDIER LAW, Referring Physician: DIDIER LAW, Tech: Deja Hernandez APPROVED REPORT EXAM: Two-dimensional and M-mode echocardiogram with Doppler and color Doppler. Other Information Quality : AverageHR: 60bpm INDICATION Pericardial Effusion RISK FACTORS Hyperlipidemia Smoking 2D DIMENSIONS RVDd2.0 (2.9-3.5cm)Left Atrium(2D)2.7 (1.6-4.0cm) IVSd0.5 (0.7-1.1cm)Aortic Root(2D)3.6 (2.0-3.7cm) LVDd4.8 (3.9-5.9cm)LVOT Diameter2.1 (1.8-2.4cm) PWd0.8 (0.7-1.1cm)LVDs3.4 (2.5-4.0cm) FS (%) 28.0 %SV58.0 ml Aortic Valve AoV Peak Navin.113.1cm/sAoV VTI22.2cm AO Peak GR.5.1mmHgLVOT Peak Navin.101.0cm/s LVOT VTI 19.14cmAO Mean GR.3mmHg LUMA (VMAX)2.10cy9FGJ (VTI)3.08cm2 Mitral Valve MV E Iygrkeqf56.0cm/sMV DECEL QPOI180bx MV A Ewkajpqz84.8cm/sMV HDP41mg E/A Ratio2.8MVA (PHT)3.57cm2 TDI E/Lateral E'12.5E/Medial E'17.5 Pulmonary Valve PV Peak Vvrtersq36.9cm/sPV Peak Grad.4mmHg Tricuspid Valve TR P. Membdoqt145hf/sRAP LIOQELIX4euVw TR Peak Gr.34jrYdRVDH42foFp Pulmonary Vein S1 Rpjyzpst86.5cm/sD2 Vxkbhbbk63.8cm/s PVa ucuyyuyc857kqcy LEFT VENTRICLE The left ventricle is normal size. There is normal left ventricular wall thickness. The left ventricu lar systolic function is normal and the ejection fraction is within normal range. The Ejection Fracti on is 50-55%. Wall motion consistent with conduction abnormality. The left ventricular diastolic func tion and filling is normal for age. RIGHT VENTRICLE The right ventricle is normal size. There is normal right ventricular wall thickness. The right ventr icular systolic function is normal. ATRIA The left atrium size is normal. The right atrium size is normal. The interatrial septum is intact wit h no evidence for an atrial septal defect or patent foramen ovale as noted on 2-D or Doppler imaging. AORTIC VALVE The aortic valve is thickened but opens well. Doppler and Color Flow revealed no significant aortic r egurgitation. There is no significant aortic valvular stenosis. MITRAL VALVE The mitral valve is normal in structure and function. There is no evidence of mitral valve prolapse. There is no mitral valve stenosis. Doppler and Color-flow revealed trace mitral regurgitation. TRICUSPID VALVE The tricuspid valve is normal in structure and function. Doppler and Color Flow revealed trace to mil d tricuspid regurgitation with an estimated PAP of 43 mmHg. There is no tricuspid valve prolapse or v egetation. There is no tricuspid valve stenosis. PULMONIC VALVE The pulmonic valve is not well visualized. Doppler and Color Flow revealed no pulmonic valvular regur gitation. GREAT VESSELS The aortic root is normal in size. The IVC is dilated and collapses >50% with inspiration. PERICARDIAL EFFUSION There is a small circumferential pericardial effusion with no hemodynamic significance. Critical Notification Critical Value: No <Conclusion> The left ventricle is normal size. The left ventricular systolic function is normal and the ejection fraction is within normal range. The Ejection Fraction is 50-55%. There is no significant aortic valvular stenosis Doppler and Color Flow revealed no significant aortic regurgitation. Doppler and Color-flow revealed trace mitral regurgitation. Doppler and Color Flow revealed trace to mild tricuspid regurgitation with an estimated PAP of 43 mmH g. There is a small circumferential pericardial effusion with no hemodynamic significance. Signed by : Didier Law MD Electronically Approved : 04/07/2019 12:00:58
== END | disposition home or self-care (01) ==
LOC: ECHO 09:53
PROVIDERS: ATTEND Internal Medicine Cardiovascular Disease
DX: I31.3 Pericardial effusion (noninflammatory) (principal); I07.1 Rheumatic tricuspid insufficiency
CPT/HCPCS: 93306

== ENCOUNTER 2019-05-02 19:00 | Inpatient (IN) | payer MEDICARE ==
[~2019-05-02] VITALS: Ht 170.2 cm; Wt 49.6 kg
[2019-05-02] MEDS ORDERED: IV NORMAL SALINE 1000ML BAG 1,000 ML IV SCH ×3 (19:11→23:00)
[2019-05-02] MEDS ORDERED: diphenhydrAMINE 50 MG/ML VIAL IVP ONE (19:15)
[2019-05-02] MEDS ORDERED: METOCLOPRAMIDE HCL 10 MG/2 ML VIAL. IVP ONE (19:15)
--- NOTE | 2019-05-02 19:16 | PHYS DOC ---
Past Medical History Past Medical History: Cancer, COPD, High Cholesterol, Heart Disease, Hypotension, Other Additional Past Medical Histor: MS, Osteoporosis, carmichael's esophagus, mitral vavle insuf,thyroid cancer, Past Surgical History: Angioplasty, Appendectomy, Hysterectomy, Pacemaker, Tonsillectomy, Other Additional Past Surgical Histo: Morphine pump,Mesh placed r/t "a lot of laproscopies," "Part of Thyroid" Alcohol Use: None Drug Use: None Adult General Chief Complaint Chief Complaint: NAUSEA/VOMITING/DIARRHA HPI HPI Patient is a 53-year-old female who presents with complaint of abdominal pain with nausea, vomiting and diarrhea since April 23. Patient states that she is really had difficulty in keeping anything down. Patient states that she had a pain pump changed on April 21 and believes that part of her problem is withdrawal from pain medication. She has the pain pump for chronic pain management of MS. She rates the pain in her abdomen at an 8 out of 10. Patient states that she has had no fever. She states that she is getting weaker and weaker as the days go by. Patient also indicates that she is been having some intermittent chest pain during the same time. She denies any current chest pain however.[] Review of Systems Review of Systems Constitutional: Denies fever or chills [] Respiratory: Denies cough or shortness of breath [] Cardiovascular: No additional information not addressed in HPI [] GI: Complains of abdominal pain with vomiting and diarrhea [] Integument: Denies rash or skin lesions [] Neurologic: Denies headache, focal weakness or sensory changes [] All other systems were reviewed and found to be within normal limits, except as documented in this note. Current Medications Current Medications Current Medications Medications (Trade) Dose Ordered Sig/Abhijit Start Time Stop Time Status Last Admin Dose Admin Diphenhydramine HCl (Benadryl) 25 mg 1X ONCE 05/02/19 19:15 05/02/19 19:16 DC 05/02/19 19:36 25 MG Info (CONTRAST GIVEN -- Rx MONITORING) 1 each PRN DAILY PRN 05/02/19 21:00 05/04/19 20:59 Iohexol (Omnipaque 300 Mg/ml) 75 ml 1X ONCE 05/02/19 20:45 05/02/19 20:48 DC 05/02/19 20:45 75 ML Metoclopramide HCl (Reglan Vial) 10 mg 1X ONCE 05/02/19 19:15 05/02/19 19:16 DC 05/02/19 19:36 10 MG Sodium Chloride 1,000 ml @ 1,000 mls/hr Q1H 05/02/19 19:11 05/02/19 20:10 DC 05/02/19 19:36 1,000 MLS/HR Allergies Allergies Allergies Coded Allergies Type Severity Reaction Last Updated Verified No Known Allergies Allergy Unknown 06/18/16 No Physical Exam Physical Exam Constitutional: Well developed, well nourished, no acute distress, non-toxic appearance. [] HENT: Normocephalic, atraumatic, bilateral external ears normal, oropharynx moist, no oral exudates, nose normal. [] Eyes: PERRLA, EOMI, conjunctiva normal, no discharge. [] Neck: Normal range of motion, no tenderness, supple, no stridor. [] Cardiovascular: Regular rate and rhythm [] Lungs & Thorax: Bilateral breath sounds clear to auscultation [] Abdomen: Bowel sounds normal, soft, with epigastric tenderness. [] Skin: Warm, dry, no erythema, no rash. [] Extremities: No tenderness, no cyanosis, no clubbing, ROM intact [] Neurologic: Alert and oriented X 3, no focal deficits noted. [] Current Patient Data Vital Signs Vital Signs Date Time Temp Pulse Resp B/P (MAP) Pulse Ox O2 Delivery O2 Flow Rate FiO2 05/02/19 19:00 99.1 65 16 93/61 (72) 92 Nasal Cannula 3.0 99.1 Lab Values Laboratory Tests Test 05/02/19 19:18 White Blood Count 9.7 x10^3/uL (4.0-11.0) Red Blood Count 3.94 x10^6/uL (3.50-5.40) Hemoglobin 13.1 g/dL (12.0-15.5) Hematocrit 38.9 % (36.0-47.0) Mean Corpuscular Volume 99 fL (79-100) Mean Corpuscular Hemoglobin 33 pg (25-35) Mean Corpuscular Hemoglobin Concent 34 g/dL (31-37) Red Cell Distribution Width 13.9 % (11.5-14.5) Platelet Count 237 x10^3/uL (140-400) Neutrophils (%) (Auto) 77 % (31-73) H Lymphocytes (%) (Auto) 18 % (24-48) L Monocytes (%) (Auto) 4 % (0-9) Eosinophils (%) (Auto) 0 % (0-3) Basophils (%) (Auto) 1 % (0-3) Neutrophils # (Auto) 7.5 x10^3/uL (1.8-7.7) Lymphocytes # (Auto) 1.7 x10^3/uL (1.0-4.8) Monocytes # (Auto) 0.4 x10^3/uL (0.0-1.1) Eosinophils # (Auto) 0.0 x10^3/uL (0.0-0.7) Basophils # (Auto) 0.0 x10^3/uL (0.0-0.2) Sodium Level 140 mmol/L (136-145) Potassium Level 3.2 mmol/L (3.5-5.1) L Chloride Level 100 mmol/L (98-107) Carbon Dioxide Level 38 mmol/L (21-32) H Anion Gap 2 (6-14) L Blood Urea Nitrogen 15 mg/dL (7-20) Creatinine 0.6 mg/dL (0.6-1.0) Estimated GFR (Cockcroft-Gault) 104.6 BUN/Creatinine Ratio 25 (6-20) H Glucose Level 99 mg/dL (70-99) Calcium Level 9.8 mg/dL (8.5-10.1) Total Bilirubin 0.4 mg/dL (0.2-1.0) Aspartate Amino Transferase (AST) 14 U/L (15-37) L Alanine Aminotransferase (ALT) 16 U/L (14-59) Alkaline Phosphatase 75 U/L (46-116) Troponin I Quantitative < 0.017 ng/mL (0.000-0.055) Total Protein 6.8 g/dL (6.4-8.2) Albumin 2.6 g/dL (3.4-5.0) L Albumin/Globulin Ratio 0.6 (1.0-1.7) L Lipase 983 U/L (73-393) H Laboratory Tests 05/02/19 19:18 Laboratory Tests 05/02/19 19:18 EKG EKG [] Radiology/Procedures Radiology/Procedures [] Impressions: PROCEDURE: CT ABD PELV W/ IV CONTRST ONLY PQRS Compliance Statement: One or more of the following individualized dose reduction techniques were utilized for this examination: 1. Automated exposure control 2. Adjustment of the mA and/or kV according to patient size 3. Use of iterative reconstruction technique CT ABD PELV W/ IV CONTRST ONLY Clinical Indication: Abdominal pain, evidence of pancreatitis. Comparison: CT chest without contrast, March 24, 2019. Technique: Helical CT imaging of the abdomen and pelvis is performed after 75 cc of Omnipaque 300 IV contrast. Oral contrast not given. Findings: Cardiac pacer wires. Mild cardiomegaly. Moderate pericardial effusion is unchanged. There are new small bilateral pleural effusions. There is compressive atelectasis in the bilateral lower lobes. Tiny hypodensity in segment 4 of the liver is stable. Spleen size normal. Mildly hydropic gallbladder. Adrenal glands and abdominal aorta are normal. Tiny nonobstructing left renal calculus. Tiny right renal cyst. No hydronephrosis. The pancreas head and body are homogeneous. Evaluation is limited due to beam hardening artifact from pain pump reservoir. There is a 8 mm cyst centrally in the pancreas tail. Near the tip of the pancreas tail there is complicated rim-enhancing fluid collection. There are several fluid pockets, perhaps interconnected. Largest component is at the splenic fossa and measures up to 5.4 cm AP by 4.7 cm transverse by 6.5 cm craniocaudal. There is surrounding induration. The fluid pockets are immediately adjacent to the spleen and the stomach. No obvious abnormality of the stomach. No dilated small bowel. No secondary signs of appendicitis. No colon wall thickening is identified. Urinary bladder is normal. Mild pelvic free fluid. Uterus atrophic or surgically absent. Bones unremarkable. IMPRESSION: 1. There is complex rim-enhancing fluid collection at the gastrosplenic recess and at the splenic hilum extending slightly inferior. Fluid collection is near the pancreas tail and is immediately adjacent to the lateral stomach and the medial spleen. Considerations include pancreatic pseudocysts versus unrelated abscess perhaps from perforated gastric ulcer or other source. Suggest short-term follow-up CT. 2. Moderate pericardial effusion. 3. New small bilateral pleural effusions. 4. Mild pelvic free fluid. Electronically signed by: Azeem Mcdowell MD (05/02/2019 10:10 PM) [facility] DICTATED and SIGNED BY: AZEEM MCDOWELL MD DATE: 05/02/19 0467 Course & Med Decision Making Course & Med Decision Making Pertinent Labs and Imaging studies reviewed. (See chart for details) [] Dragon Disclaimer Dragon Disclaimer This electronic medical record was generated, in whole or in part, using a voice recognition dictation system. Departure Departure Impression: Primary Impression: Pancreatitis, acute Additional Impression: Pancreatic pseudocyst Disposition: ADMITTED INPATIENT Admitting Physician: GEOVANNI (Dr. Will) Condition: IMPROVED Referrals: CHRIS JEFFRIES MD (PCP) Problem Qualifiers Primary Impression: Pancreatitis, acute Pancreatitis type: unspecified pancreatitis type Acute pancreatitis complication: unspecified Qualified Codes: K85.90 - Acute pancreatitis without necrosis or infection, unspecified JULIA MUELLER Jr. DO May 02, 2019 19:16
[2019-05-02 19:25] LABS: BASO % 1 % (0-3); EOS % 0 % (0-3); HEMATOCRIT 38.9 % (36.0-47.0); HEMOGLOBIN 13.1 g/dL (12.0-15.5); LYMPH # 1.7 x10^3/uL (1.0-4.8); LYMPH % 18 % (24-48); MEAN CORPUSCULAR HEMOGLOBIN 33 pg (25-35); MEAN CORPUSCULAR HGB CONC 34 g/dL (31-37); MEAN CORPUSCULAR VOLUME 99 fL (79-100); MONO # 0.4 x10^3/uL (0.0-1.1); MONO % 4 % (0-9); NEUT # 7.5 x10^3/uL (1.8-7.7); NEUT % 77 % (31-73); PLATELET COUNT 237 x10^3/uL (140-400); RED BLOOD COUNT 3.94 x10^6/uL (3.50-5.40); RED CELL DISTRIBUTION WIDTH 13.9 % (11.5-14.5); WHITE BLOOD COUNT 9.7 x10^3/uL (4.0-11.0)
[2019-05-02 19:35] LABS: CALCIUM 9.8 mg/dL (8.5-10.1); CREATININE 0.6 mg/dL (0.6-1.0); GFR 104.6; POTASSIUM 3.2 mmol/L (3.5-5.1)
[2019-05-02 19:40] LABS: ALBUMIN 2.6 g/dL (3.4-5.0); ALBUMIN/GLOBULIN RATIO 0.6 (1.0-1.7); TOTAL BILIRUBIN 0.4 mg/dL (0.2-1.0); TOTAL PROTEIN 6.8 g/dL (6.4-8.2)
[2019-05-02] MEDS ORDERED: IOHEXOL 300 MG/ML 100ML VIAL. IV ONE (20:45)
[2019-05-02] MEDS ORDERED: CONTRAST GIVEN. MC PRN (21:00)
--- NOTE | 2019-05-02 22:13 | RAD ---
PQRS Compliance Statement: One or more of the following individualized dose reduction techniques were utilized for this examination: 1. Automated exposure control 2. Adjustment of the mA and/or kV according to patient size 3. Use of iterative reconstruction technique CT ABD PELV W/ IV CONTRST ONLY Clinical Indication: Abdominal pain, evidence of pancreatitis. Comparison: CT chest without contrast, March 24, 2019. Technique: Helical CT imaging of the abdomen and pelvis is performed after 75 cc of Omnipaque 300 IV contrast. Oral contrast not given. Findings: Cardiac pacer wires. Mild cardiomegaly. Moderate pericardial effusion is unchanged. There are new small bilateral pleural effusions. There is compressive atelectasis in the bilateral lower lobes. Tiny hypodensity in segment 4 of the liver is stable. Spleen size normal. Mildly hydropic gallbladder. Adrenal glands and abdominal aorta are normal. Tiny nonobstructing left renal calculus. Tiny right renal cyst. No hydronephrosis. The pancreas head and body are homogeneous. Evaluation is limited due to beam hardening artifact from pain pump reservoir. There is a 8 mm cyst centrally in the pancreas tail. Near the tip of the pancreas tail there is complicated rim-enhancing fluid collection. There are several fluid pockets, perhaps interconnected. Largest component is at the splenic fossa and measures up to 5.4 cm AP by 4.7 cm transverse by 6.5 cm craniocaudal. There is surrounding induration. The fluid pockets are immediately adjacent to the spleen and the stomach. No obvious abnormality of the stomach. No dilated small bowel. No secondary signs of appendicitis. No colon wall thickening is identified. Urinary bladder is normal. Mild pelvic free fluid. Uterus atrophic or surgically absent. Bones unremarkable. IMPRESSION: 1. There is complex rim-enhancing fluid collection at the gastrosplenic recess and at the splenic hilum extending slightly inferior. Fluid collection is near the pancreas tail and is immediately adjacent to the lateral stomach and the medial spleen. Considerations include pancreatic pseudocysts versus unrelated abscess perhaps from perforated gastric ulcer or other source. Suggest short-term follow-up CT. 2. Moderate pericardial effusion. 3. New small bilateral pleural effusions. 4. Mild pelvic free fluid. Electronically signed by: Azeem Mcdowell MD (05/02/2019 10:10 PM) [facility]
[2019-05-02] MEDS: PIPERACILLIN/TAZOBACTAM 3.375 GM in IV NORMAL SALINE 50ML 50 ML IV SCH (22:58)
[2019-05-02 23:30] VITALS: BP 118/70
[2019-05-02] MEDS: ONDANSETRON PF 4 MG/2 ML VIAL. IV PRN (23:40)
[2019-05-02] MEDS: MORPHINE SULFATE 4 MG/ML VIAL. IV PRN ×2 (23:40→23:44)
[2019-05-03] VITALS (7 sets, daily range): BP systolic 93–105; BP diastolic 42–59
[2019-05-03] MEDS: MORPHINE SULFATE 4 MG/ML VIAL. IV PRN ×5 (03:25→20:02)
--- NOTE | 2019-05-03 04:23 | EKG ---
[facility] [address] [place] [address] Test Date: 2019-05-02 Test Time: 19:28:18 Pat Name: RA VALLEJO Department: Room: Gender: F Internal Grinder: : 1965 Requested By: JULIA MUELLER Order Number: [id number] Reading MD: Measurements Intervals Volin Rate: 60 P: VA: QRS: -27 QRSD: 74 T: 60 QT: 488 QTc: 493 Interpretive Statements ATRIAL FLUTTER LEFTWARD AXIS LOW LIMB LEAD VOLTAGE T ABNORMALITY IN ANTERIOR LEADS PROLONGED QT ABNORMAL ECG RI6.01 No previous ECG available for comparison
[2019-05-03] MEDS: PIPERACILLIN/TAZOBACTAM 3.375 GM in IV NORMAL SALINE 50ML 50 ML IV SCH ×4 (04:33→22:26)
[2019-05-03] MEDS: IV NORMAL SALINE 1000ML BAG 1,000 ML IV SCH ×2 (08:25→14:41)
[2019-05-03] MEDS ORDERED: NITROGLYCERIN SUBLINGUAL 0.4 MG BOTTLE OF 25. SL PRN (12:45)
[2019-05-03] MEDS: fentaNYL 25MCG/HR PATCH 1 PATCH PATCH.TD72 TD SCH (12:55)
[2019-05-03] MEDS: CYCLOBENZAPRINE 10 MG TABLET. PO SCH ×2 (12:59→20:07)
[2019-05-03] MEDS: carBAMazepine 200 MG TABLET PO SCH ×2 (12:59→20:07)
[2019-05-03] MEDS: DIGOXIN 125 MCG TABLET. PO SCH (13:00)
[2019-05-03] MEDS: CITALOPRAM 20 MG TABLET. PO SCH (13:00)
[2019-05-03] MEDS: ALBUTEROL SULFATE 2.5 MG/3 ML NEBU. NEB SCH ×2 (13:15→18:00)
--- NOTE | 2019-05-03 13:31 | PDOC1 ---
History and Physical Date of Admission: Date of Admission DATE: 05/03/19 TIME: 13:28 Chief Complaint: Problems: (1) Aspiration pneumonia (2) Heart block AV third degree (3) UTI (lower urinary tract infection) (4) Contusion of right foot (5) Multiple sclerosis (6) Chest pain (7) Intractable pain (8) Cardiomyopathy (9) Chronic left flank pain (10) Vomiting and diarrhea Chief Complain: Abdominal pain nausea vomiting History of Present Illness: HPI: Patient is a 53-year-old female who presents with complaint of abdominal pain with nausea, vomiting and diarrhea since April 23. Patient states that she is really had difficulty in keeping anything down. Patient states that she had a pain pump changed on April 21 and believes that part of her problem is withdrawal from pain medication. She has the pain pump for chronic pain management of MS. She rates the pain in her abdomen at an 8 out of 10. Patient states that she has had no fever. She states that she is getting weaker and weaker as the days go by. Patient also indicates that she is been having some intermittent chest pain during the same time. She denies any current chest pain however.[] Past Medical/Surgical History: PMH/PSH: Past Medical History: Cancer, COPD, High Cholesterol, Heart Disease, Hypotension, Other Additional Past Medical Histor: MS, Osteoporosis, carmichael's esophagus, mitral vavle insuf,thyroid cancer, Past Surgical History: Angioplasty, Appendectomy, Hysterectomy, Pacemaker, Tonsillectomy, Other Additional Past Surgical Histo: Morphine pump,Mesh placed r/t "a lot of laproscopies," "Part of Thyroid" Alcohol Use: None Drug Use: None Allergies: Allergies: Coded Allergies: No Known Allergies (Unverified Allergy, Unknown, 06/18/16) Family History: Family History: Hypertension Social History: Social Hisoty: She doesn't smoke or take drugs Current Medications: Current Medications Current Medications Sodium Chloride 1,000 ml @ 1,000 mls/hr Q1H IV Last administered on 05/02/19at 19:36; Start 05/02/19 at 19:11; Stop 05/02/19 at 20:10; Status DC Metoclopramide HCl (Reglan Vial) 10 mg 1X ONCE IVP Last administered on 1 07/03/18at 19:36; Start 05/02/19 at 19:15; Stop 05/02/19 at 19:16; Status DC Diphenhydramine HCl (Benadryl) 25 mg 1X ONCE IVP Last administered on 05/02/19at 19:36; Start 05/02/19 at 19:15; Stop 05/02/19 at 19:16; Status DC Iohexol (Omnipaque 300 Mg/ml) 75 ml 1X ONCE IV Last administered on 05/02/19at 20:45; Start 05/02/19 at 20:45; Stop 05/02/19 at 20:48; Status DC Info (CONTRAST GIVEN -- Rx MONITORING) 1 each PRN DAILY PRN MC SEE COMMENTS; Start 05/02/19 at 21:00; Stop 05/04/19 at 20:59 Piperacillin Sod/ Tazobactam Sod 3.375 gm/Sodium Chloride 50 ml @ 100 mls/hr Q6H IV Last administered on 05/03/19at 10:23; Start 05/02/19 at 23:00 Ondansetron HCl (Zofran) 4 mg PRN Q8HRS PRN IV NAUSEA/VOMITING Last administered on 05/02/19at 23:40; Start 05/02/19 at 22:45; Stop 05/03/19 at 22:44 Morphine Sulfate (Morphine Sulfate) 4 mg PRN Q2HR PRN IV PAIN Last administered on 05/03/19at 12:53; Start 05/02/19 at 22:45; Stop 05/03/19 at 22:44 Sodium Chloride 1,000 ml @ 0 mls/hr Q0M IV ; Start 05/02/19 at 22:36; Stop 05/02/19 at 22:49; Status DC Sodium Chloride 1,000 ml @ 125 mls/hr Q8H IV Last administered on 05/02/19at 2 2:59; Start 05/02/19 at 23:00; Stop 05/03/19 at 06:59; Status DC Sodium Chloride 1,000 ml @ 125 mls/hr Q8H IV Last administered on 05/03/19at 08:25; Start 05/03/19 at 08:30 Aspirin (Ecotrin) 81 mg DAILY PO ; Start 05/04/19 at 09:00 Clonazepam (KlonoPIN) 0.5 mg PRN TID PRN PO TREMORS; Start 05/03/19 at 12:45 Fentanyl (Duragesic 25mcg/ Hr Patch) 1 patch Q3DAYS TD Last administered on 05/03/19at 12:55; Start 05/03/19 at 13:00 Nitroglycerin (Nitrostat) 0.4 mg PRN Q5MIN PRN SL CHEST PAIN; Start 05/03/19 at 12:45 Oxycodone/ Acetaminophen (Percocet 10/325) 1 tab PRN Q4HRS PRN PO MODERATE TO SEVERE PAIN; Start 05/03/19 at 12:45 Trazodone HCl (Desyrel) 200 mg HS PO ; Start 05/03/19 at 21:00 Cyclobenzaprine HCl (Flexeril) 10 mg TID PO ; Start 05/03/19 at 14:00 Non-Formulary Medication (Budesonide/ Formoterol Fumarate (Symbicort 160-4.5 Mcg Inhaler)) 2 puff BID IH ; Start 05/03/19 at 21:00; Status UNV Carbamazepine (TEGretol) 200 mg TID PO ; Start 05/03/19 at 14:00 Digoxin (Lanoxin) 125 mcg DAILY PO ; Start 05/03/19 at 13:00 Citalopram Hydrobromide (CeleXA) 20 mg DAILY PO ; Start 05/03/19 at 13:00 Non-Formulary Medication (Modafinil (Provigil)) 200 mg DAILY PO ; Start 05/04/19 at 09:00; Status UNV Albuterol Sulfate (Ventolin Neb Soln) 2.5 mg Q6HRS NEB ; Start 05/03/19 at 13:15 Budesonide (Pulmicort) 0.5 mg RTBID NEB ; Start 05/03/19 at 20:00 Active Scripts Active Reported FENTANYL 25mcg/hr (Fentanyl) 1 Each Patch.td72 1 Patch TP Q3DAYS Nitrostat (Nitroglycerin) 0.4 Mg Tab.subl 0.4 Mg SL PRN Q5MIN PRN Trazodone Hcl 100 Mg Tablet 200 Mg PO HS Klonopin (Clonazepam) 0.5 Mg Tablet 0.5 Mg PO TID PRN [morphine] 14.5 Mg ID DAILY Aspir 81 (Aspirin) 81 Mg Tablet.dr 81 Mg PO DAILY Symbicort 160-4.5 Mcg Inhaler (Budesonide/Formoterol Fumarate) 10.2 Gm Hfa.aer.ad 2 Puff IH BID Percocet 10-325 Mg Tablet (Oxycodone/Acetaminophen) 1 Each Tablet 1 Tab PO Q4HRS PRN Baclofen 10 Mg Tablet 1 Tab PO TID Trazodone Hcl 100 Mg Tablet 2 Tab PO QHS Provigil (Modafinil) 100 Mg Tablet 200 Mg PO DAILY Digoxin 0.125 Mg/2.5 Ml Solution 0.125 Mg PO DAILY Carbamazepine 200 Mg Cpmp.12hr 200 Mg PO TID Lexapro (Escitalopram Oxalate) 10 Mg Tablet 10 Mg PO DAILY ROS: Review of Systems Review of System REVIEW OF SYSTEMS: GENERAL: Denies weakness SKIN: No bruising, hair changes or rashes. EYES: No blurred, double or loss of vision. NOSE AND THROAT: No history of nosebleeds, hoarseness or sore throat. HEART: No history of palpitations, chest pain or shortness of breath on exertion. LUNGS: Denies cough, hemoptysis, wheezing or shortness of breath. GASTROINTESTINAL: Complains of abdominal pain nausea vomiting GENITOURINARY: No history of frequency, urgency, hesitancy or nocturia. NEUROLOGIC: Denies history of numbness, tingling, tremor or weakness. PSYCHIATRIC: No history of panic, anxiety or depression. ENDOCRINE: No history of heat or cold intolerance, polyuria or polydipsia. EXTREMITIES: Denies muscle weakness, joint pain, pain on walking or stiffness. Physical Exam: Vital Signs: Vital Signs Date Time Temp Pulse Resp B/P (MAP) Pulse Ox O2 Delivery O2 Flow Rate FiO2 05/03/19 12:55 Nasal Cannula 3.0 05/03/19 11:00 98.5 60 18 102/58 (73) 95 98.5 Physcial Exam: GEN: No apparent distress. Alert and oriented HEENT: Normal cephalic, atraumatic, external auditory canals are patent EYES: Extraocular muscles are intact, pupil are equally round and reactive to light and accommodation MUSCULOSKELETAL: Well developed , well nourished, good range of motion ENDOCRINE: Ny thyromegaly was palpated LYMPHATICS: No cervical chain or axillary nodes were noted HEMATOPOIETIC: No bruising NECK: Supple, no JVD, no thyromegaly was noted LUNGS: Clear to auscultation in all lung barragan without rhonchi or wheezing HEART: RRR, S!, S2 present. Peripheral pulses intact, no obvious murmurs noted ABDOMEN: Tender EXTREMITIES: Without clubbing, cyanosis, or edema. Pedal pulses intact. Nega tive Homans sign NEUROLOGIC: Normal speech and tone. A&O x 3, moves all extremities, no obvious focal deficits PSYCHIATRIC: Normal affect, normal mood. Stable SKIN: No ulcerations or rashes, good skin turgor, no jaundice VASCULAR: Good capillary refill, neurovascular bundle appears to be intact Labs: Labs: Laboratory Tests Test 05/02/19 19:18 White Blood Count 9.7 x10^3/uL (4.0-11.0) Red Blood Count 3.94 x10^6/uL (3.50-5.40) Hemoglobin 13.1 g/dL (12.0-15.5) Hematocrit 38.9 % (36.0-47.0) Mean Corpuscular Volume 99 fL (79-100) Mean Corpuscular Hemoglobin 33 pg (25-35) Mean Corpuscular Hemoglobin Concent 34 g/dL (31-37) Red Cell Distribution Width 13.9 % (11.5-14.5) Platelet Count 237 x10^3/uL (140-400) Neutrophils (%) (Auto) 77 % (31-73) Lymphocytes (%) (Auto) 18 % (24-48) Monocytes (%) (Auto) 4 % (0-9) Eosinophils (%) (Auto) 0 % (0-3) Basophils (%) (Auto) 1 % (0-3) Neutrophils # (Auto) 7.5 x10^3/uL (1.8-7.7) Lymphocytes # (Auto) 1.7 x10^3/uL (1.0-4.8) Monocytes # (Auto) 0.4 x10^3/uL (0.0-1.1) Eosinophils # (Auto) 0.0 x10^3/uL (0.0-0.7) Basophils # (Auto) 0.0 x10^3/uL (0.0-0.2) Sodium Level 140 mmol/L (136-145) Potassium Level 3.2 mmol/L (3.5-5.1) Chloride Level 100 mmol/L (98-107) Carbon Dioxide Level 38 mmol/L (21-32) Anion Gap 2 (6-14) Blood Urea Nitrogen 15 mg/dL (7-20) Creatinine 0.6 mg/dL (0.6-1.0) Estimated GFR (Cockcroft-Gault) 104.6 BUN/Creatinine Ratio 25 (6-20) Glucose Level 99 mg/dL (70-99) Calcium Level 9.8 mg/dL (8.5-10.1) Total Bilirubin 0.4 mg/dL (0.2-1.0) Aspartate Amino Transf (AST/SGOT) 14 U/L (15-37) Alanine Aminotransferase (ALT/SGPT) 16 U/L (14-59) Alkaline Phosphatase 75 U/L (46-116) Troponin I Quantitative < 0.017 ng/mL (0.000-0.055) Total Protein 6.8 g/dL (6.4-8.2) Albumin 2.6 g/dL (3.4-5.0) Albumin/Globulin Ratio 0.6 (1.0-1.7) Lipase 983 U/L (73-393) Laboratory Tests Test 05/02/19 19:18 White Blood Count 9.7 x10^3/uL (4.0-11.0) Red Blood Count 3.94 x10^6/uL (3.50-5.40) Hemoglobin 13.1 g/dL (12.0-15.5) Hematocrit 38.9 % (36.0-47.0) Mean Corpuscular Volume 99 fL (79-100) Mean Corpuscular Hemoglobin 33 pg (25-35) Mean Corpuscular Hemoglobin Concent 34 g/dL (31-37) Red Cell Distribution Width 13.9 % (11.5-14.5) Platelet Count 237 x10^3/uL (140-400) Neutrophils (%) (Auto) 77 % (31-73) Lymphocytes (%) (Auto) 18 % (24-48) Monocytes (%) (Auto) 4 % (0-9) Eosinophils (%) (Auto) 0 % (0-3) Basophils (%) (Auto) 1 % (0-3) Neutrophils # (Auto) 7.5 x10^3/uL (1.8-7.7) Lymphocytes # (Auto) 1.7 x10^3/uL (1.0-4.8) Monocytes # (Auto) 0.4 x10^3/uL (0.0-1.1) Eosinophils # (Auto) 0.0 x10^3/uL (0.0-0.7) Basophils # (Auto) 0.0 x10^3/uL (0.0-0.2) Sodium Level 140 mmol/L (136-145) Potassium Level 3.2 mmol/L (3.5-5.1) Chloride Level 100 mmol/L (98-107) Carbon Dioxide Level 38 mmol/L (21-32) Anion Gap 2 (6-14) Blood Urea Nitrogen 15 mg/dL (7-20) Creatinine 0.6 mg/dL (0.6-1.0) Estimated GFR (Cockcroft-Gault) 104.6 BUN/Creatinine Ratio 25 (6-20) Glucose Level 99 mg/dL (70-99) Calcium Level 9.8 mg/dL (8.5-10.1) Total Bilirubin 0.4 mg/dL (0.2-1.0) Aspartate Amino Transf (AST/SGOT) 14 U/L (15-37) Alanine Aminotransferase (ALT/SGPT) 16 U/L (14-59) Alkaline Phosphatase 75 U/L (46-116) Troponin I Quantitative < 0.017 ng/mL (0.000-0.055) Total Protein 6.8 g/dL (6.4-8.2) Albumin 2.6 g/dL (3.4-5.0) Albumin/Globulin Ratio 0.6 (1.0-1.7) Lipase 983 U/L (73-393) Images: Images 1. There is complex rim-enhancing fluid collection at the gastrosplenic recess and at the splenic hilum extending slightly inferior. Fluid collection is near the pancreas tail and is immediately adjacent to the lateral stomach and the medial spleen. Considerations include pancreatic pseudocysts versus unrelated abscess perhaps from perforated gastric ulcer or other source. Suggest short-term follow-up CT. 2. Moderate pericardial effusion. 3. New small bilateral pleural effusions. 4. Mild pelvic free fluid. Assessment/Plan Assessment/Plan Pancreatic pseudocyst with pancreatitis Plan Consult GI IV fluids When necessary anti-medics When necessary narcotics DVT prophylaxis Full code Hemodynamically unstable?: Yes Respiratory Distress?: Yes Serious Diagnosis?: Yes Is patient at high risk?: Yes JENNIFER OCONNELL III DO May 03, 2019 13:31
--- NOTE | 2019-05-03 13:33 | PDOC2 ---
CONSULT Date of Consult Date of Consult DATE: 05/03/19 TIME: 13:27 Reason for Consult Reason for Consult: pancreatic tail cyst Referring Physician Referring Physician: Dr. Will Identification/Chief Complaint Chief Complaint anorexia, abd pain Source Source: Chart review, Patient History of Present Illness Reason for Visit: 53 yo F with MS presents with several month history of LUQ abd pain, N/V, and difficulty eating. She is severely malnourished, given BMI and has lost significant weight. Past Medical History Cardiovascular: CAD, Hyperlipidemia, Other Pulmonary: COPD, Pneumonia, Other CENTRAL NERVOUS SYSTEM: Other GI: Other Psych: Anxiety, Depression Musculoskeletal: Other Renal/: Other Endocrine: Osteoporosis Past Surgical History Past Surgical History: Pacemaker, Appendectomy, Hysterectomy, Other Family History Family History: Heart Disease Social History ALCOHOL: none Drugs: None Current Problem List Problem List Problems Medical Problems: (1) Pancreatic pseudocyst Status: Acute (2) Pancreatitis, acute Status: Acute Current Medications Current Medications Current Medications Sodium Chloride 1,000 ml @ 1,000 mls/hr Q1H IV Last administered on 05/02/19at 19:36; Start 05/02/19 at 19:11; Stop 05/02/19 at 20:10; Status DC Metoclopramide HCl (Reglan Vial) 10 mg 1X ONCE IVP Last administered on 05/02/19at 19:36; Start 05/02/19 at 19:15; Stop 05/02/19 at 19:16; Status DC Diphenhydramine HCl (Benadryl) 25 mg 1X ONCE IVP Last administered on 05/02/19at 19:36; Start 05/02/19 at 19:15; Stop 05/02/19 at 19:16; Status DC Iohexol (Omnipaque 300 Mg/ml) 75 ml 1X ONCE IV Last administered on 05/02/19at 20:45; Start 05/02/19 at 20:45; Stop 05/02/19 at 20:48; Status DC Info (CONTRAST GIVEN -- Rx MONITORING) 1 each PRN DAILY PRN MC SEE COMMENTS; Start 05/02/19 at 21:00; Stop 05/04/19 at 20:59 Piperacillin Sod/ Tazobactam Sod 3.375 gm/Sodium Chloride 50 ml @ 100 mls/hr Q6H IV Last administered on 05/03/19at 10:23; Start 05/02/19 at 23:00 Ondansetron HCl (Zofran) 4 mg PRN Q8HRS PRN IV NAUSEA/VOMITING Last administered on 05/02/19at 23:40; Start 05/02/19 at 22:45; Stop 05/03/19 at 22:44 Morphine Sulfate (Morphine Sulfate) 4 mg PRN Q2HR PRN IV PAIN Last administered on 05/03/19at 12:53; Start 05/02/19 at 22:45; Stop 05/03/19 at 22:44 Sodium Chloride 1,000 ml @ 0 mls/hr Q0M IV ; Start 05/02/19 at 22:36; Stop 05/02/19 at 22:49; Status DC Sodium Chloride 1,000 ml @ 125 mls/hr Q8H IV Last administered on 05/02/19at 22:59; Start 05/02/19 at 23:00; Stop 05/03/19 at 06:59; Status DC Sodium Chloride 1,000 ml @ 125 mls/hr Q8H IV Last administered on 05/03/19at 08:25; Start 05/03/19 at 08:30 Aspirin (Ecotrin) 81 mg DAILY PO ; Start 05/04/19 at 09:00 Clonazepam (KlonoPIN) 0.5 mg PRN TID PRN PO TREMORS; Start 05/03/19 at 12:45 Fentanyl (Duragesic 25mcg/ Hr Patch) 1 patch Q3DAYS TD Last administered on 05/03/19at 12:55; Start 05/03/19 at 13:00 Nitroglycerin (Nitrostat) 0.4 mg PRN Q5MIN PRN SL CHEST PAIN; Start 05/03/19 at 12:45 Oxycodone/ Acetaminophen (Percocet 10/325) 1 tab PRN Q4HRS PRN PO MODERATE TO SEVERE PAIN; Start 05/03/19 at 12:45 Trazodone HCl (Desyrel) 200 mg HS PO ; Start 05/03/19 at 21:00 Cyclobenzaprine HCl (Flexeril) 10 mg TID PO ; Start 05/03/19 at 14:00 Non-Formulary Medication (Budesonide/ Formoterol Fumarate (Symbicort 160-4.5 Mcg Inhaler)) 2 puff BID IH ; Start 05/03/19 at 21:00; Status UNV Carbamazepine (TEGretol) 200 mg TID PO ; Start 05/03/19 at 14:00 Digoxin (Lanoxin) 125 mcg DAILY PO ; Start 05/03/19 at 13:00 Citalopram Hydrobromide (CeleXA) 20 mg DAILY PO ; Start 05/03/19 at 13:00 Non-Formulary Medication (Modafinil (Provigil)) 200 mg DAILY PO ; Start 05/04/19 at 09:00; Status UNV Albuterol Sulfate (Ventolin Neb Soln) 2.5 mg Q6HRS NEB ; Start 05/03/19 at 13:15 Budesonide (Pulmicort) 0.5 mg RTBID NEB ; Start 05/03/19 at 20:00 Active Scripts Active Reported FENTANYL 25mcg/hr (Fentanyl) 1 Each Patch.td72 1 Patch TP Q3DAYS Nitrostat (Nitroglycerin) 0.4 Mg Tab.subl 0.4 Mg SL PRN Q5MIN PRN Trazodone Hcl 100 Mg Tablet 200 Mg PO HS Klonopin (Clonazepam) 0.5 Mg Tablet 0.5 Mg PO TID PRN [morphine] 14.5 Mg ID DAILY Aspir 81 (Aspirin) 81 Mg Tablet.dr 81 Mg PO DAILY Symbicort 160-4.5 Mcg Inhaler (Budesonide/Formoterol Fumarate) 10.2 Gm Hfa.aer.ad 2 Puff IH BID Percocet 10-325 Mg Tablet (Oxycodone/Acetaminophen) 1 Each Tablet 1 Tab PO Q4HRS PRN Baclofen 10 Mg Tablet 1 Tab PO TID Trazodone Hcl 100 Mg Tablet 2 Tab PO QHS Provigil (Modafinil) 100 Mg Tablet 200 Mg PO DAILY Digoxin 0.125 Mg/2.5 Ml Solution 0.125 Mg PO DAILY Carbamazepine 200 Mg Cpmp.12hr 200 Mg PO TID Lexapro (Escitalopram Oxalate) 10 Mg Tablet 10 Mg PO DAILY Allergies Allergies: Coded Allergies: No Known Allergies (Unverified Allergy, Unknown, 06/18/16) ROS General: YES: Fatigue, Appetite Gastrointestinal: Yes Nausea, Yes Abdominal Pain Physical Exam General: Alert, Oriented X3, Cooperative, No acute distress, Other (thin) HEENT: Atraumatic Lungs: Normal air movement Abdomen: Soft, Other (TTP epigastric, pain pump in place LUQ) Extremities: No clubbing, No cyanosis Skin: No rashes, No breakdown Neuro: Normal speech, Sensation intact Psych/Mental Status: Mental status NL, Mood NL Vitals VITALS Vital Signs Date Time Temp Pulse Resp B/P (MAP) Pulse Ox O2 Delivery O2 Flow Rate FiO2 05/03/19 12:55 Nasal Cannula 3.0 05/03/19 11:00 98.5 60 18 102/58 (73) 95 98.5 Labs Labs Laboratory Tests Test 05/02/19 19:18 White Blood Count 9.7 x10^3/uL (4.0-11.0) Red Blood Count 3.94 x10^6/uL (3.50-5.40) Hemoglobin 13.1 g/dL (12.0-15.5) Hematocrit 38.9 % (36.0-47.0) Mean Corpuscular Volume 99 fL (79-100) Mean Corpuscular Hemoglobin 33 pg (25-35) Mean Corpuscular Hemoglobin Concent 34 g/dL (31-37) Red Cell Distribution Width 13.9 % (11.5-14.5) Platelet Count 237 x10^3/uL (140-400) Neutrophils (%) (Auto) 77 % (31-73) Lymphocytes (%) (Auto) 18 % (24-48) Monocytes (%) (Auto) 4 % (0-9) Eosinophils (%) (Auto) 0 % (0-3) Basophils (%) (Auto) 1 % (0-3) Neutrophils # (Auto) 7.5 x10^3/uL (1.8-7.7) Lymphocytes # (Auto) 1.7 x10^3/uL (1.0-4.8) Monocytes # (Auto) 0.4 x10^3/uL (0.0-1.1) Eosinophils # (Auto) 0.0 x10^3/uL (0.0-0.7) Basophils # (Auto) 0.0 x10^3/uL (0.0-0.2) Sodium Level 140 mmol/L (136-145) Potassium Level 3.2 mmol/L (3.5-5.1) Chloride Level 100 mmol/L (98-107) Carbon Dioxide Level 38 mmol/L (21-32) Anion Gap 2 (6-14) Blood Urea Nitrogen 15 mg/dL (7-20) Creatinine 0.6 mg/dL (0.6-1.0) Estimated GFR (Cockcroft-Gault) 104.6 BUN/Creatinine Ratio 25 (6-20) Glucose Level 99 mg/dL (70-99) Calcium Level 9.8 mg/dL (8.5-10.1) Total Bilirubin 0.4 mg/dL (0.2-1.0) Aspartate Amino Transf (AST/SGOT) 14 U/L (15-37) Alanine Aminotransferase (ALT/SGPT) 16 U/L (14-59) Alkaline Phosphatase 75 U/L (46-116) Troponin I Quantitative < 0.017 ng/mL (0.000-0.055) Total Protein 6.8 g/dL (6.4-8.2) Albumin 2.6 g/dL (3.4-5.0) Albumin/Globulin Ratio 0.6 (1.0-1.7) Lipase 983 U/L (73-393) Laboratory Tests Test 05/02/19 19:18 White Blood Count 9.7 x10^3/uL (4.0-11.0) Red Blood Count 3.94 x10^6/uL (3.50-5.40) Hemoglobin 13.1 g/dL (12.0-15.5) Hematocrit 38.9 % (36.0-47.0) Mean Corpuscular Volume 99 fL (79-100) Mean Corpuscular Hemoglobin 33 pg (25-35) Mean Corpuscular Hemoglobin Concent 34 g/dL (31-37) Red Cell Distribution Width 13.9 % (11.5-14.5) Platelet Count 237 x10^3/uL (140-400) Neutrophils (%) (Auto) 77 % (31-73) Lymphocytes (%) (Auto) 18 % (24-48) Monocytes (%) (Auto) 4 % (0-9) Eosinophils (%) (Auto) 0 % (0-3) Basophils (%) (Auto) 1 % (0-3) Neutrophils # (Auto) 7.5 x10^3/uL (1.8-7.7) Lymphocytes # (Auto) 1.7 x10^3/uL (1.0-4.8) Monocytes # (Auto) 0.4 x10^3/uL (0.0-1.1) Eosinophils # (Auto) 0.0 x10^3/uL (0.0-0.7) Basophils # (Auto) 0.0 x10^3/uL (0.0-0.2) Sodium Level 140 mmol/L (136-145) Potassium Level 3.2 mmol/L (3.5-5.1) Chloride Level 100 mmol/L (98-107) Carbon Dioxide Level 38 mmol/L (21-32) Anion Gap 2 (6-14) Blood Urea Nitrogen 15 mg/dL (7-20) Creatinine 0.6 mg/dL (0.6-1.0) Estimated GFR (Cockcroft-Gault) 104.6 BUN/Creatinine Ratio 25 (6-20) Glucose Level 99 mg/dL (70-99) Calcium Level 9.8 mg/dL (8.5-10.1) Total Bilirubin 0.4 mg/dL (0.2-1.0) Aspartate Amino Transf (AST/SGOT) 14 U/L (15-37) Alanine Aminotransferase (ALT/SGPT) 16 U/L (14-59) Alkaline Phosphatase 75 U/L (46-116) Troponin I Quantitative < 0.017 ng/mL (0.000-0.055) Total Protein 6.8 g/dL (6.4-8.2) Albumin 2.6 g/dL (3.4-5.0) Albumin/Globulin Ratio 0.6 (1.0-1.7) Lipase 983 U/L (73-393) Images Images cyst in LUQ in pancreatic tail Assessment/Plan Assessment/Plan Favor cyst is pancreatic pseudocyst, given elevated pancreatic enzymes and dilated pancreatic duct. will obtain car spotter consult, but favor pt will best be served by TPN, given pancreatitis and severe malnutrition. EUS may be beneficial for diagnosis, but given symptomatic and prolonged nature of cyst, favor resection once nutritional status improved and pancreatitis improved. Thanks for consult! LONG MORELAND MD May 03, 2019 13:33
[2019-05-03] MEDS ORDERED: LIDOCAINE WITH 8.4% SOD BICARB 3 ML DISP.SYRIN. ONE (14:48)
[2019-05-03] MEDS ORDERED: LIDOCAINE WITH 8.4% SOD BICARB 3 ML DISP.SYRIN. IJ ONE (15:00)
--- NOTE | 2019-05-03 15:31 | RAD ---
Exam: Fluoroscopic and ultrasound guided right percutaneous inserted central venous catheter placement 05/03/2019 1:27 PM .Indication: TPN access Technique: Informed oral and written consent were obtained. The right upper extremity was prepped and draped using sterile barrier technique. All elements of maximal sterile barrier technique including the use of a cap, mask, sterile gown, sterile gloves, large sterile sheet, appropriate hand hygiene, and 2% chlorhexidine for cutaneous antisepsis (or acceptable alternative antiseptic per current guidelines) were followed for this procedure.. Real-time ultrasound demonstrated a patent right basilic vein which was prepped and draped in usual sterile fashion. 1% lidocaine used for local anesthesia. Using real-time ultrasound guidance the access needle percutaneously punctured the selected right basilic vein. Reference ultrasound images were saved to the medical record. A guidewire was advanced through the needle to the cavoatrial junction, and a peel-away sheath placed. The catheter was cut to length and inserted through the peel-away sheath such that its tip is at the cavoatrial junction. The wire and sheath were removed, and the catheter secured in place, and a sterile dressing was applied. Catheter was found to flush and aspirate normally. No immediate complications are identified. FLUORO TIME: 0.1 min DOSE AREA PRODUCT: 0.1 Gycm2 Impression: Ultrasound and fluoroscopically guided placement of a right upper extremity PICC line.
--- NOTE | 2019-05-03 15:31 | NUR ---
SW following. Discussed with RN, pt is from home with daughter, has o2 at home. Pt getting PICC line placed today, and starting TPN. SW will continue to follow.
[2019-05-03] MEDS: TPN PER PHARMACY MC PRN (15:37)
--- NOTE | 2019-05-03 15:41 | NUR ---
Pharmacy TPN Dosing Note S: RA VALLEJO is a 53 year old F Currently receiving Central Continuous TPN started 05/03/19 B:Pertinent PMH: PANCREATITIS/MALNOURISH Height: 5 feet, 7 inches Weight: 45.110640 kg Current diet: LABS: Sodium: 140 Potassium: 3.2 Chloride: 100 Calcium: 9.8 Corrected Calcium: 10.92 Magnesium: CO2: 38 SCr: 0.6 Glucose: 99 Albumin: 2.6 AST: 14 ALT: 16 TPN FORMULA: TPN TYPE: Central Continuous AMINO ACIDS: 55 gm DEXTROSE: 195 gm LIPIDS: 20 gm SODIUM CHLORIDE: 90 mEq SODIUM ACETATE: mEq SODIUM PHOSPHATE: mmol POTASSIUM CHLORIDE: 50 mEq POTASSIUM ACETATE: mEq POTASSIUM PHOSPHATE: 13.6 mmol MAGNESIUM: 10 mEq CALCIUM: 10 mEq INSULIN: units MULTIPLE VITAMIN: 10 ml TRACE ELEMENTS: 1 ml(s) TPN PLAN: AA 55 GM, DEXTROSE 195, LIPID 20 GM PER DIEATARY REC. R: Begin TPN AT 63ML/HR Will monitor electrolytes, glucose, and tolerance to TPN. JESSICA GUIDRY [facility], 05/03/19 [id number]
[2019-05-03] MEDS: BUDESONIDE 0.5 MG/2 ML NEBU. NEB SCH (20:00)
[2019-05-03] MEDS: ONDANSETRON PF 4 MG/2 ML VIAL. IV PRN (20:01)
[2019-05-03] MEDS ORDERED: IV DEXTROSE 5% 250 ML BAG. IV PRN (20:45)
[2019-05-03] MEDS ORDERED: DEXTROSE 50% 25 GM / 50ML DISP.SYRIN. IV PRN (20:45)
[2019-05-03] MEDS ORDERED: NON FORMULARY ITEM (Budesonide/Formoterol Fumarate (Symbicort 160-4.5 Mcg Inhaler) 2 PUFF) IH SCH (21:00)
[2019-05-03] MEDS ORDERED: traZODone 100 MG TABLET. PO SCH (21:00)
[2019-05-03] MEDS ORDERED: [UNRECOGNIZED DRUG - OTHER] IV SCH ×10 (22:00)
[2019-05-03] MEDS ORDERED: TOTAL PARENTERAL NUTRITION IV SCH ×10 (22:00)
[2019-05-03] MEDS ORDERED: DEXTROSE 70% IV SCH ×10 (22:00)
[2019-05-03] MEDS ORDERED: AMINO ACID IV SCH ×10 (22:00)
[2019-05-04] MEDS: MORPHINE SULFATE 4 MG/ML VIAL. IV PRN ×5 (00:48→19:27)
[2019-05-04] MEDS: IV NORMAL SALINE 1000ML BAG 1,000 ML IV SCH ×2 (00:50→08:04)
[2019-05-04 03:24] VITALS: BP 126/80
[2019-05-04] MEDS: PIPERACILLIN/TAZOBACTAM 3.375 GM in IV NORMAL SALINE 50ML 50 ML IV SCH ×4 (04:14→22:41)
[2019-05-04 04:44] LABS: CALCIUM 8.5 mg/dL (8.5-10.1); CREATININE 0.4 mg/dL (0.6-1.0); MAGNESIUM 1.9 mg/dL (1.8-2.4); PHOSPHORUS 3.1 mg/dL (2.6-4.7); POTASSIUM 3.5 mmol/L (3.5-5.1)
[2019-05-04] MEDS: ALBUTEROL SULFATE 2.5 MG/3 ML NEBU. NEB SCH ×4 (06:00→18:00)
[2019-05-04] MEDS: BUDESONIDE 0.5 MG/2 ML NEBU. NEB SCH ×2 (07:09→20:00)
[2019-05-04 07:15] VITALS: BP 95/52
[2019-05-04] MEDS: CITALOPRAM 20 MG TABLET. PO SCH (08:05)
[2019-05-04] MEDS: DIGOXIN 125 MCG TABLET. PO SCH (08:05)
[2019-05-04] MEDS: ASPIRIN ENTERIC COATED 81 MG TABLET.DR. PO SCH (08:06)
[2019-05-04] MEDS: carBAMazepine 200 MG TABLET PO SCH ×3 (08:07→21:00)
[2019-05-04] MEDS: CYCLOBENZAPRINE 10 MG TABLET. PO SCH ×2 (08:07→09:11)
[2019-05-04] MEDS ORDERED: PANTOPRAZOLE IV PUSH 40 MG VIAL. IVP ONE (09:00)
[2019-05-04] MEDS ORDERED: NON FORMULARY ITEM (Modafinil (Provigil) 200 MG) PO SCH (09:00)
--- NOTE | 2019-05-04 09:10 | PDOC ---
CASS DEVINE ASSISTANT PROFESSOR OF CHEMISTRY 05/04/19 0910: SURGICAL PROGRESS NOTE Subjective still with abdominal pain managed with meds Vital Signs Vital Signs Date Time Temp Pulse Resp B/P (MAP) Pulse Ox O2 Delivery O2 Flow Rate FiO2 05/04/19 08:58 96 Nasal Cannula 3.0 05/04/19 08:05 63 95/52 05/04/19 07:15 98.3 18 98.3 I&O Intake and Output 05/04/19 07:00 Intake Total 120 ml Balance 120 ml Intake Oral 120 ml # Voids 2 General: Alert, Cooperative Abdomen: Soft, Other (moderate ttp luq) Labs Laboratory Tests Test 05/02/19 19:18 05/03/19 20:39 05/03/19 21:03 05/03/19 22:06 White Blood Count 9.7 x10^3/uL (4.0-11.0) Red Blood Count 3.94 x10^6/uL (3.50-5.40) Hemoglobin 13.1 g/dL (12.0-15.5) Hematocrit 38.9 % (36.0-47.0) Mean Corpuscular Volume 99 fL (79-100) Mean Corpuscular Hemoglobin 33 pg (25-35) Mean Corpuscular Hemoglobin Concent 34 g/dL (31-37) Red Cell Distribution Width 13.9 % (11.5-14.5) Platelet Count 237 x10^3/uL (140-400) Neutrophils (%) (Auto) 77 % (31-73) Lymphocytes (%) (Auto) 18 % (24-48) Monocytes (%) (Auto) 4 % (0-9) Eosinophils (%) (Auto) 0 % (0-3) Basophils (%) (Auto) 1 % (0-3) Neutrophils # (Auto) 7.5 x10^3/uL (1.8-7.7) Lymphocytes # (Auto) 1.7 x10^3/uL (1.0-4.8) Monocytes # (Auto) 0.4 x10^3/uL (0.0-1.1) Eosinophils # (Auto) 0.0 x10^3/uL (0.0-0.7) Basophils # (Auto) 0.0 x10^3/uL (0.0-0.2) Sodium Level 140 mmol/L (136-145) Potassium Level 3.2 mmol/L (3.5-5.1) Chloride Level 100 mmol/L (98-107) Carbon Dioxide Level 38 mmol/L (21-32) Anion Gap 2 (6-14) Blood Urea Nitrogen 15 mg/dL (7-20) Creatinine 0.6 mg/dL (0.6-1.0) Estimated GFR (Cockcroft-Gault) 104.6 BUN/Creatinine Ratio 25 (6-20) Glucose Level 99 mg/dL (70-99) Calcium Level 9.8 mg/dL (8.5-10.1) Total Bilirubin 0.4 mg/dL (0.2-1.0) Aspartate Amino Transf (AST/SGOT) 14 U/L (15-37) Alanine Aminotransferase (ALT/SGPT) 16 U/L (14-59) Alkaline Phosphatase 75 U/L (46-116) Troponin I Quantitative < 0.017 ng/mL (0.000-0.055) Total Protein 6.8 g/dL (6.4-8.2) Albumin 2.6 g/dL (3.4-5.0) Albumin/Globulin Ratio 0.6 (1.0-1.7) Lipase 983 U/L (73-393) Glucose (Fingerstick) 59 mg/dL (70-99) 65 mg/dL (70-99) 110 mg/dL (70-99) Test 05/04/19 04:23 05/04/19 04:25 Glucose (Fingerstick) 187 mg/dL (70-99) Sodium Level 142 mmol/L (136-145) Potassium Level 3.5 mmol/L (3.5-5.1) Chloride Level 106 mmol/L (98-107) Carbon Dioxide Level 32 mmol/L (21-32) Anion Gap 4 (6-14) Blood Urea Nitrogen 10 mg/dL (7-20) Creatinine 0.4 mg/dL (0.6-1.0) Estimated GFR (Cockcroft-Gault) 167.0 Glucose Level 202 mg/dL (70-99) Calcium Level 8.5 mg/dL (8.5-10.1) Phosphorus Level 3.1 mg/dL (2.6-4.7) Magnesium Level 1.9 mg/dL (1.8-2.4) Triglycerides Level 84 mg/dL (0-150) Lipase 691 U/L (73-393) Laboratory Tests Test 05/03/19 20:39 05/03/19 21:03 05/03/19 22:06 05/04/19 04:23 Glucose (Fingerstick) 59 mg/dL (70-99) 65 mg/dL (70-99) 110 mg/dL (70-99) 187 mg/dL (70-99) Test 05/04/19 04:25 Sodium Level 142 mmol/L (136-145) Potassium Level 3.5 mmol/L (3.5-5.1) Chloride Level 106 mmol/L (98-107) Carbon Dioxide Level 32 mmol/L (21-32) Anion Gap 4 (6-14) Blood Urea Nitrogen 10 mg/dL (7-20) Creatinine 0.4 mg/dL (0.6-1.0) Estimated GFR (Cockcroft-Gault) 167.0 Glucose Level 202 mg/dL (70-99) Calcium Level 8.5 mg/dL (8.5-10.1) Phosphorus Level 3.1 mg/dL (2.6-4.7) Magnesium Level 1.9 mg/dL (1.8-2.4) Triglycerides Level 84 mg/dL (0-150) Lipase 691 U/L (73-393) Problem List Problems Medical Problems: (1) Pancreatic pseudocyst Status: Acute (2) Pancreatitis, acute Status: Acute Assessment/Plan pancreatic pseudocyst continue TPN, bowel rest LONG MORELAND MD 05/04/19 1253: SURGICAL PROGRESS NOTE Assessment/Plan Pt seen and examined. Agree with Ms. Devine's note Pt with c/o LUQ pain TTP mild LUQ cont TPN and bowel rest elective resection in a month or so. CASS DEVINE APRN May 04, 2019 09:10 LONG MORELAND MD May 04, 2019 12:53
[2019-05-04 11:07] VITALS: BP 101/55
--- NOTE | 2019-05-04 11:44 | PDOC2 ---
GI CONSULT Reason For Consult: Pancreatitis HPI: HPI: 53 y/o female admitted 05/02 through ER. LUQ pain for 4 months, gradually worsening, worse w/ deep breathing and eating. Associated w/ vomiting and weight loss of 25 pounds over the past 6 months. Labs noted elevated lipase (983) and CT showed stable moderate pericardial effusion, small bilateral pleural effusions, mildly hydropic GB, 8mm cyst in pancreas tail, and complicated fluid collection near tip of pancreas tail w/ surrounding induration (considerations for pancreatic pseudocysts vs unrelated abscess perhaps from perforated or other source) - note made of fluid pockets immediately adjacent to spleen and stomach. Surgery is following - has discussed possible resection after nutrition status improved w/ TPN. We have seen her in the past - last in 06/2016 for left flank/abd pain and weight loss. EGD and colonoscopy in 06/2016 (for epigastric pain, black stools, back pain, and abnormal CTA showing mild transverse colon wall thickening) showed normal esophagus, chronic gastritis, normal duodenum 12mm adenomatous rectal polyps, and non-bleeding internal hemorrhoids. 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 No Clinton's on esophageal biopsies in 2012 (but path c/w reflux). No H. pylori on biopsies from 2010 or 2012. Duodenal biopsies were negative for celiac sprue. GES in 2012 for nausea, early satiety, and LUQ pain was normal. SBS in 06/2016 showed significant delay in passage of barium through the small bowel into the colon by 4 hours, possible secondary to significant fecal ret ention present within right side of the colon. No small bowel dilatation. Has occasional reflux treated w/ Pepcid PRN. Had some diarrhea after morphine pump was recently replaced - last occurred on Wednesday. Denies chronic issues w/ constipation - we treated w/ Amitiza in the past. No hematemesis, hematochezia, or melena. No dysphagia. No GB, liver, or pancreas history. Chronic pain - in addition to morphine pump, uses Fentanyl patch and Percocet. Denies NSAID use but does take ASA 81mg QD. Sees neuro for MS. Lowish B12 in the past, previously on supplements. PMH: PMH: MS, ?CAD, HLD, COPD, pneumonia, thyroid cancer, GERD, osteoporosis, nephrolithiasis, lung nodules, chronic pain, narcotic dependence appendectomy, hysterectomy, pacemaker, LP, pain pump placement/replacement FH: Family History: CAD, DM, Hypertension Social History: Smoke: <1 pack per day ALCOHOL: none Drugs: None ROS: GEN: Denies fevers, chills, sweats HEENT: Denies blurred vision, sore throat CV: Denies chest pain RESP: +SOA GI: Per HPI : Denies hematuria, dysuria ENDO: +weight loss NEURO: Denies confusion, dizziness MSK: +chronic pain SKIN: Denies jaundice, pruritus Vitals: Vitals: Vital Signs Date Time Temp Pulse Resp B/P (MAP) Pulse Ox O2 Delivery O2 Flow Rate FiO2 05/04/19 11:07 97.8 63 16 101/55 (70) 95 Nasal Cannula 3.0 97.8 Labs: Labs: Laboratory Tests Test 05/03/19 20:39 05/03/19 21:03 05/03/19 22:06 05/04/19 04:23 Glucose (Fingerstick) 59 mg/dL (70-99) 65 mg/dL (70-99) 110 mg/dL (70-99) 187 mg/dL (70-99) Test 05/04/19 04:25 Sodium Level 142 mmol/L (136-145) Potassium Level 3.5 mmol/L (3.5-5.1) Chloride Level 106 mmol/L (98-107) Carbon Dioxide Level 32 mmol/L (21-32) Anion Gap 4 (6-14) Blood Urea Nitrogen 10 mg/dL (7-20) Creatinine 0.4 mg/dL (0.6-1.0) Estimated GFR (Cockcroft-Gault) 167.0 Glucose Level 202 mg/dL (70-99) Calcium Level 8.5 mg/dL (8.5-10.1) Phosphorus Level 3.1 mg/dL (2.6-4.7) Magnesium Level 1.9 mg/dL (1.8-2.4) Triglycerides Level 84 mg/dL (0-150) Lipase 691 U/L (73-393) Allergies: Coded Allergies: No Known Allergies (Unverified Allergy, Unknown, 06/18/16) Medications: Current Medications Medications (Trade) Dose Ordered Sig/Abhijit Route PRN Reason Start Time Stop Time Status Last Admin Dose Admin Fentanyl (Duragesic 25mcg/ Hr Patch) 1 patch Q3DAYS TD 05/03/19 13:00 05/03/19 12:55 Trazodone HCl (Desyrel) 200 mg HS PO 05/03/19 21:00 05/03/19 21:06 Digoxin (Lanoxin) 125 mcg DAILY PO 05/03/19 13:00 05/04/19 08:05 Citalopram Hydrobromide (CeleXA) 20 mg DAILY PO 05/03/19 13:00 05/04/19 08:05 Lidocaine HCl (Buffered Lidocaine 1%) 3 ml 1X ONCE IJ 05/03/19 15:00 05/03/19 15:01 DC 05/03/19 14:58 Sodium Chloride 90 meq/Potassium Chloride 50 meq/ Potassium Phosphate 13.6 mmol/Magnesium Sulfate 10 meq/ Calcium Gluconate 10 meq/ Multivitamins 10 ml/Chromium/ Copper/Manganese/ Seleni/Zn 1 ml/ Total Parenteral Nutrition/Amino Acids/Dextrose/ Fat Emulsion Intravenous 1,512 ml @ 63 mls/hr TPN CONT IV 05/03/19 22:00 05/04/19 21:59 05/03/19 20:58 Info (Tpn Per Pharmacy) 1 each PRN DAILY PRN MC SEE COMMENTS 05/03/19 15:45 05/03/19 15:37 Morphine Sulfate (Morphine Sulfate) 4 mg PRN Q3HRS PRN IV SEVERE PAIN 7-10 05/04/19 00:30 05/04/19 08:06 Pantoprazole Sodium (PROTONIX VIAL for IV PUSH) 40 mg 1X ONCE IVP 05/04/19 09:00 05/04/19 09:01 DC 05/04/19 09:00 Imaging: Imaging: CT A/P Findings: Cardiac pacer wires. Mild cardiomegaly. Moderate pericardial effusion is unchanged. There are new small bilateral pleural effusions. There is compressive atelectasis in the bilateral lower lobes. Tiny hypodensity in segment 4 of the liver is stable. Spleen size normal. Mildly hydropic gallbladder. Adrenal glands and abdominal aorta are normal. Tiny nonobstructing left renal calculus. Tiny right renal cyst. Nohydronephrosis. The pancreas head and body are homogeneous. Evaluation is limited due to beam hardening artifact from pain pump reservoir. There is a 8 mm cyst centrally in the pancreas tail. Near the tip of the pancreas tail there is complicated rim-enhancing fluid collection. There are several fluid pockets, perhaps interconnected. Largest component is at the splenic fossa and measures up to 5.4 cm AP by 4.7 cm transverse by 6.5 cm craniocaudal. There is surrounding induration. The fluid pockets are immediately adjacent to the spleen and the stomach. No obvious abnormality of the stomach. No dilated small bowel. No secondary signs of appendicitis. No colon wall thickening is identified. Urinary bladder is normal. Mild pelvic free fluid. Uterus atrophic or surgically absent. Bones unremarkable. IMPRESSION: 1. There is complex rim-enhancing fluid collection at the gastrosplenic recess and at the splenic hilum extending slightly inferior. Fluid collection is near the pancreas tail and is immediately adjacent to the lateral stomach and the medial spleen. Considerations include pancreatic pseudocysts versus unrelated abscess perhaps from perforated gastric ulcer or other source. Suggest short- term follow-up CT. 2. Moderate pericardial effusion. 3. New small bilateral pleural effusions. 4. Mild pelvic free fluid. PE: GEN: NAD, thin HEENT: Atraumatic, PERRL LUNGS: diminished, NC HEART: RRR ABD: quiet, soft, quite tender left epigastrium/LUQ EXTREMITY: No edema SKIN: No rashes, no jaundice NEURO/PSYCH: A & O 3 A/P: A/P: LUQ pain, vomiting, weight loss Mildly elevated lipase Abnormal CT - 8mm cyst in pancreas tail and complicated fluid collection near tip of pancreas tail - surgery following for pancreatic pseudocyst; on TPN w/ discussion for resection GERD, h/o Clinton's H/o constipation - not an issue recently CRC screen, h/o adenomatous polyp - UTD MS, chronic pain -- Will review w/ Dr. Narayan. Agree w/ PPI. OSWALD CEE May 04, 2019 11:44
--- NOTE | 2019-05-04 11:49 | PDOC ---
PROGRESS NOTES Chief Complaint Chief Complaint Acute pancreatitis, pseudocyst MAlnourished BMI 16 DEpression NOS Insomnia Chronci pain with indwelling pain pump History of Present Illness History of Present Illness BMI 16 HArd to swallow pills for her GS recs TPN< gut rest, then consider sx once panc inflamm subsides LIpase elev SHows me prakash in her pain pump that needs to be taken out tmr PLAn:Prakash to remove tmr (2 week due) TPN, NPO REcheck lipase PAin control KEEp most of pO meds prn Vitals Vitals Vital Signs Date Time Temp Pulse Resp B/P (MAP) Pulse Ox O2 Delivery O2 Flow Rate FiO2 05/04/19 11:39 95 Nasal Cannula 3.0 05/04/19 11:07 97.8 63 16 101/55 (70) 97.8 Physical Exam General: Alert, Cooperative Lungs: Wheezing Abdomen: Soft, Other (moderate ttp luq) Extremities: No clubbing, No cyanosis Skin: No rashes, No breakdown Labs LABS Laboratory Tests Test 05/03/19 20:39 05/03/19 21:03 05/03/19 22:06 05/04/19 04:23 Glucose (Fingerstick) 59 mg/dL (70-99) 65 mg/dL (70-99) 110 mg/dL (70-99) 187 mg/dL (70-99) Test 05/04/19 04:25 Sodium Level 142 mmol/L (136-145) Potassium Level 3.5 mmol/L (3.5-5.1) Chloride Level 106 mmol/L (98-107) Carbon Dioxide Level 32 mmol/L (21-32) Anion Gap 4 (6-14) Blood Urea Nitrogen 10 mg/dL (7-20) Creatinine 0.4 mg/dL (0.6-1.0) Estimated GFR (Cockcroft-Gault) 167.0 Glucose Level 202 mg/dL (70-99) Calcium Level 8.5 mg/dL (8.5-10.1) Phosphorus Level 3.1 mg/dL (2.6-4.7) Magnesium Level 1.9 mg/dL (1.8-2.4) Triglycerides Level 84 mg/dL (0-150) Lipase 691 U/L (73-393) Review of Systems Review of Systems neg 14 pt reviewed with her Assessment and Plan Assessmemt and Plan Problems Medical Problems: (1) Pancreatic pseudocyst Status: Acute (2) Pancreatitis, acute Status: Acute Comment Review of Relevant I have reviewed the following items svetlana (where applicable) has been applied. Labs Laboratory Tests Test 05/02/19 19:18 05/03/19 20:39 05/03/19 21:03 05/03/19 22:06 White Blood Count 9.7 x10^3/uL (4.0-11.0) Red Blood Count 3.94 x10^6/uL (3.50-5.40) Hemoglobin 13.1 g/dL (12.0-15.5) Hematocrit 38.9 % (36.0-47.0) Mean Corpuscular Volume 99 fL (79-100) Mean Corpuscular Hemoglobin 33 pg (25-35) Mean Corpuscular Hemoglobin Concent 34 g/dL (31-37) Red Cell Distribution Width 13.9 % (11.5-14.5) Platelet Count 237 x10^3/uL (140-400) Neutrophils (%) (Auto) 77 % (31-73) Lymphocytes (%) (Auto) 18 % (24-48) Monocytes (%) (Auto) 4 % (0-9) Eosinophils (%) (Auto) 0 % (0-3) Basophils (%) (Auto) 1 % (0-3) Neutrophils # (Auto) 7.5 x10^3/uL (1.8-7.7) Lymphocytes # (Auto) 1.7 x10^3/uL (1.0-4.8) Monocytes # (Auto) 0.4 x10^3/uL (0.0-1.1) Eosinophils # (Auto) 0.0 x10^3/uL (0.0-0.7) Basophils # (Auto) 0.0 x10^3/uL (0.0-0.2) Sodium Level 140 mmol/L (136-145) Potassium Level 3.2 mmol/L (3.5-5.1) Chloride Level 100 mmol/L (98-107) Carbon Dioxide Level 38 mmol/L (21-32) Anion Gap 2 (6-14) Blood Urea Nitrogen 15 mg/dL (7-20) Creatinine 0.6 mg/dL (0.6-1.0) Estimated GFR (Cockcroft-Gault) 104.6 BUN/Creatinine Ratio 25 (6-20) Glucose Level 99 mg/dL (70-99) Calcium Level 9.8 mg/dL (8.5-10.1) Total Bilirubin 0.4 mg/dL (0.2-1.0) Aspartate Amino Transf (AST/SGOT) 14 U/L (15-37) Alanine Aminotransferase (ALT/SGPT) 16 U/L (14-59) Alkaline Phosphatase 75 U/L (46-116) Troponin I Quantitative < 0.017 ng/mL (0.000-0.055) Total Protein 6.8 g/dL (6.4-8.2) Albumin 2.6 g/dL (3.4-5.0) Albumin/Globulin Ratio 0.6 (1.0-1.7) Lipase 983 U/L (73-393) Glucose (Fingerstick) 59 mg/dL (70-99) 65 mg/dL (70-99) 110 mg/dL (70-99) Test 05/04/19 04:23 05/04/19 04:25 Glucose (Fingerstick) 187 mg/dL (70-99) Sodium Level 142 mmol/L (136-145) Potassium Level 3.5 mmol/L (3.5-5.1) Chloride Level 106 mmol/L (98-107) Carbon Dioxide Level 32 mmol/L (21-32) Anion Gap 4 (6-14) Blood Urea Nitrogen 10 mg/dL (7-20) Creatinine 0.4 mg/dL (0.6-1.0) Estimated GFR (Cockcroft-Gault) 167.0 Glucose Level 202 mg/dL (70-99) Calcium Level 8.5 mg/dL (8.5-10.1) Phosphorus Level 3.1 mg/dL (2.6-4.7) Magnesium Level 1.9 mg/dL (1.8-2.4) Triglycerides Level 84 mg/dL (0-150) Lipase 691 U/L (73-393) Laboratory Tests Test 05/03/19 20:39 05/03/19 21:03 05/03/19 22:06 05/04/19 04:23 Glucose (Fingerstick) 59 mg/dL (70-99) 65 mg/dL (70-99) 110 mg/dL (70-99) 187 mg/dL (70-99) Test 05/04/19 04:25 Sodium Level 142 mmol/L (136-145) Potassium Level 3.5 mmol/L (3.5-5.1) Chloride Level 106 mmol/L (98-107) Carbon Dioxide Level 32 mmol/L (21-32) Anion Gap 4 (6-14) Blood Urea Nitrogen 10 mg/dL (7-20) Creatinine 0.4 mg/dL (0.6-1.0) Estimated GFR (Cockcroft-Gault) 167.0 Glucose Level 202 mg/dL (70-99) Calcium Level 8.5 mg/dL (8.5-10.1) Phosphorus Level 3.1 mg/dL (2.6-4.7) Magnesium Level 1.9 mg/dL (1.8-2.4) Triglycerides Level 84 mg/dL (0-150) Lipase 691 U/L (73-393) Medications Current Medications Sodium Chloride 1,000 ml @ 1,000 mls/hr Q1H IV Last administered on 05/02/19at 19:36; Start 05/02/19 at 19:11; Stop 05/02/19 at 20:10; Status DC Metoclopramide HCl (Reglan Vial) 10 mg 1X ONCE IVP Last administered on 05/02/19at 19:36; Start 05/02/19 at 19:15; Stop 05/02/19 at 19:16; Status DC Diphenhydramine HCl (Benadryl) 25 mg 1X ONCE IVP Last administered on 05/02/19 at 19:36; Start 05/02/19 at 19:15; Stop 05/02/19 at 19:16; Status DC Iohexol (Omnipaque 300 Mg/ml) 75 ml 1X ONCE IV Last administered on 05/02/19at 20:45; Start 05/02/19 at 20:45; Stop 05/02/19 at 20:48; Status DC Info (CONTRAST GIVEN -- Rx MONITORING) 1 each PRN DAILY PRN MC SEE COMMENTS; Start 05/02/19 at 21:00; Stop 05/04/19 at 20:59 Piperacillin Sod/ Tazobactam Sod 3.375 gm/Sodium Chloride 50 ml @ 100 mls/hr Q6H IV Last administered on 05/04/19 09:49; Start 05/02/19 at 23:00 Ondansetron HCl (Zofran) 4 mg PRN Q8HRS PRN IV NAUSEA/VOMITING Last administered on 05/03/19at 20:01; Start 05/02/19 at 22:45; Stop 05/03/19 at 22:44; Status DC Morphine Sulfate (Morphine Sulfate) 4 mg PRN Q2HR PRN IV PAIN Last administered on 05/03/19at 20:02; Start 05/02/19 at 22:45; Stop 05/03/19 at 22:44; Status DC Sodium Chloride 1,000 ml @ 0 mls/hr Q0M IV ; Start 05/02/19 at 22:36; Stop 05/02/19 at 22:49; Status DC Sodium Chloride 1,000 ml @ 125 mls/hr Q8H IV Last administered on 05/02/19at 22:59; Start 05/02/19 at 23:00; Stop 05/03/19 at 06:59; Status DC Sodium Chloride 1,000 ml @ 125 mls/hr Q8H IV Last administered on 05/04/19 08:04; Start 05/03/19 at 08:30; Stop 05/04/19 at 08:48; Status DC Aspirin (Ecotrin) 81 mg DAILY PO ; Start 05/04/19 at 09:00 Clonazepam (KlonoPIN) 0.5 mg PRN TID PRN PO TREMORS; Start 05/03/19 at 12:45 Fentanyl (Duragesic 25mcg/ Hr Patch) 1 patch Q3DAYS TD Last administered on 05/03/19at 12:55; Start 05/03/19 at 13:00 Nitroglycerin (Nitrostat) 0.4 mg PRN Q5MIN PRN SL CHEST PAIN; Start 05/03/19 at 12:45 Oxycodone/ Acetaminophen (Percocet 10/325) 1 tab PRN Q4HRS PRN PO MODERATE TO SEVERE PAIN; Start 05/03/19 at 12:45 Trazodone HCl (Desyrel) 200 mg HS PO Last administered on 05/03/19at 21:06; Start 05/03/19 at 21:00 Cyclobenzaprine HCl (Flexeril) 10 mg TID PO ; Start 05/03/19 at 14:00 Non-Formulary Medication (Budesonide/ Formoterol Fumarate (Symbicort 160-4.5 Mcg Inhaler)) 2 puff BID IH ; Start 05/03/19 at 21:00; Status UNV Carbamazepine (TEGretol) 200 mg TID PO ; Start 05/03/19 at 14:00 Digoxin (Lanoxin) 125 mcg DAILY PO Last administered on 05/04/19at 08:05; Start 05/03/19 at 13:00 Citalopram Hydrobromide (CeleXA) 20 mg DAILY PO Last administered on 05/04/19at 08:05; Start 05/03/19 at 13:00 Non-Formulary Medication (Modafinil (Provigil)) 200 mg DAILY PO ; Start 05/04/19 at 09:00; Status UNV Albuterol Sulfate (Ventolin Neb Soln) 2.5 mg Q6HRS NEB ; Start 05/03/19 at 13:15 Budesonide (Pulmicort) 0.5 mg RTBID NEB ; Start 05/03/19 at 20:00 Lidocaine HCl (Buffered Lidocaine 1%) 3 ml STK-MED ONCE .ROUTE ; Start 05/03/19 at 14:48; Stop 05/03/19 at 14:48; Status DC Lidocaine HCl (Buffered Lidocaine 1%) 3 ml 1X ONCE IJ Last administered on 05/03/19at 14:58; Start 05/03/19 at 15:00; Stop 05/03/19 at 15:01; Status DC Sodium Chloride 90 meq/Potassium Chloride 50 meq/ Potassium Phosphate 13.6 mmol/Magnesium Sulfate 10 meq/ Calcium Gluconate 10 meq/ Multivitamins 10 ml/Chromium/ Copper/Manganese/ Seleni/Zn 1 ml/ Total Parenteral Nutrition/Amino Acids/Dextrose/ Fat Emulsion Intravenous 1,512 ml @ 63 mls/hr TPN CONT IV Last administered on 05/03/19at 20:58; Start 05/03/19 at 22:00; Stop 05/04/19 at 21:59 Info (Tpn Per Pharmacy) 1 each PRN DAILY PRN MC SEE COMMENTS Last administered on 05/03/19at 15:37; Start 05/03/19 at 15:45 Dextrose (Dextrose 50%-Water Syringe) 12.5 gm PRN Q15MIN PRN IV SEE COMMENTS; Start 05/03/19 at 20:45 Dextrose (Iv Dextrose 5%) 250 ml PRN Q15MIN PRN IV SEE COMMENTS; Start 05/03/19 at 20:45 Ondansetron HCl (Zofran) 4 mg PRN Q6HRS PRN IVP NAUSEA/VOMITING 1ST CHOICE; Start 05/04/19 at 00:30 Morphine Sulfate (Morphine Sulfate) 4 mg PRN Q3HRS PRN IV SEVERE PAIN 7-10 Last administered on 05/04/19at 11:39; Start 05/04/19 at 00:30 Pantoprazole Sodium (PROTONIX VIAL for IV PUSH) 40 mg DAILYAC IVP ; Start 05/05/19 at 07:30 Pantoprazole Sodium (PROTONIX VIAL for IV PUSH) 40 mg 1X ONCE IVP Last administered on 05/04/19at 09:00; Start 05/04/19 at 09:00; Stop 05/04/19 at 09:01; Status DC Active Scripts Active Reported FENTANYL 25mcg/hr (Fentanyl) 1 Each Patch.td72 1 Patch TP Q3DAYS Nitrostat (Nitroglycerin) 0.4 Mg Tab.subl 0.4 Mg SL PRN Q5MIN PRN Trazodone Hcl 100 Mg Tablet 200 Mg PO HS Klonopin (Clonazepam) 0.5 Mg Tablet 0.5 Mg PO TID PRN [morphine] 14.5 Mg ID DAILY Aspir 81 (Aspirin) 81 Mg Tablet.dr 81 Mg PO DAILY Symbicort 160-4.5 Mcg Inhaler (Budesonide/Formoterol Fumarate) 10.2 Gm Hfa.aer.ad 2 Puff IH BID Percocet 10-325 Mg Tablet (Oxycodone/Acetaminophen) 1 Each Tablet 1 Tab PO Q4HRS PRN Baclofen 10 Mg Tablet 1 Tab PO TID Trazodone Hcl 100 Mg Tablet 2 Tab PO QHS Provigil (Modafinil) 100 Mg Tablet 200 Mg PO DAILY Digoxin 0.125 Mg/2.5 Ml Solution 0.125 Mg PO DAILY Carbamazepine 200 Mg Cpmp.12hr 200 Mg PO TID Lexapro (Escitalopram Oxalate) 10 Mg Tablet 10 Mg PO DAILY Vitals/I & O Vital Sign - Last 24 Hours 05/03/19 05/03/19 05/03/19 05/03/19 12:53 12:55 13:29 15:00 Temp 99.0 99.0 Pulse 63 Resp 18 B/P (MAP) 105/59 (74) Pulse Ox 94 O2 Delivery Nasal Cannula Nasal Cannula Nasal Cannula Nasal Cannula O2 Flow Rate 3.0 3.0 3.0 3.0 05/03/19 05/03/19 05/03/19 05/03/19 15:31 15:56 16:40 19:00 Temp 98.7 98.7 Pulse 53 Resp 18 B/P (MAP) 102/55 (71) Pulse Ox 91 O2 Delivery Nasal Cannula Nasal Cannula Nasal Cannula Nasal Cannula O2 Flow Rate 3.0 3.0 3.0 3.0 05/03/19 05/03/19 05/03/19 05/04/19 20:00 20:02 23:00 00:48 Temp 98.1 98.1 Pulse 60 Resp 20 18 20 B/P (MAP) 95/42 (59) Pulse Ox 94 96 94 O2 Delivery Nasal Cannula Nasal Cannula Nasal Cannula Nasal Cannula O2 Flow Rate 3.0 3.0 3.0 3.0 05/04/19 05/04/19 05/04/19 05/04/19 01:18 03:24 07:15 07:36 Temp 98.3 98.3 98.3 98.3 Pulse 73 63 Resp 20 18 B/P (MAP) 126/80 (95) 95/52 (66) Pulse Ox 94 98 96 O2 Delivery Nasal Cannula Nasal Cannula Nasal Cannula O2 Flow Rate 3.0 3.0 3.0 05/04/19 05/04/19 05/04/19 05/04/19 08:05 08:06 08:58 11:07 Temp 97.8 97.8 Pulse 63 63 Resp 16 B/P (MAP) 95/52 101/55 (70) Pulse Ox 96 96 95 O2 Delivery Nasal Cannula Nasal Cannula Nasal Cannula O2 Flow Rate 3.0 3.0 3.0 05/04/19 11:39 Pulse Ox 95 O2 Delivery Nasal Cannula O2 Flow Rate 3.0 Intake and Output 05/03/19 05/03/19 05/04/19 15:00 23:00 07:00 Intake Total 120 ml Balance 120 ml Nutrition Consultation Dietary Evaluation: Recommendations by RD: Dietary education by RD, PPN/TPN Comments: RD consult: TPN rec 195 g dextrose, 55 g AA, 20 g lipid Expected Outcomes/Goals: to meet >70% est nutr needs via TPN Interpretation of weight loss: >7.5% in 3 months Malnutrition Findings: Muscle Mass (Severe): Severe Depletion Food and Nutrition Intake (Sev: <50% est energy req 5days Weight Status: Underweight Hemodynamically unstable?: Yes Respiratory Distress?: Yes Serious Diagnosis?: Yes Is patient at high risk?: Yes [place] GUERRA MD May 04, 2019 11:48
[2019-05-04] MEDS: TPN PER PHARMACY MC PRN (12:27)
--- NOTE | 2019-05-04 12:51 | NUR ---
SW following. Chart reviewed, discussed with RN. Pt from home with daughter. Currently has PICC line for TPN, 3L NC, IV zosyn. PT/OT ordered. JULIA will continue to follow.
[2019-05-04 15:16] VITALS: BP 97/51
--- NOTE | 2019-05-04 16:52 | PDOC2 ---
CEM BURDICK [employer] 05/04/19 1652: CARDIAC CONSULT DATE OF CONSULT Date of Consult DATE: 05/04/19 TIME: 16:45 REASON FOR CONSULT Reason for Consult: ? need for pericardiocentesis REFERRING PHYSICIAN Referring Physician: ELDA Gonzales SOURCE Source: Chart review, Patient HISTORY OF PRESENT ILLNESS HISTORY OF PRESENT ILLNESS This is a yo female who presented secondary to abdominal pain and nausea and vom iting. CT abdomen pelvis noted with moderate pericardial effusion, which prompted this consult. Patient denies any chest pain, palpitations, dizziness, or diaphoresis. Does c/o abdominal pain and mild shortness of breath. Echo noted with moderate pericardial effusion. No evidence of significant hemodynamic compromise. EF is normal. Echo 03/2019 noted with small pericardial effusion. PAST MEDICAL HISTORY Past Medical History MS Cardiovascular: CHF, HTN, Hyperlipidemia Pulmonary: COPD GI: GERD Heme/Onc: Cancer PAST SURGICAL HISTORY Past Surgical History: Pacemaker, Appendectomy, Tonsillectomy, Hysterectomy, Other (thyroidectomy ) FAMILY HISTORY Family History: Diabetes, Heart Disease SOCIAL HISTORY Smoke: <1 pack per day ALCOHOL: none Drugs: None Lives: Alone CURRENT MEDICATIONS CURRENT MEDICATIONS Current Medications Medications (Trade) Dose Ordered Sig/Abhijit Route PRN Reason Start Time Stop Time Status Last Admin Dose Admin Trazodone HCl (Desyrel) 200 mg HS PO 05/03/19 21:00 05/04/19 11:46 DC 05/03/19 21:06 Sodium Chloride 90 meq/Potassium Chloride 50 meq/ Potassium Phosphate 13.6 mmol/Magnesium Sulfate 10 meq/ Calcium Gluconate 10 meq/ Multivitamins 10 ml/Chromium/ Copper/Manganese/ Seleni/Zn 1 ml/ Total Parenteral Nutrition/Amino Acids/Dextrose/ Fat Emulsion Intravenous 1,512 ml @ 63 mls/hr TPN CONT IV 05/03/19 22:00 05/04/19 21:59 05/03/19 20:58 Morphine Sulfate (Morphine Sulfate) 4 mg PRN Q3HRS PRN IV SEVERE PAIN 7-10 05/04/19 00:30 05/04/19 15:29 Pantoprazole Sodium (PROTONIX VIAL for IV PUSH) 40 mg 1X ONCE IVP 05/04/19 09:00 05/04/19 09:01 DC 05/04/19 09:00 ALLERGIES ALLERGIES: Coded Allergies: No Known Allergies (Unverified Allergy, Unknown, 06/18/16) ROS Review of System 14 point ROS conducted with pertinent positives noted above in HPI PHYSICAL EXAM General: Alert, Oriented X3, Cooperative, No acute distress HEENT: Atraumatic Lungs: Clear to auscultation Heart: Regular rate, Other (distant heart tones ) Abdomen: Soft, Other (diffuse tenderness ) Extremities: No edema, Normal pulses Skin: No significant lesion Neuro: Normal speech, Sensation intact Psych/Mental Status: Mental status NL, Mood NL MUSCULOSKELETAL: Osteoarthritic changes both hands VITALS/I&O VITALS/I&O: Vital Signs Date Time Temp Pulse Resp B/P (MAP) Pulse Ox O2 Delivery O2 Flow Rate FiO2 05/04/19 15:45 96 Nasal Cannula 3.0 05/04/19 15:16 98.3 59 16 97/51 (66) 98.3 I & O 05/03/19 05/03/19 05/04/19 15:00 23:00 07:00 Intake Total 120 ml Balance 120 ml LABS Lab: Laboratory Tests Test 05/03/19 20:39 05/03/19 21:03 05/03/19 22:06 05/04/19 04:23 Glucose (Fingerstick) 59 mg/dL (70-99) L 65 mg/dL (70-99) L 110 mg/dL (70-99) H 187 mg/dL (70-99) H Test 05/04/19 04:25 Sodium Level 142 mmol/L (136-145) Potassium Level 3.5 mmol/L (3.5-5.1) Chloride Level 106 mmol/L (98-107) Carbon Dioxide Level 32 mmol/L (21-32) Anion Gap 4 (6-14) L Blood Urea Nitrogen 10 mg/dL (7-20) Creatinine 0.4 mg/dL (0.6-1.0) L Estimated GFR (Cockcroft-Gault) 167.0 Glucose Level 202 mg/dL (70-99) H Calcium Level 8.5 mg/dL (8.5-10.1) Phosphorus Level 3.1 mg/dL (2.6-4.7) Magnesium Level 1.9 mg/dL (1.8-2.4) Triglycerides Level 84 mg/dL (0-150) Lipase 691 U/L (73-393) H Vitamin B12 Level 805 pg/mL (247-911) Laboratory Tests 05/04/19 04:25 ECHOCARDIOGRAM ECHOCARDIOGRAM <Conclusion> The left ventricle is normal size. The left ventricular systolic function is normal and the ejection fraction is within normal range. The Ejection Fraction is 50-55%. There is no significant aortic valvular stenosis Doppler and Color Flow revealed no significant aortic regurgitation. Doppler and Color-flow revealed trace mitral regurgitation. Doppler and Color Flow revealed trace to mild tricuspid regurgitation with an estimated PAP of 43 mmHg. There is a small circumferential pericardial effusion with no hemodynamic significance. DATE: 04/07/19 1144 HEART CATH HEART CATH Coronary Angiography The patient's coronary anatomy is right dominant. The left main coronary artery is a medium size vessel free of disease. The left main trifurcates to the left anterior descending, circumflex, and ramus. The left anterior descending artery is a medium size vessel free of disease. The first diagonal branch is a small size vessel free of disease. The second diagonal branch is a small size vessel free of disease. The third diagonal branch is a small size vessel free of disease. The circumflex artery is a medium size vessel free of disease. The first obtuse marginal branch is a small size vessel free of disease. The second obtuse marginal branch is a small size vessel free of disease. The third obtuse marginal branch is a small size vessel free of disease. The ramus intermedius artery is a small size vessel free of disease. The right coronary artery is a medium size vessel free of disease. The right posterior descending artery is a medium size vessel free of disease. The right posterolateral branch is a small size vessel free of disease. Left Ventriculography The left ventricle is mildly dilated in size with low normal contractility. The left ventricular ejection fraction is estimated to be 50%. The left ventricular end diastolic pressure is 18 mmHg. There was no gradient across the aortic valve upon pullback. Right Heart Cath Findings The Right Atrial Pressure is 12 mmHg. The Right Ventricular Pressure is 28/0 mmHg. The Pulmonary Artery Pressure is 28/18 mmHg. The Pulmonary Catheter Wedge Pressure is mmHg. unable to wedge Conclusion Pt with mild pulmonary HTN and no significant CAD I would recommend medical treatment. The femoral artery is very small in caliber and could not deploy a closure device. The lines were pulled and pressure was done until hemostasis. The pt is very thin and essentially no subQ fatty tissue. I am very concerned with her bleeding today therefore will observe her until AM and then discharge her if stable. This is a safety and good care issue. Recommendations Medical Therapy DATE: 03/04/18 1531 ASSESSMENT/PLAN ASSESSMENT/PLAN 1. Pancreatic cyst: General surgery and GI following, potenital surgery in 1 mo 2. Moderate pericardial effusion: no hemodynamic compromise. EF nml. No pulsus paradoxus. 3. Protein malnutrition/wt loss 4. Hypotension: mainly due to intravascular volume depletion with 3rd spacing and poor intake. BP much better after xtra IVF 5. SSS; s/p PPM 6. MS; chronic pain with pain pump Recommendations No indication for emergent intervention at this time as there is no hemodynamic compromise., Will transfer to the unit for close monitoring overnight. TPN, fluids Follow GI, surgical recs Supportive care Will monitor. DIDIER VYAS MD 05/05/19 1419: CARDIAC CONSULT ASSESSMENT/PLAN ASSESSMENT/PLAN 1. Pancreatic cyst. Patient is being worked up by the surgery and GI service. 2. Moderate pericardial effusion on echo. No evidence of significant hemodynamic compromise. EF is normal. Physical examination shows no pulses paradoxes. We will transfer to the ICU for closer monitoring and IV fluids. No emergency procedures indicated. 3. Protein malnutrition and weight loss. Workup in progress by the GI service. 4. Mild hypertension. Initial treatment with IV fluids. Thank you for allowing us to participate in the care of your patient. CEM BURDICK APRN May 04, 2019 16:52 DIDIER VYAS MD May 05, 2019 14:19
[2019-05-04 19:00] VITALS: BP 101/64
--- NOTE | 2019-05-04 19:14 | NUR ---
Patient transfer from 4th floor per cardiology for pericardial effusion on CT. Per Dr Wood ECHO done, pulses paradoxes wnl, no tamponade. Keep patient NPO at midnight. VS wnl patient in no apparent distress.
[2019-05-04] MEDS: CYCLOBENZAPRINE 10 MG TABLET. PO PRN (20:58)
[2019-05-04] MEDS: clonazePAM 0.5 MG TABLET PO PRN (20:58)
[2019-05-04] MEDS: traZODone 100 MG TABLET. PO PRN (20:59)
[2019-05-04] MEDS: ONDANSETRON PF 4 MG/2 ML VIAL. IVP PRN (21:03)
[2019-05-04] MEDS ORDERED: AMINO ACID IV SCH ×10 (22:00)
[2019-05-04] MEDS ORDERED: [UNRECOGNIZED DRUG - OTHER] IV SCH ×10 (22:00)
[2019-05-04] MEDS ORDERED: DEXTROSE 70% IV SCH ×10 (22:00)
[2019-05-04] MEDS ORDERED: TOTAL PARENTERAL NUTRITION IV SCH ×10 (22:00)
[2019-05-04 23:07] VITALS: BP 112/67
[2019-05-05] VITALS (17 sets, daily range): BP systolic 65–126; BP diastolic 46–82
[2019-05-05] MEDS ORDERED: IV NORMAL SALINE 1000ML BAG 1,000 ML IV ONE ×2 (04:00)
[2019-05-05] MEDS: oxyCODONE/APAP 10/325 1 TAB TABLET PO PRN ×4 (04:43→19:51)
[2019-05-05] MEDS: PIPERACILLIN/TAZOBACTAM 3.375 GM in IV NORMAL SALINE 50ML 50 ML IV SCH ×4 (04:51→22:31)
[2019-05-05] MEDS: ALBUTEROL SULFATE 2.5 MG/3 ML NEBU. NEB SCH ×5 (06:00→22:21)
[2019-05-05 06:12] LABS: CALCIUM 8.7 mg/dL (8.5-10.1); CREATININE 0.4 mg/dL (0.6-1.0); MAGNESIUM 1.9 mg/dL (1.8-2.4); PHOSPHORUS 3.1 mg/dL (2.6-4.7); POTASSIUM 3.9 mmol/L (3.5-5.1)
[2019-05-05] MEDS: BUDESONIDE 0.5 MG/2 ML NEBU. NEB SCH ×2 (07:01→18:57)
--- NOTE | 2019-05-05 07:48 | PDOC ---
SURGICAL PROGRESS NOTE Subjective Pt with c/o LUQ pain, persistent, transferred to ICU secondary to concern for pericardial fluid Vital Signs Vital Signs Date Time Temp Pulse Resp B/P (MAP) Pulse Ox O2 Delivery O2 Flow Rate FiO2 05/05/19 06:07 60 73/54 (60) 97 Nasal Cannula 2.0 05/05/19 00:02 16 05/04/19 19:00 98.3 98.3 I&O Intake and Output 05/05/19 07:00 Intake Total 30 ml Output Total 1400 ml Balance -1370 ml Intake Oral 30 ml Output Urine Total 1400 ml # Voids 1 General: Alert, Oriented X3, Cooperative, No acute distress Abdomen: Soft, Other (mild TTP under pain pump) Labs Laboratory Tests Test 05/03/19 20:39 05/03/19 21:03 05/03/19 22:06 05/04/19 04:23 Glucose (Fingerstick) 59 mg/dL (70-99) 65 mg/dL (70-99) 110 mg/dL (70-99) 187 mg/dL (70-99) Test 05/04/19 04:25 05/05/19 05:30 Sodium Level 142 mmol/L (136-145) 144 mmol/L (136-145) Potassium Level 3.5 mmol/L (3.5-5.1) 3.9 mmol/L (3.5-5.1) Chloride Level 106 mmol/L (98-107) 109 mmol/L (98-107) Carbon Dioxide Level 32 mmol/L (21-32) 34 mmol/L (21-32) Anion Gap 4 (6-14) 1 (6-14) Blood Urea Nitrogen 10 mg/dL (7-20) 6 mg/dL (7-20) Creatinine 0.4 mg/dL (0.6-1.0) 0.4 mg/dL (0.6-1.0) Estimated GFR (Cockcroft-Gault) 167.0 167.0 Glucose Level 202 mg/dL (70-99) 104 mg/dL (70-99) Calcium Level 8.5 mg/dL (8.5-10.1) 8.7 mg/dL (8.5-10.1) Phosphorus Level 3.1 mg/dL (2.6-4.7) 3.1 mg/dL (2.6-4.7) Magnesium Level 1.9 mg/dL (1.8-2.4) 1.9 mg/dL (1.8-2.4) Triglycerides Level 84 mg/dL (0-150) Lipase 691 U/L (73-393) Vitamin B12 Level 805 pg/mL (247-911) Laboratory Tests Test 05/05/19 05:30 Sodium Level 144 mmol/L (136-145) Potassium Level 3.9 mmol/L (3.5-5.1) Chloride Level 109 mmol/L (98-107) Carbon Dioxide Level 34 mmol/L (21-32) Anion Gap 1 (6-14) Blood Urea Nitrogen 6 mg/dL (7-20) Creatinine 0.4 mg/dL (0.6-1.0) Estimated GFR (Cockcroft-Gault) 167.0 Glucose Level 104 mg/dL (70-99) Calcium Level 8.7 mg/dL (8.5-10.1) Phosphorus Level 3.1 mg/dL (2.6-4.7) Magnesium Level 1.9 mg/dL (1.8-2.4) Problem List Problems Medical Problems: (1) Pancreatic pseudocyst Status: Acute (2) Pancreatitis, acute Status: Acute Assessment/Plan pancreatic cyst cont TPN for severe malnutrition OK to start clears if OK with cards if no intervention plan elective resection in approximately 1 month LONG MORELAND MD May 05, 2019 07:48
[2019-05-05] MEDS: carBAMazepine 200 MG TABLET PO SCH ×3 (09:12→19:51)
[2019-05-05] MEDS: ASPIRIN ENTERIC COATED 81 MG TABLET.DR. PO SCH (09:12)
[2019-05-05] MEDS: CITALOPRAM 20 MG TABLET. PO SCH (09:12)
[2019-05-05] MEDS: PANTOPRAZOLE IV PUSH 40 MG VIAL. IVP SCH (09:14)
[2019-05-05] MEDS: DIGOXIN 125 MCG TABLET. PO SCH (09:19)
--- NOTE | 2019-05-05 09:38 | PDOC ---
Subjective: Subjective: Breathing not as baseline yet, still w/ abd pain, hungry. Now tells me no h/o ulcers but "lots of cysts." Objective: Vital Signs: Vital Signs Date Time Temp Pulse Resp B/P (MAP) Pulse Ox O2 Delivery O2 Flow Rate FiO2 05/05/19 09:19 57 05/05/19 09:13 Nasal Cannula 3.0 05/05/19 08:53 101/66 (78) 05/05/19 08:16 98 05/05/19 07:00 97.8 18 97.8 Labs: Laboratory Tests Test 05/05/19 05:30 05/05/19 07:59 Sodium Level 144 mmol/L Potassium Level 3.9 mmol/L Chloride Level 109 mmol/L Carbon Dioxide Level 34 mmol/L Anion Gap 1 Blood Urea Nitrogen 6 mg/dL Creatinine 0.4 mg/dL Estimated GFR (Cockcroft-Gault) 167.0 Glucose Level 104 mg/dL Calcium Level 8.7 mg/dL Phosphorus Level 3.1 mg/dL Magnesium Level 1.9 mg/dL Glucose (Fingerstick) 114 mg/dL Imaging: Echocardiogram 05/04 pending PE: GEN: NAD LUNGS: NC HEART: RRR ABD: still quite tender LUQ/epigastrium NEURO/PSYCH: A & O 3 A/P: Dyspnea, LUQ pain, weight loss - previous GI workup per consult note Abnormal CT - 8mm cyst in pancreas tail and complicated fluid collection near tip of pancreas tail, moderate pericardial effusion MS, chronic pain -- Continue per surgery and cardiology - might try clears today? Continue PPI - may have PO if eats. OSWALD CEE May 05, 2019 09:38
--- NOTE | 2019-05-05 09:52 | NUR ---
SS following for discharge planning. SS reviewed pt chart. Pt transferred to ICU from med surg floor. SS discussed with Rose DUMONT. Pt is from home with daughter and is currently requiring oxygen. Pt has IV TPN and IV abx currently. Pt has declined PT at this time. SS will continue to follow for discharge planning.
--- NOTE | 2019-05-05 10:30 | PDOC ---
CARDIO Progress Notes Date and Time Date of Service 05/05/2019 Time of Evaluation 0850 Subjective Subjective: No Chest Pain, No shortness of breath, No Palpitations, Other (a little nauseated) Vitals Vitals Vital Signs Date Time Temp Pulse Resp B/P (MAP) Pulse Ox O2 Delivery O2 Flow Rate FiO2 05/05/19 09:50 58 112/71 (85) 96 Nasal Cannula 3.0 05/05/19 07:00 97.8 18 97.8 Weight Weight [ ] Input and Output Intake and Output Intake and Output 05/05/19 07:00 Intake Total 30 ml Output Total 1400 ml Balance -1370 ml Intake Oral 30 ml Output Urine Total 1400 ml # Voids 1 Laboratory Labs Laboratory Tests Test 05/05/19 05:30 05/05/19 07:59 Sodium Level 144 mmol/L (136-145) Potassium Level 3.9 mmol/L (3.5-5.1) Chloride Level 109 mmol/L (98-107) Carbon Dioxide Level 34 mmol/L (21-32) Anion Gap 1 (6-14) Blood Urea Nitrogen 6 mg/dL (7-20) Creatinine 0.4 mg/dL (0.6-1.0) Estimated GFR (Cockcroft-Gault) 167.0 Glucose Level 104 mg/dL (70-99) Calcium Level 8.7 mg/dL (8.5-10.1) Phosphorus Level 3.1 mg/dL (2.6-4.7) Magnesium Level 1.9 mg/dL (1.8-2.4) Glucose (Fingerstick) 114 mg/dL (70-99) Physical Exam HEENT: Neck Supple W Full Motion Chest: Symmetric LUNGS: Other (diminished bases with faint crackles) Heart: RRR (SR no significant ectopies) Abdomen: Soft N/T Extremities: No Edema, No Calf Tenderness Neurology: alert, oriented, follow commands Assessment Assessment 1. Pancreatic cyst: General surgery and GI following, potenital surgery in 1 mo 2. Moderate pericardial effusion: no hemodynamic compromise. EF nml 3. Protein malnutrition/wt loss 4. Hypotension: mainly due to intravascular volume depletion with 3rd spacing and poor intake. BP much better after xtra IVF Recommendations 1. TPN. push PO fluids 2. No arrhythmias, BP stable. Will try to get CVP. May transfer to [facility] otherwise 3. Supportive care. Hemodynamically unstable?: Yes Respiratory Distress?: Yes Serious Diagnosis?: Yes Is patient at high risk?: Yes EDEN ARGUETA APRN May 05, 2019 10:30
--- NOTE | 2019-05-05 11:34 | PDOC ---
[facility] [facility] PROGRESS NOTE Chief Complaint Chief Complaint Acute pancreatitis, pseudocyst Malnourished Chronic pain with indwelling pain pump Cancer COPD High Cholesterol Heart Disease Hypotension MS Osteoporosis Clinton's esophagus Mitral valve insuf Thyroid cancer History of Present Illness History of Present Illness 05/05/19 Pt seen and examined in ICU Pt expressed desire to be home for the holidays DW pt about her care DW RN Reviewed pt's chart Vitals/I&O Vitals/I&O: Vital Signs Date Time Temp Pulse Resp B/P (MAP) Pulse Ox O2 Delivery O2 Flow Rate FiO2 05/05/19 11:12 60 14 78/55 (63) 98 Nasal Cannula 3.0 05/05/19 07:00 97.8 97.8 I & O 05/04/19 05/04/19 05/05/19 15:00 23:00 07:00 Intake Total 30 ml Output Total 300 ml 1100 ml Balance -300 ml -1070 ml Physical Exam General: Alert, Oriented X3, Cooperative, No acute distress Heart: Regular rate, Normal S1, Normal S2 Lungs: Wheezing Abdomen: Soft, Other (mild TTP under pain pump) Extremities: No clubbing, No cyanosis Skin: No rashes, No breakdown Labs Labs: Laboratory Tests Test 05/05/19 05:30 05/05/19 07:59 Sodium Level 144 mmol/L (136-145) Potassium Level 3.9 mmol/L (3.5-5.1) Chloride Level 109 mmol/L (98-107) Carbon Dioxide Level 34 mmol/L (21-32) Anion Gap 1 (6-14) Blood Urea Nitrogen 6 mg/dL (7-20) Creatinine 0.4 mg/dL (0.6-1.0) Estimated GFR (Cockcroft-Gault) 167.0 Glucose Level 104 mg/dL (70-99) Calcium Level 8.7 mg/dL (8.5-10.1) Phosphorus Level 3.1 mg/dL (2.6-4.7) Magnesium Level 1.9 mg/dL (1.8-2.4) Thyroid Stimulating Hormone (TSH) 1.663 uIU/mL (0.358-3.74) Glucose (Fingerstick) 114 mg/dL (70-99) Review of Systems Review of Systems: No c/o headache No c/o CP Assessment and Plan Assessmemt and Plan Problems Medical Problems: (1) Pancreatic pseudocyst Status: Acute (2) Pancreatitis, acute Status: Acute Assessment Acute pancreatitis, pseudocyst Malnourished Chronic pain with indwelling pain pump Cancer COPD High Cholesterol Heart Disease Hypotension MS Osteoporosis Clinton's esophagus Mitral valve insuf Thyroid cancer Plan ICU Monitoring Daily Lipase PRN pain meds TPN Clear liquids Zosyn Labs PT/OT DVT prophylaxis Full Code Consulting pulmonology due to COPD Comment Review of Relevant I have reviewed the following items svetlana (where applicable) has been applied. Medications: Current Medications Medications (Trade) Dose Ordered Sig/Abhijit Route PRN Reason Start Time Stop Time Status Last Admin Dose Admin Pantoprazole Sodium (PROTONIX VIAL for IV PUSH) 40 mg DAILYAC IVP 05/05/19 07:30 05/05/19 09:14 Cyclobenzaprine HCl (Flexeril) 10 mg PRN TID PRN PO spasms 05/04/19 11:45 05/04/19 20:58 Trazodone HCl (Desyrel) 200 mg PRN QHS PRN PO sleep 05/04/19 11:45 05/04/19 20:59 Sodium Chloride 70 meq/Potassium Chloride 50 meq/ Potassium Phosphate 13.6 mmol/Magnesium Sulfate 10 meq/ Calcium Gluconate 10 meq/ Multivitamins 10 ml/Chromium/ Copper/Manganese/ Seleni/Zn 1 ml/ Total Parenteral Nutrition/Amino Acids/Dextrose/ Fat Emulsion Intravenous 1,512 ml @ 63 mls/hr TPN CONT IV 05/04/19 22:00 05/05/19 21:59 05/04/19 20:59 Sodium Chloride 1,000 ml @ 1,000 mls/hr 1X ONCE IV 05/05/19 00:00 05/05/19 00:59 DC 05/05/19 00:00 Sodium Chloride 1,000 ml @ 1,000 mls/hr 1X ONCE IV 05/05/19 04:00 05/05/19 04:59 DC 05/05/19 03:34 Hemodynamically unstable?: Yes Respiratory Distress?: Yes Serious Diagnosis?: Yes Is patient at high risk?: Yes JENNIFER OCONNELL III DO May 05, 2019 11:34
[2019-05-05] MEDS: CYCLOBENZAPRINE 10 MG TABLET. PO PRN (12:29)
[2019-05-05] MEDS: TPN PER PHARMACY MC PRN (12:40)
[2019-05-05] MEDS: ONDANSETRON PF 4 MG/2 ML VIAL. IVP PRN (13:15)
--- NOTE | 2019-05-05 14:19 | PDOC ---
PULMONARY PROGRESS NOTES Vitals Vital Signs Date Time Temp Pulse Resp B/P (MAP) Pulse Ox O2 Delivery O2 Flow Rate FiO2 05/05/19 12:23 98.5 60 16 110/70 (83) 100 Nasal Cannula 3.0 98.5 General: Alert, Oriented X4, No acute distress Lungs: Wheezing Cardiovascular: S1 Abdomen: Soft Extremities: No Edema Labs Laboratory Tests Test 05/03/19 20:39 05/03/19 21:03 05/03/19 22:06 05/04/19 04:23 Glucose (Fingerstick) 59 mg/dL (70-99) 65 mg/dL (70-99) 110 mg/dL (70-99) 187 mg/dL (70-99) Test 05/04/19 04:25 05/05/19 05:30 05/05/19 07:59 05/05/19 11:20 Sodium Level 142 mmol/L (136-145) 144 mmol/L (136-145) Potassium Level 3.5 mmol/L (3.5-5.1) 3.9 mmol/L (3.5-5.1) Chloride Level 106 mmol/L (98-107) 109 mmol/L (98-107) Carbon Dioxide Level 32 mmol/L (21-32) 34 mmol/L (21-32) Anion Gap 4 (6-14) 1 (6-14) Blood Urea Nitrogen 10 mg/dL (7-20) 6 mg/dL (7-20) Creatinine 0.4 mg/dL (0.6-1.0) 0.4 mg/dL (0.6-1.0) Estimated GFR (Cockcroft-Gault) 167.0 167.0 Glucose Level 202 mg/dL (70-99) 104 mg/dL (70-99) Calcium Level 8.5 mg/dL (8.5-10.1) 8.7 mg/dL (8.5-10.1) Phosphorus Level 3.1 mg/dL (2.6-4.7) 3.1 mg/dL (2.6-4.7) Magnesium Level 1.9 mg/dL (1.8-2.4) 1.9 mg/dL (1.8-2.4) Triglycerides Level 84 mg/dL (0-150) Lipase 691 U/L (73-393) Vitamin B12 Level 805 pg/mL (247-911) Thyroid Stimulating Hormone (TSH) 1.663 uIU/mL (0.358-3.74) Glucose (Fingerstick) 114 mg/dL (70-99) Erythrocyte Sedimentation Rate 28 (0-25) Test 05/05/19 12:32 Glucose (Fingerstick) 115 mg/dL (70-99) Laboratory Tests Test 05/05/19 05:30 05/05/19 07:59 05/05/19 11:20 05/05/19 12:32 Sodium Level 144 mmol/L (136-145) Potassium Level 3.9 mmol/L (3.5-5.1) Chloride Level 109 mmol/L (98-107) Carbon Dioxide Level 34 mmol/L (21-32) Anion Gap 1 (6-14) Blood Urea Nitrogen 6 mg/dL (7-20) Creatinine 0.4 mg/dL (0.6-1.0) Estimated GFR (Cockcroft-Gault) 167.0 Glucose Level 104 mg/dL (70-99) Calcium Level 8.7 mg/dL (8.5-10.1) Phosphorus Level 3.1 mg/dL (2.6-4.7) Magnesium Level 1.9 mg/dL (1.8-2.4) Thyroid Stimulating Hormone (TSH) 1.663 uIU/mL (0.358-3.74) Glucose (Fingerstick) 114 mg/dL (70-99) 115 mg/dL (70-99) Erythrocyte Sedimentation Rate 28 (0-25) Medications Active Scripts Medications Dose Route/Sig Max Daily Dose Days Date Category FENTANYL 25mcg/hr (Fentanyl) 1 Each Patch.td72 1 Patch TP Q3DAYS 06/04/17 Reported Nitrostat (Nitroglycerin) 0.4 Mg Tab.subl 0.4 Mg SL PRN Q5MIN PRN 06/04/17 Reported Trazodone Hcl 100 Mg Tablet 200 Mg PO HS 01/16/16 Reported Klonopin (Clonazepam) 0.5 Mg Tablet 0.5 Mg PO TID PRN 01/16/16 Reported [morphine] 14.5 Mg ID DAILY 01/16/16 Reported Aspir 81 (Aspirin) 81 Mg Tablet.dr 81 Mg PO DAILY 01/16/16 Reported Symbicort 160-4.5 Mcg Inhaler (Budesonide/Formoterol Fumarate) 10.2 Gm Hfa.aer.ad 2 Puff IH BID 10/19/14 Reported Percocet 10-325 Mg Tablet (Oxycodone/Acetaminophen) 1 Each Tablet 1 Tab PO Q4HRS PRN 10/19/14 Reported Baclofen 10 Mg Tablet 1 Tab PO TID 07/20/14 Reported Trazodone Hcl 100 Mg Tablet 2 Tab PO QHS 07/18/14 Reported Provigil (Modafinil) 100 Mg Tablet 200 Mg PO DAILY 08/24/13 Reported Digoxin 0.125 Mg/2.5 Ml Solution 0.125 Mg PO DAILY 08/24/13 Reported Carbamazepine 200 Mg Cpmp.12hr 200 Mg PO TID 08/24/13 Reported Lexapro (Escitalopram Oxalate) 10 Mg Tablet 10 Mg PO DAILY 08/24/13 Reported Impression . FULL NOTE TO BE DICTATED A/C RF AECOPD NEUROMUSCULAR DZ PANCREATIC CYST PERICARDIAL EFFUSION SMALL PLEURAL EFFUSION CONTINUE SUPPORT SLY SON MD May 05, 2019 14:19
--- NOTE | 2019-05-05 14:22 | NUR ---
Pharmacy TPN Dosing Note S: RA VALLEJO is a 53 year old F Currently receiving Central Continuous TPN started 05/03/19 B:Pertinent PMH: PANCREATITIS/MALNOURISH Height: 5 feet, 7 inches Weight: 49.291485 kg Current diet: LABS: Sodium: 144 Potassium: 3.9 Chloride: 109 Calcium: 8.7 Corrected Calcium: 9.82 Magnesium: 1.9 CO2: 34 SCr: 0.4 Glucose: 104 Albumin: 2.6 AST: 14 ALT: 16 TPN FORMULA: TPN TYPE: Central Continuous AMINO ACIDS: 55 gm DEXTROSE: 195 gm LIPIDS: 20 gm SODIUM CHLORIDE: 70 mEq SODIUM ACETATE: mEq SODIUM PHOSPHATE: mmol POTASSIUM CHLORIDE: 50 mEq POTASSIUM ACETATE: mEq POTASSIUM PHOSPHATE: 13.6 mmol MAGNESIUM: 10 mEq CALCIUM: 10 mEq INSULIN: units MULTIPLE VITAMIN: 10 ml TRACE ELEMENTS: 1 ml(s) TPN PLAN: no changes in tpn, pt is starting clear liquid today.. R: CONTINUE TPN AT 63ML/HR Will monitor electrolytes, glucose, and tolerance to TPN. JESSICA GUIDRY [facility], 05/05/19 [id number]
--- NOTE | 2019-05-05 19:28 | NUR ---
PT TRANSFERRED TO THE FLOOR AT [facility] 1800 VIA WHEELCHAIR BY ICU NURSING STAFF. PT ORIENTED TO ROOM AND STAFF AND CALLED DAUGHTER JAN TO NOTIFY HER OF HER ROOM CHANGE.
[2019-05-05] MEDS: clonazePAM 0.5 MG TABLET PO PRN (19:52)
[2019-05-05] MEDS ORDERED: [UNRECOGNIZED DRUG - OTHER] IV SCH ×10 (22:00)
[2019-05-05] MEDS ORDERED: DEXTROSE 70% IV SCH ×10 (22:00)
[2019-05-05] MEDS ORDERED: TOTAL PARENTERAL NUTRITION IV SCH ×10 (22:00)
[2019-05-05] MEDS ORDERED: AMINO ACID IV SCH ×10 (22:00)
[2019-05-05] MEDS: traZODone 100 MG TABLET. PO PRN (22:03)
[2019-05-06 03:00] VITALS: BP 91/51
[2019-05-06] MEDS: PIPERACILLIN/TAZOBACTAM 3.375 GM in IV NORMAL SALINE 50ML 50 ML IV SCH ×3 (04:53→17:00)
[2019-05-06] MEDS: oxyCODONE/APAP 10/325 1 TAB TABLET PO PRN ×2 (05:41→20:57)
[2019-05-06 06:22] LABS: CALCIUM 8.8 mg/dL (8.5-10.1); CREATININE 0.4 mg/dL (0.6-1.0); MAGNESIUM 1.9 mg/dL (1.8-2.4); PHOSPHORUS 3.3 mg/dL (2.6-4.7); POTASSIUM 4.3 mmol/L (3.5-5.1)
[2019-05-06 07:00] VITALS: BP 105/64
[2019-05-06 07:26] LABS: BASO % 1 % (0-3); EOS # 0.2 x10^3/uL (0.0-0.7); EOS % 5 % (0-3); HEMOGLOBIN 10.6 g/dL (12.0-15.5); LYMPH # 1.6 x10^3/uL (1.0-4.8); LYMPH % 50 % (24-48); MEAN CORPUSCULAR HEMOGLOBIN 33 pg (25-35); MEAN CORPUSCULAR HGB CONC 33 g/dL (31-37); MEAN CORPUSCULAR VOLUME 100 fL (79-100); MONO # 0.3 x10^3/uL (0.0-1.1); MONO % 9 % (0-9); NEUT # 1.1 x10^3/uL (1.8-7.7); NEUT % 35 % (31-73); PLATELET COUNT 243 x10^3/uL (140-400); RED BLOOD COUNT 3.22 x10^6/uL (3.50-5.40); RED CELL DISTRIBUTION WIDTH 13.6 % (11.5-14.5); WHITE BLOOD COUNT 3.3 x10^3/uL (4.0-11.0)
[2019-05-06] MEDS: ALBUTEROL SULFATE 2.5 MG/3 ML NEBU. NEB SCH ×3 (07:51→18:00)
[2019-05-06] MEDS: BUDESONIDE 0.5 MG/2 ML NEBU. NEB SCH ×2 (07:52→20:00)
[2019-05-06] MEDS: PANTOPRAZOLE IV PUSH 40 MG VIAL. IVP SCH (08:49)
[2019-05-06] MEDS: carBAMazepine 200 MG TABLET PO SCH ×3 (08:49→20:57)
[2019-05-06] MEDS: CITALOPRAM 20 MG TABLET. PO SCH (08:49)
[2019-05-06] MEDS: ASPIRIN ENTERIC COATED 81 MG TABLET.DR. PO SCH (08:49)
[2019-05-06] MEDS: DIGOXIN 125 MCG TABLET. PO SCH (08:49)
[2019-05-06] MEDS: fentaNYL 25MCG/HR PATCH 1 PATCH PATCH.TD72 TD SCH (08:51)
[2019-05-06] MEDS: clonazePAM 0.5 MG TABLET PO PRN ×3 (08:56→21:11)
[2019-05-06 11:00] VITALS: BP 99/57
[2019-05-06] MEDS: MORPHINE SULFATE 4 MG/ML VIAL. IV PRN ×2 (11:25→17:48)
--- NOTE | 2019-05-06 11:46 | PDOC ---
[employer] [facility] PROGRESS NOTE Chief Complaint Chief Complaint Acute pancreatitis, pseudocyst Malnourished Chronic pain with indwelling pain pump Cancer COPD High Cholesterol Heart Disease Hypotension MS Osteoporosis Clinton's esophagus Mitral valve insuf Thyroid cancer History of Present Illness History of Present Illness 05/05/19 Pt seen and examined in ICU Pt expressed desire to be home for the holidays DW pt about her care DW RN Reviewed pt's chart [id number] Patient seen and examined Discussed with RN Patient would like to eat but at the same time states she has severe pain Lipase is up to over thousand now it was 600 She is tolerating clear liquids though Vitals/I&O Vitals/I&O: Vital Signs Date Time Temp Pulse Resp B/P (MAP) Pulse Ox O2 Delivery O2 Flow Rate FiO2 05/06/19 11:25 3 Nasal Cannula 05/06/19 08:51 2.0 05/06/19 08:49 61 105/64 05/06/19 07:00 98.5 16 98.5 I & O 05/05/19 05/05/19 05/06/19 15:00 23:00 07:00 Intake Total 540 ml 530 ml 170 ml Output Total 450 ml 350 ml 800 ml Balance 90 ml 180 ml -630 ml Physical Exam General: Alert, Oriented X3, Cooperative, No acute distress Heart: Regular rate, Other (distant heart tones ) Lungs: Wheezing Abdomen: Soft, Other (diffuse tenderness ) Extremities: No edema, Normal pulses Skin: No significant lesion Labs Labs: Laboratory Tests Test 05/05/19 12:32 05/05/19 17:32 05/05/19 23:41 05/06/19 05:00 Glucose (Fingerstick) 115 mg/dL (70-99) 81 mg/dL (70-99) 90 mg/dL (70-99) White Blood Count 3.3 x10^3/uL (4.0-11.0) Red Blood Count 3.22 x10^6/uL (3.50-5.40) Hemoglobin 10.6 g/dL (12.0-15.5) Hematocrit 32.0 % (36.0-47.0) Mean Corpuscular Volume 100 fL (79-100) Mean Corpuscular Hemoglobin 33 pg (25-35) Mean Corpuscular Hemoglobin Concent 33 g/dL (31-37) Red Cell Distribution Width 13.6 % (11.5-14.5) Platelet Count 243 x10^3/uL (140-400) Neutrophils (%) (Auto) 35 % (31-73) Lymphocytes (%) (Auto) 50 % (24-48) Monocytes (%) (Auto) 9 % (0-9) Eosinophils (%) (Auto) 5 % (0-3) Basophils (%) (Auto) 1 % (0-3) Neutrophils # (Auto) 1.1 x10^3/uL (1.8-7.7) Lymphocytes # (Auto) 1.6 x10^3/uL (1.0-4.8) Monocytes # (Auto) 0.3 x10^3/uL (0.0-1.1) Eosinophils # (Auto) 0.2 x10^3/uL (0.0-0.7) Basophils # (Auto) 0.0 x10^3/uL (0.0-0.2) Sodium Level 144 mmol/L (136-145) Potassium Level 4.3 mmol/L (3.5-5.1) Chloride Level 106 mmol/L (98-107) Carbon Dioxide Level 35 mmol/L (21-32) Anion Gap 3 (6-14) Blood Urea Nitrogen 9 mg/dL (7-20) Creatinine 0.4 mg/dL (0.6-1.0) Estimated GFR (Cockcroft-Gault) 167.0 Glucose Level 98 mg/dL (70-99) Calcium Level 8.8 mg/dL (8.5-10.1) Phosphorus Level 3.3 mg/dL (2.6-4.7) Magnesium Level 1.9 mg/dL (1.8-2.4) Lipase 1089 U/L (73-393) Review of Systems Review of Systems: Complains of pain in combines of hunger Assessment and Plan Assessmemt and Plan Problems Medical Problems: (1) Pancreatic pseudocyst Status: Acute (2) Pancreatitis, acute Status: Acute Assessment Acute pancreatitis, pseudocyst Malnourished Chronic pain with indwelling pain pump Cancer COPD High Cholesterol Heart Disease Hypotension MS Osteoporosis Clinton's esophagus Mitral valve insuf Thyroid cancer Plan Cardiac monitoring Daily Lipase PRN pain meds TPN Clear liquids Zosyn Labs PT/OT DVT prophylaxis Full Code Appreciate subspecialist input Long-term prognosis guarded Comment Review of Relevant I have reviewed the following items svetlana (where applicable) has been applied. Medications: Current Medications Medications (Trade) Dose Ordered Sig/Abhijit Route PRN Reason Start Time Stop Time Status Last Admin Dose Admin Sodium Chloride 70 meq/Potassium Chloride 50 meq/ Potassium Phosphate 13.6 mmol/Magnesium Sulfate 10 meq/ Calcium Gluconate 10 meq/ Multivitamins 10 ml/Chromium/ Copper/Manganese/ Seleni/Zn 1 ml/ Total Parenteral Nutrition/Amino Acids/Dextrose/ Fat Emulsion Intravenous 1,512 ml @ 63 mls/hr TPN CONT IV 05/05/19 22:00 05/06/19 21:59 05/05/19 22:11 Hemodynamically unstable?: Yes Respiratory Distress?: Yes Serious Diagnosis?: Yes Is patient at high risk?: Yes JENNIFER OCONNELL III DO May 06, 2019 11:46
--- NOTE | 2019-05-06 12:12 | PDOC ---
PULMONARY PROGRESS NOTES Subjective pt some soa witth extertion Vitals Vital Signs Date Time Temp Pulse Resp B/P (MAP) Pulse Ox O2 Delivery O2 Flow Rate FiO2 05/06/19 11:25 3 Nasal Cannula 05/06/19 08:51 2.0 05/06/19 08:49 61 105/64 05/06/19 07:00 98.5 16 98.5 ROS: No Nausea, No Chest Pain, No Abdominal Pain, No Increase Cough General: Alert, Oriented X4, No acute distress Lungs: Wheezing, Crackles Cardiovascular: S1 Abdomen: Soft Extremities: No Edema Skin: Warm Labs Laboratory Tests Test 05/05/19 05:30 05/05/19 07:59 05/05/19 11:20 05/05/19 12:32 Sodium Level 144 mmol/L (136-145) Potassium Level 3.9 mmol/L (3.5-5.1) Chloride Level 109 mmol/L (98-107) Carbon Dioxide Level 34 mmol/L (21-32) Anion Gap 1 (6-14) Blood Urea Nitrogen 6 mg/dL (7-20) Creatinine 0.4 mg/dL (0.6-1.0) Estimated GFR (Cockcroft-Gault) 167.0 Glucose Level 104 mg/dL (70-99) Calcium Level 8.7 mg/dL (8.5-10.1) Phosphorus Level 3.1 mg/dL (2.6-4.7) Magnesium Level 1.9 mg/dL (1.8-2.4) Thyroid Stimulating Hormone (TSH) 1.663 uIU/mL (0.358-3.74) Glucose (Fingerstick) 114 mg/dL (70-99) 115 mg/dL (70-99) Erythrocyte Sedimentation Rate 28 (0-25) Test 05/05/19 17:32 05/05/19 23:41 05/06/19 05:00 05/06/19 11:49 Glucose (Fingerstick) 81 mg/dL (70-99) 90 mg/dL (70-99) 115 mg/dL (70-99) White Blood Count 3.3 x10^3/uL (4.0-11.0) Red Blood Count 3.22 x10^6/uL (3.50-5.40) Hemoglobin 10.6 g/dL (12.0-15.5) Hematocrit 32.0 % (36.0-47.0) Mean Corpuscular Volume 100 fL (79-100) Mean Corpuscular Hemoglobin 33 pg (25-35) Mean Corpuscular Hemoglobin Concent 33 g/dL (31-37) Red Cell Distribution Width 13.6 % (11.5-14.5) Platelet Count 243 x10^3/uL (140-400) Neutrophils (%) (Auto) 35 % (31-73) Lymphocytes (%) (Auto) 50 % (24-48) Monocytes (%) (Auto) 9 % (0-9) Eosinophils (%) (Auto) 5 % (0-3) Basophils (%) (Auto) 1 % (0-3) Neutrophils # (Auto) 1.1 x10^3/uL (1.8-7.7) Lymphocytes # (Auto) 1.6 x10^3/uL (1.0-4.8) Monocytes # (Auto) 0.3 x10^3/uL (0.0-1.1) Eosinophils # (Auto) 0.2 x10^3/uL (0.0-0.7) Basophils # (Auto) 0.0 x10^3/uL (0.0-0.2) Sodium Level 144 mmol/L (136-145) Potassium Level 4.3 mmol/L (3.5-5.1) Chloride Level 106 mmol/L (98-107) Carbon Dioxide Level 35 mmol/L (21-32) Anion Gap 3 (6-14) Blood Urea Nitrogen 9 mg/dL (7-20) Creatinine 0.4 mg/dL (0.6-1.0) Estimated GFR (Cockcroft-Gault) 167.0 Glucose Level 98 mg/dL (70-99) Calcium Level 8.8 mg/dL (8.5-10.1) Phosphorus Level 3.3 mg/dL (2.6-4.7) Magnesium Level 1.9 mg/dL (1.8-2.4) Lipase 1089 U/L (73-393) Laboratory Tests Test 05/05/19 12:32 05/05/19 17:32 05/05/19 23:41 05/06/19 05:00 Glucose (Fingerstick) 115 mg/dL (70-99) 81 mg/dL (70-99) 90 mg/dL (70-99) White Blood Count 3.3 x10^3/uL (4.0-11.0) Red Blood Count 3.22 x10^6/uL (3.50-5.40) Hemoglobin 10.6 g/dL (12.0-15.5) Hematocrit 32.0 % (36.0-47.0) Mean Corpuscular Volume 100 fL (79-100) Mean Corpuscular Hemoglobin 33 pg (25-35) Mean Corpuscular Hemoglobin Concent 33 g/dL (31-37) Red Cell Distribution Width 13.6 % (11.5-14.5) Platelet Count 243 x10^3/uL (140-400) Neutrophils (%) (Auto) 35 % (31-73) Lymphocytes (%) (Auto) 50 % (24-48) Monocytes (%) (Auto) 9 % (0-9) Eosinophils (%) (Auto) 5 % (0-3) Basophils (%) (Auto) 1 % (0-3) Neutrophils # (Auto) 1.1 x10^3/uL (1.8-7.7) Lymphocytes # (Auto) 1.6 x10^3/uL (1.0-4.8) Monocytes # (Auto) 0.3 x10^3/uL (0.0-1.1) Eosinophils # (Auto) 0.2 x10^3/uL (0.0-0.7) Basophils # (Auto) 0.0 x10^3/uL (0.0-0.2) Sodium Level 144 mmol/L (136-145) Potassium Level 4.3 mmol/L (3.5-5.1) Chloride Level 106 mmol/L (98-107) Carbon Dioxide Level 35 mmol/L (21-32) Anion Gap 3 (6-14) Blood Urea Nitrogen 9 mg/dL (7-20) Creatinine 0.4 mg/dL (0.6-1.0) Estimated GFR (Cockcroft-Gault) 167.0 Glucose Level 98 mg/dL (70-99) Calcium Level 8.8 mg/dL (8.5-10.1) Phosphorus Level 3.3 mg/dL (2.6-4.7) Magnesium Level 1.9 mg/dL (1.8-2.4) Lipase 1089 U/L (73-393) Test 05/06/19 11:49 Glucose (Fingerstick) 115 mg/dL (70-99) Medications Active Scripts Medications Dose Route/Sig Max Daily Dose Days Date Category FENTANYL 25mcg/hr (Fentanyl) 1 Each Patch.td72 1 Patch TP Q3DAYS 06/04/17 Reported Nitrostat (Nitroglycerin) 0.4 Mg Tab.subl 0.4 Mg SL PRN Q5MIN PRN 06/04/17 Reported Trazodone Hcl 100 Mg Tablet 200 Mg PO HS 01/16/16 Reported Klonopin (Clonazepam) 0.5 Mg Tablet 0.5 Mg PO TID PRN 01/16/16 Reported [morphine] 14.5 Mg ID DAILY 01/16/16 Reported Aspir 81 (Aspirin) 81 Mg Tablet.dr 81 Mg PO DAILY 01/16/16 Reported Symbicort 160-4.5 Mcg Inhaler (Budesonide/Formoterol Fumarate) 10.2 Gm Hfa.aer.ad 2 Puff IH BID 10/19/14 Reported Percocet 10-325 Mg Tablet (Oxycodone/Acetaminophen) 1 Each Tablet 1 Tab PO Q4HRS PRN 10/19/14 Reported Baclofen 10 Mg Tablet 1 Tab PO TID 07/20/14 Reported Trazodone Hcl 100 Mg Tablet 2 Tab PO QHS 07/18/14 Reported Provigil (Modafinil) 100 Mg Tablet 200 Mg PO DAILY 08/24/13 Reported Digoxin 0.125 Mg/2.5 Ml Solution 0.125 Mg PO DAILY 08/24/13 Reported Carbamazepine 200 Mg Cpmp.12hr 200 Mg PO TID 08/24/13 Reported Lexapro (Escitalopram Oxalate) 10 Mg Tablet 10 Mg PO DAILY 08/24/13 Reported Impression . 1.Pancreatic cyst/Pancreatitis 2. Pericardial Effusion 3. Pleural Effusion 4. Multiple Sclerosis 5. COPD 6. protein malnutrition 7. Hypertension 8. a/c resp faulilure CT ABD : IMPRESSION: 1. There is complex rim-enhancing fluid collection at the gastrosplenic recess and at the splenic hilum extending slightly inferior. Fluid collection is near the pancreas tail and is immediately adjacent to the lateral stomach and the medial spleen. Considerations include pancreatic pseudocysts versus unrelated abscess perhaps from perforated gastric ulcer or other source. Suggest short-term follow-up CT. 2. Moderate pericardial effusion. 3. New small bilateral pleural effusions. 4. Mild pelvic free fluid. Plan . Follow GI and Gen surgery recs- currently on clear liquids in combination with TPN Gen surgery --planning for surgery in 1 month Nebs Supplemental oxygen cont. Abx Follow cardiology recs --- EF WNL per cardiology notes no need for thoracentisis at this time PT/OT D/W SLY INMAN MD May 06, 2019 12:12
[2019-05-06] MEDS: TPN PER PHARMACY MC PRN (13:33)
--- NOTE | 2019-05-06 13:33 | NUR ---
Pharmacy TPN Dosing Note S: RA VALLEJO is a 53 year old F Currently receiving Central Continuous TPN started 05/03/19 B:Pertinent PMH: PANCREATITIS/MALNOURISH Height: 5 feet, 7 inches Weight: 49.029337 kg Current diet: LABS: Sodium: 144 Potassium: 4.3 Chloride: 106 Calcium: 8.8 Corrected Calcium: 9.92 Magnesium: 1.9 CO2: 35 SCr: 0.4 Glucose: 115 Albumin: 2.6 AST: 14 ALT: 16 TPN FORMULA: TPN TYPE: Central Continuous AMINO ACIDS: 55 gm DEXTROSE: 195 gm LIPIDS: 20 gm SODIUM CHLORIDE: 70 mEq SODIUM ACETATE: mEq SODIUM PHOSPHATE: mmol POTASSIUM CHLORIDE: 50 mEq POTASSIUM ACETATE: mEq POTASSIUM PHOSPHATE: 13.6 mmol MAGNESIUM: 10 mEq CALCIUM: 10 mEq INSULIN: units MULTIPLE VITAMIN: 10 ml TRACE ELEMENTS: 1 ml(s) TPN PLAN: Pt tolerating clear liquids, still having pain when eating. Lipase has increased. Will continue TPN at least another day. BMP in AM. R: Continue TPN ABOVE. Will monitor electrolytes, glucose, and tolerance to TPN. RANDY LOPEZ, [facility], 05/06/19 [id number]
--- NOTE | 2019-05-06 13:39 | PDOC ---
SURGICAL PROGRESS NOTE Subjective Emilio jennifer Worrell Vital Signs Vital Signs Date Time Temp Pulse Resp B/P (MAP) Pulse Ox O2 Delivery O2 Flow Rate FiO2 05/06/19 11:25 3 Nasal Cannula 05/06/19 11:00 98.5 61 16 99/57 (71) 3.0 98.5 I&O Intake and Output 05/06/19 07:00 Intake Total 1240 ml Output Total 1600 ml Balance -360 ml Intake Oral 1140 ml IV Total 100 ml Output Urine Total 1600 ml # Voids 2 PATIENT HAS A GUEVARA: No General: Alert, No acute distress Abdomen: Soft Labs Laboratory Tests Test 05/05/19 05:30 05/05/19 07:59 05/05/19 11:20 05/05/19 12:32 Sodium Level 144 mmol/L (136-145) Potassium Level 3.9 mmol/L (3.5-5.1) Chloride Level 109 mmol/L (98-107) Carbon Dioxide Level 34 mmol/L (21-32) Anion Gap 1 (6-14) Blood Urea Nitrogen 6 mg/dL (7-20) Creatinine 0.4 mg/dL (0.6-1.0) Estimated GFR (Cockcroft-Gault) 167.0 Glucose Level 104 mg/dL (70-99) Calcium Level 8.7 mg/dL (8.5-10.1) Phosphorus Level 3.1 mg/dL (2.6-4.7) Magnesium Level 1.9 mg/dL (1.8-2.4) Thyroid Stimulating Hormone (TSH) 1.663 uIU/mL (0.358-3.74) Glucose (Fingerstick) 114 mg/dL (70-99) 115 mg/dL (70-99) Erythrocyte Sedimentation Rate 28 (0-25) Test 05/05/19 17:32 05/05/19 23:41 05/06/19 05:00 05/06/19 11:49 Glucose (Fingerstick) 81 mg/dL (70-99) 90 mg/dL (70-99) 115 mg/dL (70-99) White Blood Count 3.3 x10^3/uL (4.0-11.0) Red Blood Count 3.22 x10^6/uL (3.50-5.40) Hemoglobin 10.6 g/dL (12.0-15.5) Hematocrit 32.0 % (36.0-47.0) Mean Corpuscular Volume 100 fL (79-100) Mean Corpuscular Hemoglobin 33 pg (25-35) Mean Corpuscular Hemoglobin Concent 33 g/dL (31-37) Red Cell Distribution Width 13.6 % (11.5-14.5) Platelet Count 243 x10^3/uL (140-400) Neutrophils (%) (Auto) 35 % (31-73) Lymphocytes (%) (Auto) 50 % (24-48) Monocytes (%) (Auto) 9 % (0-9) Eosinophils (%) (Auto) 5 % (0-3) Basophils (%) (Auto) 1 % (0-3) Neutrophils # (Auto) 1.1 x10^3/uL (1.8-7.7) Lymphocytes # (Auto) 1.6 x10^3/uL (1.0-4.8) Monocytes # (Auto) 0.3 x10^3/uL (0.0-1.1) Eosinophils # (Auto) 0.2 x10^3/uL (0.0-0.7) Basophils # (Auto) 0.0 x10^3/uL (0.0-0.2) Sodium Level 144 mmol/L (136-145) Potassium Level 4.3 mmol/L (3.5-5.1) Chloride Level 106 mmol/L (98-107) Carbon Dioxide Level 35 mmol/L (21-32) Anion Gap 3 (6-14) Blood Urea Nitrogen 9 mg/dL (7-20) Creatinine 0.4 mg/dL (0.6-1.0) Estimated GFR (Cockcroft-Gault) 167.0 Glucose Level 98 mg/dL (70-99) Calcium Level 8.8 mg/dL (8.5-10.1) Phosphorus Level 3.3 mg/dL (2.6-4.7) Magnesium Level 1.9 mg/dL (1.8-2.4) Lipase 1089 U/L (73-393) Laboratory Tests Test 05/05/19 17:32 05/05/19 23:41 05/06/19 05:00 05/06/19 11:49 Glucose (Fingerstick) 81 mg/dL (70-99) 90 mg/dL (70-99) 115 mg/dL (70-99) White Blood Count 3.3 x10^3/uL (4.0-11.0) Red Blood Count 3.22 x10^6/uL (3.50-5.40) Hemoglobin 10.6 g/dL (12.0-15.5) Hematocrit 32.0 % (36.0-47.0) Mean Corpuscular Volume 100 fL (79-100) Mean Corpuscular Hemoglobin 33 pg (25-35) Mean Corpuscular Hemoglobin Concent 33 g/dL (31-37) Red Cell Distribution Width 13.6 % (11.5-14.5) Platelet Count 243 x10^3/uL (140-400) Neutrophils (%) (Auto) 35 % (31-73) Lymphocytes (%) (Auto) 50 % (24-48) Monocytes (%) (Auto) 9 % (0-9) Eosinophils (%) (Auto) 5 % (0-3) Basophils (%) (Auto) 1 % (0-3) Neutrophils # (Auto) 1.1 x10^3/uL (1.8-7.7) Lymphocytes # (Auto) 1.6 x10^3/uL (1.0-4.8) Monocytes # (Auto) 0.3 x10^3/uL (0.0-1.1) Eosinophils # (Auto) 0.2 x10^3/uL (0.0-0.7) Basophils # (Auto) 0.0 x10^3/uL (0.0-0.2) Sodium Level 144 mmol/L (136-145) Potassium Level 4.3 mmol/L (3.5-5.1) Chloride Level 106 mmol/L (98-107) Carbon Dioxide Level 35 mmol/L (21-32) Anion Gap 3 (6-14) Blood Urea Nitrogen 9 mg/dL (7-20) Creatinine 0.4 mg/dL (0.6-1.0) Estimated GFR (Cockcroft-Gault) 167.0 Glucose Level 98 mg/dL (70-99) Calcium Level 8.8 mg/dL (8.5-10.1) Phosphorus Level 3.3 mg/dL (2.6-4.7) Magnesium Level 1.9 mg/dL (1.8-2.4) Lipase 1089 U/L (73-393) Problem List Problems Medical Problems: (1) Pancreatic pseudocyst Status: Acute (2) Pancreatitis, acute Status: Acute Assessment/Plan pancreatic pseudocyst continue TPN, NPO BRANDON ISSA MD May 06, 2019 13:39
[2019-05-06 15:00] VITALS: BP 87/56
[2019-05-06 19:45] VITALS: BP 120/66
[2019-05-06] MEDS: LACTOBACILLUS RHAMNOSUS GG 1 CAPSULE. PO SCH (20:57)
[2019-05-06] MEDS: traZODone 100 MG TABLET. PO PRN (21:11)
[2019-05-06] MEDS ORDERED: AMINO ACID IV SCH ×10 (22:00)
[2019-05-06] MEDS ORDERED: DEXTROSE 70% IV SCH ×10 (22:00)
[2019-05-06] MEDS ORDERED: TOTAL PARENTERAL NUTRITION IV SCH ×10 (22:00)
[2019-05-06] MEDS ORDERED: [UNRECOGNIZED DRUG - OTHER] IV SCH ×10 (22:00)
--- NOTE | 2019-05-06 22:57 | NUR ---
Pt breathing treatments changed to prn, pt has refused all txs since 05/03
[2019-05-06 23:00] VITALS: BP 132/75
[2019-05-06] MEDS ORDERED: ALBUTEROL SULFATE 2.5 MG/3 ML NEBU. NEB PRN (23:00)
[2019-05-06] MEDS ORDERED: BUDESONIDE 0.5 MG/2 ML NEBU. NEB PRN (23:00)
[2019-05-07] VITALS (7 sets, daily range): BP systolic 73–99; BP diastolic 45–58
[2019-05-07] MEDS: MORPHINE SULFATE 4 MG/ML VIAL. IV PRN ×3 (00:06→19:27)
[2019-05-07] MEDS: oxyCODONE/APAP 10/325 1 TAB TABLET PO PRN ×3 (02:24→16:52)
--- NOTE | 2019-05-07 07:57 | CONS ---
DATE OF CONSULTATION: ATTENDING PHYSICIAN: Dr. Shine REASON FOR CONSULTATION: The patient is seen in pulmonary consultation at the request of Dr. Shine for chronic respiratory failure and increasing shortness of air. HISTORY OF PRESENT ILLNESS: The patient is a 53-year-old, well known to me from outpatient department and previous hospitalization. She has a history of chronic respiratory failure, COPD of emphysematous type with previous benign-appearing lung nodule and chronic pericardial effusion. She has a history of multiple sclerosis. There was some discordance with recent evaluation by Dr. Ball. Dr. Ball felt that she might have fibromyalgia and possibly some other autoimmune disease. 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 She now comes in with a month history of left upper quadrant abdominal pain, nausea, vomiting, and difficulty eating. She was found to have a pancreatic cyst. She is currently being treated for pancreatitis. She was started on TPN. I was asked to see him in consultation as a consequence of her severe shortness of air. She is on her oxygen. She has a cough, mostly nonproductive. PAST MEDICAL HISTORY: Remarkable for chronic respiratory failure as indicated above. There is a prior history of chronic progressive multiple sclerosis with positive ROWENA virus titer. She also has history of fibromyalgia, severe malnutrition, tobacco history, continued to smoke on and off at times, underlying COPD of the emphysematous type. Otherwise, there is a history of chronic heart failure, hypertension, hyperlipidemia, and gastroesophageal reflux. PAST SURGICAL HISTORY: Status post pacemaker, appendectomy, tonsillectomy, hysterectomy, and thyroidectomy. FAMILY HISTORY: Diabetes and heart disease. SOCIAL HISTORY: She smokes less than a pack of cigarettes a day. ALLERGIES: No known drug allergies. CURRENT MEDICATIONS: List was reviewed. REVIEW OF SYSTEMS: As indicated above, otherwise, a 10-point system was reviewed and negative. PHYSICAL EXAMINATION: VITAL SIGNS: The patient was in the intensive care unit on 2-5 L of oxygen supplementation, saturation greater than 92%. HEENT: Eyes, sclerae were nonicteric. NECK: Jugular venous distention was not elevated. No lymphadenopathy. CHEST: Full expansion. LUNGS: Poor airway flow with some scattered rhonchi. CARDIOVASCULAR: Regular rate and rhythm with S1, S2, no S3. ABDOMEN: Soft, nontender, nondistended. EXTREMITIES: No clubbing, cyanosis or edema. NEUROLOGIC: The patient was awake, alert, following commands. A detailed neuro exam was not performed. LABORATORY DATA: Reviewed. White count was normal. Hemoglobin and hematocrit were noted. Electrolytes were noted. Lipase level was 1089, she got up a bit since admission. Her BUN and creatinine were noted. Albumin was markedly low at 2.6. IMPRESSION: 1. Acute on chronic respiratory failure. 2. Severe chronic obstructive pulmonary disease of the emphysematous type. 3. Tobacco dependent. 4. Chronic respiratory failure secondary to progressive multiple sclerosis with positive ROWENA virus titers. 5. Fibromyalgia. 6. Pancreatitis secondary to pancreatic cyst. 7. Chronic pericardial effusion. 8. Chronic small pleural effusion. 9. Severe protein malnutrition. PLAN: 1. Respiratory status appears to be compensated. We will continue current support. 2. Follow GI and General Surgery recommendations. 3. TPN for nutrition. 4. Nebulized treatments. 5. Sequential compressive devices. 6. No need for thoracentesis at this time. I do appreciate the privilege in sharing in the patient's care. SLY SON MD DR: AG/ned JOB#: [id number] / [id number]
--- NOTE | 2019-05-07 08:22 | RAD ---
EXAM: CHEST 1 VIEW History: Shortness of breath COMPARISON: 04/11/2018 TECHNIQUE: Single portable radiograph of the chest FINDINGS: Moderate cardiomegaly. Left-sided cardiac pacer is identified. Right-sided PICC line is identified with the tip projecting in the SVC/RA junction. Moderate prominent appearing bilateral interstitial lung markings. Small bilateral pleural effusions with bibasilar lung airspace opacities likely atelectasis or infiltrates. IMPRESSION: 1. Moderate congestive changes. 2. Bibasilar lung airspace opacities likely atelectasis or infiltrates with small bilateral pleural effusions. Electronically signed by: Orestes Villanueva MD (05/07/2019 8:19 AM) [facility]
[2019-05-07] MEDS: LACTOBACILLUS RHAMNOSUS GG 1 CAPSULE. PO SCH ×2 (09:06→21:25)
[2019-05-07] MEDS: ASPIRIN ENTERIC COATED 81 MG TABLET.DR. PO SCH (09:06)
[2019-05-07] MEDS: carBAMazepine 200 MG TABLET PO SCH ×3 (09:07→21:25)
[2019-05-07] MEDS: CITALOPRAM 20 MG TABLET. PO SCH (09:07)
[2019-05-07] MEDS: PANTOPRAZOLE IV PUSH 40 MG VIAL. IVP SCH (09:07)
[2019-05-07] MEDS: DIGOXIN 125 MCG TABLET. PO SCH (09:07)
--- NOTE | 2019-05-07 10:50 | PDOC ---
PULMONARY PROGRESS NOTES Subjective remains on N/C oxygen, denies increased cough, continue to have SOB on exertion Pt. reports she is sad, she wont be able to be home for holidays She also has discover two palpable lumps in left axilla area also reports increased abdominal pain, Nursing reports mild hypotension Vitals Vital Signs Date Time Temp Pulse Resp B/P (MAP) Pulse Ox O2 Delivery O2 Flow Rate FiO2 05/07/19 09:07 63 84/54 05/07/19 08:45 96 Nasal Cannula 3.0 05/07/19 07:00 97.8 18 97.8 ROS: No Nausea, No Chest Pain, No Increase Cough General: Alert, Oriented X4, No acute distress Lungs: Crackles Cardiovascular: S1 Abdomen: Soft, Other Extremities: No Edema Skin: Warm, Dry Labs Laboratory Tests Test 05/05/19 11:20 05/05/19 12:32 05/05/19 17:32 05/05/19 23:41 Erythrocyte Sedimentation Rate 28 (0-25) Glucose (Fingerstick) 115 mg/dL (70-99) 81 mg/dL (70-99) 90 mg/dL (70-99) Test 05/06/19 05:00 05/06/19 11:49 05/07/19 00:00 05/07/19 07:30 White Blood Count 3.3 x10^3/uL (4.0-11.0) Red Blood Count 3.22 x10^6/uL (3.50-5.40) Hemoglobin 10.6 g/dL (12.0-15.5) Hematocrit 32.0 % (36.0-47.0) Mean Corpuscular Volume 100 fL (79-100) Mean Corpuscular Hemoglobin 33 pg (25-35) Mean Corpuscular Hemoglobin Concent 33 g/dL (31-37) Red Cell Distribution Width 13.6 % (11.5-14.5) Platelet Count 243 x10^3/uL (140-400) Neutrophils (%) (Auto) 35 % (31-73) Lymphocytes (%) (Auto) 50 % (24-48) Monocytes (%) (Auto) 9 % (0-9) Eosinophils (%) (Auto) 5 % (0-3) Basophils (%) (Auto) 1 % (0-3) Neutrophils # (Auto) 1.1 x10^3/uL (1.8-7.7) Lymphocytes # (Auto) 1.6 x10^3/uL (1.0-4.8) Monocytes # (Auto) 0.3 x10^3/uL (0.0-1.1) Eosinophils # (Auto) 0.2 x10^3/uL (0.0-0.7) Basophils # (Auto) 0.0 x10^3/uL (0.0-0.2) Sodium Level 144 mmol/L (136-145) Potassium Level 4.3 mmol/L (3.5-5.1) Chloride Level 106 mmol/L (98-107) Carbon Dioxide Level 35 mmol/L (21-32) Anion Gap 3 (6-14) Blood Urea Nitrogen 9 mg/dL (7-20) Creatinine 0.4 mg/dL (0.6-1.0) Estimated GFR (Cockcroft-Gault) 167.0 Glucose Level 98 mg/dL (70-99) Calcium Level 8.8 mg/dL (8.5-10.1) Phosphorus Level 3.3 mg/dL (2.6-4.7) Magnesium Level 1.9 mg/dL (1.8-2.4) Lipase 1089 U/L (73-393) Glucose (Fingerstick) 115 mg/dL (70-99) 107 mg/dL (70-99) 119 mg/dL (70-99) Laboratory Tests Test 05/06/19 11:49 05/07/19 00:00 05/07/19 07:30 Glucose (Fingerstick) 115 mg/dL (70-99) 107 mg/dL (70-99) 119 mg/dL (70-99) Medications Active Scripts Medications Dose Route/Sig Max Daily Dose Days Date Category FENTANYL 25mcg/hr (Fentanyl) 1 Each Patch.td72 1 Patch TP Q3DAYS 06/04/17 Reported Nitrostat (Nitroglycerin) 0.4 Mg Tab.subl 0.4 Mg SL PRN Q5MIN PRN 06/04/17 Reported Trazodone Hcl 100 Mg Tablet 200 Mg PO HS 01/16/16 Reported Klonopin (Clonazepam) 0.5 Mg Tablet 0.5 Mg PO TID PRN 01/16/16 Reported [morphine] 14.5 Mg ID DAILY 01/16/16 Reported Aspir 81 (Aspirin) 81 Mg Tablet.dr 81 Mg PO DAILY 01/16/16 Reported Symbicort 160-4.5 Mcg Inhaler (Budesonide/Formoterol Fumarate) 10.2 Gm Hfa.aer.ad 2 Puff IH BID 10/19/14 Reported Percocet 10-325 Mg Tablet (Oxycodone/Acetaminophen) 1 Each Tablet 1 Tab PO Q4HRS PRN 10/19/14 Reported Baclofen 10 Mg Tablet 1 Tab PO TID 07/20/14 Reported Trazodone Hcl 100 Mg Tablet 2 Tab PO QHS 07/18/14 Reported Provigil (Modafinil) 100 Mg Tablet 200 Mg PO DAILY 08/24/13 Reported Digoxin 0.125 Mg/2.5 Ml Solution 0.125 Mg PO DAILY 08/24/13 Reported Carbamazepine 200 Mg Cpmp.12hr 200 Mg PO TID 08/24/13 Reported Lexapro (Escitalopram Oxalate) 10 Mg Tablet 10 Mg PO DAILY 08/24/13 Reported Impression . 1.Pancreatic cyst/Pancreatitis 2. Pericardial Effusion 3. Pleural Effusion 4. Multiple Sclerosis 5. COPD 6. protein malnutrition 7. Hypertension 8. a/c resp faulilure CXR: IMPRESSION: 1. Moderate congestive changes. 2. Bibasilar lung airspace opacities likely atelectasis or infiltrates with small bilateral pleural effusions. CT ABD : IMPRESSION: 1. There is complex rim-enhancing fluid collection at the gastrosplenic recess and at the splenic hilum extending slightly inferior. Fluid collection is near the pancreas tail and is immediately adjacent to the lateral stomach and the medial spleen. Considerations include pancreatic pseudocysts versus unrelated abscess perhaps from perforated gastric ulcer or other source. Suggest short-term follow-up CT. 2. Moderate pericardial effusion. 3. New small bilateral pleural effusions. 4. Mild pelvic free fluid. Plan . Follow GI and Gen surgery recs- currently on clear liquids in combination with TPN Gen surgery --planning for surgery in 1 month Nebs Supplemental oxygen cont. Abx Follow cardiology recs --- EF WNL per cardiology notes no need for thoracentisis at this time PT/OT D/W SLY INMAN MD May 07, 2019 10:50
[2019-05-07] MEDS: TPN PER PHARMACY MC PRN (11:11)
--- NOTE | 2019-05-07 11:12 | NUR ---
Pharmacy TPN Dosing Note S: RA VALLEJO is a 53 year old F Currently receiving Central Continuous TPN started 05/03/19 B:Pertinent PMH: PANCREATITIS/MALNOURISH Height: 5 feet, 7 inches Weight: 49.951278 kg Current diet: LABS: Sodium: 144 Potassium: 4.3 Chloride: 106 Calcium: 8.8 Corrected Calcium: 9.92 Magnesium: 1.9 CO2: 35 SCr: 0.4 Glucose: 115 Albumin: 2.6 AST: 14 ALT: 16 TPN FORMULA: TPN TYPE: Central Continuous AMINO ACIDS: 55 gm DEXTROSE: 195 gm LIPIDS: 20 gm SODIUM CHLORIDE: 70 mEq SODIUM ACETATE: mEq SODIUM PHOSPHATE: mmol POTASSIUM CHLORIDE: 50 mEq POTASSIUM ACETATE: mEq POTASSIUM PHOSPHATE: 13.6 mmol MAGNESIUM: 10 mEq CALCIUM: 10 mEq INSULIN: units MULTIPLE VITAMIN: 10 ml TRACE ELEMENTS: 1 ml(s) TPN PLAN: Pt tolerating clear liquids. No labs ordered, no changes to TPN today. CMP per primary in AM. R: Continue TPN ABOVE. Will monitor electrolytes, glucose, and tolerance to TPN. RANDY LOPEZ [facility], 05/07/19 1117
--- NOTE | 2019-05-07 11:34 | PDOC ---
SURGICAL PROGRESS NOTE Subjective would like to eat noticed mass left axilla Vital Signs Vital Signs Date Time Temp Pulse Resp B/P (MAP) Pulse Ox O2 Delivery O2 Flow Rate FiO2 05/07/19 11:04 Nasal Cannula 3.0 05/07/19 11:00 97.9 62 18 90/55 (67) 96 97.9 I&O Intake and Output 05/07/19 07:00 Intake Total 2566 ml Output Total 2425 ml Balance 141 ml Intake Oral 360 ml IV Total 2206 ml Output Urine Total 2425 ml PATIENT HAS A GUEVARA: No General: Alert Extremities: Other (left axillary mass?) Labs Laboratory Tests Test 05/05/19 12:32 05/05/19 17:32 05/05/19 23:41 05/06/19 05:00 Glucose (Fingerstick) 115 mg/dL (70-99) 81 mg/dL (70-99) 90 mg/dL (70-99) White Blood Count 3.3 x10^3/uL (4.0-11.0) Red Blood Count 3.22 x10^6/uL (3.50-5.40) Hemoglobin 10.6 g/dL (12.0-15.5) Hematocrit 32.0 % (36.0-47.0) Mean Corpuscular Volume 100 fL (79-100) Mean Corpuscular Hemoglobin 33 pg (25-35) Mean Corpuscular Hemoglobin Concent 33 g/dL (31-37) Red Cell Distribution Width 13.6 % (11.5-14.5) Platelet Count 243 x10^3/uL (140-400) Neutrophils (%) (Auto) 35 % (31-73) Lymphocytes (%) (Auto) 50 % (24-48) Monocytes (%) (Auto) 9 % (0-9) Eosinophils (%) (Auto) 5 % (0-3) Basophils (%) (Auto) 1 % (0-3) Neutrophils # (Auto) 1.1 x10^3/uL (1.8-7.7) Lymphocytes # (Auto) 1.6 x10^3/uL (1.0-4.8) Monocytes # (Auto) 0.3 x10^3/uL (0.0-1.1) Eosinophils # (Auto) 0.2 x10^3/uL (0.0-0.7) Basophils # (Auto) 0.0 x10^3/uL (0.0-0.2) Sodium Level 144 mmol/L (136-145) Potassium Level 4.3 mmol/L (3.5-5.1) Chloride Level 106 mmol/L (98-107) Carbon Dioxide Level 35 mmol/L (21-32) Anion Gap 3 (6-14) Blood Urea Nitrogen 9 mg/dL (7-20) Creatinine 0.4 mg/dL (0.6-1.0) Estimated GFR (Cockcroft-Gault) 167.0 Glucose Level 98 mg/dL (70-99) Calcium Level 8.8 mg/dL (8.5-10.1) Phosphorus Level 3.3 mg/dL (2.6-4.7) Magnesium Level 1.9 mg/dL (1.8-2.4) Lipase 1089 U/L (73-393) Test 05/06/19 11:49 05/07/19 00:00 05/07/19 07:30 Glucose (Fingerstick) 115 mg/dL (70-99) 107 mg/dL (70-99) 119 mg/dL (70-99) Laboratory Tests Test 05/06/19 11:49 05/07/19 00:00 05/07/19 07:30 Glucose (Fingerstick) 115 mg/dL (70-99) 107 mg/dL (70-99) 119 mg/dL (70-99) Problem List Problems Medical Problems: (1) Pancreatic pseudocyst Status: Acute (2) Pancreatitis, acute Status: Acute Assessment/Plan pancreatic pseudocyst malnutrition will check US BRANDON ISSA MD May 07, 2019 11:34
[2019-05-07 12:29] LABS: BASO % 1 % (0-3); EOS # 0.2 x10^3/uL (0.0-0.7); EOS % 4 % (0-3); HEMATOCRIT 32.7 % (36.0-47.0); HEMOGLOBIN 10.8 g/dL (12.0-15.5); LYMPH # 1.4 x10^3/uL (1.0-4.8); LYMPH % 32 % (24-48); MEAN CORPUSCULAR HEMOGLOBIN 34 pg (25-35); MEAN CORPUSCULAR HGB CONC 33 g/dL (31-37); MEAN CORPUSCULAR VOLUME 101 fL (79-100); MONO # 0.3 x10^3/uL (0.0-1.1); MONO % 6 % (0-9); NEUT # 2.6 x10^3/uL (1.8-7.7); NEUT % 58 % (31-73); PLATELET COUNT 260 x10^3/uL (140-400); RED BLOOD COUNT 3.23 x10^6/uL (3.50-5.40); RED CELL DISTRIBUTION WIDTH 13.8 % (11.5-14.5); WHITE BLOOD COUNT 4.5 x10^3/uL (4.0-11.0)
--- NOTE | 2019-05-07 12:54 | RAD ---
Examination: Ultrasound left axilla HISTORY: History of left axillary lumps COMPARISON: None Findings/ impression: There are 2 benign-appearing lymph nodes measuring 1.1 cm and 1.3 cm lymph nodes identified in the left axilla. Electronically signed by: Orestes Villanueva MD (05/07/2019 12:51 PM) [facility]
--- NOTE | 2019-05-07 13:24 | PDOC ---
[employer] PROGRESS NOTE Chief Complaint Chief Complaint Acute pancreatitis, pseudocyst Malnourished Chronic pain with indwelling pain pump Cancer COPD High Cholesterol Heart Disease Hypotension MS Osteoporosis Clinton's esophagus Mitral valve insuf Thyroid cancer History of Present Illness History of Present Illness 05/05/19 Pt seen and examined in ICU Pt expressed desire to be home for the holidays DW pt about her care DW RN Reviewed pt's chart [id number] Patient seen and examined Discussed with RN Patient would like to eat but at the same time states she has severe pain Lipase is up to over thousand now it was 600 She is tolerating clear liquids though May 07, 2019 Patient seen and examined She would like to eat better lipase only dropped down to 971 Discussed with RN Chart reviewed She is currently on TPN Vitals/I&O Vitals/I&O: Vital Signs Date Time Temp Pulse Resp B/P (MAP) Pulse Ox O2 Delivery O2 Flow Rate FiO2 05/07/19 11:04 Nasal Cannula 3.0 05/07/19 11:00 97.9 62 18 90/55 (67) 96 97.9 I & O 05/06/19 05/06/19 05/07/19 15:00 23:00 07:00 Intake Total 2326 ml 240 ml Output Total 925 ml 1500 ml Balance -925 ml 2326 ml -1260 ml Physical Exam General: Alert Heart: Regular rate, Other (distant heart tones ) Lungs: Crackles Abdomen: Soft Extremities: Other (left axillary mass?) Skin: No significant lesion Labs Labs: Laboratory Tests Test 05/07/19 00:00 05/07/19 07:30 05/07/19 11:57 05/07/19 12:20 Glucose (Fingerstick) 107 mg/dL (70-99) 119 mg/dL (70-99) 96 mg/dL (70-99) White Blood Count 4.5 x10^3/uL (4.0-11.0) Red Blood Count 3.23 x10^6/uL (3.50-5.40) Hemoglobin 10.8 g/dL (12.0-15.5) Hematocrit 32.7 % (36.0-47.0) Mean Corpuscular Volume 101 fL (79-100) Mean Corpuscular Hemoglobin 34 pg (25-35) Mean Corpuscular Hemoglobin Concent 33 g/dL (31-37) Red Cell Distribution Width 13.8 % (11.5-14.5) Platelet Count 260 x10^3/uL (140-400) Neutrophils (%) (Auto) 58 % (31-73) Lymphocytes (%) (Auto) 32 % (24-48) Monocytes (%) (Auto) 6 % (0-9) Eosinophils (%) (Auto) 4 % (0-3) Basophils (%) (Auto) 1 % (0-3) Neutrophils # (Auto) 2.6 x10^3/uL (1.8-7.7) Lymphocytes # (Auto) 1.4 x10^3/uL (1.0-4.8) Monocytes # (Auto) 0.3 x10^3/uL (0.0-1.1) Eosinophils # (Auto) 0.2 x10^3/uL (0.0-0.7) Basophils # (Auto) 0.0 x10^3/uL (0.0-0.2) Lipase 971 U/L (73-393) Review of Systems Review of Systems: Complains of pain complains of hunger Assessment and Plan Assessmemt and Plan Problems Medical Problems: (1) Pancreatic pseudocyst Status: Acute (2) Pancreatitis, acute Status: Acute Assessment Acute pancreatitis, pseudocyst Malnourished Chronic pain with indwelling pain pump Cancer COPD High Cholesterol Heart Disease Hypotension MS Osteoporosis Clinton's esophagus Mitral valve insuf Thyroid cancer Plan Cardiac monitoring Daily Lipase PRN pain meds TPN Clear liquids Zosyn Labs PT/OT DVT prophylaxis Full Code Appreciate subspecialist input Long-term prognosis guarded Comment Review of Relevant I have reviewed the following items svetlana (where applicable) has been applied. Medications: Current Medications Medications (Trade) Dose Ordered Sig/Abhijit Route PRN Reason Start Time Stop Time Status Last Admin Dose Admin Lactobacillus Rhamnosus (Culturelle) 1 cap BID PO 05/06/19 21:00 05/07/19 09:06 Sodium Chloride 70 meq/Potassium Chloride 50 meq/ Potassium Phosphate 13.6 mmol/Magnesium Sulfate 10 meq/ Calcium Gluconate 10 meq/ Multivitamins 10 ml/Chromium/ Copper/Manganese/ Seleni/Zn 1 ml/ Total Parenteral Nutrition/Amino Acids/Dextrose/ Fat Emulsion Intravenous 1,512 ml @ 63 mls/hr TPN CONT IV 05/06/19 22:00 05/07/19 21:59 05/06/19 21:49 Hemodynamically unstable?: Yes Respiratory Distress?: Yes Serious Diagnosis?: Yes Is patient at high risk?: Yes JENNIFER OCONNELL III DO May 07, 2019 13:24
--- NOTE | 2019-05-07 19:30 | NUR ---
Assessment completed vss poc explained pt c/o abd. pain will medicate and resume care. Call light in reach.
[2019-05-07] MEDS: traZODone 100 MG TABLET. PO PRN (21:25)
[2019-05-07] MEDS: clonazePAM 0.5 MG TABLET PO PRN (21:27)
[2019-05-07] MEDS ORDERED: DEXTROSE 70% IV SCH ×10 (22:00)
[2019-05-07] MEDS ORDERED: [UNRECOGNIZED DRUG - OTHER] IV SCH ×10 (22:00)
[2019-05-07] MEDS ORDERED: TOTAL PARENTERAL NUTRITION IV SCH ×10 (22:00)
[2019-05-07] MEDS ORDERED: AMINO ACID IV SCH ×10 (22:00)
[2019-05-08 03:08] VITALS: BP 60/38
[2019-05-08 03:09] VITALS: BP 92/50
[2019-05-08 05:12] LABS: BASO % 1 % (0-3); EOS # 0.1 x10^3/uL (0.0-0.7); EOS % 4 % (0-3); HEMATOCRIT 32.3 % (36.0-47.0); HEMOGLOBIN 10.9 g/dL (12.0-15.5); LYMPH # 1.5 x10^3/uL (1.0-4.8); LYMPH % 46 % (24-48); MEAN CORPUSCULAR HEMOGLOBIN 33 pg (25-35); MEAN CORPUSCULAR HGB CONC 34 g/dL (31-37); MEAN CORPUSCULAR VOLUME 99 fL (79-100); MONO # 0.3 x10^3/uL (0.0-1.1); MONO % 8 % (0-9); NEUT # 1.3 x10^3/uL (1.8-7.7); NEUT % 41 % (31-73); PLATELET COUNT 256 x10^3/uL (140-400); RED BLOOD COUNT 3.28 x10^6/uL (3.50-5.40); RED CELL DISTRIBUTION WIDTH 13.6 % (11.5-14.5); WHITE BLOOD COUNT 3.2 x10^3/uL (4.0-11.0)
[2019-05-08 05:29] LABS: ALBUMIN 2.3 g/dL (3.4-5.0); ALBUMIN/GLOBULIN RATIO 0.7 (1.0-1.7); CALCIUM 9.5 mg/dL (8.5-10.1); CREATININE 0.5 mg/dL (0.6-1.0); GFR 129.1; POTASSIUM 4.4 mmol/L (3.5-5.1); TOTAL BILIRUBIN 0.2 mg/dL (0.2-1.0); TOTAL PROTEIN 5.7 g/dL (6.4-8.2)
[2019-05-08] MEDS: PANTOPRAZOLE IV PUSH 40 MG VIAL. IVP SCH (05:46)
[2019-05-08 07:00] VITALS: BP 74/42
[2019-05-08] MEDS: LACTOBACILLUS RHAMNOSUS GG 1 CAPSULE. PO SCH (08:30)
[2019-05-08] MEDS: ASPIRIN ENTERIC COATED 81 MG TABLET.DR. PO SCH (08:30)
[2019-05-08] MEDS: carBAMazepine 200 MG TABLET PO SCH ×2 (08:30→15:03)
[2019-05-08] MEDS: DIGOXIN 125 MCG TABLET. PO SCH (08:31)
[2019-05-08] MEDS: CITALOPRAM 20 MG TABLET. PO SCH (08:31)
[2019-05-08] MEDS: oxyCODONE/APAP 10/325 1 TAB TABLET PO PRN ×2 (08:32→15:03)
--- NOTE | 2019-05-08 09:15 | PDOC ---
PULMONARY PROGRESS NOTES Subjective remains on N/C oxygen, denies increased cough, Vitals Vital Signs Date Time Temp Pulse Resp B/P (MAP) Pulse Ox O2 Delivery O2 Flow Rate FiO2 05/08/19 08:32 Nasal Cannula 3.0 05/08/19 08:31 61 05/08/19 07:00 98.3 18 74/42 (53) 93 98.3 ROS: No Nausea, No Chest Pain, No Increase Cough General: Alert, Oriented X4, No acute distress Lungs: Other (decrease bases) Cardiovascular: S1 Abdomen: Soft, Other Neuro Exam: Alert Extremities: No Edema Skin: Warm, Dry Labs Laboratory Tests Test 05/06/19 11:49 05/07/19 00:00 05/07/19 07:30 05/07/19 11:57 Glucose (Fingerstick) 115 mg/dL (70-99) 107 mg/dL (70-99) 119 mg/dL (70-99) 96 mg/dL (70-99) Test 05/07/19 12:20 05/07/19 16:51 05/07/19 23:52 05/08/19 04:25 White Blood Count 4.5 x10^3/uL (4.0-11.0) 3.2 x10^3/uL (4.0-11.0) Red Blood Count 3.23 x10^6/uL (3.50-5.40) 3.28 x10^6/uL (3.50-5.40) Hemoglobin 10.8 g/dL (12.0-15.5) 10.9 g/dL (12.0-15.5) Hematocrit 32.7 % (36.0-47.0) 32.3 % (36.0-47.0) Mean Corpuscular Volume 101 fL (79-100) 99 fL (79-100) Mean Corpuscular Hemoglobin 34 pg (25-35) 33 pg (25-35) Mean Corpuscular Hemoglobin Concent 33 g/dL (31-37) 34 g/dL (31-37) Red Cell Distribution Width 13.8 % (11.5-14.5) 13.6 % (11.5-14.5) Platelet Count 260 x10^3/uL (140-400) 256 x10^3/uL (140-400) Neutrophils (%) (Auto) 58 % (31-73) 41 % (31-73) Lymphocytes (%) (Auto) 32 % (24-48) 46 % (24-48) Monocytes (%) (Auto) 6 % (0-9) 8 % (0-9) Eosinophils (%) (Auto) 4 % (0-3) 4 % (0-3) Basophils (%) (Auto) 1 % (0-3) 1 % (0-3) Neutrophils # (Auto) 2.6 x10^3/uL (1.8-7.7) 1.3 x10^3/uL (1.8-7.7) Lymphocytes # (Auto) 1.4 x10^3/uL (1.0-4.8) 1.5 x10^3/uL (1.0-4.8) Monocytes # (Auto) 0.3 x10^3/uL (0.0-1.1) 0.3 x10^3/uL (0.0-1.1) Eosinophils # (Auto) 0.2 x10^3/uL (0.0-0.7) 0.1 x10^3/uL (0.0-0.7) Basophils # (Auto) 0.0 x10^3/uL (0.0-0.2) 0.0 x10^3/uL (0.0-0.2) Lipase 971 U/L (73-393) 718 U/L (73-393) Glucose (Fingerstick) 101 mg/dL (70-99) 114 mg/dL (70-99) Sodium Level 143 mmol/L (136-145) Potassium Level 4.4 mmol/L (3.5-5.1) Chloride Level 104 mmol/L (98-107) Carbon Dioxide Level 36 mmol/L (21-32) Anion Gap 3 (6-14) Blood Urea Nitrogen 12 mg/dL (7-20) Creatinine 0.5 mg/dL (0.6-1.0) Estimated GFR (Cockcroft-Gault) 129.1 BUN/Creatinine Ratio 24 (6-20) Glucose Level 91 mg/dL (70-99) Calcium Level 9.5 mg/dL (8.5-10.1) Total Bilirubin 0.2 mg/dL (0.2-1.0) Aspartate Amino Transf (AST/SGOT) 9 U/L (15-37) Alanine Aminotransferase (ALT/SGPT) 7 U/L (14-59) Alkaline Phosphatase 50 U/L (46-116) Total Protein 5.7 g/dL (6.4-8.2) Albumin 2.3 g/dL (3.4-5.0) Albumin/Globulin Ratio 0.7 (1.0-1.7) Test 05/08/19 06:29 Glucose (Fingerstick) 111 mg/dL (70-99) Laboratory Tests Test 05/07/19 11:57 05/07/19 12:20 05/07/19 16:51 05/07/19 23:52 Glucose (Fingerstick) 96 mg/dL (70-99) 101 mg/dL (70-99) 114 mg/dL (70-99) White Blood Count 4.5 x10^3/uL (4.0-11.0) Red Blood Count 3.23 x10^6/uL (3.50-5.40) Hemoglobin 10.8 g/dL (12.0-15.5) Hematocrit 32.7 % (36.0-47.0) Mean Corpuscular Volume 101 fL (79-100) Mean Corpuscular Hemoglobin 34 pg (25-35) Mean Corpuscular Hemoglobin Concent 33 g/dL (31-37) Red Cell Distribution Width 13.8 % (11.5-14.5) Platelet Count 260 x10^3/uL (140-400) Neutrophils (%) (Auto) 58 % (31-73) Lymphocytes (%) (Auto) 32 % (24-48) Monocytes (%) (Auto) 6 % (0-9) Eosinophils (%) (Auto) 4 % (0-3) Basophils (%) (Auto) 1 % (0-3) Neutrophils # (Auto) 2.6 x10^3/uL (1.8-7.7) Lymphocytes # (Auto) 1.4 x10^3/uL (1.0-4.8) Monocytes # (Auto) 0.3 x10^3/uL (0.0-1.1) Eosinophils # (Auto) 0.2 x10^3/uL (0.0-0.7) Basophils # (Auto) 0.0 x10^3/uL (0.0-0.2) Lipase 971 U/L (73-393) Test 05/08/19 04:25 05/08/19 06:29 White Blood Count 3.2 x10^3/uL (4.0-11.0) Red Blood Count 3.28 x10^6/uL (3.50-5.40) Hemoglobin 10.9 g/dL (12.0-15.5) Hematocrit 32.3 % (36.0-47.0) Mean Corpuscular Volume 99 fL (79-100) Mean Corpuscular Hemoglobin 33 pg (25-35) Mean Corpuscular Hemoglobin Concent 34 g/dL (31-37) Red Cell Distribution Width 13.6 % (11.5-14.5) Platelet Count 256 x10^3/uL (140-400) Neutrophils (%) (Auto) 41 % (31-73) Lymphocytes (%) (Auto) 46 % (24-48) Monocytes (%) (Auto) 8 % (0-9) Eosinophils (%) (Auto) 4 % (0-3) Basophils (%) (Auto) 1 % (0-3) Neutrophils # (Auto) 1.3 x10^3/uL (1.8-7.7) Lymphocytes # (Auto) 1.5 x10^3/uL (1.0-4.8) Monocytes # (Auto) 0.3 x10^3/uL (0.0-1.1) Eosinophils # (Auto) 0.1 x10^3/uL (0.0-0.7) Basophils # (Auto) 0.0 x10^3/uL (0.0-0.2) Sodium Level 143 mmol/L (136-145) Potassium Level 4.4 mmol/L (3.5-5.1) Chloride Level 104 mmol/L (98-107) Carbon Dioxide Level 36 mmol/L (21-32) Anion Gap 3 (6-14) Blood Urea Nitrogen 12 mg/dL (7-20) Creatinine 0.5 mg/dL (0.6-1.0) Estimated GFR (Cockcroft-Gault) 129.1 BUN/Creatinine Ratio 24 (6-20) Glucose Level 91 mg/dL (70-99) Calcium Level 9.5 mg/dL (8.5-10.1) Total Bilirubin 0.2 mg/dL (0.2-1.0) Aspartate Amino Transf (AST/SGOT) 9 U/L (15-37) Alanine Aminotransferase (ALT/SGPT) 7 U/L (14-59) Alkaline Phosphatase 50 U/L (46-116) Total Protein 5.7 g/dL (6.4-8.2) Albumin 2.3 g/dL (3.4-5.0) Albumin/Globulin Ratio 0.7 (1.0-1.7) Lipase 718 U/L (73-393) Glucose (Fingerstick) 111 mg/dL (70-99) Medications Active Scripts Medications Dose Route/Sig Max Daily Dose Days Date Category FENTANYL 25mcg/hr (Fentanyl) 1 Each Patch.td72 1 Patch TP Q3DAYS 06/04/17 Reported Nitrostat (Nitroglycerin) 0.4 Mg Tab.subl 0.4 Mg SL PRN Q5MIN PRN 06/04/17 Reported Trazodone Hcl 100 Mg Tablet 200 Mg PO HS 01/16/16 Reported Klonopin (Clonazepam) 0.5 Mg Tablet 0.5 Mg PO TID PRN 01/16/16 Reported [morphine] 14.5 Mg ID DAILY 01/16/16 Reported Aspir 81 (Aspirin) 81 Mg Tablet.dr 81 Mg PO DAILY 01/16/16 Reported Symbicort 160-4.5 Mcg Inhaler (Budesonide/Formoterol Fumarate) 10.2 Gm Hfa.aer.ad 2 Puff IH BID 10/19/14 Reported Percocet 10-325 Mg Tablet (Oxycodone/Acetaminophen) 1 Each Tablet 1 Tab PO Q4HRS PRN 10/19/14 Reported Baclofen 10 Mg Tablet 1 Tab PO TID 07/20/14 Reported Trazodone Hcl 100 Mg Tablet 2 Tab PO QHS 07/18/14 Reported Provigil (Modafinil) 100 Mg Tablet 200 Mg PO DAILY 08/24/13 Reported Digoxin 0.125 Mg/2.5 Ml Solution 0.125 Mg PO DAILY 08/24/13 Reported Carbamazepine 200 Mg Cpmp.12hr 200 Mg PO TID 08/24/13 Reported Lexapro (Escitalopram Oxalate) 10 Mg Tablet 10 Mg PO DAILY 08/24/13 Reported Impression . 1.Pancreatic cyst/Pancreatitis 2. Pericardial Effusion 3. Pleural Effusion, small 4. Multiple Sclerosis 5. COPD 6. protein malnutrition 7. Hypertension 8. a/c resp faulilure CXR: IMPRESSION: 1. Moderate congestive changes. 2. Bibasilar lung airspace opacities likely atelectasis or infiltrates with small bilateral pleural effusions. CT ABD : IMPRESSION: 1. There is complex rim-enhancing fluid collection at the gastrosplenic recess and at the splenic hilum extending slightly inferior. Fluid collection is near the pancreas tail and is immediately adjacent to the lateral stomach and the medial spleen. Considerations include pancreatic pseudocysts versus unrelated abscess perhaps from perforated gastric ulcer or other source. Suggest short-term follow-up CT. 2. Moderate pericardial effusion. 3. New small bilateral pleural effusions. 4. Mild pelvic free fluid. Plan . Follow GI and Gen surgery recs- currently on clear liquids in combination with TPN Gen surgery --planning for surgery in 1 month Nebs Supplemental oxygen cont. Abx Follow cardiology recs --- EF WNL per cardiology notes no need for thoracentisis at this time PT/OT D/W RN ok to dc home pulmonary charles JULIO ALANIZ MD May 08, 2019 09:15
--- NOTE | 2019-05-08 09:47 | PDOC ---
Subjective: Subjective: Pain is better. Taking some clears but not much. Wants to go home for [place]. Breathing back to baseline. Hasn't stooled. Wonders if her dog jumping on her abdomen caused this. Objective: Objective: Hypotension noted - ?chronic Nurse says rates pain 02/23. Was getting up to use restroom and on PO pain meds - changed over weekend and now wearing a brief. Vital Signs: Vital Signs Date Time Temp Pulse Resp B/P (MAP) Pulse Ox O2 Delivery O2 Flow Rate FiO2 05/08/19 08:32 Nasal Cannula 3.0 05/08/19 08:31 61 05/08/19 07:00 98.3 18 74/42 (53) 93 98.3 Labs: Laboratory Tests Test 05/07/19 11:57 05/07/19 12:20 05/07/19 16:51 05/07/19 23:52 Glucose (Fingerstick) 96 mg/dL 101 mg/dL 114 mg/dL White Blood Count 4.5 x10^3/uL Red Blood Count 3.23 x10^6/uL Hemoglobin 10.8 g/dL Hematocrit 32.7 % Mean Corpuscular Volume 101 fL Mean Corpuscular Hemoglobin 34 pg Mean Corpuscular Hemoglobin Concent 33 g/dL Red Cell Distribution Width 13.8 % Platelet Count 260 x10^3/uL Neutrophils (%) (Auto) 58 % Lymphocytes (%) (Auto) 32 % Monocytes (%) (Auto) 6 % Eosinophils (%) (Auto) 4 % Basophils (%) (Auto) 1 % Neutrophils # (Auto) 2.6 x10^3/uL Lymphocytes # (Auto) 1.4 x10^3/uL Monocytes # (Auto) 0.3 x10^3/uL Eosinophils # (Auto) 0.2 x10^3/uL Basophils # (Auto) 0.0 x10^3/uL Lipase 971 U/L Test 05/08/19 04:25 05/08/19 06:29 White Blood Count 3.2 x10^3/uL Red Blood Count 3.28 x10^6/uL Hemoglobin 10.9 g/dL Hematocrit 32.3 % Mean Corpuscular Volume 99 fL Mean Corpuscular Hemoglobin 33 pg Mean Corpuscular Hemoglobin Concent 34 g/dL Red Cell Distribution Width 13.6 % Platelet Count 256 x10^3/uL Neutrophils (%) (Auto) 41 % Lymphocytes (%) (Auto) 46 % Monocytes (%) (Auto) 8 % Eosinophils (%) (Auto) 4 % Basophils (%) (Auto) 1 % Neutrophils # (Auto) 1.3 x10^3/uL Lymphocytes # (Auto) 1.5 x10^3/uL Monocytes # (Auto) 0.3 x10^3/uL Eosinophils # (Auto) 0.1 x10^3/uL Basophils # (Auto) 0.0 x10^3/uL Sodium Level 143 mmol/L Potassium Level 4.4 mmol/L Chloride Level 104 mmol/L Carbon Dioxide Level 36 mmol/L Anion Gap 3 Blood Urea Nitrogen 12 mg/dL Creatinine 0.5 mg/dL Estimated GFR (Cockcroft-Gault) 129.1 BUN/Creatinine Ratio 24 Glucose Level 91 mg/dL Calcium Level 9.5 mg/dL Total Bilirubin 0.2 mg/dL Aspartate Amino Transf (AST/SGOT) 9 U/L Alanine Aminotransferase (ALT/SGPT) 7 U/L Alkaline Phosphatase 50 U/L Total Protein 5.7 g/dL Albumin 2.3 g/dL Albumin/Globulin Ratio 0.7 Lipase 718 U/L Glucose (Fingerstick) 111 mg/dL Imaging: Echocardiogram 05/04 pending Chest US 05/07 Findings/ impression: There are 2 benign-appearing lymph nodes measuring 1.1 cm and 1.3 cm lymph nodes identified in the left axilla. PE: GEN: NAD - moving slowly back to chair LUNGS: NC HEART: RRR ABD: soft NEURO/PSYCH: A & O 3 A/P: Dyspnea, LUQ pain, weight loss - on CT: 8mm cyst in pancreas tail and complicated fluid collection near tip of pancreas tail, moderate pericardial effusion Chronic pain -- CA19-9 and HOSSEIN pending. ?DC on TPN - defer to surgery Cardiology has seen - no new plans re: pericardial effusion. Change to PO PPI - would continue on DC. Add options for constipation. OSWALD CEE May 08, 2019 09:47
[2019-05-08] MEDS ORDERED: POLYETHYLENE GLYCOL 3350 17 GM PACKET. PO SCH (10:00)
[2019-05-08] MEDS ORDERED: BISACODYL 5 MG TABLET.DR. PO PRN (10:00)
[2019-05-08] MEDS ORDERED: POLYETHYLENE GLYCOL 3350 17 GM PACKET. PO PRN (10:00)
--- NOTE | 2019-05-08 10:14 | PDOC ---
CARDIO Progress Notes Date and Time Date of Service 05/08/19 Time of Evaluation 1010 Subjective Subjective: No Chest Pain, No shortness of breath, No Palpitations, Other (mild abdominal pain) Vitals Vitals Vital Signs Date Time Temp Pulse Resp B/P (MAP) Pulse Ox O2 Delivery O2 Flow Rate FiO2 05/08/19 08:32 Nasal Cannula 3.0 05/08/19 08:31 61 05/08/19 07:00 98.3 18 74/42 (53) 93 98.3 Weight Weight [ ] Input and Output Intake and Output Intake and Output 05/08/19 07:00 Intake Total 1796 ml Output Total 1850 ml Balance -54 ml Intake Oral 1040 ml IV Total 756 ml Output Urine Total 1850 ml # Voids 1 Laboratory Labs Laboratory Tests Test 05/07/19 11:57 05/07/19 12:20 05/07/19 16:51 05/07/19 23:52 Glucose (Fingerstick) 96 mg/dL (70-99) 101 mg/dL (70-99) 114 mg/dL (70-99) White Blood Count 4.5 x10^3/uL (4.0-11.0) Red Blood Count 3.23 x10^6/uL (3.50-5.40) Hemoglobin 10.8 g/dL (12.0-15.5) Hematocrit 32.7 % (36.0-47.0) Mean Corpuscular Volume 101 fL (79-100) Mean Corpuscular Hemoglobin 34 pg (25-35) Mean Corpuscular Hemoglobin Concent 33 g/dL (31-37) Red Cell Distribution Width 13.8 % (11.5-14.5) Platelet Count 260 x10^3/uL (140-400) Neutrophils (%) (Auto) 58 % (31-73) Lymphocytes (%) (Auto) 32 % (24-48) Monocytes (%) (Auto) 6 % (0-9) Eosinophils (%) (Auto) 4 % (0-3) Basophils (%) (Auto) 1 % (0-3) Neutrophils # (Auto) 2.6 x10^3/uL (1.8-7.7) Lymphocytes # (Auto) 1.4 x10^3/uL (1.0-4.8) Monocytes # (Auto) 0.3 x10^3/uL (0.0-1.1) Eosinophils # (Auto) 0.2 x10^3/uL (0.0-0.7) Basophils # (Auto) 0.0 x10^3/uL (0.0-0.2) Lipase 971 U/L (73-393) Test 05/08/19 04:25 05/08/19 06:29 White Blood Count 3.2 x10^3/uL (4.0-11.0) Red Blood Count 3.28 x10^6/uL (3.50-5.40) Hemoglobin 10.9 g/dL (12.0-15.5) Hematocrit 32.3 % (36.0-47.0) Mean Corpuscular Volume 99 fL (79-100) Mean Corpuscular Hemoglobin 33 pg (25-35) Mean Corpuscular Hemoglobin Concent 34 g/dL (31-37) Red Cell Distribution Width 13.6 % (11.5-14.5) Platelet Count 256 x10^3/uL (140-400) Neutrophils (%) (Auto) 41 % (31-73) Lymphocytes (%) (Auto) 46 % (24-48) Monocytes (%) (Auto) 8 % (0-9) Eosinophils (%) (Auto) 4 % (0-3) Basophils (%) (Auto) 1 % (0-3) Neutrophils # (Auto) 1.3 x10^3/uL (1.8-7.7) Lymphocytes # (Auto) 1.5 x10^3/uL (1.0-4.8) Monocytes # (Auto) 0.3 x10^3/uL (0.0-1.1) Eosinophils # (Auto) 0.1 x10^3/uL (0.0-0.7) Basophils # (Auto) 0.0 x10^3/uL (0.0-0.2) Sodium Level 143 mmol/L (136-145) Potassium Level 4.4 mmol/L (3.5-5.1) Chloride Level 104 mmol/L (98-107) Carbon Dioxide Level 36 mmol/L (21-32) Anion Gap 3 (6-14) Blood Urea Nitrogen 12 mg/dL (7-20) Creatinine 0.5 mg/dL (0.6-1.0) Estimated GFR (Cockcroft-Gault) 129.1 BUN/Creatinine Ratio 24 (6-20) Glucose Level 91 mg/dL (70-99) Calcium Level 9.5 mg/dL (8.5-10.1) Total Bilirubin 0.2 mg/dL (0.2-1.0) Aspartate Amino Transf (AST/SGOT) 9 U/L (15-37) Alanine Aminotransferase (ALT/SGPT) 7 U/L (14-59) Alkaline Phosphatase 50 U/L (46-116) Total Protein 5.7 g/dL (6.4-8.2) Albumin 2.3 g/dL (3.4-5.0) Albumin/Globulin Ratio 0.7 (1.0-1.7) Lipase 718 U/L (73-393) Glucose (Fingerstick) 111 mg/dL (70-99) Physical Exam HEENT: Neck Supple W Full Motion Chest: Symmetric LUNGS: Other (diminished bases ) Heart: RRR (SR no significant ectopies) Abdomen: Other (soft, diffuse tenderness) Extremities: No Edema, No Calf Tenderness Neurology: alert, oriented, follow commands Assessment Assessment 1. Pancreatic cyst: General surgery and GI following, potential surgery in 1 mo. 2. Moderate pericardial effusion: no hemodynamic compromise. EF nml. No pulsus paradoxus. 3. Protein malnutrition/wt loss 4. Hypotension: mainly due to intravascular volume depletion with 3rd spacing and poor intake. BP much better after xtra IVF 5. SSS; s/p PPM 6. MS; chronic pain with pain pump Recommendations Ongoing TPN Follow GI, surgical recs Supportive care from a CV standpoint. Will recheck echo in 2 weeks on an outpatient as fu in our office following. Hemodynamically unstable?: Yes Respiratory Distress?: Yes Serious Diagnosis?: Yes Is patient at high risk?: Yes CEM BURDICK APRN May 08, 2019 10:14
--- NOTE | 2019-05-08 10:41 | PDOC ---
SURGICAL PROGRESS NOTE Subjective up in chair hoping home soon Vital Signs Vital Signs Date Time Temp Pulse Resp B/P (MAP) Pulse Ox O2 Delivery O2 Flow Rate FiO2 05/08/19 08:32 Nasal Cannula 3.0 05/08/19 08:31 61 05/08/19 07:00 98.3 18 74/42 (53) 93 98.3 I&O Intake and Output 05/08/19 06:59 Intake Total 1796 ml Output Total 1850 ml Balance -54 ml Intake Oral 1040 ml IV Total 756 ml Output Urine Total 1850 ml # Voids 1 General: Alert, Cooperative Abdomen: Soft Labs Laboratory Tests Test 05/06/19 11:49 05/07/19 00:00 05/07/19 07:30 05/07/19 11:57 Glucose (Fingerstick) 115 mg/dL (70-99) 107 mg/dL (70-99) 119 mg/dL (70-99) 96 mg/dL (70-99) Test 05/07/19 12:20 05/07/19 16:51 05/07/19 23:52 05/08/19 04:25 White Blood Count 4.5 x10^3/uL (4.0-11.0) 3.2 x10^3/uL (4.0-11.0) Red Blood Count 3.23 x10^6/uL (3.50-5.40) 3.28 x10^6/uL (3.50-5.40) Hemoglobin 10.8 g/dL (12.0-15.5) 10.9 g/dL (12.0-15.5) Hematocrit 32.7 % (36.0-47.0) 32.3 % (36.0-47.0) Mean Corpuscular Volume 101 fL (79-100) 99 fL (79-100) Mean Corpuscular Hemoglobin 34 pg (25-35) 33 pg (25-35) Mean Corpuscular Hemoglobin Concent 33 g/dL (31-37) 34 g/dL (31-37) Red Cell Distribution Width 13.8 % (11.5-14.5) 13.6 % (11.5-14.5) Platelet Count 260 x10^3/uL (140-400) 256 x10^3/uL (140-400) Neutrophils (%) (Auto) 58 % (31-73) 41 % (31-73) Lymphocytes (%) (Auto) 32 % (24-48) 46 % (24-48) Monocytes (%) (Auto) 6 % (0-9) 8 % (0-9) Eosinophils (%) (Auto) 4 % (0-3) 4 % (0-3) Basophils (%) (Auto) 1 % (0-3) 1 % (0-3) Neutrophils # (Auto) 2.6 x10^3/uL (1.8-7.7) 1.3 x10^3/uL (1.8-7.7) Lymphocytes # (Auto) 1.4 x10^3/uL (1.0-4.8) 1.5 x10^3/uL (1.0-4.8) Monocytes # (Auto) 0.3 x10^3/uL (0.0-1.1) 0.3 x10^3/uL (0.0-1.1) Eosinophils # (Auto) 0.2 x10^3/uL (0.0-0.7) 0.1 x10^3/uL (0.0-0.7) Basophils # (Auto) 0.0 x10^3/uL (0.0-0.2) 0.0 x10^3/uL (0.0-0.2) Lipase 971 U/L (73-393) 718 U/L (73-393) Glucose (Fingerstick) 101 mg/dL (70-99) 114 mg/dL (70-99) Sodium Level 143 mmol/L (136-145) Potassium Level 4.4 mmol/L (3.5-5.1) Chloride Level 104 mmol/L (98-107) Carbon Dioxide Level 36 mmol/L (21-32) Anion Gap 3 (6-14) Blood Urea Nitrogen 12 mg/dL (7-20) Creatinine 0.5 mg/dL (0.6-1.0) Estimated GFR (Cockcroft-Gault) 129.1 BUN/Creatinine Ratio 24 (6-20) Glucose Level 91 mg/dL (70-99) Calcium Level 9.5 mg/dL (8.5-10.1) Total Bilirubin 0.2 mg/dL (0.2-1.0) Aspartate Amino Transf (AST/SGOT) 9 U/L (15-37) Alanine Aminotransferase (ALT/SGPT) 7 U/L (14-59) Alkaline Phosphatase 50 U/L (46-116) Total Protein 5.7 g/dL (6.4-8.2) Albumin 2.3 g/dL (3.4-5.0) Albumin/Globulin Ratio 0.7 (1.0-1.7) Test 05/08/19 06:29 Glucose (Fingerstick) 111 mg/dL (70-99) Laboratory Tests Test 05/07/19 11:57 05/07/19 12:20 05/07/19 16:51 05/07/19 23:52 Glucose (Fingerstick) 96 mg/dL (70-99) 101 mg/dL (70-99) 114 mg/dL (70-99) White Blood Count 4.5 x10^3/uL (4.0-11.0) Red Blood Count 3.23 x10^6/uL (3.50-5.40) Hemoglobin 10.8 g/dL (12.0-15.5) Hematocrit 32.7 % (36.0-47.0) Mean Corpuscular Volume 101 fL (79-100) Mean Corpuscular Hemoglobin 34 pg (25-35) Mean Corpuscular Hemoglobin Concent 33 g/dL (31-37) Red Cell Distribution Width 13.8 % (11.5-14.5) Platelet Count 260 x10^3/uL (140-400) Neutrophils (%) (Auto) 58 % (31-73) Lymphocytes (%) (Auto) 32 % (24-48) Monocytes (%) (Auto) 6 % (0-9) Eosinophils (%) (Auto) 4 % (0-3) Basophils (%) (Auto) 1 % (0-3) Neutrophils # (Auto) 2.6 x10^3/uL (1.8-7.7) Lymphocytes # (Auto) 1.4 x10^3/uL (1.0-4.8) Monocytes # (Auto) 0.3 x10^3/uL (0.0-1.1) Eosinophils # (Auto) 0.2 x10^3/uL (0.0-0.7) Basophils # (Auto) 0.0 x10^3/uL (0.0-0.2) Lipase 971 U/L (73-393) Test 05/08/19 04:25 05/08/19 06:29 White Blood Count 3.2 x10^3/uL (4.0-11.0) Red Blood Count 3.28 x10^6/uL (3.50-5.40) Hemoglobin 10.9 g/dL (12.0-15.5) Hematocrit 32.3 % (36.0-47.0) Mean Corpuscular Volume 99 fL (79-100) Mean Corpuscular Hemoglobin 33 pg (25-35) Mean Corpuscular Hemoglobin Concent 34 g/dL (31-37) Red Cell Distribution Width 13.6 % (11.5-14.5) Platelet Count 256 x10^3/uL (140-400) Neutrophils (%) (Auto) 41 % (31-73) Lymphocytes (%) (Auto) 46 % (24-48) Monocytes (%) (Auto) 8 % (0-9) Eosinophils (%) (Auto) 4 % (0-3) Basophils (%) (Auto) 1 % (0-3) Neutrophils # (Auto) 1.3 x10^3/uL (1.8-7.7) Lymphocytes # (Auto) 1.5 x10^3/uL (1.0-4.8) Monocytes # (Auto) 0.3 x10^3/uL (0.0-1.1) Eosinophils # (Auto) 0.1 x10^3/uL (0.0-0.7) Basophils # (Auto) 0.0 x10^3/uL (0.0-0.2) Sodium Level 143 mmol/L (136-145) Potassium Level 4.4 mmol/L (3.5-5.1) Chloride Level 104 mmol/L (98-107) Carbon Dioxide Level 36 mmol/L (21-32) Anion Gap 3 (6-14) Blood Urea Nitrogen 12 mg/dL (7-20) Creatinine 0.5 mg/dL (0.6-1.0) Estimated GFR (Cockcroft-Gault) 129.1 BUN/Creatinine Ratio 24 (6-20) Glucose Level 91 mg/dL (70-99) Calcium Level 9.5 mg/dL (8.5-10.1) Total Bilirubin 0.2 mg/dL (0.2-1.0) Aspartate Amino Transf (AST/SGOT) 9 U/L (15-37) Alanine Aminotransferase (ALT/SGPT) 7 U/L (14-59) Alkaline Phosphatase 50 U/L (46-116) Total Protein 5.7 g/dL (6.4-8.2) Albumin 2.3 g/dL (3.4-5.0) Albumin/Globulin Ratio 0.7 (1.0-1.7) Lipase 718 U/L (73-393) Glucose (Fingerstick) 111 mg/dL (70-99) Problem List Problems Medical Problems: (1) Pancreatic pseudocyst Status: Acute (2) Pancreatitis, acute Status: Acute Assessment/Plan dc planning, will need home TPN CASS DEVINE APRN May 08, 2019 10:41
[2019-05-08 10:47] VITALS: BP 87/47
--- NOTE | 2019-05-08 10:57 | SNU/HH DC ---
DISCHARGE WITH HOME HEALTH DISCHARGE INFORMATION: Final Diagnosis: Problems Medical Problems: (1) Pancreatic pseudocyst Status: Acute (2) Pancreatitis, acute Status: Acute Condition on Discharge: Stable CODE STATUS: Code Status: Full HOME HEALTH: Face to Face: I certify this patient is under my care and that I, or a nurse practitioner or physician's embalmer assistant working with me, had a face to face encounter that meets the physician face to face encounter requirements with this patient on []. Medical Complications: Other (pancreatitis) RN For Eval/Treatment: Yes Physical Therapy For: Evalulation/Treatment Occupational Therapy For: Evaluation/Treatment Home Health Aide For: Self-care BLISTER PACKAGING MACHINE OPERATOR For: Community Resources Pt Meets Homebound Status: Unsteady balance w/ amb,, Other: (tpn) POST DISCHARGE ORDERS: Activity Instructions for Disc: No restrictions Weight Bearing Status after Di: Full weight bearing, As tolerated DIET AFTER DISCHARGE: NPO Wound/Incision Care: Other, see below CHECKS AFTER DISCHARGE: Checks after discharge: Check blood press - daily TREATMENT/EQUIPMENT ORDERS: Adaptive Equipment Issued: None CERTIFICATION STATEMENT: Certification Statement: Certification Statement: Based on the above finding, I certify that this patient is confined to the home and needs intermittent long term care, physical therapy and/or speech therapy, or continues to need occupational therapy.~ This patient is under my care, and I have initiated the establishment of the plan of care.~ This patient will be followed by myself or a community physician who will periodically review the plan of care. Home Meds Reported Medications Fentanyl (FENTANYL 25mcg/hr) 1 Each Patch.td72, 1 PATCH TP Q3DAYS, #10 PATCH 06/04/17 Nitroglycerin (NITROSTAT) 0.4 Mg Tab.subl, 0.4 MG SL PRN Q5MIN PRN for CHEST PAIN, BOTTLE 06/04/17 Trazodone Hcl (TRAZODONE HCL) 100 Mg Tablet, 200 MG PO HS, TAB 01/16/16 Clonazepam (KLONOPIN) 0.5 Mg Tablet, 0.5 MG PO TID PRN for TREMORS, TAB 01/16/16 [morphine] No Conflict Check, 14.5 MG ID DAILY 01/16/16 Aspirin (ASPIR 81) 81 Mg Tablet.dr, 81 MG PO DAILY, TAB 01/16/16 Budesonide/Formoterol Fumarate (SYMBICORT 160-4.5 MCG INHALER) 10.2 Gm Hfa.aer.ad, 2 PUFF IH BID, #10.6 GM 3 Refills 10/19/14 Oxycodone/Apap 10-325 (PERCOCET 10-325 MG TABLET ) 1 Each Tablet, 1 TAB PO Q4HRS PRN for PAIN, #40 TAB 10/19/14 Baclofen (BACLOFEN) 10 Mg Tablet, 1 TAB PO TID, #90 TAB 2 Refills 07/20/14 Trazodone Hcl (TRAZODONE HCL) 100 Mg Tablet, 2 TAB PO QHS, #30 TAB 1 Refill 07/18/14 Modafinil (PROVIGIL) 100 Mg Tablet, 200 MG PO DAILY 08/24/13 Digoxin (DIGOXIN) 0.125 Mg/2.5 Ml Solution, 0.125 MG PO DAILY 08/24/13 Carbamazepine (CARBAMAZEPINE) 200 Mg Cpmp.12hr, 200 MG PO TID 08/24/13 Escitalopram Oxalate (LEXAPRO) 10 Mg Tablet, 10 MG PO DAILY 08/24/13 JENNIFER OCONNELL III DO May 08, 2019 10:57
[2019-05-08] MEDS: CYCLOBENZAPRINE 10 MG TABLET. PO PRN (11:05)
--- NOTE | 2019-05-08 12:44 | NUR ---
SS following up with discharge planning. SS ran pt benefits for in home TPN through [facility], ; fax [phone]. SS received notification that pt would be responsible for $35/day. Pt agreeable to in home IV TPN. SS phoned and faxed script and clinical to [facility]. Discharge orders for home healthcare received. SS phoned and faxed home health orders and clinical to [facility], ; fax [phone]. Pt's RN notified.
--- NOTE | 2019-05-08 12:46 | PDOC ---
[facility] PROGRESS NOTE Chief Complaint Chief Complaint Acute pancreatitis, pseudocyst Malnourished Chronic pain with indwelling pain pump Cancer COPD High Cholesterol Heart Disease Hypotension MS Osteoporosis Clinton's esophagus Mitral valve insuf Thyroid cancer History of Present Illness History of Present Illness 05/05/19 Pt seen and examined in ICU Pt expressed desire to be home for the holidays DW pt about her care DW RN Reviewed pt's chart 1221 19 Patient seen and examined Discussed with RN Patient would like to eat but at the same time states she has severe pain Lipase is up to over thousand now it was 600 She is tolerating clear liquids though May 07, 2019 Patient seen and examined She would like to eat better lipase only dropped down to 971 Discussed with RN Chart reviewed She is currently on TPN 05/08/19 Patient seen and examined Discussed with case management and RN Left prescriptions for home TPN and Percocet and fentanyl patches and when necessary Flexeril Chart reviewed Discharge orders put in Vitals/I&O Vitals/I&O: Vital Signs Date Time Temp Pulse Resp B/P (MAP) Pulse Ox O2 Delivery O2 Flow Rate FiO2 05/08/19 10:47 97.4 63 18 87/47 (60) 97 Nasal Cannula 3.0 97.4 I & O 05/07/19 05/07/19 05/08/19 15:00 23:00 07:00 Intake Total 240 ml 1496 ml 60 ml Output Total 550 ml 600 ml 700 ml Balance -310 ml 896 ml -640 ml Physical Exam General: Alert, Cooperative Heart: Regular rate, Other (distant heart tones ) Lungs: Other (decrease bases) Abdomen: Soft Extremities: Other (left axillary mass?) Skin: No significant lesion Labs Labs: Laboratory Tests Test 05/07/19 16:51 05/07/19 23:52 05/08/19 04:25 05/08/19 06:29 Glucose (Fingerstick) 101 mg/dL (70-99) 114 mg/dL (70-99) 111 mg/dL (70-99) White Blood Count 3.2 x10^3/uL (4.0-11.0) Red Blood Count 3.28 x10^6/uL (3.50-5.40) Hemoglobin 10.9 g/dL (12.0-15.5) Hematocrit 32.3 % (36.0-47.0) Mean Corpuscular Volume 99 fL (79-100) Mean Corpuscular Hemoglobin 33 pg (25-35) Mean Corpuscular Hemoglobin Concent 34 g/dL (31-37) Red Cell Distribution Width 13.6 % (11.5-14.5) Platelet Count 256 x10^3/uL (140-400) Neutrophils (%) (Auto) 41 % (31-73) Lymphocytes (%) (Auto) 46 % (24-48) Monocytes (%) (Auto) 8 % (0-9) Eosinophils (%) (Auto) 4 % (0-3) Basophils (%) (Auto) 1 % (0-3) Neutrophils # (Auto) 1.3 x10^3/uL (1.8-7.7) Lymphocytes # (Auto) 1.5 x10^3/uL (1.0-4.8) Monocytes # (Auto) 0.3 x10^3/uL (0.0-1.1) Eosinophils # (Auto) 0.1 x10^3/uL (0.0-0.7) Basophils # (Auto) 0.0 x10^3/uL (0.0-0.2) Sodium Level 143 mmol/L (136-145) Potassium Level 4.4 mmol/L (3.5-5.1) Chloride Level 104 mmol/L (98-107) Carbon Dioxide Level 36 mmol/L (21-32) Anion Gap 3 (6-14) Blood Urea Nitrogen 12 mg/dL (7-20) Creatinine 0.5 mg/dL (0.6-1.0) Estimated GFR (Cockcroft-Gault) 129.1 BUN/Creatinine Ratio 24 (6-20) Glucose Level 91 mg/dL (70-99) Calcium Level 9.5 mg/dL (8.5-10.1) Total Bilirubin 0.2 mg/dL (0.2-1.0) Aspartate Amino Transf (AST/SGOT) 9 U/L (15-37) Alanine Aminotransferase (ALT/SGPT) 7 U/L (14-59) Alkaline Phosphatase 50 U/L (46-116) Total Protein 5.7 g/dL (6.4-8.2) Albumin 2.3 g/dL (3.4-5.0) Albumin/Globulin Ratio 0.7 (1.0-1.7) Lipase 718 U/L (73-393) Test 05/08/19 11:18 Glucose (Fingerstick) 100 mg/dL (70-99) Assessment and Plan Assessmemt and Plan Problems Medical Problems: (1) Pancreatic pseudocyst Status: Acute (2) Pancreatitis, acute Status: Acute Assessment Acute pancreatitis, pseudocyst Malnourished Chronic pain with indwelling pain pump Cancer COPD High Cholesterol Heart Disease Hypotension MS Osteoporosis Clinton's esophagus Mitral valve insuf Thyroid cancer Plan PRN pain meds TPN Clear liquids Labs PT/OT DVT prophylaxis Full Code Appreciate subspecialist input Long-term prognosis guarded Plan is to discharge today with home health on TPN at home with close outpatient follow-up Comment Review of Relevant I have reviewed the following items svetlana (where applicable) has been applied. Medications: Current Medications Medications (Trade) Dose Ordered Sig/Abhijit Route PRN Reason Start Time Stop Time Status Last Admin Dose Admin Sodium Chloride 70 meq/Potassium Chloride 50 meq/ Potassium Phosphate 13.6 mmol/Magnesium Sulfate 10 meq/ Calcium Gluconate 10 meq/ Multivitamins 10 ml/Chromium/ Copper/Manganese/ Seleni/Zn 1 ml/ Total Parenteral Nutrition/Amino Acids/Dextrose/ Fat Emulsion Intravenous 1,512 ml @ 63 mls/hr TPN CONT IV 05/07/19 22:00 05/08/19 21:59 05/07/19 21:29 Polyethylene Glycol (miraLAX PACKET) 17 gm DAILY PO 05/08/19 10:00 05/08/19 10:58 Hemodynamically unstable?: Yes Respiratory Distress?: Yes Serious Diagnosis?: Yes Is patient at high risk?: Yes JENNIFER OCONNELL III DO May 08, 2019 12:46
--- NOTE | 2019-05-08 13:22 | CARD ---
MR#: [id number] Date of Study: 05/04/2019 Ordering Physician: CEM BURDICK, Referring Physician: CEM BURDICK, Tech: Marj Anna RDCS APPROVED REPORT EXAM: Two-dimensional and M-mode echocardiogram with Doppler and color Doppler. Other Information Quality : GoodHR: 42bpm INDICATION Pericardial Effusion Tricuspid Valve TR P. [id number] TR Peak Gr.[id number] LEFT VENTRICLE The left ventricular systolic function is normal and the ejection fraction is within normal range. Th e Ejection Fraction is 50-55%. There is normal LV segmental wall motion. Grossly normal. RIGHT VENTRICLE The right ventricle is normal size. The right ventricular systolic function is normal. ATRIA The left atrium size is normal. The right atrium size is normal. The interatrial septum is intact wit h no evidence for an atrial septal defect or patent foramen ovale as noted on 2-D or Doppler imaging. GREAT VESSELS The aortic root is normal in size. The IVC is normal in size and collapses <50% with inspiration. PERICARDIAL EFFUSION There is moderate right pleural effusion. There is a moderate circumferential pericardial effusion. Critical Notification Critical Value: No <Conclusion> The left ventricular systolic function is normal and the ejection fraction is within normal range. Th e Ejection Fraction is 50-55%. There is normal LV segmental wall motion. Grossly normal. There is a moderate circumferential pericardial effusion. There is moderate right pleural effusion. Signed by : Mason Krueger, Electronically Approved : 05/04/2019 17:20:11
[2019-05-08 14:35] VITALS: BP 82/53
[2019-05-08] MEDS ORDERED: DIGO125T3 PO (17:20)
--- NOTE | 2019-05-08 18:30 | NUR ---
Discharge Note: RA VALLEJO Discharge instructions and discharge home medications reviewed with Patient and a copy given. All questions have been answered and understanding verbalized. The following instructions and handouts were given: DISCHARGE MEDICATION LIST, PICC LINE HOME CARE, CLEAR LIQUID DIET INSTRUCTIONS, FOLLOW UP APPOINTMENTS lines and drains: PICC Line DL intact for home TPN infusions Patient discharged to Home w/services with Friend via Wheelchair Patient to be provided teaching on how to infuse TPN by Alejandra upon arrival at home between 1900 and 1999 this evening.
[2019-05-08 19:08] LABS: ANA INTERP Negative (.)
[2019-05-08] MEDS ORDERED: DEXTROSE 70% IV SCH ×10 (22:00)
[2019-05-08] MEDS ORDERED: [UNRECOGNIZED DRUG - OTHER] IV SCH ×10 (22:00)
[2019-05-08] MEDS ORDERED: AMINO ACID IV SCH ×10 (22:00)
[2019-05-08] MEDS ORDERED: TOTAL PARENTERAL NUTRITION IV SCH ×10 (22:00)
[2019-05-09] MEDS ORDERED: PANTOPRAZOLE 40 MG TABLET.DR. PO SCH (07:30)
--- NOTE | 2019-05-12 00:02 | DS ---
DATE OF DISCHARGE: 05/08/2019 ADMISSION DIAGNOSIS: Pancreatitis with pseudocyst. DISCHARGE DIAGNOSIS: Chronic pancreatitis with chronic pseudocyst (we sent her home with TPN). HOSPITAL COURSE: The patient is a pleasant middle-aged female who presented with acute on chronic pancreatitis. She has a chronic pseudocyst. She was admitted. We consulted GI. We made her n.p.o., give her TPN. We followed her lipase level and over the next few days, she was doing better, but would still need more treatment for pancreatitis. We discharged to home with home TPN. DISPOSITION: Home with home TPN. ACTIVITY: As tolerated. DIET: N.p.o. MEDICATIONS: Please see MRAD. TOTAL TIME: 30 minutes. JENNIFER OCONNELL DO DR: MINNIE/ned JOB#: [id number] / [id number]
== END 2019-05-08 18:30 | disposition home health service (06) | DRG 438 ==
LOC: ER 19:00 → 4 NORTH 22:31 → ER 23:04 → 1 WEST ICU 05-04 17:19 → 2 NORTH 05-05 17:33
PROVIDERS: ADMIT Family Medicine; ATTEND Family Medicine
PROC: 02HV33Z Insertion of Infusion Device into Superior Vena Cava, Percutaneous Approach (ICD-10-PCS; principal; 2019-05-03)
PROC: B5181ZA Fluoroscopy of Superior Vena Cava using Low Osmolar Contrast, Guidance (ICD-10-PCS; 2019-05-03)
PROC: B548ZZA Ultrasonography of Superior Vena Cava, Guidance (ICD-10-PCS; 2019-05-03)
PROC: 5A09357 Assistance with Respiratory Ventilation, Less than 24 Consecutive Hours, Continuous Positive Airway Pressure (ICD-10-PCS; 2019-05-06)
DX: K85.90 Acute pancreatitis without necrosis or infection, unspecified (principal); E43 Unspecified severe protein-calorie malnutrition; J96.20 Acute and chronic respiratory failure, unspecified whether with hypoxia or hypercapnia; Z68.1 Body mass index [BMI] 19.9 or less, adult; K86.3 Pseudocyst of pancreas; F11.20 Opioid dependence, uncomplicated; I42.9 Cardiomyopathy, unspecified; J44.1 Chronic obstructive pulmonary disease with (acute) exacerbation; C73 Malignant neoplasm of thyroid gland; E78.00 Pure hypercholesterolemia, unspecified; E78.5 Hyperlipidemia, unspecified; F17.210 Nicotine dependence, cigarettes, uncomplicated; F32.9 Major depressive disorder, single episode, unspecified; G35 Multiple sclerosis; G47.00 Insomnia, unspecified; G89.29 Other chronic pain; I11.0 Hypertensive heart disease with heart failure; I25.10 Atherosclerotic heart disease of native coronary artery without angina pectoris; I50.9 Heart failure, unspecified; K21.9 Gastro-esophageal reflux disease without esophagitis; K22.70 Barrett's esophagus without dysplasia; K29.50 Unspecified chronic gastritis without bleeding; K59.00 Constipation, unspecified; K62.1 Rectal polyp; K64.8 Other hemorrhoids; K86.1 Other chronic pancreatitis; M81.0 Age-related osteoporosis without current pathological fracture; Z95.0 Presence of cardiac pacemaker; N20.0 Calculus of kidney; S90.31XA Contusion of right foot, initial encounter; Z79.82 Long term (current) use of aspirin; Z79.899 Other long term (current) drug therapy; Z82.49 Family history of ischemic heart disease and other diseases of the circulatory system; Z85.850 Personal history of malignant neoplasm of thyroid; Z90.710 Acquired absence of both cervix and uterus; Z96.89 Presence of other specified functional implants; Z83.3 Family history of diabetes mellitus; F41.9 Anxiety disorder, unspecified
CPT/HCPCS: 36415; 36573; 71045; 74177; 76604; 77001; 80048; 80053; 82607; 82962; 83690; 83735; 84100; 84443; 84478; 84484; 85025; 85651; 86038; 86301; 93005; 93308; 93320; 93325; 94640; 94760; 96361; 96374; 96375; C1751; C1892; C9113; J0610; J1200; J2270; J2405; J2543; J2765; J3475; J3480; J7030; Q9967; 97110; 97535; 99285-25; G0378

== ENCOUNTER → 2019-05-22 | Outpatient (CLI) | payer MEDICARE ==
[2019-05-08 14:35] VITALS: BP 82/53
[~2019-05-22] MED LIST changes: +DIGO125T3 PO; +TRAZ-123 PO; -TRAZ-86 PO
--- NOTE | 2019-05-22 14:42 | CARD ---
MR#: [id number] Date of Study: 05/22/2019 Ordering Physician: DIDIER VYAS, Referring Physician: DIDIER VYAS, Tech: Deja Hernandez APPROVED REPORT EXAM: Two-dimensional and M-mode echocardiogram with Doppler and color Doppler. Other Information Quality : AverageHR: 72bpm Rhythm : Pacemaker INDICATION Pericardial Effusion Surgery/Intervention Pacemaker: 2D DIMENSIONS RVDd1.8 (2.9-3.5cm)Left Atrium(2D)2.4 (1.6-4.0cm) IVSd0.8 (0.7-1.1cm)Aortic Root(2D)3.7 (2.0-3.7cm) LVDd4.7 (3.9-5.9cm)LVOT Diameter2.2 (1.8-2.4cm) PWd0.8 (0.7-1.1cm)LVDs2.6 (2.5-4.0cm) LVEF(%)71.0 (>50%) LEFT VENTRICLE The left ventricle is normal size. There is normal left ventricular wall thickness. The left ventricu lar systolic function is normal. The Ejection Fraction is 60-65%. There is normal LV segmental wall m otion. The left ventricular diastolic function and filling is normal for age. RIGHT VENTRICLE The right ventricle is normal size. There is normal right ventricular wall thickness. The right ventr icular systolic function is normal. There is a pacemaker lead in the right ventricle. ATRIA The left atrium size is normal. The right atrium size is normal. There is a pacemaker lead seen in th e right atrium. The interatrial septum is intact with no evidence for an atrial septal defect or awad nt foramen ovale as noted on 2-D or Doppler imaging. AORTIC VALVE The aortic valve is normal in structure and function. Doppler and Color Flow revealed no significant aortic regurgitation. There is no significant aortic valvular stenosis. MITRAL VALVE The mitral valve is normal in structure and function. There is no evidence of mitral valve prolapse. There is no mitral valve stenosis. Doppler and Color-flow revealed trace mitral regurgitation. TRICUSPID VALVE The tricuspid valve is normal in structure and function. Doppler and Color Flow revealed trace tricus pid regurgitation with an estimated PAP of 27 mmHg. There is no tricuspid valve stenosis. PULMONIC VALVE The pulmonary valve is normal in structure and function. Doppler and Color Flow revealed mild to mode rate pulmonic valvular regurgitation. GREAT VESSELS The aortic root is mildly enlarged. The IVC is normal in size and collapses >50% with inspiration. PERICARDIAL EFFUSION There is a small-moderate circumferential pericardial effusion. Critical Notification Critical Value: No <Conclusion> The left ventricular systolic function is normal. The Ejection Fraction is 60-65%. There is normal LV segmental wall motion. There is a pacemaker lead in the right atrium and right ventricle. Trace mitral regurgitation. Trace tricuspid regurgitation with an estimated PAP of 27 mmHg. There is a small-moderate circumferential pericardial effusion. Signed by : Noe Almodovar, Electronically Approved : 05/22/2019 14:42:27
== END | disposition home or self-care (01) ==
LOC: ECHO 12:59
PROVIDERS: ATTEND Internal Medicine Cardiovascular Disease
DX: I37.1 Nonrheumatic pulmonary valve insufficiency (principal); I31.3 Pericardial effusion (noninflammatory); Z95.0 Presence of cardiac pacemaker
CPT/HCPCS: 93306

== ENCOUNTER → 2019-05-25 | Outpatient (CLI) | payer MEDICARE ==
[2019-05-08 14:35] VITALS: BP 82/53
[~2019-05-25] MED LIST changes: +IOHEXOL 240 MG/ML 50ML VIAL. PO ONE; +IOHEXOL 300 MG/ML 100ML VIAL. IV ONE
--- NOTE | 2019-05-25 11:04 | RAD ---
Examination: CT ABD PELV W/ORAL IV CONTRAST History: Pancreatic cyst Comparison/Correlation: None Findings: Axial images of the abdomen and pelvis were obtained following IV and oral contrast. Sagittal and coronal reformatted images were provided. Small to moderate-sized pericardial effusion is present. Pacemaker leads are visualized. Spinal stimulator device noted. Linear atelectasis or scarring involving the gallbladder is distended measuring 12.6 cm longitudinal. Minimal central biliary prominence noted. No pulmonary change about the gallbladder. Spleen is unremarkable. Abdomen normal. Low-attenuation lesions involving the kidneys which probably represent cysts are too small to characterize. Punctate calculus at the left renal interpolar region is present. Distal pancreatic low-attenuation structure measuring 0.65 cm is noted on axial image 27 and has fluid density. Smaller punctate density for distal pancreatic tail is present on axial images and is too small to characterize measuring 0.43 cm. Cystic structures inferior to the splenic hilar vessels have noticeably decreased in size measuring total of 3.3 cm x 1.2 cm. Without enhancement is notably decreased as well. No extraluminal gas. Moderate quantity of stool in the colon present. No enlarged abdominal or pelvic lymph nodes. Urinary bladder is unremarkable. No inflammatory changes about the cecum. Bony structures are intact. Impression: Significant decrease in collections inferior to the splenic hilar vessels. Distal pancreatic tail cystic structures which probably represent IPMN and are not seen on CT exam of 08/10/2016. Six-month follow-up CT exam of the pancreas with contrast to assess stability is recommended. Nncmx-nr-mopqwmpl sized pericardial effusion is slightly increased in interval. Punctate left renal nonobstructive calyceal calculus. PQRS Compliance Statement: One or more of the following individualized dose reduction techniques were utilized for this examination: 1. Automated exposure control 2. Adjustment of the mA and/or kV according to patient size 3. Use of iterative reconstruction technique Electronically signed by: Zaki Santamaria MD (05/25/2019 11:01 AM) [facility]
== END | disposition home or self-care (01) ==
LOC: CT 08:18
PROVIDERS: ATTEND Surgery
DX: K86.2 Cyst of pancreas (principal); D73.4 Cyst of spleen; N20.0 Calculus of kidney; N28.89 Other specified disorders of kidney and ureter; I31.3 Pericardial effusion (noninflammatory)
CPT/HCPCS: 74177; Q9966; Q9967

== ENCOUNTER → 2019-09-05 | Outpatient (CLI) | payer MEDICARE ==
[2019-07-10 15:00] VITALS: BP 120/62
[~2019-09-05] MED LIST changes: +ALBU2.5V8 IH; +AMOX1TAB11 PO; +AZIT250T6 PO; -IOHEXOL 240 MG/ML 50ML VIAL. PO ONE; -IOHEXOL 300 MG/ML 100ML VIAL. IV ONE; +IPRA4AER IH; +NICO1PAT25 TP; +OXYC1TAB15 PO; +PRED20TA PO
[2019-09-05 13:22] LABS: ALBUMIN 3.9 g/dL (3.4-5.0); ALBUMIN/GLOBULIN RATIO 1.1 (1.0-1.7); CALCIUM 10.2 mg/dL (8.5-10.1); CREATININE 0.7 mg/dL (0.6-1.0); GFR 87.2; PHOSPHORUS 4.3 mg/dL (2.6-4.7); POTASSIUM 4.6 mmol/L (3.5-5.1); TOTAL BILIRUBIN 0.2 mg/dL (0.2-1.0); TOTAL PROTEIN 7.4 g/dL (6.4-8.2)
== END ==
LOC: SPEC 12:42
PROVIDERS: ATTEND Internal Medicine
DX: Z93.4 Other artificial openings of gastrointestinal tract status (principal)
CPT/HCPCS: 36415; 80053; 84100; 84134

== ENCOUNTER → 2019-09-13 | Outpatient (CLI) | payer MEDICARE ==
[2019-07-10 15:00] VITALS: BP 120/62
[~2019-09-13] MED LIST changes: +IOHEXOL 240 MG/ML 50ML VIAL. PO ONE; +IOHEXOL 300 MG/ML 100ML VIAL. IV ONE
--- NOTE | 2019-09-13 16:05 | RAD ---
EXAM: CT Abdomen and Pelvis with IV contrast INDICATION: Abdominal pain TECHNIQUE: Multi-detector row CT images were acquired from the lung bases through the abdomen and pelvis with the use of IV contrast. Sagittal and coronal images were acquired from the transaxial data. All CT scans performed at this facility utilize dose optimization techniques as appropriate to the exam, including the following: Automated exposure control and adjustment of the mA and/or KV according to patient size (this includes techniques or standardized protocols for targeted exams where dose is indication/reason for exam). IV CONTRAST: Administered ORAL CONTRAST: Administered COMPARISON: CT pulmonary angiogram of 07/04/2019, abdomen and pelvis CT with IV contrast of 05/25/2019. FINDINGS: LOWER CHEST: Persistent cardiomegaly and pericardial effusion measuring up to 1.9 cm in maximum depth. Partially imaged pacemaker wires. No focal consolidation of the lung bases. LIVER: Unremarkable BILIARY SYSTEM: Gallbladder is surgically absent. Bile ducts are not dilated. PANCREAS: New, partly rim calcified 1.2 cm cyst in the pancreatic neck/proximal body, with poor visualization of the pancreatic tail. SPLEEN: Unremarkable ADRENALS: Unremarkable KIDNEYS & URETERS: Unremarkable BLADDER: Unremarkable REPRODUCTIVE ORGANS: Absent uterus. No adnexal mass. GASTROINTESTINAL: No findings of bowel obstruction, perforation or acute inflammation. Percutaneous gastrostomy tube appears appropriately placed in the stomach. Moderate stool throughout the visualized large bowel.. Appendix is not well seen but no findings of acute appendicitis are noted. MESENTERY/PERITONEUM/RETROPERITONEUM: Unremarkable VASCULAR: Scattered atherosclerotic calcifications and mild tortuosity. LYMPH NODES: No adenopathy OSSEOUS & SOFT TISSUES: Implanted biomedical photographer in the left upper abdomen, possibly a baclofen pump, is present with leads terminating above the [id number] in the dorsal aspect of the thoracic spinal column. IMPRESSION: 1. No specific cause for abdominal pain is identified. Correlate for any evidence of constipation. 2. A 1.2 cm cystic structure in the pancreas is newly apparent with poor visualization of the pancreatic tail. Correlate for any history of interval distal pancreatectomy and consider further imaging assessment with pancreas protocol CT or ERCP with ultrasound if clinically warranted. Electronically signed by: Betty Jensen MD (09/13/2019 4:02 PM) [id number]
== END | disposition home or self-care (01) ==
LOC: CT 14:03
PROVIDERS: ATTEND Internal Medicine
DX: K86.2 Cyst of pancreas (principal); K59.00 Constipation, unspecified; I31.3 Pericardial effusion (noninflammatory); I51.7 Cardiomegaly; I70.0 Atherosclerosis of aorta; Q25.46 Tortuous aortic arch
CPT/HCPCS: 74177; Q9966; Q9967

== ENCOUNTER 2019-11-03 16:39 | Emergency (ER) | payer MEDICARE ==
[~2019-11-03] VITALS: Ht 170.2 cm; Wt 52.2 kg
[~2019-11-03 16:39] MED LIST changes: -IOHEXOL 240 MG/ML 50ML VIAL. PO ONE; -IOHEXOL 300 MG/ML 100ML VIAL. IV ONE
[2019-11-03 17:05] VITALS: BP 125/75
[2019-11-03] MEDS ORDERED: IOHEXOL 240 MG/ML 50ML VIAL. PO ONE (17:15)
--- NOTE | 2019-11-03 17:40 | PDOC ---
Provider Note Provider Note IR NOTE GTUBE REPLACED AT BEDSIDE WITHOUT ISSUE, CONFIRMED VIA KUB/CONTRAST Justicifation of Admission Dx: Justifications for Admission: Justification of Admission Dx: Comment: Comments: G TUBE PULLED OUT RAMU ELIZONDO MD Nov 03, 2019 17:40
--- NOTE | 2019-11-03 17:45 | RAD ---
EXAM: Abdomen, single view. HISTORY: G-tube placement. COMPARISON: CT dated 09/13/2019. FINDINGS: A frontal view of the abdomen is obtained. There is a gastrostomy tube within the stomach. There is contrast opacification of the stomach. No extravasation is seen. There is a generator overlying the left abdomen with catheter terminating at the inferior aspect of T10. There are cardiac pacemaker leads. There is cardiomegaly. There is scoliosis. There are cholecystectomy clips. IMPRESSION: Gastrostomy tube in expected position. There is no evidence of extravasation. Electronically signed by: Serena Shannon MD (11/03/2019 5:42 PM) [facility]
--- NOTE | 2019-11-03 17:58 | PHYS DOC ---
Past Medical History Past Medical History: Cancer, COPD, High Cholesterol, Heart Disease, Hypo tension, Other Additional Past Medical Histor: MS, Osteoporosis, carmichael's esophagus, mitral vavle insuf,thyroid cancer, Past Surgical History: Angioplasty, Appendectomy, Hysterectomy, Pacemaker, Tonsillectomy, Other Additional Past Surgical Histo: Morphine pump,Mesh placed r/t "a lot of laproscopies," "Part of Thyroid" Smoking Status: Current Every Day Smoker Additional Information: 1 ppd Alcohol Use: None Drug Use: None General Adult EDM: Chief Complaint: GTUBE REPLACEMENT/MALFUNCTION HPI: HPI: Patient is a 54 year old female who presents with G-tube out. IR knew about patient prior to arrival. Her dog stepped on the tubing accidentally into there. She has no complaints. Review of Systems: Review of Systems: Negative except marked Heart Score: Risk Factors: Risk Factors: DM, Current or recent (<one month) smoker, HTN, HLP, family history of CAD, obesity. Risk Scores: Score 0 - 3: 2.5% MACE over next 6 weeks - Discharge Home Score 4 - 6: 20.3% MACE over next 6 weeks - Admit for Clinical Observation Score 7 - 10: 72.7% MACE over next 6 weeks - Early Invasive Strategies Current Medications: Current Medications Medications (Trade) Dose Ordered Sig/Abhijit Start Time Stop Time Status Last Admin Dose Admin Iohexol (Omnipaque 240 Mg/ml) 50 ml 1X ONCE 11/03/19 17:15 11/03/19 17:21 DC 11/03/19 17:27 10 ML Allergies: Allergies: Allergies Coded Allergies Type Severity Reaction Last Updated Verified No Known Allergies Allergy Unknown 06/13/19 No Physical Exam: PE: Constitutional: Well developed, well nourished, Cooperative, NAD, non-toxic a ppearing HEENT: Normocephalic, atraumatic, oropharynx moist, EOMI, PERRL, no drainage from eyes, normal conjunctiva Abdomen: Soft, nontender, nondistended, no masses, G-tube site without signs of inflammation or infection Skin: Warm, dry, intact Extremities: No obvious deformities Psychologic: Normal affect, normal judgment, normal mood. No SI/HI Current Patient Data: Vital Signs: Vital Signs Date Time Temp Pulse Resp B/P (MAP) Pulse Ox O2 Delivery O2 Flow Rate FiO2 11/03/19 17:05 98.4 88 18 125/75 (92) 97 Room Air 98.4 EKG: EKG: [] Radiology/Procedures: Radiology/Procedures: [] Course & Med Decision Making: Course & Med Decision Making Pertinent Labs and Imaging studies reviewed. (See chart for details) IR placed G-tube. Dragon Disclaimer: Dragon Disclaimer: This electronic medical record was generated, in whole or in part, using a voice recognition dictation system. Departure Departure Impression: Primary Impression: Complication of feeding tube Disposition: HOME, SELF-CARE Condition: GOOD Patient Instructions: Wound Care, [id number] Justicifation of Admission Dx: Justifications for Admission: Justification of Admission Dx: N/A ANNE-MARIE GORDON MD Nov 03, 2019 17:58
== END 2019-11-03 18:05 | disposition home or self-care (01) ==
LOC: ER 16:39
DX: K94.23 Gastrostomy malfunction (principal); J44.9 Chronic obstructive pulmonary disease, unspecified; E78.00 Pure hypercholesterolemia, unspecified; I11.9 Hypertensive heart disease without heart failure; I95.9 Hypotension, unspecified; F17.200 Nicotine dependence, unspecified, uncomplicated; Z85.9 Personal history of malignant neoplasm, unspecified; Z90.710 Acquired absence of both cervix and uterus; Z90.89 Acquired absence of other organs; Z95.0 Presence of cardiac pacemaker; Z98.890 Other specified postprocedural states
CPT/HCPCS: 49450; 74018; 99284; B4087; Q9966

== ENCOUNTER → 2019-11-28 | Outpatient (CLI) | payer MEDICARE ==
[2019-11-03 17:05] VITALS: BP 125/75
[~2019-11-28] MED LIST changes: +CONTRAST GIVEN. MC PRN; +IOHEXOL 300 MG/ML 100ML VIAL. IV ONE
--- NOTE | 2019-11-28 11:46 | RAD ---
CT THORACIC SPINE WO/W CONTRST, CT LUMBAR SPINE WO/W CONTRAST History:Reason: EVAL CATHETER SITE. R/O INTRATHECAL GRAMULOMA / Spl. Instructions: IV OMNI 300 75 MLS / History: Technique: CT was performed of the thoracic and lumbar spine without with contrast. Multiplanar reconstructions were performed. Exposure: One or more of the following individualized dose reduction techniques were utilized for this examination: 1. Automated exposure control 2. Adjustment of the mA and/or kV according to patient size 3. Use of iterative reconstruction technique. Comparison: CT chest July 04, 2019. CT abdomen pelvis September 13, 2019. Findings: Thoracic spine CT: Pulmonary emphysema. Calcified pulmonary nodule, likely prior granulomatous disease. Spinal catheter enters the posterior epidural space at the L3-L4 level and extends cranially into the T10-T11 level. There is increased density surrounding the tip of the catheter. No enhancement. Mild reverse S-shaped curvature of the thoracolumbar spine. Otherwise, normal vertebral body alignment. Normal vertebral body height. No fracture. Mild multilevel degenerative disc changes. No significant canal narrowing. No significant neural foraminal narrowing. Lumbar spine CT: Normal vertebral body height. No fracture. Partially imaged pericardial effusion, similar compared to prior. Postoperative changes within the region of the pancreatic body and tail. L1-L2: Minimal disc bulge. No canal or neuroforaminal narrowing. L2-L3: Small disc bulge. Mild facet arthropathy. No canal or neuroforaminal narrowing. L3-L4: Small disc bulge. Mild facet arthropathy. No canal or neuroforaminal narrowing. L4-L5: Broad-based disc bulge. Mild facet arthropathy. Bilateral subarticular recess narrowing. No canal narrowing. Ligament of flavum thickening. Mild bilateral neuroforaminal narrowing. L5-S1: Small disc bulge. Moderate facet arthropathy. Ligamentum flavum thickening. No canal narrowing. No neuroforaminal narrowing. Impression: 1. Intrathecal catheter terminating at the T10-T11 level with increased density surrounding, may represent granulation tissue. 2. Mild lumbar spondylosis with reversed S-shaped curvature of the thoracal lumbar spine. 3. Pericardial effusion partially imaged. Electronically signed by: Everton Boo DO (11/28/2019 11:43 AM) [id number]
== END | disposition home or self-care (01) ==
LOC: CT 09:33
PROVIDERS: ATTEND Pain Medicine Pain Medicine
DX: M47.817 Spondylosis without myelopathy or radiculopathy, lumbosacral region (principal); M41.85 Other forms of scoliosis, thoracolumbar region; G06.1 Intraspinal abscess and granuloma; J43.8 Other emphysema; I31.3 Pericardial effusion (noninflammatory); R91.1 Solitary pulmonary nodule
CPT/HCPCS: 72130; 72133; Q9967

== ENCOUNTER → 2019-12-13 | Outpatient (CLI) | payer MEDICARE ==
[~2019-12-13] MED LIST changes: -CONTRAST GIVEN. MC PRN; -IOHEXOL 300 MG/ML 100ML VIAL. IV ONE
--- NOTE | 2019-12-13 15:02 | CARD ---
MR#: [id number] Date of Study: 12/13/2019 Ordering Physician: DIDIER VYAS, Referring Physician: DIDIER VYAS, Tech: Marj Anna [facility] APPROVED REPORT EXAM: Two-dimensional and M-mode echocardiogram with Doppler and color Doppler. Other Information Quality : Good INDICATION Pericardial Effusion Surgery/Intervention Pacemaker: Date: 2013 2D DIMENSIONS RVDd2.1 (2.9-3.5cm)Left Atrium(2D)2.6 (1.6-4.0cm) IVSd0.8 (0.7-1.1cm)Aortic Root(2D)3.5 (2.0-3.7cm) LVDd4.8 (3.9-5.9cm)LVOT Diameter2.0 (1.8-2.4cm) PWd0.8 (0.7-1.1cm)LVDs2.9 (2.5-4.0cm) FS (%) 39.2 %SV75.8 ml LVEF(%)60.0 (>50%) Aortic Valve AoV Peak Navin.116.1cm/sAoV VTI20.6cm AO Peak GR.5.4mmHgLVOT Peak Nvain.93.7cm/s AO Mean GR.3mmHgAVA (VMAX)2.64cm2 LUMA (VTI)2.80cm2 Mitral Valve MV E Dorqexpa88.7cm/sMV DECEL UODS115kw MV A Hllkpvoz06.2cm/sE/A Ratio1.8 Tricuspid Valve TR P. Idrhwkvr965gy/sRAP FAYDGGRB1clGw TR Peak Gr.30qkUsKPKW91kwPd Pulmonary Vein S1 Gcoztghc89.6cm/sD2 Jfpesuwq40.0cm/s LEFT VENTRICLE The left ventricle is normal size. There is normal left ventricular wall thickness. The left ventricu lar systolic function is normal and the ejection fraction is within normal range. EF 55% Septal motio n suggestive of conduction defect. Otherwise, grossly normal wall motion. Transmitral Doppler flow pa ttern is Grade I-abnormal relaxation pattern. RIGHT VENTRICLE The right ventricle is normal size. The right ventricular systolic function is normal. There is a pac emaker lead in the right ventricle. ATRIA The left atrium size is normal. The right atrium size is normal. A pacemaker is seen in the right atr ium consistent with history. The interatrial septum is intact with no evidence for an atrial septal d efect or patent foramen ovale as noted on 2-D or Doppler imaging. AORTIC VALVE The aortic valve is normal in structure and function. Doppler and Color Flow revealed no significant aortic regurgitation. There is no significant aortic valvular stenosis. MITRAL VALVE The mitral valve is normal in function. A mild mitral valve prolapse is present. There is no mitral v alve stenosis. Doppler and Color-flow revealed trace mitral regurgitation. TRICUSPID VALVE The tricuspid valve is normal in structure and function. Doppler and Color Flow revealed trace tricus pid regurgitation. The PA pressure was estimated at 21 mmHg. There is no tricuspid valve stenosis. PULMONIC VALVE The pulmonary valve is normal in structure and function. Doppler and Color Flow revealed trace to mil d pulmonic valvular regurgitation. There is no pulmonic valvular stenosis. GREAT VESSELS The aortic root is normal in size. The ascending aorta is mildly dilated at 3.4 cm. The IVC is normal in size and collapses >50% with inspiration. PERICARDIAL EFFUSION There is a small to moderate circumferential pericardial effusion. Critical Notification Critical Value: No <Conclusion> The left ventricular systolic function is normal and the ejection fraction is within normal range. EF 55% Septal motion suggestive of conduction defect. Otherwise, grossly normal wall motion. There is a pacemaker lead in the right ventricle. The ascending aorta is mildly dilated at 3.4 cm. There is a small to moderate circumferential pericardial effusion. Signed by : Mason Krueger, Electronically Approved : 12/13/2019 15:01:44
== END | disposition home or self-care (01) ==
LOC: ECHO 12:52
PROVIDERS: ATTEND Internal Medicine Cardiovascular Disease
DX: I37.1 Nonrheumatic pulmonary valve insufficiency (principal); I34.1 Nonrheumatic mitral (valve) prolapse; I31.3 Pericardial effusion (noninflammatory); Z95.0 Presence of cardiac pacemaker
CPT/HCPCS: 93306

== ENCOUNTER → 2019-12-28 | Outpatient (CLI) | payer MEDICARE ==
[~2019-12-28] MED LIST changes: +REGADENOSON 0.4 MG/5 ML DISP.SYRIN. IV ONE
--- NOTE | 2019-12-29 07:30 | RAD ---
MR#: [id number] Date of Study: 12/28/2019 Ordering Physician: DIDIER VYAS, Referring Physician: PIERRE EDDY Tech: CHRISTIANA Goode ARRT (R) (N) APPROVED REPORT Test Type: Pharmacological Stress Nurse/Tech: Beth Fabian RN Test Indications: Chest pain Cardiac History: COPD,smoker,pacemaker,MS,CHF Medications: See Electronic Medical Record Medical History: See Electronic Medical Record Resting ECG: Atrial paced Resting Heart Rate: 60 bpm Resting Blood Pressure: 101/64mmHg Pretest Chest Pain: No chest pain Nurse/Tech Notes S1,S2 and lungs diminished throughout. Consent: The procedure was explained to the patient in lay terms. Informed consent was witnessed. Bashir eout was entered into [employer]. History and Stress Test performed by CHRISTIANA Goode ARRT (R) (N) Pharm. Details Pharmacologic stress testing was performed using 0.4mg per 5ml of regadenoson given intravenously ove r 7-10 seconds. Stress Symptoms Dyspnea,Nausea POST EXERCISE Reason for Termination: Infusion complete Target HR: No Max HR: 88 bpm 62% of Maximum Predicted HR: 141 bpm Max Blood Pressure: 110/66mmHg Blood Pressure response to exercise: Normal blood pressure response during stress. Heart Rate response to exercise: WNL Chest Pain: No. Arrhythmia: No. ST Change: No. INTERPRETATION Stress EKG Conclusion: No evidence of stress induced EKG changes. Imaging Protocol IMAGE PROTOCOL: Rest Tc-99m/stress Tc-99m 1 day Rest: Stress: Viability: Radiopharm.Tc99m GkuxcljosLo24j Sestamibi Mpdi05qHh 31mCi Img Date 12/28/2019 12/28/2019 Inj-Img [id number]. 60min. Rest Admin Site:IV - Right AntecubitalAdministrator:CHRISTIANA Goode ARRT (R)(N) Stress Admin Site: IV - Right AntecubitalAdministrator: RT Sterling MiltonR)(N) STRESS DATA End Diast. Vol.81.0mlAv. Heart Rate62.0bpm End Syst. Vol.20.0mlCO Index BSA0.0L/min Myocardial Bekg491.0gEject. Fzgzhwbb99.0% Stress Rates Pk. Fill Rate3.90EDV/secLVtime Pk. Fill 214.15msec Pk. Empty Rate4.64ESV/secLVtime Pk. Gsgei500.00msec 1/3 Pk. Fill1.07EDV/sec Stress Scores Regional WT0.00Summed WT3.00 Regional WM0.00Summed WM0.00 LV Perfusion Normal perfusion at stress. Wall Motion Normal wall motion. EF > 60% LV Perf. Quant 17 Seg. SSS0.00 17 Seg. SRS9.00 17 Seg. SDS0.00 Stress Defect Extent (% LAD)0.00Rest Defect Extent (% LAD)21.90Rev. Defect Extent (% LAD)0.00 Stress Defect Extent (% LCX) 0.00Rest Defect Extent (% LCX)57.50Rev. Defect Extent (% LCX)0.00 Stress Defect Extent (% RCA)0.00Rest Defect Extent (% RCA)0.00Rev. Defect Extent (% RCA)0.00 Stress Defect Extent (% JULIA)0.00Rest Defect Extent (% JULIA)21.30Rev. Defect Extent (% JULIA)0.00 Other Information Quality:Fair Risk Assessment: Low Risk Conclusion 1. No evidence of vasodilator stress induced EKG changes. 2. Normal perfusion at stress. 3. Rest images non-diagnostic due to artifact 4. Normal wall motion. EF > 60% 5. Low risk study overall Signed by : Mason Krueger, Electronically Approved : 12/29/2019 07:29:55
== END | disposition home or self-care (01) ==
LOC: NM 10:54
PROVIDERS: ATTEND Internal Medicine Cardiovascular Disease
DX: R07.9 Chest pain, unspecified (principal)
CPT/HCPCS: 78452; 93017; A9500; J2785

== ENCOUNTER → 2020-04-01 | Outpatient (CLI) | payer MEDICARE ==
[~2020-04-01] MED LIST changes: -REGADENOSON 0.4 MG/5 ML DISP.SYRIN. IV ONE
--- NOTE | 2020-04-01 13:13 | RAD ---
AP and Lateral Views of the Chest 04/01/2020 12:00 AM Indication: Reason: COPD. SURGERY CLEARANCE. 04/09 LUMBAR PAIN PUMP REVISION / Spl. Instructions: / History: Comparison: Chest radiograph July 04, 2019 Findings lungs are mildly hyperinflated. The heart is enlarged. No pneumothorax, pleural effusion, or focal infiltrate is seen. A dual-lead pacemaker from a left subclavian approach is noted. The appearance is grossly unchanged. Gastrostomy tube noted in the upper abdomen. There is a pain pump device with catheter extending along the dorsal aspect of the spine. IMPRESSION: No evidence of acute cardiopulmonary process or acute change from prior study Electronically signed by: Ayo Montoya MD (04/01/2020 1:09 PM) [id number]
== END ==
LOC: RAD 12:05
PROVIDERS: ATTEND Internal Medicine Pulmonary Disease
DX: Z01.818 Encounter for other preprocedural examination (principal); J44.9 Chronic obstructive pulmonary disease, unspecified; I51.7 Cardiomegaly
CPT/HCPCS: 71046

== ENCOUNTER → 2020-05-08 | Outpatient (CLI) | payer MEDICARE ==
[~2020-05-08] MED LIST changes: +CONTRAST GIVEN. MC PRN; +IOHEXOL 240 MG/ML 50ML VIAL. PO ONE; +IOHEXOL 300 MG/ML 100ML VIAL. IV ONE
--- NOTE | 2020-05-08 12:43 | RAD ---
Exam: CT abdomen/pelvis with intravenous contrast Indication: Cystic lesion in the pancreas, abdominal pain Comparison: CT abdomen and pelvis 09/13/2019 and 05/25/2019 Technique: Helical CT imaging performed of the abdomen and pelvis after the intravenous administratio n of 75 mL Omnipaque 300 intravenous contrast. Sagittal and coronal reformats were obtained. One or more of the following individualized dose reduction techniques were utilized for this examinat ion: 1. Automated exposure control 2. Adjustment of the mA and/or kV according to patient size 3. Use of iterative reconstruction technique. Findings: Lower chest: There is a linear nodular opacity in the left lower lobe, likely atelectasis. Mild cardi omegaly with small pericardial effusion is unchanged. Liver: The liver measures 19 cm in length. A circumscribed 5 mm hypodensity in the left hepatic lobe is too small to characterize and unchanged. Gallbladder/Biliary Tree: The gallbladder is surgically absent. Bile ducts are normal. Pancreas: There are surgical changes of distal pancreatectomy. The 1.2 cm cyst at the resection tracey n of the pancreas on 09/13/2019 is no longer present. There is no new cyst, mass, or duct dilation. Th e remaining pancreas is normal in appearance. Spleen: Spleen is absent. Adrenal Glands: Normal. Kidneys/Ureters/Bladder: The kidneys are normal in size and enhance symmetrically. There is left neph rolithiasis with a punctate calculus. No hydronephrosis. Ureters and bladder are normal. Reproductive Organs: Uterus is surgically absent. No adnexal mass. Stomach, small bowel, and colon: A gastrostomy tube is unchanged position. The balloon securing the t ube is less inflated. The small bowel is normal. Colon is normal in appearance. Vasculature: Abdominal aorta is normal in caliber. Mild calcified aortoiliac atherosclerosis. Lymph Nodes: Small mesenteric lymph nodes in the upper abdomen are unchanged. No lymphadenopathy. Peritoneum and retroperitoneum: No free fluid or free air. Bones: No acute osseous abnormality. Spinal stimulator leads are seen in the dorsal canal extending t o the thoracic spine. Mild lumbar scoliosis. Impression: 1. Surgical changes of distal pancreatectomy. Interval resolution of cyst at the surgical margin of the pancreas. No recurrent pancreatic cyst, mass, or duct dilation. 2. Left nephrolithiasis. 3. Gastrostomy tube in place. Of note, the balloon securing the tube is not well inflated. Electronically signed by: Rose Pineda MD (05/08/2020 12:40 PM) [id number]
== END ==
LOC: CT 08:52
PROVIDERS: ATTEND Surgery
DX: N20.0 Calculus of kidney (principal); I31.3 Pericardial effusion (noninflammatory); I51.7 Cardiomegaly; I70.0 Atherosclerosis of aorta; M41.86 Other forms of scoliosis, lumbar region; Z90.411 Acquired partial absence of pancreas; Z93.1 Gastrostomy status
CPT/HCPCS: 74177; Q9966; Q9967

== ENCOUNTER 2020-05-28 12:58 | Emergency (ER) | payer MEDICARE ==
[~2020-05-28] VITALS: Ht 170.2 cm; Wt 57.7 kg
[~2020-05-28 12:58] MED LIST changes: -CONTRAST GIVEN. MC PRN; -IOHEXOL 240 MG/ML 50ML VIAL. PO ONE; -IOHEXOL 300 MG/ML 100ML VIAL. IV ONE
[2020-05-28 13:13] VITALS: BP 91/60
[2020-05-28] MEDS ORDERED: IOHEXOL 240 MG/ML 50ML VIAL. PO ONE (13:45)
[2020-05-28] MEDS ORDERED: CONTRAST GIVEN. MC PRN (14:00)
--- NOTE | 2020-05-28 14:51 | PHYS DOC ---
Past Medical History Past Medical History: Cancer, COPD, High Cholesterol, Heart Disease, Hypo tension, Other Additional Past Medical Histor: MS, Osteoporosis, carmichael's esophagus, mitral vavle insuf,thyroid cancer, Past Surgical History: Angioplasty, Appendectomy, Hysterectomy, Pacemaker, Tonsillectomy, Other Additional Past Surgical Histo: Morphine pump,Mesh placed r/t "a lot of laproscopies," "Part of Thyroid," Smoking Status: Current Every Day Smoker Additional Information: 1-1.5/ppd Alcohol Use: None Drug Use: None General Adult EDM: Chief Complaint: GI PROBLEM HPI: HPI: Patient is a 54-year-old female who came to ER for a G-tube replacement because her old one was pulled out by accident today by her dog. Review of Systems: Review of Systems: Constitutional: Denies fever or chills. [] Eyes: Denies change in visual acuity. [] HENT: Denies nasal congestion or sore throat. [] Respiratory: Denies cough or shortness of breath. [] Cardiovascular: Denies chest pain or edema. [] GI: Denies abdominal pain, nausea, vomiting, bloody stools or diarrhea. [] : Denies dysuria. [] Musculoskeletal: Denies back pain or joint pain. [] Integument: Denies rash. [] Neurologic: Denies headache, focal weakness or sensory changes. [] Endocrine: Denies polyuria or polydipsia. [] Lymphatic: Denies swollen glands. [] Psychiatric: Denies depression or anxiety. [] Heart Score: Risk Factors: Risk Factors: DM, Current or recent (<one month) smoker, HTN, HLP, family history of CAD, obesity. Risk Scores: Score 0 - 3: 2.5% MACE over next 6 weeks - Discharge Home Score 4 - 6: 20.3% MACE over next 6 weeks - Admit for Clinical Observation Score 7 - 10: 72.7% MACE over next 6 weeks - Early Invasive Strategies Current Medications: Current Medications Medications (Trade) Dose Ordered Sig/Abhijit Start Time Stop Time Status Last Admin Dose Admin Info (CONTRAST GIVEN -- Rx MONITORING) 1 each PRN DAILY PRN 05/28/20 14:00 05/30/20 13:59 Iohexol (Omnipaque 240 Mg/ml) 50 ml 1X ONCE 05/28/20 13:45 05/28/20 13:46 DC 05/28/20 14:06 50 ML Allergies: Allergies: Allergies Coded Allergies Type Severity Reaction Last Updated Verified No Known Allergies Allergy Unknown 06/13/19 No Physical Exam: PE: Constitutional: Well developed, well nourished, no acute distress, non-toxic appearance. [] HENT: Normocephalic, atraumatic, bilateral external ears normal, oropharynx moist, no oral exudates, nose normal. [] Eyes: PERRLA, EOMI, conjunctiva normal, no discharge. [] Neck: Normal range of motion, no tenderness, supple, no stridor. [] Cardiovascular:Heart rate regular rhythm, no murmur [] Lungs & Thorax: Bilateral breath sounds clear to auscultation [] Abdomen: Bowel sounds normal, soft, no tenderness, no masses, no pulsatile masses. STOMA ON LUQ AREA, NO BLEEDING. Skin: Warm, dry, no erythema, no rash. [] Back: No tenderness, no CVA tenderness. [] Extremities: No tenderness, no cyanosis, no clubbing, ROM intact, no edema. [] Neurologic: Alert and oriented X 3, normal motor function, normal sensory function, no focal deficits noted. [] Psychologic: Affect normal, judgement normal, mood normal. [] Current Patient Data: Vital Signs: Vital Signs Date Time Temp Pulse Resp B/P (MAP) Pulse Ox O2 Delivery O2 Flow Rate FiO2 05/28/20 13:13 98.6 68 18 91/60 (70) 95 Room Air 98.6 EKG: EKG: [] Radiology/Procedures: Radiology/Procedures: GASTRIC TUBE REPLACEMENT PROCEDURE: A 20 FR [place] G-TUBE WAS ADVANCED THROUGH THE EXISTING STOMA WITHOUT ANY PROBLEM, GASTRIC CONTENT WAS RETURNED. 20 CC AIR WAS INJECTED TO INFLATE THE BALLOON. PATIENT TOLERATED PROCEDURE WELL. XRAY CONFIRMED PLACEMENT. [][facility] [address] [place] [address] IMAGING REPORT Signed PATIENT: RA VALLEJO ACCOUNT: [id number] : 1965 LOCATION: ER AGE: 54 SEX: F EXAM STATUS: DEP ER ORD. PHYSICIAN: NED FREEDMAN DO REASON: G-TUBE REPLACEMENT, PLEASE INJECT 50 ML OF GASTROGRAFFIN CONTRAST. PROCEDURE: KUB XR ABDOMEN 1V Clinical Indication: Reason: G-TUBE REPLACEMENT, PLEASE INJECT 50 ML OF GASTR OGRAFFIN CONTRAST. Comparison: CT abdomen and pelvis with contrast May 08, 2020. Findings: Cardiac pacer leads are seen. There is left abdomen pain pump reservoir. There is gastrostomy tube. The tube has been injected with Gastrografin. Gastrografin is seen outlining the distal stomach. No extravasation of contrast is identified. There are right abdomen surgical clips. No dilated bowel is seen. There is mild left convexity lumbar scoliosis. IMPRESSION: Gastrostomy tube is in appropriate position. No evidence of leak. Electronically signed by: Azeem Mcdowell MD (05/28/2020 3:27 PM) [id number] DICTATED and SIGNED BY: AZEEM MCDOWELL MD DATE: 05/28/20 [id number] Course & Med Decision Making: Course & Med Decision Making Pertinent Labs and Imaging studies reviewed. (See chart for details) [] Dragon Disclaimer: Dragon Disclaimer: This electronic medical record was generated, in whole or in part, using a voice recognition dictation system. Departure Departure Impression: Primary Impression: Encounter for feeding tube placement Disposition: 01 DC HOME SELF CARE/HOMELESS Condition: STABLE Referrals: CHRIS JEFFRIES MD (PCP) follow up with YOUR DOCTOR NEEDED Patient Instructions: Gastric Tube Replacement Additional Instructions: Thank you for visiting our Emergency Department. We appreciate you trusting us with your care. If any additional problems come up don't hesitate to return to visit us. Please follow up with your primary care provider so they can plan additional care if needed and know about the problem that you had. If symptoms worsen come back to the Emergency Department. Any concerning symptoms that start such as chest pain, shortness of air, weakness or numbness on one side of the body, running high fevers or any other concerning symptoms return to the ER. NED FREEDMAN DO May 28, 2020 14:51
--- NOTE | 2020-05-28 15:29 | RAD ---
XR ABDOMEN 1V Clinical Indication: Reason: G-TUBE REPLACEMENT, PLEASE INJECT 50 ML OF GASTROGRAFFIN CONTRAST. Comparison: CT abdomen and pelvis with contrast May 08, 2020. Findings: Cardiac pacer leads are seen. There is left abdomen pain pump reservoir. There is gastrostomy tube. T he tube has been injected with Gastrografin. Gastrografin is seen outlining the distal stomach. No ex travasation of contrast is identified. There are right abdomen surgical clips. No dilated bowel is se en. There is mild left convexity lumbar scoliosis. IMPRESSION: Gastrostomy tube is in appropriate position. No evidence of leak. Electronically signed by: Azeem Mcdowell MD (05/28/2020 3:27 PM) [id number]
== END 2020-05-28 15:05 | disposition home or self-care (01) ==
LOC: ER 12:58
DX: K94.23 Gastrostomy malfunction (principal); J44.9 Chronic obstructive pulmonary disease, unspecified; E78.00 Pure hypercholesterolemia, unspecified; I95.89 Other hypotension; F17.200 Nicotine dependence, unspecified, uncomplicated; Z90.89 Acquired absence of other organs; Z90.710 Acquired absence of both cervix and uterus; Z85.9 Personal history of malignant neoplasm, unspecified; Z95.0 Presence of cardiac pacemaker; Z98.890 Other specified postprocedural states
CPT/HCPCS: 43762; 74018; 99284; Q9966

== ENCOUNTER 2020-05-31 12:31 | Emergency (ER) | payer MEDICARE ==
[~2020-05-31] VITALS: Ht 170.2 cm; Wt 57.7 kg
[2020-05-31 13:30] VITALS: BP 102/58
--- NOTE | 2020-05-31 14:49 | RAD ---
Single AP view of the abdomen compared with examination from 05/28/2020 INDICATION: Dislodged PEG tube. FINDINGS: Pump device is reidentified in the left hemiabdomen. Contrast injected into the tube on the 12th is n ow seen in the colon. A gastrostomy tube is not identified on the film. There is a small right basila r effusion. Electronically signed by: Ilya Palmer MD (05/31/2020 2:47 PM) [id number]
[2020-05-31] MEDS ORDERED: fentaNYL PF VIAL 100 MCG/2 ML VIAL IM ONE (15:15)
--- NOTE | 2020-05-31 15:28 | PHYS DOC ---
Past Medical History Past Medical History: Cancer, COPD, High Cholesterol, Heart Disease, Hypo tension, Other Additional Past Medical Histor: MS, Osteoporosis, carmichael's esophagus, mitral vavle insuf,thyroid cancer, Past Surgical History: Angioplasty, Appendectomy, Hysterectomy, Pacemaker, Tonsillectomy, Other Additional Past Surgical Histo: Morphine pump,Mesh placed r/t "a lot of laproscopies," "Part of Thyroid," Smoking Status: Current Every Day Smoker Alcohol Use: None Drug Use: None General Adult EDM: Chief Complaint: OTHER COMPLAINTS HPI: HPI: Patient is a 54 year old female with a history of CHF, COPD, pulmonary nodules, multiple sclerosis, fibromyalgia, and multiple abdominal surgeries who presents with dislodgment of her G-tube. She states she woke up about 8 AM this morning and the tube had fallen out. She had placed earlier this week on Wednesday by her doctor here at [facility]. She states she waiting to come in till this afternoon because she was more comfortable with the G-tube out, and she is scared to get it replaced, since it was painful on Wednesday when he placed it. During the time I was taking history I also noticed her right pupil was larger than her left. She states her daughter noticed this about a week ago as well, at this time she also noticed increasing frequency of headaches, and ringing in her right ear. She does have a history of Multiple Sclerosis, but has never had symptoms such as these before. She states she is still eating and drinking normally, although she does get most of her nutrition through her G-tube. She has had no changes in bowel or bladder habits, no increasing shortness of breath or chest pain, no increasing weakness in an arm or leg more so than her normal weakness associated with her MS. She has no other complaints at this time. Review of Systems: Review of Systems: Constitutional: Denies fever or chills Eyes: States right eye has been more dilated than the left for the past week. HENT: Denies nasal congestion or sore throat Respiratory: Denies cough or increasing shortness of breath (on 3L at home normally) Cardiovascular: Denies chest pain or palpitations GI: Denies abdominal pain, nausea, or vomiting. States some pain at G tube inser tion site. : Denies dysuria or hematuria Musculoskeletal: Denies back pain or joint pain Integument: Denies rash or skin lesions Neurologic: Denies focal weakness or sensory changes. States she has had increasing headaches, and tinnitis in her right ear. Complete systems were reviewed and found to be within normal limits, except as documented in this note. Allergies: Allergies: Allergies Coded Allergies Type Severity Reaction Last Updated Verified No Known Allergies Allergy Unknown 06/13/19 No Physical Exam: PE: Constitutional: Well developed, slightly malnourished, no acute distress, non- toxic appearance HENT: Normocephalic, atraumatic Eyes: EOMI, conjunctiva normal, no discharge, Right pupil is larger than right, pupils constrict to light appropriately bilaterally. Neck: Normal range of motion, no tenderness, supple Lungs & Thorax: No respiratory distress, equal chest rise and fall Abdomen: Soft, no tenderness. Significant scarring present from previous surgeries. Slight erythema surrounding G tube insertion site. Skin: Warm, dry, no erythema, no rash Back: No tenderness, no CVA tenderness Extremities: No tenderness, ROM intact, no edema Neurologic: Alert and oriented X 3, +3/5 strength in LE that is normal for her due to MS, decreased sensation in all 4 extremities that is normal for her due to MS, no focal deficits noted Psychologic: Affect normal, judgment normal Current Patient Data: Vital Signs: Vital Signs Date Time Temp Pulse Resp B/P (MAP) Pulse Ox O2 Delivery O2 Flow Rate FiO2 05/31/20 13:30 98.0 76 16 102/58 (73) 96 Nasal Cannula 3.0 98.0 EKG: EKG: [] Radiology/Procedures: Radiology/Procedures: PROCEDURE: KUB Single AP view of the abdomen compared with examination from 05/28/2020 INDICATION: Dislodged PEG tube. FINDINGS: Pump device is reidentified in the left hemiabdomen. Contrast injected into the tube on the 12th is now seen in the colon. A gastrostomy tube is not identified on the film. There is a small right basilar effusion. Electronically signed by: Ilya Palmer MD (05/31/2020 2:47 PM) [id number] PROCEDURE: CT HEAD WO CONTRAST PQRS Compliance Statement: One or more of the following individualized dose reduction techniques were uti lized for this examination: 1. Automated exposure control 2. Adjustment of the mA and/or kV according to patient size 3. Use of iterative reconstruction technique CT head without contrast 05/31/2020 3:18 PM INDICATION: Anisocoria COMPARISON: CT head 12/13/2018 TECHNIQUE: Multiple axial CT images of the head were obtained from skull base through the vertex without intravenous contrast. FINDINGS: Head: Ventricles, sulci and basal cisterns are within normal limits. There is no hydrocephalus. Stiles-white matter differentiation is normal. There is no acute intracranial hemorrhage. There is no mass, mass effect or midline shift. Posterior fossa is normal in appearance. Visualized portions of the orbits are normal. Paranasal sinuses are well aerated. Mastoid air cells are well aerated. Scalp and calvaria are normal. IMPRESSION: No acute intracranial hemorrhage. Electronically signed by: Payton Mccoy MD (05/31/2020 3:29 PM) [id number] Course & Med Decision Making: Course & Med Decision Making Pertinent Imaging studies reviewed. (See chart for details) Reyna Castro is a 54-year-old female who presented today due to G-tube dislodgment. An x-ray was performed to check for foreign body, which was not found. G-tube was dislodged this morning before arrival to 20 Macanese. We attempted to replace with the trunk 20 Macanese, but due to patient pain and intolerance, we ultimately placed an 18 Macanese. She was given IM morphine to decrease pain for the procedure. An x-ray was then performed to confirm placement. During history and physical exam, I noticed a dilated right-sided pupil. Due to concerning history of increasing headaches, tinnitus, and on exam decreased sensation to the right side of her face, decided to get a head CT which was negative for intracranial mass or hemorrhage. I have instructed her to follow up with her PCP and neurologist for further workup, which is most likely related to her MS but should be further explored by her outpt providers. Patient stable for discharge with outpatient follow-up with PCP. Discussed findings and plan with patient, who acknowledges understanding and agreement. Pk Disclaimer: Pk Disclaimer: This electronic medical record was generated, in whole or in part, using a voice recognition dictation system. Additional Procedures Additional Procedures : Additional Procedures: gastric tube replacement Progress Gastric tube that was dislodged prior to arrival was a [address] We attempted to place a 20 Macanese but due to pain and patient inability to tolerate we ultimately had to place an 18 Macanese. Pt tolerated final procedure well with IM morphine. Placement was confirmed with xray after procedure. Departure Departure Impression: Primary Impression: Complication of feeding tube Disposition: 01 DC HOME SELF CARE/HOMELESS Condition: IMPROVED Referrals: CHRIS JEFFRIES MD (PCP) Patient Instructions: Gastric Tube Replacement Additional Instructions: Do not soak your wound. You may shower. Clean wound daily with soap and water. Change dressing 2 times daily for any continued bleeding. Use over the counter antibiotic ointment with each dressing change. REBA MCCRARY DO May 31, 2020 15:28
--- NOTE | 2020-05-31 15:32 | RAD ---
PQRS Compliance Statement: One or more of the following individualized dose reduction techniques were utilized for this examinat ion: 1. Automated exposure control 2. Adjustment of the mA and/or kV according to patient size 3. Use of iterative reconstruction technique CT head without contrast 05/31/2020 3:18 PM INDICATION: Anisocoria COMPARISON: CT head 12/13/2018 TECHNIQUE: Multiple axial CT images of the head were obtained from skull base through the vertex with out intravenous contrast. FINDINGS: Head: Ventricles, sulci and basal cisterns are within normal limits. There is no hydrocephalus. Stiles-white matter differentiation is normal. There is no acute intracranial hemorrhage. There is no mass, mass e ffect or midline shift. Posterior fossa is normal in appearance. Visualized portions of the orbits are normal. Paranasal sinuses are well aerated. Mastoid air cells a re well aerated. Scalp and calvaria are normal. IMPRESSION: No acute intracranial hemorrhage. Electronically signed by: Payton Mccoy MD (05/31/2020 3:29 PM) [id number]
[2020-05-31] MEDS ORDERED: MORPHINE SULFATE 10 MG/ML VIAL. ONE (16:08)
[2020-05-31] MEDS ORDERED: MORPHINE SULFATE 4 MG/ML VIAL. IM ONE (16:15)
[2020-05-31] MEDS ORDERED: IOHEXOL 240 MG/ML 50ML VIAL. PO ONE (17:00)
--- NOTE | 2020-05-31 17:37 | RAD ---
AP abdomen radiograph 05/31/2020 Clinical history: Post G-tube replacement. Confirmation of position was requested. An AP supine digital radiograph abdomen was obtained after 40 cc of Omnipaque 240 were injected throu gh the patient's gastrostomy tube by the provider. Comparison study is dated 05/31/2020. A pump/reserv oir overlies the left abdomen, unchanged. A gastrostomy tube extends to overlie the body the stomach. Contrast is seen opacifying the majority of the stomach. No extravasation of contrast is seen. Surgi emmett clips overlie the right upper quadrant abdomen consistent with cholecystectomy. Pacemaker leads o verlie the right atrium and right ventricle of heart. The cardiac silhouette is mild to moderately en larged. There appears to be a small right pleural effusion. The abdominal bowel gas pattern is nonobs tructive. No radiopaque calculus is seen. Very mild S-shaped curvature of the thoracolumbar spine is noted. Degenerative changes are seen involving the lower lumbar spine. IMPRESSION: The tip of the gastrostomy tube is within the body of the stomach. Electronically signed by: Ej Maldonado MD (05/31/2020 5:34 PM) [id number]
[2020-05-31] MEDS ORDERED: NEOMY/BACITR/POLYMYXIN OINT PACKET. TP ONE ×2 (17:45)
== END 2020-05-31 18:52 | disposition home or self-care (01) ==
LOC: ER 12:31
DX: T85.848A Pain due to other internal prosthetic devices, implants and grafts, initial encounter (principal); I11.9 Hypertensive heart disease without heart failure; E78.00 Pure hypercholesterolemia, unspecified; J44.9 Chronic obstructive pulmonary disease, unspecified; F17.200 Nicotine dependence, unspecified, uncomplicated; Z90.89 Acquired absence of other organs; Z90.710 Acquired absence of both cervix and uterus; Z95.5 Presence of coronary angioplasty implant and graft; Z95.1 Presence of aortocoronary bypass graft; Z95.0 Presence of cardiac pacemaker; Y83.8 Other surgical procedures as the cause of abnormal reaction of the patient, or of later complication, without mention of misadventure at the time of the procedure; Y92.89 Other specified places as the place of occurrence of the external cause
CPT/HCPCS: 43762; 70450; 74018; 96372; 99284; J2270; J3010

== ENCOUNTER → 2020-07-30 | Outpatient (CLI) | payer MEDICARE ==
[~2020-07-30] MED LIST changes: +CONTRAST GIVEN. MC PRN; +IOHEXOL 240 MG/ML 50ML VIAL. PO ONE; +IOHEXOL 300 MG/ML 100ML VIAL. IV ONE; +LISI10TA16 PO; -LISI10TA2 PO
--- NOTE | 2020-07-30 16:15 | RAD ---
CT of the abdomen and pelvis 07/30/2020 INDICATION: Acute abdominal and pelvic pain COMPARISON STUDY: KUB May 31, 2019. CT abdomen and pelvis May 08, 2020 TECHNIQUE: Multidetector CT imaging of the abdomen and pelvis was performed without the administratio n of IV and enteric contrast FINDINGS: The partially visualized lung bases demonstrate bibasilar atelectasis, volume loss. Some of this may be chronic. Minimal pericardial effusion noted. The gallbladder is been removed. Mild prominence of the extrahepa tic and proximal intrahepatic biliary tree noted. Small hypodensity in the anterior dome of the liver is unchanged likely a cyst. The adrenal glands are unremarkable. Kidneys are within normal limits. S pleen is surgically absent. There is been a distal pancreatectomy. Remaining pancreas appears to be a unremarkable. There is a percutaneous gastrostomy tube. The tip is within the stomach. The retention balloon lies within the fundus of the stomach. Correlate with clinical exam. Enteric contrast is see n within the stomach. Contrast-enhanced extends throughout the majority of the small bowel. There is no evidence of bowel obstruction. Enteric contrast did not reach the colon. Colon is otherwise unrema rkable. Bladder is unremarkable. Hysterectomy noted. No free fluid or free air seen in the abdomen or pelvis. An intrathecal pain medication delivery device appears to be present. This is partially visu alized. No acute osseous abnormality is identified. IMPRESSION: 1.No evidence of acute intra-abdominal abnormality is identified 2. Retention balloon of the patient's gastrostomy tube is within the fundus. Consider repositioning a s clinically indicated. CT DOSING PQRS STATEMENT: One or more of the following individualized dose reduction techniques were utilized for this examinat ion: 1. Automated exposure control 2. Adjustment of the mA and/or kV according to patient size 3. Use of iterative reconstruction technique Electronically signed by: Ayo Montoya MD (07/30/2020 4:12 PM) [id number]
== END ==
LOC: CT 11:20
PROVIDERS: ATTEND Internal Medicine
DX: R11.2 Nausea with vomiting, unspecified (principal); R10.9 Unspecified abdominal pain; J98.11 Atelectasis
CPT/HCPCS: 74177; Q9966; Q9967

== ENCOUNTER → 2020-08-05 | Outpatient (CLI) | payer MEDICARE ==
[~2020-08-05] MED LIST changes: -CONTRAST GIVEN. MC PRN; -IOHEXOL 240 MG/ML 50ML VIAL. PO ONE; -IOHEXOL 300 MG/ML 100ML VIAL. IV ONE; +ZOLPIDEM 5 MG TABLET. PO ONE
--- NOTE | 2020-08-06 09:16 | SLEEP ---
DATE OF STUDY: 08/05/2020 OBJECTIVE: The patient is a 55-year-old female with excessive somnolence, history of sleep apnea, snoring, fatigue, and insomnia. Height 5 feet 7 inches, weight 230 pounds, body mass index 20, [place] sleep score 17. INTERPRETATION: Sleep architecture is characterized by a sleep efficiency of 53% across the 8 hours of recording time. There is a decreased amount of stage 3 slow-wave sleep and no REM sleep is seen. Sleep onset latency is 25 minutes. Respiratory monitoring shows a total of 177 events for an overall apnea-hypopnea index of 42 events per hour of sleep. Prior to treatment, the apnea-hypopnea index was 60.9 events per hour of sleep. The patient is titrated on CPAP and BiPAP. At a CPAP setting of 12 cm, the apnea/hypopnea index remains at 32.7 events per hour of sleep, but the vast majority of these apneas are central during that time. BiPAP was titrated up to 25/17 at which time the apnea/hypopnea index falls to 0. The minimum oxygen saturation during the study was 77%. No periodic limb movements of sleep or cardiac arrhythmias are observed. IMPRESSION: Abnormal polysomnogram showing obstructive and central apneas treatable on CPAP using 12 cm Respironics DreamWear nasal pillows, small size. There continued to be central apneas, which may be related to her known use of narcotics and sedatives for her chronic pain condition. RECOMMENDATIONS: 1. The patient will follow up in the clinic. 2. We will attempt to arrange this setting for the patient. 3. We will discuss lightening her use of sedatives and narcotics. 4. The patient should also pursue weight loss. Thank you for letting us help with the patient's care. AGATA PIERCE MD DR: TORIE/ned JOB#: [id number] / [id number] CHRIS Hernandez MD
== END ==
LOC: SLPLAB 19:08
PROVIDERS: ATTEND Psychiatry & Neurology Neurology with Special Qualifications in Child Neurology
DX: G47.10 Hypersomnia, unspecified (principal)
CPT/HCPCS: 95810

== ENCOUNTER → 2020-08-06 | Outpatient (CLI) | payer MEDICARE ==
[~2020-08-06] MED LIST changes: -ZOLPIDEM 5 MG TABLET. PO ONE
--- NOTE | 2020-08-06 15:49 | RAD ---
Gastric Emptying Study Indication: Nausea, vomiting, abdominal pain. History of the mass. Procedure: Anterior and posterior projection static images are obtained over the stomach following or al administration of 2 mCi of 99 M technetium sulfur colloid in a solid meal. Time points include an immediate baseline, and 1, 2, 3, and 4 hours post ingestion. Findings: There is progressive emptying of the stomach on sequential images. Percentage retention at one hour is 31% (normal 34.8-91%). Two hours 13% (normal 2.7-60%). Three hours 14% (normal 0.5-28%). Four hours 1% (normal 0-10%). The calculated T1/2 of emptying is 44 minutes. 45-90 minutes is considered normal. IMPRESSION: There is no delayed gastric emptying. Electronically signed by: Azeem Mcdowell MD (08/06/2020 3:47 PM) [id number]
== END ==
LOC: NM 09:43
PROVIDERS: ATTEND Internal Medicine Gastroenterology
DX: R11.2 Nausea with vomiting, unspecified (principal)
CPT/HCPCS: 78264; A9541

== ENCOUNTER → 2020-10-28 | Outpatient (CLI) | payer MEDICARE ==
--- NOTE | 2020-10-28 17:49 | CARD ---
MR#: [id number] Date of Study: 10/28/2020 Ordering Physician: UMAIR LAW, Referring Physician: UMAIR LAW, Tech: Theresa Dorantes [facility] APPROVED REPORT EXAM: Two-dimensional and M-mode echocardiogram with Doppler and color Doppler. Other Information Quality : AverageHR: 68bpm Rhythm : NSR INDICATION Cardiomyopathy 2D DIMENSIONS RVDd2.9 (2.9-3.5cm)Left Atrium(2D)3.3 (1.6-4.0cm) IVSd0.7 (0.7-1.1cm)Aortic Root(2D)3.6 (2.0-3.7cm) LVDd5.0 (3.9-5.9cm)LVOT Diameter2.4 (1.8-2.4cm) PWd0.8 (0.7-1.1cm)LVDs3.2 (2.5-4.0cm) FS (%) 36.3 %SV77.8 ml Aortic Valve AoV Peak Navin.120.2cm/sAoV VTI28.5cm AO Peak GR.5.8mmHgLVOT Peak Navin.98.3cm/s AO Mean GR.3mmHgAVA (VMAX)3.66cm2 Mitral Valve MV E Mthlkhdr73.9cm/sMV DECEL CARV808bz MV A Dimkefzx49.4cm/sE/A Ratio1.8 Pulmonary Valve PV Peak Smvgesuf45.1cm/s Tricuspid Valve TR P. Yjpxvywb073ey/sTR Peak Gr.17mmHg Pulmonary Vein S1 Ehldpagr61.4cm/sD2 Ljhsnjgc62.9cm/s LEFT VENTRICLE The Left Ventricle is borderline dilated. There is normal left ventricular wall thickness. The left v entricular systolic function is low normal. The estimated ejection fraction is 50%. There is normal LV segmental wall motion. The left ventricular diastolic function and filling is normal for age. RIGHT VENTRICLE The right ventricle is normal size. There is normal right ventricular wall thickness. The right ventr icular systolic function is normal. ATRIA The left atrium size is normal. The right atrium size is normal. The interatrial septum is intact wit h no evidence for an atrial septal defect or patent foramen ovale as noted on 2-D or Doppler imaging. AORTIC VALVE The aortic valve is normal in structure and function. Doppler and Color Flow revealed no significant aortic regurgitation. There is no significant aortic valvular stenosis. MITRAL VALVE The mitral valve is normal in structure and function. There is no evidence of mitral valve prolapse. There is no mitral valve stenosis. Doppler and Color-flow revealed trace mitral regurgitation. TRICUSPID VALVE The tricuspid valve is normal in structure and function. Doppler and Color Flow revealed no tricuspid valve regurgitation noted. There is no tricuspid valve stenosis. PULMONIC VALVE The pulmonary valve is normal in structure and function. Doppler and Color Flow revealed no pulmonic valvular regurgitation. GREAT VESSELS The aortic root is normal in size. The ascending aorta is normal in size. The IVC is normal in size a nd collapses >50% with inspiration. PERICARDIAL EFFUSION There is no evidence of significant pericardial effusion. Critical Notification Critical Value: No <Conclusion> The Left Ventricle is borderline dilated. The left ventricular systolic function is low normal. The estimated ejection fraction is 50%. Doppler and Color Flow revealed no significant aortic regurgitation. There is no significant aortic valvular stenosis. Doppler and Color-flow revealed trace mitral regurgitation. Doppler and Color Flow revealed no tricuspid valve regurgitation noted. Signed by : Umair Law MD Electronically Approved : 10/28/2020 17:49:11
== END ==
LOC: ECHO 10-15 08:01
PROVIDERS: ATTEND Internal Medicine Cardiovascular Disease
DX: I31.3 Pericardial effusion (noninflammatory) (principal)
CPT/HCPCS: 93306

== ENCOUNTER 2021-02-25 13:09 | Inpatient (IN) | payer MEDICARE ==
[~2021-02-25] VITALS: Ht 170.2 cm; Wt 58.8 kg
[2021-02-25] MEDS ORDERED: MORPHINE SULFATE 4 MG/ML INJ. IVP ONE (14:45)
--- NOTE | 2021-02-25 14:59 | PHYS DOC ---
Past Medical History Past Medical History: Cancer, CHF, COPD, Fibromyalgia, High Cholesterol, Heart Disease, Hypotension, Other Additional Past Medical Histor: MS, Osteoporosis, carmichael's esophagus, mitral vavle insuf,thyroid cancer, Past Surgical History: Angioplasty, Appendectomy, Hysterectomy, Pacemaker, Tonsillectomy, Other Additional Past Surgical Histo: Morphine pump,Mesh placed r/t "a lot of laproscopies," whipple Smoking Status: Unknown if ever smoked Alcohol Use: None Drug Use: None General Adult EDM: Chief Complaint: COUGH HPI: HPI: Patient is a 55 year old female with extensive medical history who presents from home under advisement from her home health nurse with new onset fever, body aches, cough, shortness of breath, loss of taste and smell, nausea and increased abdominal pain. Patient states her symptoms began 4 days ago and have worsened since onset. Her abdominal pain is epigastric, and radiates to the left upper quadrant and her back. Patient's 9-year-old grandson has recently been ill with cough and fever as well. Neither the patient nor her grandson have been tested for COVID yet. Patient states she is fully vaccinated for COVID and recently got her flu shot as well. She reports she uses 4 L oxygen via nasal cannula daily at home. Patient denies congestion, sputum, bloody emesis, diarrhea, constipation, dysuria, hematuria. Review of Systems: Review of Systems: 12 systems reviewed. ROS negative except as mentioned in HPI. Heart Score: C/O Chest Pain: No Current Medications: Current Medications Medications (Trade) Dose Ordered Sig/Abhijit Start Time Stop Time Status Last Admin Dose Admin Morphine Sulfate (Morphine Sulfate) 6 mg 1X ONCE 02/25/21 14:45 02/25/21 14:46 UNV Allergies: Allergies: Allergies Coded Allergies Type Severity Reaction Last Updated Verified No Known Drug Allergies 02/25/21 No Physical Exam: PE: Constitutional: Patient appears fatigued. Well developed, well nourished, no acute distress. HENT: Normocephalic, atraumatic, bilateral external ears normal, oropharynx moist, no oral exudates, nose normal. Eyes: PERRLA, EOMI, conjunctiva normal, no discharge. Neck: Normal range of motion, no tenderness, supple, no stridor. Cardiovascular: Heart rate regular rhythm, no murmur. Lungs & Thorax: Breath sounds decreased diffusely, but especially in bases. Abdomen: Bowel sounds normal, soft. Epigastric, periumbilical and left upper quadrant tenderness without rebound. No masses, no pulsatile masses. Skin: Warm, dry, no erythema, no rash. Extremities: No tenderness, no cyanosis, no clubbing, ROM intact, no edema. Neurologic: Alert and oriented X 3, normal motor function, normal sensory function, no focal deficits noted. Current Patient Data: Vital Signs: Vital Signs Date Time Temp Pulse Resp B/P (MAP) Pulse Ox O2 Delivery O2 Flow Rate FiO2 02/25/21 13:43 98.1 60 20 102/55 (71) 99 Nasal Cannula 4.0 98.1 Radiology/Procedures: Radiology/Procedures: PROCEDURE: PORTABLE CHEST 1V EXAM: CHEST ONE VIEW. HISTORY: Shortness of breath. COMPARISON: 04/01/2020. FINDINGS: A frontal view of the chest is obtained. A left-sided pacemaker has its leads in the right atrium and right ventricle. There are no confluent infiltrates. Hyperinflation is consistent with chronic obstructive pulmonary disease. There is no pneumothorax or pleural effusion. The heart is moderately enlarged. Surgical clips are noted at the left base of the neck. IMPRESSION: 1. Hyperinflation suggests chronic obstructive pulmonary disease. Moderate cardiomegaly. Electronically signed by: Marcelino Coleman MD (02/25/2021 3:51 PM) [id number] PROCEDURE: CT ABD PELV W/ IV CONTRST ONLY CT abdomen pelvis with contrast. HISTORY: Abdominal pain CT abdomen pelvis was done using 75 mL Omnipaque 300 contrast. Comparison is made with a study from July 30, 2020. There is atelectasis or infiltrates in both lower lobes. There is a trace of pleural effusion on each side. Patient's h ad a cholecystectomy. A liver lesion is not identified. Patient has a gastrostomy tube in the stomach. There is a pain pump on the left in the abdominal wall with a catheter in the spinal canal. Patient's had a splenectomy. There is a small pericardial effusion. Adrenal glands are normal. There is been an distal pancreatectomy of the tail of the pancreas. There is no mass or hydron ephrosis in the kidneys. There is mild scoliosis in the lumbar spine. There is no small bowel obstruction. Appendix is not identified. Patient's had a hysterectomy. Bladder is mildly distended but otherwise unremarkable. IMPRESSION: 1. Atelectasis or infiltrates in both lower lobes with small effusions. 2. Previous splenectomy and distal pancreatectomy. 3. Gastrostomy tube in the stomach 4. No bowel obstruction. 5. No other acute finding in the abdomen or pelvis. RS Compliance Statement: One or more of the following individualized dose reduction techniques were utilized for this examination: 1. Automated exposure control 2. Adjustment of the mA and/or kV according to patient size 3. Use of iterative reconstruction technique Electronically signed by: Chavez Sanchez MD (02/25/2021 4:07 PM) [facility] Course & Med Decision Making: Course & Med Decision Making Pertinent Labs and Imaging studies reviewed. (See chart for details) Patient's current symptoms suggestive of COVID-19 infection. Patient work-up will also include evaluating the abdomen due to increased abdominal pain. Patient's CT shows atelectasis versus infiltrate in bilateral lower lobes with trace effusion as well as pericardial effusion. Hospitalist called to discuss patient case and discuss admission vs discharge with close follow up. Case discussed with hospitalist Dr. Black, who is familiar with the patient. He will see the patient here in the department and discuss risk vs benefit of potential treatment plans. Dragon Disclaimer: Dragon Disclaimer: This electronic medical record was generated, in whole or in part, using a voice recognition dictation system. Departure Departure Impression: Primary Impression: Increasing shortness of breath Additional Impressions: Fatigue Qualified Codes: R53.83 - Other fatigue Multiple comorbid conditions Disposition: ADMITTED INPATIENT Admitting Physician: GEOVANNI ([place]) Referrals: CHRIS JEFFRIES MD (PCP) HARVEY BOOGIE Feb 25, 2021 14:59
[2021-02-25] MEDS ORDERED: ONDANSETRON PF 4 MG/2 ML VIAL. IVP ONE (15:00)
[2021-02-25 15:10] LABS: INFLUENZA A PATIENT NEGATIVE (NEGATIVE); INFLUENZA B PATIENT NEGATIVE (NEGATIVE)
[2021-02-25 15:29] LABS: BASO % 1 % (0-3); EOS # 0.1 x10^3/uL (0.0-0.7); EOS % 1 % (0-3); HEMOGLOBIN 16.1 g/dL (12.0-15.5); LYMPH # 2.5 x10^3/uL (1.0-4.8); LYMPH % 37 % (24-48); MEAN CORPUSCULAR HEMOGLOBIN 35 pg (25-35); MEAN CORPUSCULAR HGB CONC 34 g/dL (31-37); MEAN CORPUSCULAR VOLUME 104 fL (79-100); MONO # 0.5 x10^3/uL (0.0-1.1); MONO % 8 % (0-9); NEUT # 3.7 x10^3/uL (1.8-7.7); NEUT % 54 % (31-73); PLATELET COUNT 221 x10^3/uL (140-400); RED BLOOD COUNT 4.63 x10^6/uL (3.50-5.40); RED CELL DISTRIBUTION WIDTH 13.7 % (11.5-14.5); WHITE BLOOD COUNT 6.8 x10^3/uL (4.0-11.0)
[2021-02-25] MEDS ORDERED: CONTRAST GIVEN. MC PRN (15:30)
[2021-02-25] MEDS ORDERED: IOHEXOL 300 MG/ML 100ML VIAL. IV ONE (15:30)
[2021-02-25 15:42] LABS: CALCIUM 9.2 mg/dL (8.5-10.1); CREATININE 0.6 mg/dL (0.6-1.0); GFR 103.8; POTASSIUM 4.5 mmol/L (3.5-5.1)
[2021-02-25 15:51] LABS: ALBUMIN 2.9 g/dL (3.4-5.0); ALBUMIN/GLOBULIN RATIO 0.8 (1.0-1.7); TOTAL BILIRUBIN 0.2 mg/dL (0.2-1.0); TOTAL PROTEIN 6.4 g/dL (6.4-8.2)
--- NOTE | 2021-02-25 15:53 | RAD ---
EXAM: CHEST ONE VIEW. HISTORY: Shortness of breath. COMPARISON: 04/01/2020. FINDINGS: A frontal view of the chest is obtained. A left-sided pacemaker has its leads in the right atrium and right ventricle. There are no confluent infiltrates. Hyperinflation is consistent with chronic obstructive pulmonary d isease. There is no pneumothorax or pleural effusion. The heart is moderately enlarged. Surgical clip s are noted at the left base of the neck. IMPRESSION: 1. Hyperinflation suggests chronic obstructive pulmonary disease. Moderate cardiomegaly. Electronically signed by: Marcelino Coleman MD (02/25/2021 3:51 PM) [id number]
--- NOTE | 2021-02-25 16:10 | RAD ---
CT abdomen pelvis with contrast. HISTORY: Abdominal pain CT abdomen pelvis was done using 75 mL Omnipaque 300 contrast. Comparison is made with a study from [facility] 2020. There is atelectasis or infiltrates in both lower lobes. There is a trace of pleural e ffusion on each side. Patient's had a cholecystectomy. A liver lesion is not identified. Patient has a gastrostomy tube in the stomach. There is a pain pump on the left in the abdominal wall with a cath eter in the spinal canal. Patient's had a splenectomy. There is a small pericardial effusion. Adrenal glands are normal. There is been an distal pancreatectomy of the tail of the pancreas. There is no m ass or hydronephrosis in the kidneys. There is mild scoliosis in the lumbar spine. There is no small bowel obstruction. Appendix is not identified. Patient's had a hysterectomy. Bladder is mildly disten ded but otherwise unremarkable. IMPRESSION: 1. Atelectasis or infiltrates in both lower lobes with small effusions. 2. Previous splenectomy and distal pancreatectomy. 3. Gastrostomy tube in the stomach 4. No bowel obstruction. 5. No other acute finding in the abdomen or pelvis. PQRS Compliance Statement: One or more of the following individualized dose reduction techniques were utilized for this examinat ion: 1. Automated exposure control 2. Adjustment of the mA and/or kV according to patient size 3. Use of iterative reconstruction technique Electronically signed by: Chavez Sanchez MD (02/25/2021 4:07 PM) [facility]
[2021-02-25] MEDS: DOXYCYCLINE HYCLATE 100 MG in IV DEXTROSE 5% 100ML 100 ML IV SCH (18:42)
[2021-02-25] MEDS: cefTRIAXone IV Push 1 GM VIAL. IVP SCH (18:42)
[2021-02-25 19:01] LABS: BILIRUBIN,URINE NEGATIVE (NEG); CLARITY,URINE CLEAR; COLOR,URINE YELLOW; NITRITE,URINE NEGATIVE (NEG); PROTEIN,URINE NEGATIVE (NEG-TRACE); UROBILINOGEN,URINE 0.2 mg/dL (0.2 mg/dL)
[2021-02-25 19:05] LABS: BACTERIA,URINE 0 /HPF (0-FEW); RBC,URINE 0 /HPF (0-2); WBC,URINE 0 /HPF (0-4)
[2021-02-25] MEDS: SENNOSIDES/DOCUSATE 8.6/50MG TABLET. PO SCH (21:00)
[2021-02-25 21:50] VITALS: BP 112/63
[2021-02-25] MEDS ORDERED: NITROGLYCERIN SUBLINGUAL 0.4 MG BOTTLE OF 25. SL PRN (22:45)
--- NOTE | 2021-02-25 22:53 | PDOC1 ---
History and Physical Date of Admission Date of Admission DATE: 02/25/21 TIME: 22:35 Identification/Chief Complaint Chief Complaint Shortness of breath Source Source: Caregiver, Patient History of Present Illness History of Present Illness Ms Kimbrough is a 53 yo F w/ PMHx COPD on 4L NCO2, thyroid tumor, HLD, Osteoporosis, barrets esophagus, smoker, chronic pain with morphine pump, s/p pancreatectomy, splenectomy and gastrostomy tube status, and muscle spasticity disorder who presents to ED at the insistence of her home health nurse c/o subjective fever, myalgias, cough, shortness of breath, loss of taste and smell, nausea and increased abdominal pain. Has been worsening over the past 4 days. Cough is minimally productive and she notes abdominal pain that is left sided on deep inspiration worsened by cough. Her 9-year-old grandson currently has cough and fever and she has been in close contact with him. Fully vaccinated for COVID and recently got her flu shot as well. No emesis, diarrhea, constipation, dysuria, hematuria. WBC 6.9, Hb 16.1, platelets 221, NA 140, K4.5, BUN 9, CR 0.6, LFTs normal laboratory limits, albumin 2.9, procalcitonin undetectable, urinalysis with elevated specific gravity otherwise bland rapid influenza negative rapid COVID- [address] abdomen pelvis with no acute findings but bibasilar haziness in lungs. Chest radiograph with emphysematous changes. Cardiomegaly. Admitted for further care. Past Medical History Cardiovascular: CHF, HTN, Hyperlipidemia Pulmonary: COPD CENTRAL NERVOUS SYSTEM: Other GI: GERD Heme/Onc: Cancer Psych: Anxiety, Depression Musculoskeletal: Other Renal/: Other Endocrine: Osteoporosis Past Surgical History Past Surgical History: Pacemaker, Appendectomy, Tonsillectomy, Hysterectomy, Other Family History Family History: Diabetes, Heart Disease Social History ALCOHOL: none Drugs: None Current Problem List Problem List Problems Medical Problems: (1) Fatigue Status: Acute (2) Increasing shortness of breath Status: Acute (3) Multiple comorbid conditions Status: Acute Current Medications Current Medications Current Medications Morphine Sulfate (Morphine Sulfate) 6 mg 1X ONCE IVP Last administered on 02/25/21at 15:13; Start 02/25/21 at 14:45; Stop 02/25/21 at 14:50; Status DC Ondansetron HCl (Zofran) 4 mg 1X ONCE IVP Last administered on 02/25/21at 15:1 3; Start 02/25/21 at 15:00; Stop 02/25/21 at 15:01; Status DC Iohexol (Omnipaque 300 Mg/ml) 75 ml 1X ONCE IV Last administered on 02/25/21at 15:52; Start 02/25/21 at 15:30; Stop 02/25/21 at 15:31; Status DC Info (CONTRAST GIVEN -- Rx MONITORING) 1 each PRN DAILY PRN MC SEE COMMENTS; Start 02/25/21 at 15:30; Stop 02/27/21 at 15:29 Senna/Docusate Sodium (Senna Plus) 1 tab BID PO ; Start 02/25/21 at 21:00 Ceftriaxone Sodium (Rocephin) 1 gm Q24H IVP Last administered on 02/25/21at 18:42; Start 02/25/21 at 19:00 Doxycycline Hyclate 100 mg/ Dextrose 100 ml @ 50 mls/hr BID IV Last administered on 02/25/21at 18:42; Start 02/25/21 at 19:00 Active Scripts Active FENTANYL 25mcg/hr (Fentanyl) 1 Each Patch.td72 0.5 Patch TP Q3DAYS Percocet 5-325 Mg Tablet (Oxycodone/Acetaminophen) 1 Each Tablet 1 Tab PO PRN Q4HRS PRN Reported Proair Hfa (Albuterol Sulfate) 8.5 Gm Hfa.aer.ad 2 Puff IH PRN Q4-6HRS PRN 21 Days Dexilant (Dexlansoprazole) 60 Mg Ray.mp 60 Mg PO DAILY NICODERM CQ 14mg (Nicotine) 1 Each Patch.td24 1 Patch TP DAILY Combivent Respimat Inhal (Ipratropium/Albuterol Sulfate) 4 Gm Aer.w.adap 2 Inh IH BID Lovastatin 40 Mg Tablet 1 Tab PO DAILY Digoxin 125 Mcg Tablet 125 Mcg PO DAILY Nitrostat (Nitroglycerin) 0.4 Mg Tab.subl 0.4 Mg SL PRN Q5MIN PRN Trazodone Hcl 100 Mg Tablet 200 Mg PO HS Klonopin (Clonazepam) 0.5 Mg Tablet 0.5 Mg PO TID PRN [morphine] 11 Mg ID DAILY Aspir 81 (Aspirin) 81 Mg Tablet. 81 Mg PO DAILY Symbicort 160-4.5 Mcg Inhaler (Budesonide/Formoterol Fumarate) 10.2 Gm Hfa.aer.ad 2 Puff IH BID Baclofen 10 Mg Tablet 1 Tab PO TID Provigil (Modafinil) 100 Mg Tablet 200 Mg PO DAILY Carbamazepine 200 Mg Cpmp.12hr 300 Mg PO TID Lexapro (Escitalopram Oxalate) 10 Mg Tablet 10 Mg PO DAILY Allergies Allergies: Coded Allergies: No Known Drug Allergies (Unverified , 02/25/21) ROS General: YES: Fatigue, Malaise, Appetite; No: Chills, Night Sweats, Other PSYCHOLOGICAL ROS: YES: Anxiety; No: Behavioral Disorder, Concentration difficultie, Decreased libido, Depression, Disorientation, Hallucinations, Hostility, Irritablity, Memory difficulties, Mood Swings, Obsessive thoughts, Physical abuse, Sexual abuse, Sleep disturbances, Suicidal ideation, Other Eyes: No Blurry vision, No Decreased vision, No Double vision, No Dry eyes, No Excessive tearing, No Eye Pain, No Itchy Eyes, No Loss of vision, No Photophobia, No Scotomata, No Uses contacts, No Uses glasses, No Other HEENT: No: Heacaches, Visual Changes, Hearing change, Nasal congestion, Nasal discharge, Oral lesions, Sinus pain, Sore Throat, Epistaxis, Sneezing, Snoring, Tinnitus, Vertigo, Vocal changes, Other ALLERGY AND IMMUNOLOGY: No: Hives, Insect Bite Sensitivity, Itchy/Watery Eyes, Nasal Congestion, Post Nasal Drip, Seasonal Allergies, Other Hematological and Lymphatic: No: Bleeding Problems, Blood Clots, Blood Transfusions, Brusing, Night Sweats, Pallor, Swollen Lymph Nodes, Other ENDOCRINE: No: Breast Changes, Galactorrhea, Hair Pattern Changes, Hot Flashes, Malaise/lethargy, Mood Swings, Palpitations, Polydipsia/polyuria, Skin Changes, Temperature Intolerance, Unexpected Weight Changes, Other Breast: No New/Changing Breast Lumps, No Nipple changes, No Nipple discharge, No Other Respiratory: YES: Cough, Shortness of breath, SOB with excertion, Tachypnea, Wheezing; No: Hemoptysis, Orthopnea, Pleuritic Pain, Sputum Changes, Stridor, Other Cardiovascular: No Chest Pain, No Palpitations, No Orthopnea, No Paroxysmal Noc. Dyspnea, No Edema, No Lt Headedness, No Other Gastrointestinal: Yes Abdominal Pain; No Nausea, No Vomiting, No Diarrhea, No Constipation, No Melena, No Hematochezia, No Other Genitourinary: No Dysuria, No Frequency, No Incontinence, No Hematuria, No Retention, No Discharge, No Urgency, No Pain, No Flank Pain, No Other, No , No , No , No , No , No , No Musculoskeletal: No Gait Disturbance, No Joint Pain, No Joint Stiffness, No Joint Swelling, No Muscle Pain, No Muscular Weakness, No Pain In:, No Swelling In:, No Other Neurological: No Behavorial Changes, No Bowel/Bladder ControlChng, No Confusion, No Dizziness, No Gait Disturbance, No Headaches, No Impaired Coord/balance, No Memory Loss, No Numbness/Tingling, No Seizures, No Speech Problems, No Tremors, No Visual Changes, No Weakness, No Other Skin: No Dry Skin, No Eczema, No Hair Changes, No Lumps, No Mole Changes, No Mo ttling, No Nail Changes, No Pruritus, No Rash, No Skin Lesion Changes, No Other, No Acne Physical Exam General: Alert, Oriented X3, Cooperative, moderate distress HEENT: Atraumatic, PERRLA, EOMI, Mucous membr. moist/pink Lungs: Other (Bibasilar crackles, wheezing) Heart: S1S2, RRR, no thrills, no rubs, no gallops, no murmurs Abdomen: Normal bowel sounds, Soft, No hepatosplenomegaly, Other (g tube site clean) Rectal Exam: not examined Extremities: No clubbing, No cyanosis, No edema, Normal pulses, No tenderness/swelling Skin: No rashes, No breakdown, No significant lesion Neuro: Normal gait, Normal speech, Strength at 5/5 X4 ext, Normal tone, Sensation intact, Cranial nerves 3-12 NL, Reflexes 2+ Psych/Mental Status: Mental status NL, Mood NL Vitals Vitals Vital Signs Date Time Temp Pulse Resp B/P (MAP) Pulse Ox O2 Delivery O2 Flow Rate FiO2 02/25/21 21:50 98.4 61 18 112/63 (79) 94 Nasal Cannula 98.4 02/25/21 21:00 3.0 Labs Labs Laboratory Tests Test 02/25/21 13:50 02/25/21 14:45 02/25/21 15:20 02/25/21 18:50 Influenza Type A Antigen Negative (NEGATIVE) Influenza Type B Antigen Negative (NEGATIVE) SARS-CoV-2 Antigen (Rapid) Negative (NEGATIVE) White Blood Count 6.8 x10^3/uL (4.0-11.0) Red Blood Count 4.63 x10^6/uL (3.50-5.40) Hemoglobin 16.1 g/dL (12.0-15.5) Hematocrit 48.0 % (36.0-47.0) Mean Corpuscular Volume 104 fL (79-100) Mean Corpuscular Hemoglobin 35 pg (25-35) Mean Corpuscular Hemoglobin Concent 34 g/dL (31-37) Red Cell Distribution Width 13.7 % (11.5-14.5) Platelet Count 221 x10^3/uL (140-400) Neutrophils (%) (Auto) 54 % (31-73) Lymphocytes (%) (Auto) 37 % (24-48) Monocytes (%) (Auto) 8 % (0-9) Eosinophils (%) (Auto) 1 % (0-3) Basophils (%) (Auto) 1 % (0-3) Neutrophils # (Auto) 3.7 x10^3/uL (1.8-7.7) Lymphocytes # (Auto) 2.5 x10^3/uL (1.0-4.8) Monocytes # (Auto) 0.5 x10^3/uL (0.0-1.1) Eosinophils # (Auto) 0.1 x10^3/uL (0.0-0.7) Basophils # (Auto) 0.0 x10^3/uL (0.0-0.2) Sodium Level 140 mmol/L (136-145) Potassium Level 4.5 mmol/L (3.5-5.1) Chloride Level 103 mmol/L (98-107) Carbon Dioxide Level 32 mmol/L (21-32) Anion Gap 5 (6-14) Blood Urea Nitrogen 9 mg/dL (7-20) Creatinine 0.6 mg/dL (0.6-1.0) Estimated GFR (Cockcroft-Gault) 103.8 BUN/Creatinine Ratio 15 (6-20) Glucose Level 98 mg/dL (70-99) Calcium Level 9.2 mg/dL (8.5-10.1) Total Bilirubin 0.2 mg/dL (0.2-1.0) Aspartate Amino Transf (AST/SGOT) 13 U/L (15-37) Alanine Aminotransferase (ALT/SGPT) 16 U/L (14-59) Alkaline Phosphatase 59 U/L (46-116) Total Protein 6.4 g/dL (6.4-8.2) Albumin 2.9 g/dL (3.4-5.0) Albumin/Globulin Ratio 0.8 (1.0-1.7) Amylase Level 25 U/L (25-115) Lipase 69 U/L (73-393) Procalcitonin < 0.10 ng/mL (0.00-0.10) Urine Collection Type Unknown Urine Color Yellow Urine Clarity Clear Urine pH 7.0 (<5.0-8.0) Urine Specific [place] >=1.030 (1.000-1.030) Urine Protein Negative mg/dL (NEG-TRACE) Urine Glucose (UA) Negative mg/dL (NEG) Urine Ketones (Stick) Negative mg/dL (NEG) Urine Blood Negative (NEG) Urine Nitrite Negative (NEG) Urine Bilirubin Negative (NEG) Urine Urobilinogen Dipstick 0.2 mg/dL (0.2 mg/dL) Urine Leukocyte Esterase Negative (NEG) Urine RBC 0 /HPF (0-2) Urine WBC 0 /HPF (0-4) Urine Squamous Epithelial Cells Occ /LPF Urine Bacteria 0 /HPF (0-FEW) Laboratory Tests Test 02/25/21 13:50 02/25/21 14:45 02/25/21 15:20 02/25/21 18:50 Influenza Type A Antigen Negative (NEGATIVE) Influenza Type B Antigen Negative (NEGATIVE) SARS-CoV-2 Antigen (Rapid) Negative (NEGATIVE) White Blood Count 6.8 x10^3/uL (4.0-11.0) Red Blood Count 4.63 x10^6/uL (3.50-5.40) Hemoglobin 16.1 g/dL (12.0-15.5) Hematocrit 48.0 % (36.0-47.0) Mean Corpuscular Volume 104 fL (79-100) Mean Corpuscular Hemoglobin 35 pg (25-35) Mean Corpuscular Hemoglobin Concent 34 g/dL (31-37) Red Cell Distribution Width 13.7 % (11.5-14.5) Platelet Count 221 x10^3/uL (140-400) Neutrophils (%) (Auto) 54 % (31-73) Lymphocytes (%) (Auto) 37 % (24-48) Monocytes (%) (Auto) 8 % (0-9) Eosinophils (%) (Auto) 1 % (0-3) Basophils (%) (Auto) 1 % (0-3) Neutrophils # (Auto) 3.7 x10^3/uL (1.8-7.7) Lymphocytes # (Auto) 2.5 x10^3/uL (1.0-4.8) Monocytes # (Auto) 0.5 x10^3/uL (0.0-1.1) Eosinophils # (Auto) 0.1 x10^3/uL (0.0-0.7) Basophils # (Auto) 0.0 x10^3/uL (0.0-0.2) Sodium Level 140 mmol/L (136-145) Potassium Level 4.5 mmol/L (3.5-5.1) Chloride Level 103 mmol/L (98-107) Carbon Dioxide Level 32 mmol/L (21-32) Anion Gap 5 (6-14) Blood Urea Nitrogen 9 mg/dL (7-20) Creatinine 0.6 mg/dL (0.6-1.0) Estimated GFR (Cockcroft-Gault) 103.8 BUN/Creatinine Ratio 15 (6-20) Glucose Level 98 mg/dL (70-99) Calcium Level 9.2 mg/dL (8.5-10.1) Total Bilirubin 0.2 mg/dL (0.2-1.0) Aspartate Amino Transf (AST/SGOT) 13 U/L (15-37) Alanine Aminotransferase (ALT/SGPT) 16 U/L (14-59) Alkaline Phosphatase 59 U/L (46-116) Total Protein 6.4 g/dL (6.4-8.2) Albumin 2.9 g/dL (3.4-5.0) Albumin/Globulin Ratio 0.8 (1.0-1.7) Amylase Level 25 U/L (25-115) Lipase 69 U/L (73-393) Procalcitonin < 0.10 ng/mL (0.00-0.10) Urine Collection Type Unknown Urine Color Yellow Urine Clarity Clear Urine pH 7.0 (<5.0-8.0) Urine Specific [place] >=1.030 (1.000-1.030) Urine Protein Negative mg/dL (NEG-TRACE) Urine Glucose (UA) Negative mg/dL (NEG) Urine Ketones (Stick) Negative mg/dL (NEG) Urine Blood Negative (NEG) Urine Nitrite Negative (NEG) Urine Bilirubin Negative (NEG) Urine Urobilinogen Dipstick 0.2 mg/dL (0.2 mg/dL) Urine Leukocyte Esterase Negative (NEG) Urine RBC 0 /HPF (0-2) Urine WBC 0 /HPF (0-4) Urine Squamous Epithelial Cells Occ /LPF Urine Bacteria 0 /HPF (0-FEW) Images Images Chest radiograph: A frontal view of the chest is obtained. A left-sided pacemaker has its leads in the right atrium and right ventricle. There are no confluent infiltrates. Hyperinflation is consistent with chronic obstructive pulmonary disease. There is no pneumothorax or pleural effusion. The heart is moderately enlarged. Surgical clips are noted at the left base of the neck. IMPRESSION: 1. Hyperinflation suggests chronic obstructive pulmonary disease. Moderate cardiomegaly. CT abdomen/pelvis with IV contrast: CT abdomen pelvis was done using 75 mL Omnipaque 300 contrast. Comparison is made with a study from July 30, 2020. There is atelectasis or infiltrates in both lower lobes. There is a trace of pleural effusion on each side. Patient's had a cholecystectomy. A liver lesion is not identified. Patient has a gastrostomy tube in the stomach. There is a pain pump on the left in the abdominal wall with a catheter in the spinal canal. Patient's had a splenectomy. There is a small pericardial effusion. Adrenal glands are normal. There is been an distal pancreatectomy of the tail of the pancreas. There is no mass or hydronephrosis in the kidneys. There is mild scoliosis in the lumbar spine. There is no small bowel obstruction. Appendix is not identified. Patient's had a hysterectomy. Bladder is mildly distended but otherwise unremarkable. IMPRESSION: 1. Atelectasis or infiltrates in both lower lobes with small effusions. 2. Previous splenectomy and distal pancreatectomy. 3. Gastrostomy tube in the stomach 4. No bowel obstruction. 5. No other acute finding in the abdomen or pelvis. VTE Prophylaxis Ordered VTE Prophylaxis Devices: No VTE Pharmacological Prophylaxi: Yes Assessment/Plan Assessment/Plan A/P: Acute on chronic hypoxic respiratory failure - likely COPD exacerbation due to viral illness, with sputum changes will place on antibiotics to treat for likely gram negative pneumonia as well as strep pneumonia. splenectomy status increases risk of encapsulated organism infections. Wean O2 Acute exacerbation of Chronic obstructive pulmonary disease - will cont nebs once COVID 19 returns negative, if positive will order MDI. Solumedrol Intractable abdominal pain - with h/o pancreatic pseudocyst with abdominal pain, status post exploratory laparotomy with cholecystectomy, distal pancreatectomy, and splenectomy with a gastrostomy tube placement. IV morphine, will hold if BP drops Nausea - was unable to take PO recently, will cont TF. Severe protein calorie malnutrition - with cachexia - will have residential electrician to see. I would recommend continuous tube feeds as she cannot tolerate bolus. 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 Multiple sclerosis versus fibromyalgia - on chronic meds Pacemaker in place - stable Plan: Will need home equipment for tube feeds FEN - Continue TF Jevity 1.2 at 20 ml/hr increased by 10 ml q 8 hr to a goal rat e of 40 ml/hr with 100 ml flushes q 6 hr . PPX - lovenox FULL CODE Dispo - inpatient Justifications for Admission Other Justification LUZMA BROWN MD Feb 25, 2021 22:53
[2021-02-25] MEDS ORDERED: guaiFENesin DM 200MG/20MG 10 ML SYRUP PO PRN (23:00)
[2021-02-25] MEDS ORDERED: ALBUTEROL SULFATE 2.5 MG/3 ML NEBU. NEB PRN (23:00)
[2021-02-25] MEDS ORDERED: ACETAMINOPHEN 325 MG TABLET. PO PRN (23:00)
[2021-02-26] MEDS ORDERED: carBAMazepine 200 MG TABLET PO SCH
[2021-02-26] MEDS: methylPREDNISolone SOD SUCC PF 40 MG/ML VIAL. IV SCH ×3 (02:48→14:22)
[2021-02-26] MEDS: ENOXAPARIN 40 MG/0.4 ML SYRINGE. SQ SCH ×2 (02:48→21:24)
[2021-02-26 03:03] VITALS: BP 107/55
[2021-02-26] MEDS: oxyCODONE/APAP 5/325 1 TAB TABLET PO PRN ×3 (03:51→18:40)
--- NOTE | 2021-02-26 06:47 | PDOC ---
[employer] PROGRESS NOTE Date of Service DOS: DATE: 02/26/21 TIME: 06:44 Chief Complaint Chief Complaint A/P: Acute on chronic hypoxic respiratory failure - likely COPD exacerbation due to viral illness, with sputum changes will place on antibiotics to treat for likely gram negative pneumonia as well as strep pneumonia. splenectomy status increases risk of encapsulated organism infections. Wean O2 Acute exacerbation of Chronic obstructive pulmonary disease - will cont nebs once COVID 19 returns negative, if positive will order MDI. Solumedrol Intractable abdominal pain - with h/o pancreatic pseudocyst with abdominal pain, status post exploratory laparotomy with cholecystectomy, distal pancreatectomy, and splenectomy with a gastrostomy tube placement. IV morphine, will hold if BP drops Nausea - was unable to take PO recently, will cont TF. Severe protein calorie malnutrition - with cachexia - will have precast molder to see. I would recommend continuous tube feeds as she cannot tolerate bolus. 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 Multiple sclerosis versus fibromyalgia - on chronic meds Pacemaker in place - stable Plan: Will need home equipment for tube feeds FEN - Continue TF Jevity 1.2 at 20 ml/hr increased by 10 ml q 8 hr to a goal rate of 40 ml/hr with 100 ml flushes q 6 hr . PPX - lovenox FULL CODE Dispo - inpatient History of Present Illness History of Present Illness Ms Kimbrough is a 53 yo F w/ PMHx COPD on 4L NCO2, thyroid tumor, HLD, Osteoporosis, barrets esophagus, smoker, chronic pain with morphine pump, s/p pancreatectomy, splenectomy and gastrostomy tube status, and muscle spasticity disorder who presents to ED at the insistence of her home health nurse c/o subjective fever, myalgias, cough, shortness of breath, loss of taste and smell, nausea and increased abdominal pain. Has been worsening over the past 4 days. Cough is minimally productive and she notes abdominal pain that is left sided on deep inspiration worsened by cough. Her 9-year-old grandson currently has cough and fever and she has been in close contact with him. Fully vaccinated for COVID and recently got her flu shot as well. No emesis, diarrhea, constipation, dysuria, hematuria. WBC 6.9, Hb 16.1, platelets 221, NA 140, K4.5, BUN 9, CR 0.6, LFTs normal laboratory limits, albumin 2.9, procalcitonin undetectable, urinalysis with elevated specific gravity otherwise bland rapid influenza negative rapid COVID- [address] abdomen pelvis with no acute findings but bibasilar haziness in lungs. Chest radiograph with emphysematous changes. Cardiomegaly. Admitted for further care. Afebrile overnight. COVID-19 PCR returned negative. Still with significant wheezes and productive cough. Abdominal pain is improved but shortness of breath and cough not. Vitals/I&O Vitals/I&O: Vital Signs Date Time Temp Pulse Resp B/P (MAP) Pulse Ox O2 Delivery O2 Flow Rate FiO2 02/26/21 04:21 Nasal Cannula 02/26/21 03:03 99.0 75 20 107/55 (72) 91 99.0 02/25/21 21:45 3.0 I & O 02/25/21 02/25/21 02/26/21 15:00 23:00 07:00 Output Total 0 ml Balance 0 ml Physical Exam General: Alert, Oriented X3, Cooperative, moderate distress Lungs: Other Abdomen: Normal bowel sounds, Soft, No hepatosplenomegaly, Other (g tube site clean) Extremities: No clubbing, No cyanosis, No edema, Normal pulses, No tenderness/s welling Skin: No rashes, No breakdown, No significant lesion Labs Labs: Laboratory Tests Test 02/25/21 13:50 02/25/21 14:45 02/25/21 15:20 02/25/21 18:50 Influenza Type A Antigen Negative (NEGATIVE) Influenza Type B Antigen Negative (NEGATIVE) SARS-CoV-2 Antigen (Rapid) Negative (NEGATIVE) White Blood Count 6.8 x10^3/uL (4.0-11.0) Red Blood Count 4.63 x10^6/uL (3.50-5.40) Hemoglobin 16.1 g/dL (12.0-15.5) Hematocrit 48.0 % (36.0-47.0) Mean Corpuscular Volume 104 fL (79-100) Mean Corpuscular Hemoglobin 35 pg (25-35) Mean Corpuscular Hemoglobin Concent 34 g/dL (31-37) Red Cell Distribution Width 13.7 % (11.5-14.5) Platelet Count 221 x10^3/uL (140-400) Neutrophils (%) (Auto) 54 % (31-73) Lymphocytes (%) (Auto) 37 % (24-48) Monocytes (%) (Auto) 8 % (0-9) Eosinophils (%) (Auto) 1 % (0-3) Basophils (%) (Auto) 1 % (0-3) Neutrophils # (Auto) 3.7 x10^3/uL (1.8-7.7) Lymphocytes # (Auto) 2.5 x10^3/uL (1.0-4.8) Monocytes # (Auto) 0.5 x10^3/uL (0.0-1.1) Eosinophils # (Auto) 0.1 x10^3/uL (0.0-0.7) Basophils # (Auto) 0.0 x10^3/uL (0.0-0.2) Sodium Level 140 mmol/L (136-145) Potassium Level 4.5 mmol/L (3.5-5.1) Chloride Level 103 mmol/L (98-107) Carbon Dioxide Level 32 mmol/L (21-32) Anion Gap 5 (6-14) Blood Urea Nitrogen 9 mg/dL (7-20) Creatinine 0.6 mg/dL (0.6-1.0) Estimated GFR (Cockcroft-Gault) 103.8 BUN/Creatinine Ratio 15 (6-20) Glucose Level 98 mg/dL (70-99) Calcium Level 9.2 mg/dL (8.5-10.1) Total Bilirubin 0.2 mg/dL (0.2-1.0) Aspartate Amino Transf (AST/SGOT) 13 U/L (15-37) Alanine Aminotransferase (ALT/SGPT) 16 U/L (14-59) Alkaline Phosphatase 59 U/L (46-116) Total Protein 6.4 g/dL (6.4-8.2) Albumin 2.9 g/dL (3.4-5.0) Albumin/Globulin Ratio 0.8 (1.0-1.7) Amylase Level 25 U/L (25-115) Lipase 69 U/L (73-393) Procalcitonin < 0.10 ng/mL (0.00-0.10) Urine Collection Type Unknown Urine Color Yellow Urine Clarity Clear Urine pH 7.0 (<5.0-8.0) Urine Specific Orma >=1.030 (1.000-1.030) Urine Protein Negative mg/dL (NEG-TRACE) Urine Glucose (UA) Negative mg/dL (NEG) Urine Ketones (Stick) Negative mg/dL (NEG) Urine Blood Negative (NEG) Urine Nitrite Negative (NEG) Urine Bilirubin Negative (NEG) Urine Urobilinogen Dipstick 0.2 mg/dL (0.2 mg/dL) Urine Leukocyte Esterase Negative (NEG) Urine RBC 0 /HPF (0-2) Urine WBC 0 /HPF (0-4) Urine Squamous Epithelial Cells Occ /LPF Urine Bacteria 0 /HPF (0-FEW) Assessment and Plan Assessmemt and Plan Problems Medical Problems: (1) Fatigue Status: Acute (2) Increasing shortness of breath Status: Acute (3) Multiple comorbid conditions Status: Acute Comment Review of Relevant I have reviewed the following items svetlana (where applicable) has been applied. Medications: Current Medications Medications (Trade) Dose Ordered Sig/Abhijit Route PRN Reason Start Time Stop Time Status Last Admin Dose Admin Morphine Sulfate (Morphine Sulfate) 6 mg 1X ONCE IVP 02/25/21 14:45 02/25/21 14:50 DC 02/25/21 15:13 Ondansetron HCl (Zofran) 4 mg 1X ONCE IVP 02/25/21 15:00 02/25/21 15:01 DC 02/25/21 15:13 Iohexol (Omnipaque 300 Mg/ml) 75 ml 1X ONCE IV 02/25/21 15:30 02/25/21 15:31 DC 02/25/21 15:52 Ceftriaxone Sodium (Rocephin) 1 gm Q24H IVP 02/25/21 19:00 02/25/21 18:42 Doxycycline Hyclate 100 mg/ Dextrose 100 ml @ 50 mls/hr BID IV 02/25/21 19:00 02/25/21 18:42 Methylprednisolone Sodium Succinate (SOLU-Medrol 40MG VIAL) 40 mg Q8HRS IV 02/26/21 00:00 02/26/21 14:01 02/26/21 06:22 Enoxaparin Sodium (Lovenox 40mg Syringe) 40 mg Q24H SQ 02/25/21 23:00 02/26/21 02:48 Oxycodone/ Acetaminophen (Percocet 5/325) 1 tab PRN Q4HRS PRN PO MODERATE PAIN 02/26/21 03:15 02/26/21 03:51 Justifications for Admission Other Justification LUZAM BROWN MD Feb 26, 2021 06:47
[2021-02-26 07:00] VITALS: BP 85/55
[2021-02-26 07:55] LABS: BASO % 1 % (0-3); EOS % 0 % (0-3); HEMOGLOBIN 16.4 g/dL (12.0-15.5); LYMPH # 0.8 x10^3/uL (1.0-4.8); LYMPH % 13 % (24-48); MEAN CORPUSCULAR HEMOGLOBIN 35 pg (25-35); MEAN CORPUSCULAR HGB CONC 34 g/dL (31-37); MEAN CORPUSCULAR VOLUME 103 fL (79-100); MONO # 0.1 x10^3/uL (0.0-1.1); MONO % 1 % (0-9); NEUT # 5.5 x10^3/uL (1.8-7.7); NEUT % 86 % (31-73); PLATELET COUNT 234 x10^3/uL (140-400); RED BLOOD COUNT 4.75 x10^6/uL (3.50-5.40); WHITE BLOOD COUNT 6.5 x10^3/uL (4.0-11.0)
[2021-02-26] MEDS: IPRATRPIUM/ALBUTEROL 0.5/2.5MG 3 ML NEBU. NEB SCH ×4 (08:00→19:59)
[2021-02-26 08:13] LABS: CALCIUM 8.8 mg/dL (8.5-10.1); CREATININE 0.6 mg/dL (0.6-1.0); GFR 103.8; POTASSIUM 4.7 mmol/L (3.5-5.1)
[2021-02-26] MEDS: DOXYCYCLINE HYCLATE 100 MG in IV DEXTROSE 5% 100ML 100 ML IV SCH ×2 (08:37→21:23)
[2021-02-26] MEDS: ASPIRIN ENTERIC COATED 81 MG TABLET.DR. PO SCH (08:38)
[2021-02-26] MEDS: BACLOFEN 10 MG TABLET. PO SCH ×4 (08:38→21:24)
[2021-02-26] MEDS: SENNOSIDES/DOCUSATE 8.6/50MG TABLET. PO SCH ×2 (08:38→21:24)
[2021-02-26] MEDS: CITALOPRAM 20 MG TABLET. PO SCH (08:38)
[2021-02-26] MEDS: carBAMazepine 200 MG TABLET PO SCH ×3 (08:38→21:24)
[2021-02-26] MEDS: NON FORMULARY ITEM (Modafinil (Provigil) 200 MG) PO SCH (09:00)
[2021-02-26 11:00] VITALS: BP 95/58
[2021-02-26] MEDS: BUDESONIDE 0.5 MG/2 ML NEBU. NEB SCH ×2 (11:52→19:59)
[2021-02-26 15:06] VITALS: BP 88/45
[2021-02-26] MEDS: cefTRIAXone IV Push 1 GM VIAL. IVP SCH (18:41)
[2021-02-26 19:00] VITALS: BP 105/60
[2021-02-26] MEDS: traZODone 100 MG TABLET. PO SCH ×2 (21:24)
[2021-02-26 23:31] VITALS: BP 89/61
[2021-02-27 03:33] VITALS: BP 86/57
[2021-02-27 07:00] VITALS: BP 106/64
[2021-02-27] MEDS: BUDESONIDE 0.5 MG/2 ML NEBU. NEB SCH ×2 (07:43→19:58)
[2021-02-27] MEDS: IPRATRPIUM/ALBUTEROL 0.5/2.5MG 3 ML NEBU. NEB SCH ×4 (07:43→19:58)
[2021-02-27] MEDS: ONDANSETRON PF 4 MG/2 ML VIAL. IVP PRN ×2 (08:33→22:09)
[2021-02-27] MEDS: DOXYCYCLINE HYCLATE 100 MG in IV DEXTROSE 5% 100ML 100 ML IV SCH ×2 (08:34→22:08)
--- NOTE | 2021-02-27 08:40 | PDOC ---
[facility] [facility] PROGRESS NOTE Date of Service DOS: DATE: 02/27/21 TIME: 08:39 Chief Complaint Chief Complaint A/P: Acute on chronic hypoxic respiratory failure - likely COPD exacerbation due to viral illness, with sputum changes will place on antibiotics to treat for likely gram negative pneumonia as well as strep pneumonia. splenectomy status increases risk of encapsulated organism infections. Wean O2 Acute exacerbation of Chronic obstructive pulmonary disease - will cont nebs once COVID 19 returns negative, if positive will order MDI. Solumedrol Intractable abdominal pain - with h/o pancreatic pseudocyst with abdominal pain, status post exploratory laparotomy with cholecystectomy, distal pancreatectomy, and splenectomy with a gastrostomy tube placement. IV morphine, will hold if BP drops Nausea - was unable to take PO recently, will cont TF. Severe protein calorie malnutrition - with cachexia - will have bottle tester to see. I would recommend continuous tube feeds as she cannot tolerate bolus. 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 Multiple sclerosis versus fibromyalgia - on chronic meds Pacemaker in place - stable Plan: Will need home equipment for tube feeds FEN - Continue TF Jevity 1.2 at 20 ml/hr increased by 10 ml q 8 hr to a goal rate of 40 ml/hr with 100 ml flushes q 6 hr . PPX - lovenox FULL CODE Dispo - inpatient History of Present Illness History of Present Illness Ms Kimbrough is a 53 yo F w/ PMHx COPD on 4L NCO2, thyroid tumor, HLD, Osteoporosis, barrets esophagus, smoker, chronic pain with morphine pump, s/p pancreatectomy, splenectomy and gastrostomy tube status, and muscle spasticity disorder who presents to ED at the insistence of her home health nurse c/o subjective fever, myalgias, cough, shortness of breath, loss of taste and smell, nausea and increased abdominal pain. Has been worsening over the past 4 days. Cough is minimally productive and she notes abdominal pain that is left sided on deep inspiration worsened by cough. Her 9-year-old grandson currently has cough and fever and she has been in close contact with him. Fully vaccinated for COVID and recently got her flu shot as well. No emesis, diarrhea, constipation, dysuria, hematuria. WBC 6.9, Hb 16.1, platelets 221, NA 140, K4.5, BUN 9, CR 0.6, LFTs normal laboratory limits, albumin 2.9, procalcitonin undetectable, urinalysis with elevated specific gravity otherwise bland rapid influenza negative rapid COVID- [address] abdomen pelvis with no acute findings but bibasilar haziness in lungs. Chest radiograph with emphysematous changes. Cardiomegaly. Admitted for further care. 02/26: Afebrile overnight. COVID-19 PCR returned negative. Still with significant wheezes and productive cough. Abdominal pain is improved but shortness of breath and cough not. Afebrile overnight. Cough still causing significant pain. Paroxysmal coughing this morning without vomiting. Vitals/I&O Vitals/I&O: Vital Signs Date Time Temp Pulse Resp B/P (MAP) Pulse Ox O2 Delivery O2 Flow Rate FiO2 02/27/21 07:46 95 Nasal Cannula 5.0 02/27/21 07:00 98.0 63 20 106/64 (78) 98.0 I & O 02/26/21 02/26/21 02/27/21 15:00 23:00 07:00 Intake Total 240 ml 120 ml 200 ml Balance 240 ml 120 ml 200 ml Physical Exam General: Alert, Oriented X3, Cooperative, moderate distress Lungs: Other Abdomen: Normal bowel sounds, Soft, No hepatosplenomegaly, Other (g tube site clean) Extremities: No clubbing, No cyanosis, No edema, Normal pulses, No tenderness/swelling Skin: No rashes, No breakdown, No significant lesion Assessment and Plan Assessmemt and Plan Problems Medical Problems: (1) Fatigue Status: Acute (2) Increasing shortness of breath Status: Acute (3) Multiple comorbid conditions Status: Acute Comment Review of Relevant I have reviewed the following items svetlana (where applicable) has been applied. Medications: Current Medications Medications (Trade) Dose Ordered Sig/Abhijit Route PRN Reason Start Time Stop Time Status Last Admin Dose Admin Aspirin (Ecotrin) 81 mg DAILY PO 02/26/21 09:00 02/26/21 08:38 Citalopram Hydrobromide (CeleXA) 20 mg DAILY PO 02/26/21 09:00 02/26/21 08:38 Carbamazepine (TEGretol) 200 mg TID PO 02/26/21 09:00 02/26/21 21:24 Justifications for Admission Other Justification LUZMA BROWN MD Feb 27, 2021 08:40
[2021-02-27] MEDS: SENNOSIDES/DOCUSATE 8.6/50MG TABLET. PO SCH ×2 (09:00→22:09)
[2021-02-27] MEDS: NON FORMULARY ITEM (Modafinil (Provigil) 200 MG) PO SCH (09:00)
[2021-02-27] MEDS ORDERED: LANSOPRAZOLE 30 MG TAB.RAP.DR FT ONE (09:15)
[2021-02-27 11:04] VITALS: BP 110/63
[2021-02-27] MEDS: predniSONE 20 MG TABLET PO SCH (11:32)
[2021-02-27] MEDS: ASPIRIN ENTERIC COATED 81 MG TABLET.DR. PO SCH (11:33)
[2021-02-27] MEDS: carBAMazepine 200 MG TABLET PO SCH ×3 (11:33→22:10)
[2021-02-27] MEDS: CITALOPRAM 20 MG TABLET. PO SCH (11:34)
[2021-02-27] MEDS: BACLOFEN 10 MG TABLET. PO SCH ×3 (11:34→22:10)
[2021-02-27] MEDS: LIPASE/PROTEAS/AMYLAS 10/32/42 CAPSULE.DR. PO SCH ×3 (11:34→17:07)
[2021-02-27] MEDS: oxyCODONE/APAP 5/325 1 TAB TABLET PO PRN ×3 (11:36→22:09)
--- NOTE | 2021-02-27 12:31 | NUR ---
1200 zenpep nonadmin as patient did not take a.m. dose until 1100
[2021-02-27 15:03] VITALS: BP 98/62
[2021-02-27] MEDS: LANSOPRAZOLE 30 MG TAB.RAP.DR FT SCH (17:08)
[2021-02-27] MEDS: cefTRIAXone IV Push 1 GM VIAL. IVP SCH (18:59)
[2021-02-27 19:00] VITALS: BP 104/62
[2021-02-27] MEDS: ENOXAPARIN 40 MG/0.4 ML SYRINGE. SQ SCH (22:09)
[2021-02-27] MEDS: traZODone 100 MG TABLET. PO SCH (22:11)
[2021-02-27 23:11] VITALS: BP 109/66
[2021-02-28 03:23] VITALS: BP 96/62
[2021-02-28 07:00] VITALS: BP 102/59
--- NOTE | 2021-02-28 07:30 | PDOC ---
[employer] [facility] PROGRESS NOTE Date of Service DOS: DATE: 02/28/21 TIME: 07:30 Chief Complaint Chief Complaint A/P: Acute on chronic hypoxic respiratory failure - likely COPD exacerbation due to viral illness, with sputum changes will place on antibiotics to treat for likely gram negative pneumonia as well as strep pneumonia. splenectomy status increases risk of encapsulated organism infections. Wean O2 Acute exacerbation of Chronic obstructive pulmonary disease - will cont nebs once COVID 19 returns negative, if positive will order MDI. Solumedrol Intractable abdominal pain - with h/o pancreatic pseudocyst with abdominal pain, status post exploratory laparotomy with cholecystectomy, distal pancreatectomy, and splenectomy with a gastrostomy tube placement. IV morphine, will hold if BP drops Nausea - was unable to take PO recently, will cont TF. Severe protein calorie malnutrition - with cachexia - will have exhibitor sales to see. I would recommend continuous tube feeds as she cannot tolerate bolus. 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 Multiple sclerosis versus fibromyalgia - on chronic meds Pacemaker in place - stable Plan: Will need home equipment for tube feeds FEN - Continue TF Jevity 1.2 at 20 ml/hr increased by 10 ml q 8 hr to a goal rate of 40 ml/hr with 100 ml flushes q 6 hr . PPX - lovenox FULL CODE Dispo - inpatient History of Present Illness History of Present Illness Ms Kimbrough is a 53 yo F w/ PMHx COPD on 4L NCO2, thyroid tumor, HLD, Osteoporosis, barrets esophagus, smoker, chronic pain with morphine pump, s/p pancreatectomy, splenectomy and gastrostomy tube status, and muscle spasticity disorder who presents to ED at the insistence of her home health nurse c/o subjective fever, myalgias, cough, shortness of breath, loss of taste and smell, nausea and increased abdominal pain. Has been worsening over the past 4 days. Cough is minimally productive and she notes abdominal pain that is left sided on deep inspiration worsened by cough. Her 9-year-old grandson currently has cough and fever and she has been in close contact with him. Fully vaccinated for COVID and recently got her flu shot as well. No emesis, diarrhea, constipation, dysuria, hematuria. WBC 6.9, Hb 16.1, platelets 221, NA 140, K4.5, BUN 9, CR 0.6, LFTs normal laboratory limits, albumin 2.9, procalcitonin undetectable, urinalysis with elevated specific gravity otherwise bland rapid influenza negative rapid COVID- [address] abdomen pelvis with no acute findings but bibasilar haziness in lungs. Chest radiograph with emphysematous changes. Cardiomegaly. Admitted for further care. 02/26: Afebrile overnight. COVID-19 PCR returned negative. Still with significant wheezes and productive cough. Abdominal pain is improved but shortness of breath and cough not. 02/27: Afebrile overnight. Cough still causing significant pain. Paroxysmal coughing this morning without vomiting. Cough improved with nebulizers prednisone and antibiotics. Would like to check on home with home health and home O2. Vitals/I&O Vitals/I&O: Vital Signs Date Time Temp Pulse Resp B/P (MAP) Pulse Ox O2 Delivery O2 Flow Rate FiO2 02/28/21 03:23 98.0 59 16 96/62 (73) 95 Nasal Cannula 5.0 98.0 I & O 02/27/21 02/27/21 02/28/21 15:00 23:00 07:00 Intake Total 170 ml 440 ml 360 ml Output Total 400 ml Balance 170 ml 440 ml -40 ml Physical Exam General: Alert, Oriented X3, Cooperative, moderate distress Lungs: Other Abdomen: Normal bowel sounds, Soft, No hepatosplenomegaly, Other (g tube site clean) Extremities: No clubbing, No cyanosis, No edema, Normal pulses, No tenderness/swelling Skin: No rashes, No breakdown, No significant lesion Assessment and Plan Assessmemt and Plan Problems Medical Problems: (1) Fatigue Status: Acute (2) Increasing shortness of breath Status: Acute (3) Multiple comorbid conditions Status: Acute Comment Review of Relevant I have reviewed the following items svetlana (where applicable) has been applied. Medications: Current Medications Medications (Trade) Dose Ordered Sig/Abhijit Route PRN Reason Start Time Stop Time Status Last Admin Dose Admin Amylase/Lipase/ Protease (Zenpep 10,000) 1 cap TIDWMEALS PO 02/27/21 08:30 02/27/21 17:07 Prednisone (Prednisone) 20 mg DAILY PO 02/27/21 10:00 02/27/21 11:32 Lansoprazole (Prevacid) 30 mg BIDBFRMEAL FT 02/27/21 16:30 02/27/21 17:08 Lansoprazole (Prevacid) 30 mg 1X ONCE FT 02/27/21 09:15 02/27/21 09:16 DC 02/27/21 11:33 Justifications for Admission Other Justification LUZMA BROWN MD Feb 28, 2021 07:30
[2021-02-28] MEDS: IPRATRPIUM/ALBUTEROL 0.5/2.5MG 3 ML NEBU. NEB SCH ×2 (08:00→10:47)
[2021-02-28] MEDS ORDERED: fentaNYL 25MCG/HR PATCH 1 PATCH PATCH.TD72 TD SCH (09:00)
[2021-02-28] MEDS: DOXYCYCLINE HYCLATE 100 MG in IV DEXTROSE 5% 100ML 100 ML IV SCH (09:50)
[2021-02-28] MEDS: carBAMazepine 200 MG TABLET PO SCH (09:51)
[2021-02-28] MEDS: SENNOSIDES/DOCUSATE 8.6/50MG TABLET. PO SCH (09:51)
[2021-02-28] MEDS: ASPIRIN ENTERIC COATED 81 MG TABLET.DR. PO SCH (09:51)
[2021-02-28] MEDS: CITALOPRAM 20 MG TABLET. PO SCH (09:51)
[2021-02-28] MEDS: LIPASE/PROTEAS/AMYLAS 10/32/42 CAPSULE.DR. PO SCH ×2 (09:51→12:21)
[2021-02-28] MEDS: predniSONE 20 MG TABLET PO SCH (09:51)
[2021-02-28] MEDS: BACLOFEN 10 MG TABLET. PO SCH (09:51)
[2021-02-28] MEDS: LANSOPRAZOLE 30 MG TAB.RAP.DR FT SCH (09:52)
[2021-02-28] MEDS: oxyCODONE/APAP 5/325 1 TAB TABLET PO PRN (09:53)
[2021-02-28] MEDS: BUDESONIDE 0.5 MG/2 ML NEBU. NEB SCH (10:47)
[2021-02-28 11:00] VITALS: BP 116/43
[2021-02-28] MEDS ORDERED: PRED20TA PO (11:38)
[2021-02-28] MEDS ORDERED: CEFD250S PO (11:38)
[2021-02-28] MEDS ORDERED: DOXY100T PO (11:38)
[2021-02-28] MEDS ORDERED: LIPA1CAP31 PO (11:38)
--- NOTE | 2021-02-28 11:40 | SNU/HH DC ---
DISCHARGE WITH HOME HEALTH DISCHARGE INFORMATION: Discharge Date: Feb 28, 2021 Final Diagnosis: Problems Medical Problems: (1) Fatigue Status: Acute (2) Increasing shortness of breath Status: Acute (3) Multiple comorbid conditions Status: Acute Condition on Discharge: Stable CODE STATUS: Code Status: Full HOME HEALTH: Face to Face: I certify this patient is under my care and that I, or a nurse practitioner or physician's family practice physician assistant working with me, had a face to face encounter that meets the physician face to face encounter requirements with this patient on 02/28/2021. Medical Complications: COPD, Pneumonia Longterm For: Assess/Skilled Observatio, Enteral Feeding Care, Medication Management, Pain Management RN For Eval/Treatment: Yes Physical Therapy For: Evalulation/Treatment Occupational Therapy For: Evaluation/Treatment Home Health Aide For: Self-care TIRE SETTER For: Community Resources Pt Meets Homebound Status: Extreme weakness w/ amb. POST DISCHARGE ORDERS: Activity Instructions for Disc: Activity as tolerated Weight Bearing Status after Di: Full weight bearing, As tolerated DIET AFTER DISCHARGE: TF Jevity 1.2 at 40 ml, q4hr 100ml H2O bolus, reg diet Wound/Incision Care: No wound care needed CHECKS AFTER DISCHARGE: Checks after discharge: Check blood press - daily FOLLOW-UP: Follow up with: Neurology - Dr. Ball Warfarin Follow UP: CMP weekly TREATMENT/EQUIPMENT ORDERS: Adaptive Equipment Issued: None Discharge Respiratory Equipmen: Oxygen, Nebulizer, MDI CERTIFICATION STATEMENT: Certification Statement: Certification Statement: Based on the above finding, I certify that this patient is confined to the home and needs intermittent snf care, physical therapy and/or speech therapy, or continues to need occupational therapy.~ This patient is under my care, and I have initiated the establishment of the plan of care.~ This patient will be followed by myself or a community physician who will periodically review the plan of care. Home Meds Active Scripts Lipase/Protease/Amylase ([place] 10,000 UNITS CAPSULE) 1 Each Capsule., 1 CAP PO TIDWMEALS for Chronic pancreatic insufficenc for 30 Days, #90 CAP 5 Refills Prov:LUZMA BROWN MD 02/28/21 Cefdinir (CEFDINIR) 250 Mg/5 Ml Susp.recon, 250 MG PO BID for Pneumonia for 5 Days, #50 SUSPENSION 0 Refills Prov:LUZMA BROWN MD 02/28/21 Doxycycline Hyclate (DOXYCYCLINE HYCLATE) 100 Mg Tablet, 1 TAB PO BID for COPD for 5 Days, #10 TAB Prov:LUZMA BROWN MD 02/28/21 Prednisone (PREDNISONE) 20 Mg Tablet, 20 MG PO DAILY for COPD for 5 Days, #5 TAB Prov:LUZMA BROWN MD 02/28/21 Fentanyl (FENTANYL 25mcg/hr) 1 Each Patch.td72, 0.5 PATCH TP Q3DAYS for pain, #10 PATCH 0 Refills Prov:LUZMA BROWN MD 07/10/19 Oxycodone/Apap 5-325 (PERCOCET 5-325 MG TABLET ) 1 Each Tablet, 1 TAB PO PRN Q4HRS PRN for MODERATE PAIN, #30 TAB 0 Refills Prov:CASS DEVINE [employer]PERVISING [employer] 06/22/19 Reported Medications Albuterol Sulfate (Proair Hfa) 8.5 Gm Hfa.aer.ad, 2 PUFF IH PRN Q4-6HRS PRN for wheezing for 21 Days, #1 INHALER 0 Refills 06/07/19 Dexlansoprazole (DEXILANT) 60 Mg Cap.mp, 60 MG PO DAILY for gerd/nausea/abd pain, CAP 06/07/19 Nicotine (NICODERM CQ 14mg) 1 Each Patch.td24, 1 PATCH TP DAILY for smoking cessation , #14 PATCH 06/07/19 Ipratropium/Albuterol Sulfate (COMBIVENT RESPIMAT INHAL) 4 Gm Aer.w.adap, 2 INH IH BID for COPD, INHALER 06/07/19 Lovastatin (LOVASTATIN) 40 Mg Tablet, 1 TAB PO DAILY for hyperlipidemia, #30 TAB 5 Refills 06/07/19 Nitroglycerin (NITROSTAT) 0.4 Mg Tab.subl, 0.4 MG SL PRN Q5MIN PRN for CHEST PAIN, BOTTLE 06/04/17 Trazodone Hcl (TRAZODONE HCL) 100 Mg Tablet, 200 MG PO HS, TAB 01/16/16 [morphine] No Conflict Check, 11 MG ID DAILY for intrathecal pain pump 01/16/16 Aspirin (ASPIR 81) 81 Mg Tablet.dr, 81 MG PO DAILY, TAB 01/16/16 Budesonide/Formoterol Fumarate (SYMBICORT 160-4.5 MCG INHALER) 10.2 Gm Hfa.aer.ad, 2 PUFF IH BID, #10.6 GM 3 Refills 10/19/14 Baclofen (BACLOFEN) 10 Mg Tablet, 1 TAB PO TID, #90 TAB 2 Refills 07/20/14 Modafinil (PROVIGIL) 100 Mg Tablet, 200 MG PO DAILY for multiple sclerosis 08/24/13 Carbamazepine (CARBAMAZEPINE) 200 Mg Cpmp.12hr, 300 MG PO TID for tremors 08/24/13 Escitalopram Oxalate (LEXAPRO) 10 Mg Tablet, 10 MG PO DAILY 08/24/13 Discontinued Reported Medications Digoxin (DIGOXIN) 125 Mcg Tablet, 125 MCG PO DAILY for AFIB/HEART FAILURE, TAB 05/08/19 Clonazepam (KLONOPIN) 0.5 Mg Tablet, 0.5 MG PO TID PRN for TREMORS, TAB 01/16/16 LUZMA BROWN MD Feb 28, 2021 11:40
--- NOTE | 2021-02-28 11:44 | PDOC3 ---
Discharge Summary Visit Information Date of Admission: Feb 25, 2021 Date of Discharge: Feb 28, 2021 Admitting Diagnosis: Pneumonia Final Diagnosis Problems Medical Problems: (1) Fatigue Status: Acute (2) Increasing shortness of breath Status: Acute (3) Multiple comorbid conditions Status: Acute Brief Hospital Course Allergies Allergies Coded Allergies Type Severity Reaction Last Updated Verified No Known Drug Allergies 02/25/21 No Vital Signs Vital Signs Date Time Temp Pulse Resp B/P (MAP) Pulse Ox O2 Delivery O2 Flow Rate FiO2 02/28/21 11:25 91 Nasal Cannula 5.0 02/28/21 07:00 98.3 60 18 102/59 (73) 98.3 Brief Hospital Course Ms Kimbrough is a 53 yo F w/ PMHx COPD on 4L NCO2, thyroid tumor, HLD, Osteoporosis, barrets esophagus, smoker, chronic pain with morphine pump, s/p pancreatectomy, splenectomy and gastrostomy tube status, and muscle spasticity disorder who presents to ED at the insistence of her home health nurse c/o subjective fever, myalgias, cough, shortness of breath, loss of taste and smell, nausea and increased abdominal pain. Has been worsening over the past 4 days. Cough is minimally productive and she notes abdominal pain that is left sided on deep inspiration worsened by cough. Her 9-year-old grandson currently has cough and fever and she has been in close contact with him. Fully vaccinated for COVID and recently got her flu shot as well. No emesis, diarrhea, constipation, dysuria, hematuria. WBC 6.9, Hb 16.1, platelets 221, NA 140, K4.5, BUN 9, CR 0.6, LFTs normal laboratory limits, albumin 2.9, procalcitonin undetectable, urinalysis with elevated specific gravity otherwise bland rapid influenza negative rapid COVID- [address] abdomen pelvis with no acute findings but bibasilar haziness in lungs concerning for pneumonia. Chest radiograph with emphysematous changes. Cardiomegaly. O2 needs increased from her home O2 with significant dyspnea and brown sputum. Admitted for further care. 02/26: Afebrile overnight. COVID-19 PCR returned negative. Still with significant wheezes and productive cough. Abdominal pain is improved but shortness of breath and cough not. 02/27: Afebrile overnight. Cough still causing significant pain. Paroxysmal coughing this morning without vomiting. Cough improved with nebulizers prednisone and antibiotics. Would like to check on home with home health and home O2. Needs to continue cefdinir and doxycycline for additional 5 days and prednisone Problem list: Acute on chronic hypoxic respiratory failure - likely COPD exacerbation due to viral illness, with sputum changes will place on antibiotics to treat for likely gram negative pneumonia as well as strep pneumonia. splenectomy status increases risk of encapsulated organism infections. Wean O2 Pneumonia - bilateral, concerning for encapsulated organisms given her splenectomy status, required inpatient IV antibiotics for 4 days, home on PO to complete course Acute exacerbation of Chronic obstructive pulmonary disease - will cont nebs once COVID 19 returns negative, if positive will order MDI. Solumedrol Intractable abdominal pain - with h/o pancreatic pseudocyst with abdominal pain, status post exploratory laparotomy with cholecystectomy, distal pancreatectomy, and splenectomy with a gastrostomy tube placement. IV morphine, will hold if BP drops Nausea - was unable to take PO recently, will cont TF. Severe protein calorie malnutrition - with cachexia - will have advertising sales executive to see. I would recommend continuous tube feeds as she cannot tolerate bolus. 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 Multiple sclerosis versus fibromyalgia - on chronic meds Pacemaker in place - stable Plan: Will need home O2 increased to 5L/min FEN - Continue TF Jevity 1.2 at 20 ml/hr increased by 10 ml q 8 hr to a goal rate of 40 ml/hr with 100 ml flushes q 6 hr . FULL CODE Greater than 30m inutes spent on d/c home with home health Discharge Information Condition at Discharge: Improved Follow Up: Weeks (1) Disposition/Orders: D/C to Home w/ HH Scheduled Aspirin (Aspir 81) 81 Mg Tablet., 81 MG PO DAILY, (Reported) Entered as Reported by: OSBALDO CODY on 01/16/16 0937 Last Action: Continued on 02/25/212241 by LUZMA BROWN MD Baclofen (Baclofen) 10 Mg Tablet, 1 TAB PO TID, #90 Ref 2 (Reported) Entered as Reported by: HARLEEN FIERRO on 07/20/14 0211 Last Action: Continued on 02/25/212241 by LUZMA BROWN MD Budesonide/Formoterol Fumarate (Symbicort 160-4.5 Mcg Inhaler) 10.2 Gm Hfa.a er.ad, 2 PUFF IH BID, #10.6 Ref 3 (Reported) Entered as Reported by: TOÑO CHAUHAN on 10/19/142019 Carbamazepine (Carbamazepine) 200 Mg Cpmp.12hr, 300 MG PO TID for tremors, (Reported) Entered as Reported by: Rose Bertrand on 08/24/13 2250 Last Action: Converted on 02/25/212241 by LUZMA BROWN MD Cefdinir (Cefdinir) 250 Mg/5 Ml Susp.recon, 250 MG PO BID for Pneumonia for 5 Days, #50 Ref 0 Prescribed by: LUZMA BROWN MD on 02/28/21 1138 Dexlansoprazole (Dexilant) 60 Mg Cap.mp, 60 MG PO DAILY for gerd/nausea/abd pain, (Reported) Entered as Reported by: BRAD HERNANDEZ on 06/07/19 1420 Doxycycline Hyclate (Doxycycline Hyclate) 100 Mg Tablet, 1 TAB PO BID for COPD for 5 Days, #10 Prescribed by: LUZMA BROWN MD on 02/28/21 1138 Escitalopram Oxalate (Lexapro) 10 Mg Tablet, 10 MG PO DAILY, (Reported) Entered as Reported by: Rose Bertrand on 08/24/135 Last Action: Converted on 02/25/212241 by LUZMA BROWN MD Fentanyl (FENTANYL 25mcg/hr) 1 Each Patch.td72, 0.5 PATCH TP Q3DAYS for pain, #10 Ref 0 Prescribed by: LUZMA BROWN MD on 07/10/19 1050 Last Action: Continued on 02/25/212241 by LUZMA BROWN MD Ipratropium/Albuterol Sulfate (Combivent Respimat Inhal) 4 Gm Aer.w.adap, 2 INH IH BID for COPD, (Reported) Entered as Reported by: BRAD HERNANDEZ on 06/07/19 1417 Lipase/Protease/Amylase (Zenpep Dr 10,000 Units Capsule) 1 Each Capsule.dr, 1 CAP PO TIDWMEALS for Chronic pancreatic insufficenc for 30 Days, #90 Ref 5 Prescribed by: LUZMA BROWN MD on 02/28/21 1138 Lovastatin (Lovastatin) 40 Mg Tablet, 1 TAB PO DAILY for hyperlipidemia, #30 Ref 5 (Reported) Entered as Reported by: BRAD HERNANDEZ on 06/07/19 1417 Modafinil (Provigil) 100 Mg Tablet, 200 MG PO DAILY for multiple sclerosis, (Reported) Entered as Reported by: Rose Bertrand on 08/24/13 2258 Last Action: Converted on 02/25/212241 by LUZMA BROWN MD Nicotine (NICODERM CQ 14mg) 1 Each Patch.td24, 1 PATCH TP DAILY for smoking cessation , #14 (Reported) Entered as Reported by: BRAD HERNANDEZ on 06/07/19 1419 Prednisone (Prednisone) 20 Mg Tablet, 20 MG PO DAILY for COPD for 5 Days, #5 Prescribed by: LUZMA BROWN MD on 02/28/21 1138 Trazodone Hcl (Trazodone Hcl) 100 Mg Tablet, 200 MG PO HS, (Reported) Entered as Reported by: OSBALDO CODY on 01/16/16 0937 Last Action: Continued on 02/25/212241 by LUZMA BROWN MD [morphine] , 11 MG ID DAILY for intrathecal pain pump, (Reported) Entered as Reported by: OSBALDO CODY on 01/16/16 0937 Scheduled PRN Albuterol Sulfate (Proair Hfa) 8.5 Gm Hfa.aer.ad, 2 PUFF IH PRN Q4-6HRS PRN for wheezing for 21 Days, #1 Ref 0 (Reported) Entered as Reported by: BRAD HERNANDEZ on 06/07/19 1421 Nitroglycerin (Nitrostat) 0.4 Mg Tab.subl, 0.4 MG SL PRN Q5MIN PRN for CHEST PAIN, (Reported) Entered as Reported by: LONG ALVAREZ on 06/04/17 1135 Last Action: Continued on 02/25/212241 by LUZMA BROWN MD Oxycodone/Apap 5-325 (Percocet 5-325 Mg Tablet ) 1 Each Tablet, 1 TAB PO PRN Q4HRS PRN for MODERATE PAIN, #30 Ref 0 Prescribed by: Jumana Flanagan on 06/22/19 1154 Last Action: Continued on 02/26/21 0316 by BAY RADFORD Discontinued Medications Clonazepam (Klonopin) 0.5 Mg Tablet, 0.5 MG PO TID PRN for TREMORS, (Reported) Entered as Reported by: OSBALDO CODY on 01/16/16 0937 Digoxin (Digoxin) 125 Mcg Tablet, 125 MCG PO DAILY for AFIB/HEART FAILURE, (Reported) Entered as Reported by: Wilmer Jones on 05/08/19 1720 Justicifation of Admission Dx: Justifications for Admission: Justification of Admission Dx: Comment: LUZMA BROWN MD Feb 28, 2021 11:44
--- NOTE | 2021-02-28 12:51 | NUR ---
SW following. Discussed with RN, discharge order for home with home health. Deborah Lofton RN notified. No further SW needs.
--- NOTE | 2021-02-28 13:12 | NUR ---
Discharge Note: RA VALLEJO Discharge instructions and discharge home medications reviewed with Patient and a copy given. All questions have been answered and understanding verbalized. The following instructions and handouts were given: discharge instructions, new prescriptions, education and follow up recommendations. Discontinued lines and drains: Peripheral IV intact. Patient discharged to Home or Home Health with Friend via Wheelchair off unit by RN.
== END 2021-02-28 13:12 | disposition home health service (06) | DRG 177 ==
LOC: ER 13:09 → 5 NORTH 18:16
PROVIDERS: ADMIT Internal Medicine; ATTEND Internal Medicine
DX: J15.6 Pneumonia due to other Gram-negative bacteria (principal); J96.21 Acute and chronic respiratory failure with hypoxia; E43 Unspecified severe protein-calorie malnutrition; I31.3 Pericardial effusion (noninflammatory); J44.0 Chronic obstructive pulmonary disease with (acute) lower respiratory infection; J44.1 Chronic obstructive pulmonary disease with (acute) exacerbation; R64 Cachexia; B34.9 Viral infection, unspecified; D75.89 Other specified diseases of blood and blood-forming organs; E78.00 Pure hypercholesterolemia, unspecified; E78.5 Hyperlipidemia, unspecified; I11.0 Hypertensive heart disease with heart failure; I50.9 Heart failure, unspecified; J15.4 Pneumonia due to other streptococci; K22.70 Barrett's esophagus without dysplasia; M41.9 Scoliosis, unspecified; M79.7 Fibromyalgia; M81.0 Age-related osteoporosis without current pathological fracture; Z20.822 Contact with and (suspected) exposure to COVID-19; Z83.3 Family history of diabetes mellitus; Z85.850 Personal history of malignant neoplasm of thyroid; Z87.891 Personal history of nicotine dependence; Z90.411 Acquired partial absence of pancreas; Z90.710 Acquired absence of both cervix and uterus; Z90.81 Acquired absence of spleen; Z93.1 Gastrostomy status; Z95.0 Presence of cardiac pacemaker; F41.9 Anxiety disorder, unspecified; G89.29 Other chronic pain; K21.9 Gastro-esophageal reflux disease without esophagitis; Z90.49 Acquired absence of other specified parts of digestive tract; Z68.20 Body mass index [BMI] 20.0-20.9, adult
CPT/HCPCS: 36415; 71045; 74177; 80048; 80053; 81001; 82150; 83690; 84100; 84145; 85025; 87426; 87804; 94640; 94760; 96365; 96375; J0696; J1650; J2270; J2405; J2920; J3490; J7060; J7512; Q9967; U0003; U0005; 99285-25; G0378; J7626

== ENCOUNTER → 2021-04-18 | Outpatient (CLI) | payer MEDICARE ==
[~2021-04-18] MED LIST changes: +CEFD250S PO; +LIPA1CAP31 PO
--- NOTE | 2021-04-21 09:11 | RAD ---
CT scan of the chest without contrast 04/18/2021 CLINICAL HISTORY: COPD. TECHNIQUE: Unenhanced, contiguous, 5 mm axial sections were obtained the chest. One or more of the following individualized dose reduction techniques were utilized for this study: 1. Automated exposure control. 2. Adjustment of the mA and/or kV according to patient size. 3. Use of iterative reconstruction technique. FINDINGS: Comparison is made to a portable chest radiograph dated 02/25/2021. Additional comparison i s made to a CT scan of the chest dated 06/19/2019. A left-sided pacemaker is unchanged in position. Atherosclerotic calcification of the thoracic aorta and its branches is noted. The thoracic aorta is tortuous but tapers normally. There is mild cardiome ligia. A small pericardial effusion is seen. Small calcified mediastinal lymph nodes are seen. No wendy r, mediastinal or axillary lymphadenopathy is noted. Mild to moderate emphysematous changes are seen involving both lungs. A 4 mm nodular opacity is seen within the right middle lobe, unchanged. A 5 mm calcified granuloma is seen involving the left upper lobe, unchanged. An area of subsegmental atelectasis and/or scarring is seen involving left lower lob e. Segmental atelectasis is seen involving the inferior lingula. There is a minimal right pleural eff usion. This has decreased since the previous examination. The small left pleural effusion seen on the previous examination has resolved. The left lower lobe atelectasis and/or infiltrate has resolved. N o pneumothorax is seen. Images through the upper abdomen demonstrate a gastrostomy tube within the stomach. Surgical clips ar e seen within the gallbladder fossa consistent with a cholecystectomy. Atherosclerotic calcification of the thoracic aorta is seen. Degenerative changes are seen involving the thoracic spine. Mild S-sha ped curvature of the thoracolumbar spine is seen. A thecal catheter is noted in place. IMPRESSION: 1. Mild to moderate emphysematous changes. 2. Cardiomegaly with small pericardial effusion. There is a minimal right pleural effusion. 3. Findings consistent with prior granulomatous disease. 4. Areas of subsegmental atelectasis are seen involving the lingula and left lower lobe. No area of c onsolidation is seen. Electronically signed by: Ej Maldonado MD (04/21/2021 9:09 AM) [id number]
== END ==
LOC: CT 12:26
PROVIDERS: ATTEND Internal Medicine Pulmonary Disease
DX: J43.9 Emphysema, unspecified (principal); J90 Pleural effusion, not elsewhere classified; I51.7 Cardiomegaly; J98.11 Atelectasis; J84.10 Pulmonary fibrosis, unspecified; I89.8 Other specified noninfective disorders of lymphatic vessels and lymph nodes; R91.8 Other nonspecific abnormal finding of lung field; I70.0 Atherosclerosis of aorta; M47.814 Spondylosis without myelopathy or radiculopathy, thoracic region; M43.8X5 Other specified deforming dorsopathies, thoracolumbar region; Z95.0 Presence of cardiac pacemaker; Z93.1 Gastrostomy status
CPT/HCPCS: 71250

== ENCOUNTER → 2021-06-02 | Outpatient (CLI) | payer MEDICARE ==
--- NOTE | 2021-06-02 15:28 | RAD ---
INDICATION: Reason: ESSENTIAL TUMOR. ABNORMALITIES OF GAIT AND MOBILITY. HYPERSOMNIA. / Spl. Instruct ions: / History: COMPARISON: May 2020 TECHNIQUE: Axial CT images obtained through the head without intravenous contrast. One or more of the following individualized dose reduction techniques were utilized for this examinat ion: 1. Automated exposure control; 2. Adjustment of the mA and/or kV according to patient size; 3 . Use of iterative reconstruction technique. FINDINGS: No intracranial hemorrhage. No significant midline shift. Ventricles and sulci are globally prominent. Scattered foci of low attenuation within the white matter. IMPRESSION: * No definite acute intracranial hemorrhage. There are some regions of high density just deep to th e calvarium bilaterally but most likely artifact. * Scattered regions of low attenuation within the white matter. Non-specific in nature but a common finding and frequently secondary to small vessel ischemic disease. * Partial opacification of the right mastoid air cells which could be from congestion or mastoiditis . Electronically signed by: Will Redding MD (06/02/2021 3:26 PM) [id number]
== END ==
LOC: CT 13:52
PROVIDERS: ATTEND Psychiatry & Neurology Neurology with Special Qualifications in Child Neurology
DX: G93.89 Other specified disorders of brain (principal); G25.0 Essential tremor; R26.9 Unspecified abnormalities of gait and mobility; G47.14 Hypersomnia due to medical condition
CPT/HCPCS: 70450

== ENCOUNTER → 2021-06-23 | Outpatient (CLI) | payer MEDICARE ==
[~2021-06-23] MED LIST changes: +CONTRAST GIVEN. MC PRN; +IOHEXOL 300 MG/ML 100ML VIAL. IV ONE
--- NOTE | 2021-06-23 11:15 | RAD ---
EXAMINATION: CT abdomen and pelvis with and without IV contrast. INDICATION:55 years, Female, pancreatic pseudocyst. TECHNIQUE: Axial CT images of the abdomen and pelvis were obtained. Coronal and sagittal reformatted performed. COMPARISON: 02/25/2021. Exposure: One or more of the following individualized dose reduction techniques were utilized for thi s examination: 1. Automated exposure control 2. Adjustment of the mA and/or kV according to patient size 3. Use of iterative reconstruction technique. FINDINGS: LOWER CHEST: Dependent subsegmental atelectasis versus scarring. Small pericardial effusion. Partially visualized pacemaker lead wires. ABDOMEN/PELVIS: Redemonstrated post distal pancreatectomy and splenectomy changes. Remaining pancreatic head and unci rosana process are mildly atrophic, similar to prior exam. No main pancreatic ductal dilation. No perip ancreatic loculated fluid collection or cystic structures. Unchanged subcentimeter hypodensity in the left hepatic lobe, too small to characterize. No suspiciou s focal hepatic lesion. Cholecystectomy. No biliary ductal dilation. No adrenal nodule. No hydronephr osis in either kidney. At least 3 left and single right punctate nonobstructing nephrolithiasis measu ring up to 2 mm. Multiple simple bilateral parapelvic renal cysts. Subcentimeter hypodensities in bot h renal cortices, too small to characterize. No bowel obstruction. Gastrostomy tube is in place. Appendix is not seen with certainty. No lymphaden opathy in the abdomen or pelvis by size criteria. Mild aortoiliac atherosclerotic calcifications with out dilation or narrowing. Mesenteric arteries and portal veins are patent. No pneumoperitoneum or as cites. Decompressed urinary bladder which limits evaluation. Hysterectomy changes. MUSCULOSKELETAL STRUCTURES: Neurostimulator device seen along the left anterior abdominal wall subcutaneous tissue. Postsurgical changes along the anterior midline abdominal wall. No acute osseous process or suspicious lesion. Mul tilevel degenerative changes in the spine. IMPRESSION: 1. Post distal pancreatectomy and splenectomy changes. No peripancreatic cystic lesion. 2. Punctate nonobstructing bilateral nephrolithiasis. 3. Gastrostomy tube in place. The balloon securing the tube is not well-inflated. 4. Other chronic/incidental findings, as described above. Electronically signed by: Luis Fernando Joya MD (06/23/2021 11:12 AM) [id number]
== END ==
LOC: CT 10:15
PROVIDERS: ATTEND Internal Medicine
DX: N20.0 Calculus of kidney (principal); N28.1 Cyst of kidney, acquired; I70.0 Atherosclerosis of aorta; K86.3 Pseudocyst of pancreas; M47.819 Spondylosis without myelopathy or radiculopathy, site unspecified; Z90.49 Acquired absence of other specified parts of digestive tract; Z90.410 Acquired total absence of pancreas; Z90.81 Acquired absence of spleen
CPT/HCPCS: 74178; Q9967

== ENCOUNTER 2021-06-27 10:48 | Emergency (ER) | payer MEDICARE ==
[~2021-06-27] VITALS: Ht 170.2 cm; Wt 46.8 kg
[~2021-06-27 10:48] MED LIST changes: -CONTRAST GIVEN. MC PRN; -IOHEXOL 300 MG/ML 100ML VIAL. IV ONE
[2021-06-27] MEDS ORDERED: IOHEXOL 300 MG/ML 50 ML VIAL. PO ONE (11:45)
[2021-06-27 11:46] VITALS: BP 90/51
[2021-06-27] MEDS ORDERED: TERB30CR13 TP (11:49)
--- NOTE | 2021-06-27 11:50 | PHYS DOC ---
Past Medical History Past Medical History: Cancer, CHF, COPD, Fibromyalgia, High Cholesterol, Heart Disease, Hypotension, Other Additional Past Medical Histor: MS, osteoporosis, carmichael's esophagus, mitral vavle insuf, thyroid cancer, Past Surgical History: Cholecystectomy, Splenectomy, Other Additional Past Surgical Histo: Pancreas tail removal, g-tube, Morphine pump, Pacemaker Smoking Status: Current Every Day Smoker Alcohol Use: None Drug Use: None General Adult EDM: Chief Complaint: GTUBE REPLACEMENT/MALFUNCTION HPI: HPI: Patient is a 56 year old female with extensive PMHx who presents due to G-tube problem. Patient states she was getting out of her car to see her PCP when her G-tube "fell out." Patient called Dr. Armando immediately, who advised she present to the ER for G-tube replacement. Patient reports associated "redness" beneath the bumper for the past few days. Patient denies other complaints including nausea, vomiting, abdominal pain or other G-tube malfunction. Review of Systems: Review of Systems: Constitutional: Denies fever, chills or generalized weakness Eyes: Denies change in visual acuity, visual field deficits or discharge HENT: Denies ear pain, nasal congestion or sore throat Respiratory: Denies cough or shortness of breath Cardiovascular: Denies chest pain, palpitations or edema GI: See HPI : Denies dysuria or hematuria Musculoskeletal: Denies back pain or joint pain Integument: See HPI Neurologic: Denies headache, focal weakness or sensory changes Heart Score: C/O Chest Pain: No Allergies: Allergies: Allergies Coded Allergies Type Severity Reaction Last Updated Verified No Known Drug Allergies 02/25/21 No Physical Exam: PE: Constitutional: Well developed, well nourished, no acute distress, non-toxic appearance. HENT: Normocephalic, atraumatic, bilateral external ears normal, nose normal. Eyes: EOMI, conjunctiva normal, no discharge. Neck: Normal range of motion, no tenderness, supple, no stridor. Abdomen: Healed G-tube entry opening appreciated, well-healed scars from prior abdominal surgery appreciated consistent with history, pump visible beneath the skin surface in right side central abdomen, soft, no tenderness, no masses, no pulsatile masses. Skin: Red, moist rash in a circular pattern consistent with G-tube bumper appreciated without fluctuance or induration. Skin otherwise warm, dry, no erythema, no rash. Extremities: No tenderness, no cyanosis, no clubbing, ROM intact, no edema. Neurologic: Alert and oriented x4, motor and sensory function grossly intact, no focal deficits noted. Current Patient Data: Vital Signs: Vital Signs Date Time Temp Pulse Resp B/P (MAP) Pulse Ox O2 Delivery O2 Flow Rate FiO2 06/27/21 10:48 98.4 90 18 104/54 (71) 92 Room Air 98.4 Radiology/Procedures: Radiology/Procedures: PROCEDURE: KUB EXAM: Abdomen, single view. HISTORY: G-tube placement. COMPARISON: 05/31/2020. FINDINGS: A frontal view of the abdomen is obtained following the administration of contrast through an indwelling gastrostomy tube. There is contrast opacification of the stomach and proximal duodenum. There is no extravasation of contrast. There is a nonobstructive bowel gas pattern. There is a generator overlying the left flank with leads extending cephalad to the lower thoracic level. There are cardiac pacemaker leads and cholecystectomy clips. IMPRESSION: 1. Gastrostomy tube in expected position. There is no extravasation of contrast. 2. Nonobstructive bowel gas pattern. Electronically signed by: Serena Shannon MD (06/27/2021 12:23 PM) [id number] Course & Med Decision Making: Course & Med Decision Making Pertinent Labs and Imaging studies reviewed. (See chart for details) Is a 56-year-old female with extensive past medical history who presents after her G-tube fell out this morning. Dr. Armando advised that she present to the emergency department for replacement. I replaced the 18 Japanese 20 cc G-tube bedside without difficulty. Plain film KUB with contrast inserted to the G-tube confirms appropriate placement. Spoke with Dr. Walters, general surgery on-call, regarding patient case. Dr. Walters is comfortable with the patient following up in office in the next 1-2 weeks. Discussed discharge plan with patient. Provided electronic prescription for topical terbinafine for yeast infection of the skin beneath the G-tube bumper. Return precautions were provided. Patient understands and is agreeable to discharge plan. Dragon Disclaimer: Dragon Disclaimer: This electronic medical record was generated, in whole or in part, using a voice recognition dictation system. Departure Departure Impression: Primary Impression: Attention to G-tube Additional Impression: Tinea corporis Disposition: / SELF CARE / HOMELESS Condition: IMPROVED Referrals: CHRIS JEFFRIES MD (PCP) LONG MORELAND MD Patient Instructions: Care of a Feeding Tube, [id number], Gastric Tube Replacement Additional Instructions: EMERGENCY DEPARTMENT GENERAL DISCHARGE INSTRUCTIONS Thank you for coming to [facility] Emergency Department (ED) today and trusting us with you care. We trust that you had a positive experience in our Emergency Department. If you wish to speak to the department management, you may call the director at . YOUR FOLLOW UP INSTRUCTIONS ARE FOLLOWS: 1. Follow up with your primary care doctor. If you do not have a primary doctor, please ask for a resource list of physicians or clinics that may be able to assist you with follow up care. 2. The emergency provider has interpreted your imaging studies, if any were ordered. The radiology cadence specialists also reviewed them. If there is a change in the findings, you will be notified in 48 hours when at all possible. 3. If a lab test or culture has been done, your results will be reviewed and you will be notified if you need a change in treatment. 4. Follow instructions verbalized to you and refer to the printouts if needed. ADDITIONAL INSTRUCTIONS AND INFORMATION: 1. Your care today has been supervised by a physician who is specially trained in emergency care. Many problems require more than one evaluation for a complete diagnosis and treatment. We recommend that you schedule your follow up appointment as recommended to ensure complete treatment of you illness or injury. If you are unable to obtain follow up care and continue to have a problem, or if your condition worsens, we recommend that you return to the ED. 2. We are not able to safely determine your condition over the phone nor are we able to give sound medical advice over the phone. For these safety reasons, if you call for medical advice we will ask you to come to the ED for further evaluation. 3. If you have any questions regarding these discharge instructions please call the ED at . SAFETY INFORMATION: In the interest of safety, wellness, and injury prevention; we encourage you to wear your seat belt, if you smoke; quite smoking, and we encourage family to use a protective helmet for bicycling and other sporting events that present an increased risk for head injury. IF YOUR SYMPTOMS WORSEN OR NEW SYMPTOMS DEVELOP, OR YOU HAVE CONCERNS ABOUT YOUR CONDITION; OR IF YOUR CONDITION WORSENS WHILE YOU ARE WAITING FOR YOUR FOLLOW UP APPOINTMENT; EITHER CONTACT YOUR PRIMARY CARE DOCTOR, THE PHYSICIAN WHOSE NAME AND NUMBER YOU WERE GIVEN, OR RETURN TO THE ED IMMEDIATELY. Scripts Terbinafine Hcl (TERBINAFINE HCL) 30 Gm Cream..g. 1 RIZWANA TP BID for tinea, #1 EACH Prov: HARVEY BOOGIE 06/27/21 HARVEY BOOGIE Jun 27, 2021 11:50
[2021-06-27] MEDS ORDERED: CONTRAST GIVEN. MC PRN (12:00)
--- NOTE | 2021-06-27 12:26 | RAD ---
EXAM: Abdomen, single view. HISTORY: G-tube placement. COMPARISON: 05/31/2020. FINDINGS: A frontal view of the abdomen is obtained following the administration of contrast through an indwelling gastrostomy tube. There is contrast opacification of the stomach and proximal duodenum. There is no extravasation of contrast. There is a nonobstructive bowel gas pattern. There is a gener ator overlying the left flank with leads extending cephalad to the lower thoracic level. There are ca rdiac pacemaker leads and cholecystectomy clips. IMPRESSION: 1. Gastrostomy tube in expected position. There is no extravasation of contrast. 2. Nonobstructive bowel gas pattern. Electronically signed by: Serena Shannon MD (06/27/2021 12:23 PM) [id number]
== END 2021-06-27 12:33 | disposition home or self-care (01) ==
LOC: ER 10:48
DX: K94.23 Gastrostomy malfunction (principal); J44.9 Chronic obstructive pulmonary disease, unspecified; I11.0 Hypertensive heart disease with heart failure; I50.9 Heart failure, unspecified; E78.00 Pure hypercholesterolemia, unspecified; Z90.49 Acquired absence of other specified parts of digestive tract; Z90.81 Acquired absence of spleen; Z95.0 Presence of cardiac pacemaker; F17.200 Nicotine dependence, unspecified, uncomplicated; Y83.8 Other surgical procedures as the cause of abnormal reaction of the patient, or of later complication, without mention of misadventure at the time of the procedure; Y92.89 Other specified places as the place of occurrence of the external cause
CPT/HCPCS: 43762; 74018; 99284; Q9967

== ENCOUNTER 2021-06-30 16:23 | Observation (INO) | payer MEDICARE ==
[~2021-06-30] VITALS: Ht 170.2 cm; Wt 58.2 kg
[~2021-06-30 16:23] MED LIST changes: +TERB30CR13 TP
[2021-06-30] MEDS ORDERED: LIDOCAINE 2% JELLY 6ML IN APPLICATOR. MM ONE (19:15)
--- NOTE | 2021-06-30 21:18 | PHYS DOC ---
Past Medical History Past Medical History: Cancer, CHF, COPD, Fibromyalgia, High Cholesterol, Heart Disease, Hypotension, Other Additional Past Medical Histor: MS, osteoporosis, carmichael's esophagus, mitral vavle insuf, thyroid cancer, Past Surgical History: Appendectomy, Cholecystectomy, Hysterectomy, Spl enectomy, Tonsillectomy, Other Additional Past Surgical Histo: Pancreas tail removal, g-tube, Morphine pump, Pacemaker Smoking Status: Current Every Day Smoker Alcohol Use: None Drug Use: None General Adult EDM: Chief Complaint: OTHER COMPLAINTS HPI: HPI: Patient is a 56 year old female with history of high cholesterol, fibromyalgia, COPD on oxygen 4 L at home daily, heart disease, hypertension, pacemaker, MS, osteoporosis, Carmichael's esophagitis, multiple abdominal surgeries currently with a feeding tube presenting today for dislodged feeding tube. Patient believes it came out around 3:30 PM. She states she was in the ED Wednesday and had it replaced Review of Systems: Review of Systems: Constitutional: Denies fever or chills. [] GI: Reports dislodged feeding tube denies abdominal pain, nausea, vomiting, bloody stools or diarrhea. [] : Denies dysuria. [] Musculoskeletal: Denies back pain or joint pain. [] Integument: Denies rash. [] Neurologic: Denies headache, focal weakness or sensory changes. [] Psychiatric: Denies depression or anxiety. [] Heart Score: C/O Chest Pain: N/A Risk Factors: Risk Factors: DM, Current or recent (<one month) smoker, HTN, HLP, family history of CAD, obesity. Risk Scores: Score 0 - 3: 2.5% MACE over next 6 weeks - Discharge Home Score 4 - 6: 20.3% MACE over next 6 weeks - Admit for Clinical Observation Score 7 - 10: 72.7% MACE over next 6 weeks - Early Invasive Strategies Current Medications: Current Medications Medications (Trade) Dose Ordered Sig/Abhijit Start Time Stop Time Status Last Admin Dose Admin Lidocaine HCl (Glydo (Lidocaine) Jelly) 1 gabbi 1X ONCE 06/30/21 19:15 06/30/21 19:16 DC 06/30/21 21:10 1 GABBI Allergies: Allergies: Allergies Coded Allergies Type Severity Reaction Last Updated Verified No Known Drug Allergies 02/25/21 No Physical Exam: PE: Constitutional: Well developed, well nourished, no acute distress, non-toxic appearance. [] Abdomen: Abdomen with multiple old healed surgical incision, there is a pain pump noted on the left lower quadrant. Feeding tube hole appears closed no drainage from the feeding tube. not red bowel sounds normal, soft, no tenderness, no masses, no pulsatile masses. [] Skin: Warm, dry, no erythema, no rash. [] Back: No tenderness, no CVA tenderness. [] Extremities: No tenderness, no cyanosis, no clubbing, ROM intact, no edema. [] Neurologic: Alert and oriented X 3, normal motor function, normal sensory function, no focal deficits noted. [] Psychologic: Affect normal, judgement normal, mood normal. [] Current Patient Data: Vital Signs: Vital Signs Date Time Temp Pulse Resp B/P (MAP) Pulse Ox O2 Delivery O2 Flow Rate FiO2 06/30/21 18:17 98.4 107/55 (72) 92 Room Air 98.4 EKG: EKG: [] Radiology/Procedures: Radiology/Procedures: Feeding tube replacement Verbal consent was obtained. Area was cleaned with chlorhexidine. 18 Botswanan feeding tube was inflated to ensure the balloon works which was successful. It was deflected. Lubricant applied to the tube. Attempts were done without numbing medicine to replace it with no success mostly patient complained of pain and hole appears to be too small. Lidocaine gel was obtained, the area was numbed up, attempts were done to replace it with a 18 B[place]wanan feeding tube with no success. Regular Fields catheter 18 B[place]wanan was also attempted with no success. 16 Botswanan coud catheter was attempted and was successfull. Gastric contents were aspirated and auscultation was done to help confirm placement. Coud catheter was inflated 25 cc of saline and secured. Course & Med Decision Making: Course & Med Decision Making Pertinent Labs and Imaging studies reviewed. (See chart for details) This is a 56-year-old female patient presented to the ED today for feeding tube dislodgment. I attempted to replace the feeding tube with 18 Botswanan feeding tube with no success. 16 Botswanan coud catheter was placed in the stomach to keep the hole open. Dr. Worrell was contacted. He requested patient to be admitted and interventional radiology to replace the feeding tube in the morning. Patient admitted under Dr. Wayne Whittington Disclaimer: Pk Disclaimer: This electronic medical record was generated, in whole or in part, using a voice recognition dictation system. Departure Departure Impression: Primary Impression: Encounter for care related to feeding tube Disposition: ADMITTED INPATIENT Condition: STABLE Referrals: CHRIS JEFFRIES MD (PCP) JAKE SHAHID APRN Jun 30, 2021 21:18
[2021-06-30] MEDS ORDERED: ONDANSETRON PF 4 MG/2 ML VIAL. IVP PRN (23:00)
[2021-06-30] MEDS ORDERED: oxyCODONE/APAP 10/325 1 TAB TABLET PO ONE (23:00)
[2021-06-30] MEDS ORDERED: IV NORMAL SALINE 1000ML BAG 1,000 ML IV ONE (23:30)
[2021-07-01] VITALS (7 sets, daily range): BP systolic 91–123; BP diastolic 55–72
[2021-07-01 00:12] LABS: BASO # 0.1 x10^3/uL (0.0-0.2); BASO % 1 % (0-3); EOS # 0.2 x10^3/uL (0.0-0.7); EOS % 3 % (0-3); HEMATOCRIT 40.9 % (36.0-47.0); HEMOGLOBIN 13.1 g/dL (12.0-15.5); LYMPH # 2.7 x10^3/uL (1.0-4.8); LYMPH % 42 % (24-48); MEAN CORPUSCULAR HEMOGLOBIN 33 pg (25-35); MEAN CORPUSCULAR HGB CONC 32 g/dL (31-37); MEAN CORPUSCULAR VOLUME 102 fL (79-100); MONO # 0.6 x10^3/uL (0.0-1.1); MONO % 9 % (0-9); NEUT % 45 % (31-73); PLATELET COUNT 236 x10^3/uL (140-400); RED BLOOD COUNT 4.02 x10^6/uL (3.50-5.40); RED CELL DISTRIBUTION WIDTH 14.5 % (11.5-14.5); WHITE BLOOD COUNT 6.5 x10^3/uL (4.0-11.0)
[2021-07-01] MEDS ORDERED: CLON-77 PO (00:21)
[2021-07-01 00:27] LABS: ALBUMIN 2.7 g/dL (3.4-5.0); ALBUMIN/GLOBULIN RATIO 0.9 (1.0-1.7); CALCIUM 8.6 mg/dL (8.5-10.1); CREATININE 0.5 mg/dL (0.6-1.0); GFR 127.6; POTASSIUM 4.3 mmol/L (3.5-5.1); TOTAL BILIRUBIN 0.3 mg/dL (0.2-1.0); TOTAL PROTEIN 5.8 g/dL (6.4-8.2)
[2021-07-01] MEDS ORDERED: MORPHINE SULFATE 2 MG/ML INJ. IVP PRN (01:15)
--- NOTE | 2021-07-01 09:57 | NUR ---
SW following. Discussed with RN, pt from home, 5L (uses oxygen at home), NPO, rapid COVID-19 negative. Pt needing PEG replaced. Per Dr. Shine, pt wanting to discharge home after replacement. RN advised no SW needs at this time. SW will continue to follow.
--- NOTE | 2021-07-01 10:09 | SNU/HH DC ---
DISCHARGE WITH HOME HEALTH DISCHARGE INFORMATION: Final Diagnosis: Problems Medical Problems: (1) Encounter for care related to feeding tube Status: Acute Condition on Discharge: Stable CODE STATUS: Code Status: Full HOME HEALTH: Face to Face: I certify this patient is under my care and that I, or a nurse practitioner or physician's insurance sales assistant working with me, had a face to face encounter that meets the physician face to face encounter requirements with this patient on []. Medical Complications: Other (Chronic feeding tube) Usp For: Assess & Educate Safety RN For Eval/Treatment: Yes Physical Therapy For: Evalulation/Treatment Occupational Therapy For: Evaluation/Treatment Home Health Aide For: Self-care RECOVERY COACH For: Community Resources Pt Meets Homebound Status: Poor coordination w/ amb. POST DISCHARGE ORDERS: Activity Instructions for Disc: Activity as tolerated Weight Bearing Status after Di: Full weight bearing, As tolerated DIET AFTER DISCHARGE: TF Jevity 1.2 at 40 ml, q4hr 100ml H2O bolus, reg diet Wound/Incision Care: No wound care needed CHECKS AFTER DISCHARGE: Checks after discharge: Check blood press - daily TREATMENT/EQUIPMENT ORDERS: Adaptive Equipment Issued: None Discharge Respiratory Equipmen: Oxygen, Nebulizer, MDI CERTIFICATION STATEMENT: Certification Statement: Certification Statement: Based on the above finding, I certify that this patient is confined to the home and needs intermittent correction care, physical therapy and/or speech therapy, or continues to need occupational therapy.~ This patient is under my care, and I have initiated the establishment of the plan of care.~ This patient will be followed by myself or a community physician who will periodically review the plan of care. Home Meds Active Scripts Terbinafine Hcl (TERBINAFINE HCL) 30 Gm Cream..g., 1 RIZWANA TP BID for tinea, #1 EACH Prov:HARVEY BOOGIE 06/27/21 Lipase/Protease/Amylase (EDIN COYNE 10,000 UNITS CAPSULE) 1 Each Capsule., 1 CAP PO TIDWMEALS for Chronic pancreatic insufficenc for 30 Days, #90 CAP 5 Refills Prov:LUZMA BROWN MD 02/28/21 Cefdinir (CEFDINIR) 250 Mg/5 Ml Susp.recon, 250 MG PO BID for Pneumonia for 5 Days, #50 SUSPENSION 0 Refills Prov:LUZMA BROWN MD 02/28/21 Doxycycline Hyclate (DOXYCYCLINE HYCLATE) 100 Mg Tablet, 1 TAB PO BID for COPD for 5 Days, #10 TAB Prov:LUZMA BROWN MD 02/28/21 Prednisone (PREDNISONE) 20 Mg Tablet, 20 MG PO DAILY for COPD for 5 Days, #5 TAB Prov:LUZMA BROWN MD 02/28/21 Fentanyl (FENTANYL 25mcg/hr) 1 Each Patch.td72, 0.5 PATCH TP Q3DAYS for pain, #10 PATCH 0 Refills Prov:LUZMA BROWN MD 07/10/19 Oxycodone/Apap 5-325 (PERCOCET 5-325 MG TABLET ) 1 Each Tablet, 1 TAB PO PRN Q4HRS PRN for MODERATE PAIN, #30 TAB 0 Refills Prov:CASS DEVINE RADIO TALK SHOW HOST 06/22/19 Reported Medications Clonazepam (CLONAZEPAM ) 0.5 Mg Tablet, 0.5 MG PO TID for FOR ANXIETY, TAB 07/01/21 Albuterol Sulfate (Proair Hfa) 8.5 Gm Hfa.aer.ad, 2 PUFF IH PRN Q4-6HRS PRN for wheezing for 21 Days, #1 INHALER 0 Refills 06/07/19 Dexlansoprazole (DEXILANT) 60 Mg Ray.mp, 60 MG PO DAILY for gerd/nausea/abd pain, CAP 06/07/19 Nicotine (NICODERM CQ 14mg) 1 Each Patch.td24, 1 PATCH TP DAILY for smoking cessation , #14 PATCH 06/07/19 Ipratropium/Albuterol Sulfate (COMBIVENT RESPIMAT INHAL) 4 Gm Aer.w.adap, 2 INH IH BID for COPD, INHALER 06/07/19 Lovastatin (LOVASTATIN) 40 Mg Tablet, 1 TAB PO DAILY for hyperlipidemia, #30 TAB 5 Refills 06/07/19 Nitroglycerin (NITROSTAT) 0.4 Mg Tab.subl, 0.4 MG SL PRN Q5MIN PRN for CHEST PAIN, BOTTLE 06/04/17 Trazodone Hcl (TRAZODONE HCL) 100 Mg Tablet, 200 MG PO HS, TAB 01/16/16 [morphine] No Conflict Check, 11 MG ID DAILY for intrathecal pain pump 01/16/16 Aspirin (ASPIR 81) 81 Mg Tablet.dr, 81 MG PO DAILY, TAB 01/16/16 Budesonide/Formoterol Fumarate (SYMBICORT 160-4.5 MCG INHALER) 10.2 Gm Hfa.aer.ad, 2 PUFF IH BID, #10.6 GM 3 Refills 10/19/14 Baclofen (BACLOFEN) 10 Mg Tablet, 1 TAB PO TID, #90 TAB 2 Refills 07/20/14 Modafinil (PROVIGIL) 100 Mg Tablet, 200 MG PO DAILY for multiple sclerosis 08/24/13 Carbamazepine (CARBAMAZEPINE) 200 Mg Cpmp.12hr, 300 MG PO TID for tremors 08/24/13 Escitalopram Oxalate (LEXAPRO) 10 Mg Tablet, 10 MG PO DAILY 08/24/13 JENNIFER OCONNELL III DO Jul 01, 2021 10:08
--- NOTE | 2021-07-01 10:15 | NUR ---
Left by bed to IR for peg replacement.
[2021-07-01] MEDS ORDERED: IOHEXOL 240 MG/ML 50ML VIAL. ONE (10:21)
[2021-07-01] MEDS ORDERED: LIDOCAINE WITH 8.4% SOD BICARB 3 ML DISP.SYRIN. ONE (10:21)
[2021-07-01] MEDS ORDERED: fentaNYL PF VIAL 100 MCG/2 ML VIAL ONE (10:33)
[2021-07-01] MEDS ORDERED: MIDAZOLAM HCL/PF 2 MG/2 ML VIAL. ONE (10:33)
[2021-07-01] MEDS ORDERED: MIDAZOLAM HCL/PF 2 MG/2 ML VIAL. IV ONE (10:45)
[2021-07-01] MEDS ORDERED: IOHEXOL 240 MG/ML 50ML VIAL. IJ ONE (10:45)
[2021-07-01] MEDS ORDERED: LIDOCAINE WITH 8.4% SOD BICARB 3 ML DISP.SYRIN. IJ ONE (10:45)
[2021-07-01] MEDS ORDERED: fentaNYL PF VIAL 100 MCG/2 ML VIAL IV ONE (10:45)
--- NOTE | 2021-07-01 11:15 | NUR ---
Pt returned from IR. Peg tube intact. c/o soreness at site. Assisted pt to bathroom to void and return back to bed. Requesting coffee.
--- NOTE | 2021-07-01 11:46 | SSS ---
DATE OF SERVICE: 07/01/2021 ADMIT DATE: 06/30/2021 CHIEF COMPLAINT: Feeding tube dislodged. HISTORY OF PRESENT ILLNESS: The patient is a pleasant 56-year-old female who has a chronic feeding tube. Basically, it dislodged, they placed a red Richard in it in the ER to keep the ostomy patent. Today, she is scheduled to go down to Interventional Radiology to have the feeding tube replaced, then we plan to discharge if she is doing well. PAST MEDICAL HISTORY: CHF, COPD, fibromyalgia, hyperlipidemia, coronary disease, hypotension, MS, osteoporosis, Clinton's esophagitis, mitral valve insufficiency, thyroid cancer, appendectomy, cholecystectomy, hysterectomy, splenectomy, tonsillectomy, pancreatic tail removed, G-tube, morphine pump, pacemaker, and tobacco abuse. ALLERGIES: None. FAMILY HISTORY: Coronary disease. SOCIAL HISTORY: She smokes. No drink or drugs. MEDICATIONS: Reviewed. Please refer to the MRAD. REVIEW OF SYSTEMS: GENERAL: No history of weight change, weakness or fevers. SKIN: No bruising, hair changes or rashes. EYES: No blurred, double or loss of vision. NOSE AND THROAT: No history of nosebleeds, hoarseness or sore throat. HEART: No history of palpitations, chest pain or shortness of breath on exertion. LUNGS: Denies cough, hemoptysis, wheezing or shortness of breath. GASTROINTESTINAL: Denies changes in appetite, nausea, vomiting, diarrhea or constipation. GENITOURINARY: No history of frequency, urgency, hesitancy or nocturia. NEUROLOGIC: Denies history of numbness, tingling, tremor or weakness. PSYCHIATRIC: No history of panic, anxiety or depression. ENDOCRINE: No history of heat or cold intolerance, polyuria or polydipsia. EXTREMITIES: Denies muscle weakness, joint pain, pain on walking or stiffness. PHYSICAL EXAMINATION: VITALS: Within normal limits and are stable. GENERAL: No apparent distress. Alert and oriented. HEENT: Normal cephalic atraumatic, external auditory canals are patent EYES: Extraocular muscles are intact, pupils are equally round and reactive to light and accommodation MUSCULOSKELETAL: Well developed, well nourished, good range of motion ENDOCRINE: No thyromegaly was palpated LYMPHATICS: No cervical chain or axillary nodes were noted HEMATOPOIETIC: No bruising NECK: Supple, no JVD, no thyromegaly was noted. LUNGS: Clear to auscultation in all lung barragan without rhonchi or wheezing. HEART: RRR, S1, S2 present. Peripheral pulses intact, no obvious murmurs were noted. ABDOMEN: She has several old incisions that have healed well and she also has a feeding tube in place. Currently, there is a red Richard in place of her feeding tube. We are awaiting the replacement of the actual feeding tube. EXTREMITIES: Without any cyanosis, clubbing, or edema. Pedal pulses intact, Homans sign is negative. NEUROLOGIC: Normal speech, normal tone. A and O x 3, moves all extremities, no obvious focal deficits. PSYCHIATRIC: Normal affect, normal mood. Stable. SKIN: No ulcerations or rashes, good skin turgor, no jaundice. VASCULAR: Good capillary refill, neurovascular bundle appears to be intact. LABORATORY DATA: Hematology is normal. Electrolytes: Sodium is a little high at 146, CO2 is a little high at 35 and anion gap was low at 4. Creatinine is low at 0.5, glucose 115. COVID testing is negative. ASSESSMENT AND PLAN: Failed PEG tube. Clinically, she is stable to go to Interventional Radiology to have the feeding tube replaced and once that is done, I suspect she could go home. DISPOSITION: Home. ACTIVITY: As tolerated. DIET: Low sodium. MEDICATIONS: Please see the MRAD. Total time 34 minutes. MINNIE/ABRAN/SHELIA COYNE: MINNIE/ned TID: [id number]
[2021-07-01] MEDS ORDERED: oxyCODONE/APAP 5/325 1 TAB TABLET PO PRN (12:00)
[2021-07-01] MEDS ORDERED: ASPIRIN ENTERIC COATED 81 MG TABLET.DR. PO SCH (12:30)
--- NOTE | 2021-07-01 12:30 | PDOC ---
CASS DEVINE ORDER MANAGER 07/01/21 1230: SURGICAL PROGRESS NOTE DATE: 07/01/21 TIME: 12:27 Subjective patient known from previous surgeries issues with g tube falling out, per pt balloon was inflated IR was able to successfully replace tube Vital Signs Vital Signs Date Time Temp Pulse Resp B/P (MAP) Pulse Ox O2 Delivery O2 Flow Rate FiO2 07/01/21 12:14 Room Air 07/01/21 11:05 20 96 5.0 07/01/21 11:00 70 123/72 (89) 07/01/21 07:00 98.7 98.7 I&O Intake and Output 07/01/21 07:00 Intake Total 0 ml Balance 0 ml Intake Oral 0 ml # Voids 1 General: Alert, Oriented X3, Cooperative Abdomen: Soft, Other (g tube in place) Labs Laboratory Tests Test 06/30/21 23:23 White Blood Count 6.5 x10^3/uL (4.0-11.0) Red Blood Count 4.02 x10^6/uL (3.50-5.40) Hemoglobin 13.1 g/dL (12.0-15.5) Hematocrit 40.9 % (36.0-47.0) Mean Corpuscular Volume 102 fL (79-100) Mean Corpuscular Hemoglobin 33 pg (25-35) Mean Corpuscular Hemoglobin Concent 32 g/dL (31-37) Red Cell Distribution Width 14.5 % (11.5-14.5) Platelet Count 236 x10^3/uL (140-400) Neutrophils (%) (Auto) 45 % (31-73) Lymphocytes (%) (Auto) 42 % (24-48) Monocytes (%) (Auto) 9 % (0-9) Eosinophils (%) (Auto) 3 % (0-3) Basophils (%) (Auto) 1 % (0-3) Neutrophils # (Auto) 3.0 x10^3/uL (1.8-7.7) Lymphocytes # (Auto) 2.7 x10^3/uL (1.0-4.8) Monocytes # (Auto) 0.6 x10^3/uL (0.0-1.1) Eosinophils # (Auto) 0.2 x10^3/uL (0.0-0.7) Basophils # (Auto) 0.1 x10^3/uL (0.0-0.2) Sodium Level 146 mmol/L (136-145) Potassium Level 4.3 mmol/L (3.5-5.1) Chloride Level 107 mmol/L (98-107) Carbon Dioxide Level 35 mmol/L (21-32) Anion Gap 4 (6-14) Blood Urea Nitrogen 9 mg/dL (7-20) Creatinine 0.5 mg/dL (0.6-1.0) Estimated GFR (Cockcroft-Gault) 127.6 BUN/Creatinine Ratio 18 (6-20) Glucose Level 115 mg/dL (70-99) Calcium Level 8.6 mg/dL (8.5-10.1) Total Bilirubin 0.3 mg/dL (0.2-1.0) Aspartate Amino Transf (AST/SGOT) 17 U/L (15-37) Alanine Aminotransferase (ALT/SGPT) 19 U/L (14-59) Alkaline Phosphatase 57 U/L (46-116) Total Protein 5.8 g/dL (6.4-8.2) Albumin 2.7 g/dL (3.4-5.0) Albumin/Globulin Ratio 0.9 (1.0-1.7) SARS-CoV-2 Antigen (Rapid) Negative (NEGATIVE) Laboratory Tests Test 06/30/21 23:23 White Blood Count 6.5 x10^3/uL (4.0-11.0) Red Blood Count 4.02 x10^6/uL (3.50-5.40) Hemoglobin 13.1 g/dL (12.0-15.5) Hematocrit 40.9 % (36.0-47.0) Mean Corpuscular Volume 102 fL (79-100) Mean Corpuscular Hemoglobin 33 pg (25-35) Mean Corpuscular Hemoglobin Concent 32 g/dL (31-37) Red Cell Distribution Width 14.5 % (11.5-14.5) Platelet Count 236 x10^3/uL (140-400) Neutrophils (%) (Auto) 45 % (31-73) Lymphocytes (%) (Auto) 42 % (24-48) Monocytes (%) (Auto) 9 % (0-9) Eosinophils (%) (Auto) 3 % (0-3) Basophils (%) (Auto) 1 % (0-3) Neutrophils # (Auto) 3.0 x10^3/uL (1.8-7.7) Lymphocytes # (Auto) 2.7 x10^3/uL (1.0-4.8) Monocytes # (Auto) 0.6 x10^3/uL (0.0-1.1) Eosinophils # (Auto) 0.2 x10^3/uL (0.0-0.7) Basophils # (Auto) 0.1 x10^3/uL (0.0-0.2) Sodium Level 146 mmol/L (136-145) Potassium Level 4.3 mmol/L (3.5-5.1) Chloride Level 107 mmol/L (98-107) Carbon Dioxide Level 35 mmol/L (21-32) Anion Gap 4 (6-14) Blood Urea Nitrogen 9 mg/dL (7-20) Creatinine 0.5 mg/dL (0.6-1.0) Estimated GFR (Cockcroft-Gault) 127.6 BUN/Creatinine Ratio 18 (6-20) Glucose Level 115 mg/dL (70-99) Calcium Level 8.6 mg/dL (8.5-10.1) Total Bilirubin 0.3 mg/dL (0.2-1.0) Aspartate Amino Transf (AST/SGOT) 17 U/L (15-37) Alanine Aminotransferase (ALT/SGPT) 19 U/L (14-59) Alkaline Phosphatase 57 U/L (46-116) Total Protein 5.8 g/dL (6.4-8.2) Albumin 2.7 g/dL (3.4-5.0) Albumin/Globulin Ratio 0.9 (1.0-1.7) SARS-CoV-2 Antigen (Rapid) Negative (NEGATIVE) Problem List Problems Medical Problems: (1) Encounter for care related to feeding tube Status: Acute Assessment/Plan successful g tube replacement can dc from surgical pov Justicifation of Admission Dx: Justifications for Admission: Justification of Admission Dx: Comment: LONG MORELAND MD 07/01/21 1253: SURGICAL PROGRESS NOTE Assessment/Plan Pt seen and examined. Agree with Ms. Devine's note Pt with mild soreness at G-tube reinsertation site abd soft, ND, NTTP shweta PO doing well, OK to d/c home. F/u PRN. Thanks for consult! CASS DEVINE APRN Jul 01, 2021 12:30 LONG MORELAND MD Jul 01, 2021 12:53
[2021-07-01] MEDS ORDERED: BACLOFEN 10 MG TABLET. PO SCH (14:00)
--- NOTE | 2021-07-01 14:21 | NUR ---
Discharge instructions given. Answered questions and concerns. Verbalized understanding. Spoke with daughter also on phone. Escorted out by w/c. Daughter at main entrance.
--- NOTE | 2021-07-01 15:28 | RAD ---
Fluoroscopically guided replacement of a percutaneous gastrostomy tube 07/01/2021 INDICATION: Catheter had been inadvertently removed and replaced with a Fields catheter in the ER Consent: The procedure was explained in its entirety to the patient or the patients designated repres entative by a member of the treatment team, including a discussion of the risks, benefits and commonl y accepted alternatives to the procedure, as well as the expected consequences of no therapy whatsoev er. Discussion of the risks included, but was not limited to, those that are most frequent and thos e that are rare but possibly severe or life-threatening, as well as the possibility of unforeseen com plications. Discussion: The anterior abdomen was prepped and draped using sterile barrier technique. This include s the pre-existing gastrostomy tube. Small amount contrast was administered to the tube confirming in tragastric location. The catheter was removed over wire and replaced with a new 18 Samoan gastrostomy tube. The retention balloon was inflated and retracted against the anterior gastric wall. Contrast w as again administered confirming appropriate placement. Sterile dressings were applied. No immediate complications were identified. Fluoroscopy time: 1.1 minutes Dose area product 3 Stiles centimeter squared Sedation: The procedure was performed under conscious sedation including continuous cardiopulmonary m onitoring via a dedicated sedation nurse. [id number] sedation time: 23 minutes IMPRESSION: Replacement of percutaneous gastrostomy tube with fluoroscopic guidance Electronically signed by: Ayo Montoya MD (07/01/2021 3:26 PM) [id number]
[2021-07-01] MEDS ORDERED: ATORVASTATIN CALCIUM 10 MG TABLET. PO SCH (21:00)
== END 2021-07-01 14:25 | disposition home or self-care (01) ==
LOC: ER 16:23 → 4 NORTH 22:15 → INTOOBSV 22:15 → 4 NORTH 23:58
PROVIDERS: ADMIT Internal Medicine; ATTEND Internal Medicine
DX: K94.23 Gastrostomy malfunction (principal); Z20.822 Contact with and (suspected) exposure to COVID-19; I11.0 Hypertensive heart disease with heart failure; I50.9 Heart failure, unspecified; I34.0 Nonrheumatic mitral (valve) insufficiency; J44.9 Chronic obstructive pulmonary disease, unspecified; K22.70 Barrett's esophagus without dysplasia; M81.0 Age-related osteoporosis without current pathological fracture; I95.9 Hypotension, unspecified; M79.7 Fibromyalgia; E78.00 Pure hypercholesterolemia, unspecified; E78.5 Hyperlipidemia, unspecified; F17.200 Nicotine dependence, unspecified, uncomplicated; Z85.850 Personal history of malignant neoplasm of thyroid; Z90.49 Acquired absence of other specified parts of digestive tract; Z90.710 Acquired absence of both cervix and uterus; Z90.81 Acquired absence of spleen; Z99.81 Dependence on supplemental oxygen
CPT/HCPCS: 36415; 43762; 49450; 51702; 80053; 85025; 87426; 96374; 96375; 99152; 99153; 99284; B4087; C1769; G0378; J2250; J3010; J7030; Q9966; U0003; G0379; 99285-25